=== PATIENT | female | born 1960 | race Caucasian/White ===

== ENCOUNTER 2023-05-11 07:26 | Day surgery (SDC) | payer OTHER ==
[2023-05-11] MEDS ORDERED: LACTATED RINGERS 1,000 ML IV ONE (11:47)
[2023-05-11 11:53] LABS: Glucose,Whole Blood 173 mg/dL (70-110)
[2023-05-11 12:02] VITALS: RESP 16; TEMP 98
[2023-05-11] MEDS ORDERED: ONDANSETRON 4 MG/2 ML VIAL ONE (12:08)
[2023-05-11] MEDS ORDERED: ONDANSETRON 4 MG/2 ML VIAL IVP ONE (12:10)
[2023-05-11] MEDS ORDERED: PROPOFOL 10 MG/ML 20 ML VIAL IV ONE (12:42)
[2023-05-11] MEDS ORDERED: LIDOCAINE 1% INJ 10MG/ML (20 ML MDV) ONE (12:42)
--- NOTE | 2023-05-11 12:54 | P.PCN ---
Date of Procedure: 05/11/23 Procedure(s) Performed: BRIEF HISTORY: Patient is a 62-year-old, pleasant, white female with history of liver cirrhosis was recently diagnosed with liver lesions on CT of abdomen and pelvis and subsequently had a liver biopsy revealed adenocarcinoma of unknown primary.. She is following with Dr. Louise. He scheduled for an upper endoscopy to evaluate for possible upper GI primary. Patient also has been complaining of intermittent nausea vomiting and epigastric discomfort. PROCEDURE PERFORMED: Esophagogastroduodenoscopy with biopsy. PREOPERATIVE DIAGNOSIS: Adenocarcinoma with liver , rule out occult GI primary. IV sedation per anesthesia. PROCEDURE: After informed consent was obtained, the patient was brought into the endoscopy unit. IV sedation was administered by Anesthesia under continuous monitoring. Initially the Olympus GIF-140 video endoscope was inserted into the mouth. Esophagus intubated without any difficulty. It was gradually advanced into the stomach and duodenum and carefully examined. The bulb and the second part of the duodenum appeared normal. The scope at this time was withdrawn to the stomach, adequately insufflated with air, and upon careful examination, mucosa of the antrum, body, had mild diffuse gastritis and biopsies were done from this area. Mucosa of the cardia and the fundus appeared normal. The scope was then withdrawn into the esophagus. The GE junction was located at 39 cm from the incisors. The esophagus appeared normal. There were small distal esophageal varices identified. There were no erosions or ulcerations seen and the patient tolerated the procedure well. IMPRESSION: 1. Diffuse gastritis. 2. Small esophageal varices 3. No evidence of upper GI malignancy. RECOMMENDATIONS: The findings of this examination were discussed with the patient as well as a family. All with the biopsy results. She was advised to follow with Dr. Louise as scheduled..
[2023-05-11 13:17] VITALS: PULSE 66
[2023-05-11 13:42] VITALS: BP 129/67
== END 2023-05-11 13:49 | disposition home or self-care (01) ==
LOC: ORWHC2ENDO 07:26
PROVIDERS: ATTEND Internal Medicine Gastroenterology
DX: K29.50 Unspecified chronic gastritis without bleeding (principal); K74.60 Unspecified cirrhosis of liver; I85.10 Secondary esophageal varices without bleeding; I10 Essential (primary) hypertension; E78.5 Hyperlipidemia, unspecified; E11.9 Type 2 diabetes mellitus without complications; F41.9 Anxiety disorder, unspecified; Z79.890 Hormone replacement therapy; Z79.84 Long term (current) use of oral hypoglycemic drugs; Z79.899 Other long term (current) drug therapy
CPT/HCPCS: 88305; 43239; J2405; J2001; J2704

== ENCOUNTER 2023-05-30 09:00 | Day surgery (SDC) | payer OTHER ==
[2023-05-25 10:43] VITALS: BMI 39.8
[~2023-05-30 09:00] MED LIST: HYDROmorphone 0.5 MG/0.5 ML SYRINGE IVP PRN; LIDOCAINE 1% (10MG/ML) FOR IV START INTRADERMA PRN; Pre Op ABX Message 1 EACH MISC MISCELLANE ONE
[2023-05-30 09:43] LABS: Glucose,Whole Blood 116 mg/dL (70-110)
[2023-05-30] MEDS: LACTATED RINGERS 1,000 ML IV SCH (09:45)
[2023-05-30 09:50] LABS: Anisocytosis Slight; Basophils % (A) 0 %; Eosinophils # (A) 0.2 k/uL (0-0.7); Eosinophils % (A) 2 %; HCT 44.2 % (34.0-46.0); HGB 14.2 gm/dL (11.4-16.0); Lymphocytes % (A) 13 %; MCH 27.4 pg (25.0-35.0); MCHC 32.2 g/dL (31.0-37.0); MCV 85.2 fL (80.0-100.0); Mean Platelet Volume 8.9; Monocytes # (A) 0.4 k/uL (0-1.0); Monocytes % (A) 5 %; Neutrophils # (A) 5.8 k/uL (1.3-7.7); Neutrophils % (A) 78 %; Platelet Count 182 k/uL (150-450); RBC 5.19 m/uL (3.80-5.40); RDW 16.6 % (11.5-15.5); WBC 7.4 k/uL (3.8-10.6)
[2023-05-30] MEDS: ACETAMINOPHEN TAB 500 MG TAB PO PRN (09:50)
[2023-05-30] MEDS: ONDANSETRON 4 MG/2 ML VIAL IVP ONE (09:50)
[2023-05-30] MEDS: HEPARIN SODIUM,PORCINE 5,000 UNIT/ML 1 ML VIAL SQ PRN (09:50)
[2023-05-30] MEDS: DEXAMETHASONE SOD PHOSPHATE 4 MG/ML 1 ML VIAL IVP ONE (09:50)
[2023-05-30 10:15] LABS: ALT 36 U/L (4-34); African American GFR (CKD) >90 (>60 ml/min/1.73 sqM); Albumin 4.2 g/dL (3.5-5.0); Anion Gap 7 mmol/L; Blood Urea Nitrogen 15 mg/dL (7-17); Calcium 9.4 mg/dL (8.4-10.2); Carbon Dioxide 32 mmol/L (22-30); Chloride 98 mmol/L (98-107); Glucose 125 mg/dL (74-99); Non-African American GFR(CKD) 89 (>60 ml/min/1.73 sqM); Sodium 137 mmol/L (137-145); Total Bilirubin 2.6 mg/dL (0.2-1.3); Total Protein 7.7 g/dL (6.3-8.2)
[2023-05-30 10:42] LABS: AST 66 U/L (14-36); Potassium 4.1 mmol/L (3.5-5.1)
[2023-05-30 10:43] LABS: Alkaline Phosphatase 172 U/L (38-126)
[2023-05-30] MEDS: FAMOTIDINE 20 MG/2 ML VIAL IVP ONE (10:45)
[2023-05-30] MEDS ORDERED: fentaNYL (PF) 50 MCG/ML 2 ML AMP ONE (11:53)
[2023-05-30] MEDS ORDERED: KETOROLAC 15 MG/ML 1 ML VIAL ONE (11:53)
[2023-05-30] MEDS ORDERED: MIDAZOLAM 2 MG/2 ML VIAL ONE (11:53)
[2023-05-30] MEDS ORDERED: PROPOFOL 10 MG/ML 20 ML VIAL IV ONE (11:53)
[2023-05-30] MEDS ORDERED: LIDOCAINE 1% INJ 10MG/ML (20 ML MDV) ONE (11:53)
[2023-05-30] MEDS ORDERED: SUCCINYLCHOLINE CHLORIDE 200 MG/10 ML VIAL IV ONE (11:53)
[2023-05-30] MEDS ORDERED: PHENYLEPHRINE-0.9% NACL SYG 1,000 MCG/10 ML SYRINGE ONE (11:53)
[2023-05-30] MEDS: SODIUM CHLORIDE 0.9% 50 ML with ceFAZolin 2,000 MG IV ONE (11:58)
[2023-05-30] MEDS: LIDOCAINE 0.5%-EPI 1:200,000 50 ML VIAL SQ ONE ×2 (12:26)
[2023-05-30] MEDS: LACTATED RINGERS 1,000 ML IV ONE (12:42)
--- NOTE | 2023-05-30 12:46 | P.OP ---
Date of Procedure: 05/30/23 Preoperative Diagnosis: Pancreatic cancer Postoperative Diagnosis: Pancreatic cancer Procedure(s) Performed: right subclavian Port-A-Cath Anesthesia: MAC Surgeon: Alan Valverde Estimated Blood Loss (ml): 5 Pathology: none sent Condition: stable Disposition: PACU Description of Procedure: The patient was placed on the operating table in the supine position. The patient received IV sedation. The patient's chest was prepped and draped in the usual sterile fashion. A roll had been placed between the shoulder blades in a longitudinal fashion. After prepping and draping the skin was anesthetized 1% local Xylocaine. And then using the Seldinger technique the subclavian vein was cannulated. A wire was placed into the vein and fluoroscopy position the wire at the atrial caval junction. Next the dilator sheath was placed over top the wire and the wire was withdrawn. The catheter was positioned at the atriocaval position. The catheter was placed through the sheath after the dilator was withdrawn. The sheath was then withdrawn. Position of the catheter was confirm ed with fluoroscopy. The Port-A-Cath was connected to the catheter. The Port-A-Cath was flushed with saline and then heparinized saline. The skin was closed interrupted 3-0 Monocryl suture. Dermabond was applied. Patient tolerated procedure well and was sent to recovery room stable condition.
--- NOTE | 2023-05-30 13:02 | FL ---
EXAMINATION TYPE: FL guidance operating room Intraoperative/procedural fluoroscopic services were pro vided. Total fluoroscopy time is 6 seconds with a total of 1 submitted images to PACS. Please see the operative/procedural note for further details. DAP: 0.4943 Gycm2
[2023-05-30 13:11] LABS: Glucose,Whole Blood 183 mg/dL (70-110)
[2023-05-30 13:34] VITALS: TEMP 97.2
[2023-05-30 14:05] VITALS: RESP 18
--- NOTE | 2023-05-30 14:17 | XR ---
EXAMINATION TYPE: XR chest 1V portable DATE OF EXAM: 05/30/2023 1:20 PM CLINICAL INDICATION:Female, 62 years old with history of Right subclavian Port-A-Cath; [facility] COMPARISON: None TECHNIQUE: XR chest 1V portable Frontal view of the chest. FINDINGS: Lungs/Pleura: There is no evidence of pleural effusion, focal consolidation, or pneumothorax. Pulmonary vascularity: Unremarkable. Heart/mediastinum: Cardiomediastinal silhouette is unremarkable. Musculoskeletal: No acute osseous pathology. Other findings: None Lines/Tubes: [id number] projecting over the right hemithorax with distal tip at the superior vena cava. IMPRESSION: No acute cardiopulmonary disease/process.
[2023-05-30 14:35] VITALS: BP 95/51; PULSE 78
== END 2023-05-30 14:43 | disposition home or self-care (01) ==
LOC: OR 09:00
PROVIDERS: ATTEND Surgery
DX: C25.9 Malignant neoplasm of pancreas, unspecified (principal); I10 Essential (primary) hypertension; E78.5 Hyperlipidemia, unspecified; E11.9 Type 2 diabetes mellitus without complications; E07.9 Disorder of thyroid, unspecified; G43.909 Migraine, unspecified, not intractable, without status migrainosus; K21.9 Gastro-esophageal reflux disease without esophagitis; Z79.890 Hormone replacement therapy; Z79.84 Long term (current) use of oral hypoglycemic drugs; Z79.899 Other long term (current) drug therapy; Z79.4 Long term (current) use of insulin
CPT/HCPCS: 80053; 85025; 71045; 36561; C1788; J2250; J0330; J1644; J1100; J2405; J0690; J2001; J3010; J3490; J1885; J2704; J2371

== ENCOUNTER 2023-06-13 14:26 | Inpatient (IN) | payer OTHER ==
--- NOTE | 2023-06-13 14:44 | ED ---
General Adult HPI - General Chief complaint: Nausea/Vomiting/Diarrhea Stated complaint: Nausea,Vomiting Time Seen by Provider: 06/13/23 14:30 Source: patient, EMS, RN notes reviewed Mode of arrival: EMS Limitations: no limitations - History of Present Illness Initial comments: Patient is a pleasant 62-year-old female present to the emergency department worried about dehydration. Patient does have history of stage IV pancreatic cancer with chemotherapy just 4 days ago. Since that time patient has had some nausea and vomiting. Decreased oral intake. Patient has abdominal discomfort that has been chronic since diagnosis several months ago. No new abdominal pain. No fever. Patient also has history of cirrhosis. - Related Data Home Medications Medication Instructions Recorded Confirmed Aspirin EC [Ecotrin Low Dose] 81 mg PO DAILY 05/11/23 06/13/23 Atorvastatin [Lipitor] 40 mg PO HS 05/11/23 06/13/23 Ergocalciferol [Vitamin D2 (1250 1,250 mcg PO FR 05/11/23 06/13/23 Mcg = 31988 Iu)] Gabapentin 600 mg PO TID 05/11/23 06/13/23 Levothyroxine Sodium [Synthroid] 50 mcg PO DAILY 05/11/23 06/13/23 Metoprolol Tartrate [Lopressor] 100 mg PO BID 05/11/23 06/13/23 Pantoprazole [Protonix] 40 mg PO DAILY 05/11/23 06/13/23 Triamterene/Hydrochlorothiazid 1 cap PO DAILY 05/11/23 06/13/23 [Triamterene-Hctz 37.5-25 mg Cp] metFORMIN HCL 1,000 mg PO BID 05/11/23 06/13/23 oxyCODONE HCL [Oxycodone HCl] 10 mg PO QID 05/25/23 06/13/23 Insulin Aspart [NovoLOG Flexpen] 18 units SQ TID-W/MEALS 06/13/23 06/13/23 Insulin Glargine,Hum.rec.anlog 55 units SQ HS 06/13/23 06/13/23 [Lantus Solostar Pen] Megestrol [Megace] 400 mg PO BID 06/13/23 06/13/23 Ondansetron Odt [Zofran Odt] 4 mg PO Q8HR PRN 06/13/23 06/13/23 rOPINIRole HCL [Requip] 2 mg PO DAILY 06/13/23 06/13/23 Allergies Allergy/AdvReac Type Severity Reaction Status Date / Time No Known Allergies Allergy Verified 06/13/23 16:06 Review of Systems ROS Statement: Those systems with pertinent positive or pertinent negative responses have been documented in the HPI. ROS Other: All systems not noted in ROS Statement are negative. Constitutional: Denies: fever ENT: Denies: throat pain Gastrointestinal: Reports: as per HPI, abdominal pain, nausea, vomiting Musculoskeletal: Denies: back pain Past Medical History Past Medical History: Cancer, Diabetes Mellitus, GERD/Reflux, Hyperlipidemia, Hypertension, Liver Disease, Thyroid Disorder Additional Past Medical History / Comment(s): Hx chest pain 2019, had heart cath - neg, determined it was from anxiety. Cirrohsis of the liver. Migraines. Current pancreatic cancer. History of Any Multi-Drug Resistant Organisms: MRSA Date of last positivie culture/infection: 2017 MDRO Source:: "Blood infection" Past Surgical History: Heart Catheterization, Orthopedic Surgery Additional Past Surgical History / Comment(s): Broke right leg - has francesco, plate and screws, screw in left baby toe, ganglion cyst removed from foot, bilateral cataract surgery. Past Anesthesia/Blood Transfusion Reactions: Motion Sickness, Postoperative Nausea & Vomiting (PONV) Past Psychological History: No Psychological Hx Reported Smoking Status: Never smoker Past Alcohol Use History: Rare Past Drug Use History: None Reported - Past Family History Mother Family Medical History: Cancer Additional Family Medical History / Comment(s): Colon cancer. Father Family Medical History: Cancer Additional Family Medical History / Comment(s): Colon cancer. General Exam Limitations: no limitations General appearance: alert, in no apparent distress Head exam: Present: normocephalic Eye exam: Present: normal appearance Neck exam: Present: normal inspection Respiratory exam: Present: normal lung sounds bilaterally Cardiovascular Exam: Present: regular rate, normal rhythm GI/Abdominal exam: Present: soft, tenderness (Moderate diffuse tenderness). Absent: distended Extremities exam: Present: normal inspection Neurological exam: Present: alert Psychiatric exam: Present: normal affect, normal mood Skin exam: Present: normal color Course Vital Signs 06/13/23 14:28 Temperature 99.4 F Pulse Rate 84 Respiratory 18 Rate Blood Pressure 127/71 O2 Sat by Pulse 95 Oximetry Medical Decision Making - Medical Decision Making Was pt. sent in by a medical professional or institution (GIANLUCA Reed, [employer]CH[employer]IC, urgent care, hospital, or [facility]...) When possible be specific @ -No Did you speak to anyone other than the patient for history (EMS, parent, family, police, friend...)? What history was obtained from this source @ -No Did you review nursing and triage notes (agree or disagree)? Why? @ -I reviewed and agree with nursing and triage notes Were old charts reviewed (outside hosp., previous admission, EMS record, old EKG, old radiological studies, urgent care reports/EKG's, [facility] records)? Report findings @ -Previous procedures reviewed. Previous labs reviewed. Differential Diagnosis (chest pain, altered mental status, abdominal pain women, abdominal pain men, vaginal bleeding, weakness, fever, dyspnea, syncope, headache, dizziness, GI bleed, back pain, seizure, CVA, palpatations, mental health, musculoskeletal)? @ -Differential Abdominal Pain Women: Appendicitis, Cholecystitis, diverticulosis, ischemic bowel, pancreatitis, hepatitis, UTI, gastroenteritis, AAA, incarcerated hernia, bowel obstruction, constipation, inflammatory bowel, hepatitis, peptic ulcer disease, splenic infarction, perforated viscus, vulvitis, ovarian torsion, PID, kidney stone, placenta abruption, this is not meant to be an all-inclusive list EKG interpreted by me (3pts min.). @ -As above X-rays interpreted by me (1pt min.). @ -None done CT interpreted by me (1pt min.). @ -None done U/S interpreted by me (1pt. min.). @ -None done What testing was considered but not performed or refused? (CT, X-rays, U/S, labs)? Why? @ -Considered imaging however patient states pain is chronic and unchanged What meds were considered but not given or refused? Why? @ -None Did you discuss the management of the patient with other professionals (professionals i.e. GIANLUCA Reed, TRESTLE MECHANIC, lab, RT, psych nurse, social media marketer, mobile nurse, teacher, medical corps officer, nurse case manager)? Give summary @ -Case was discussed with practitioner Pippa massey with Dr. Miller who will admit covering Dr. Garcia Was smoking cessation discussed for >3mins.? @ -No Was critical care preformed (if so, how long)? @ -No Were there social determinants of health that impacted care today? How? (Homelessness, low income, unemployed, alcoholism, drug addiction, transportation, low edu. Level, literacy, decrease access to med. care, nursing home, rehab)? @ -No Was there de-escalation of care discussed even if they declined (Discuss DNR or withdrawal of care, Hospice)? DNR status @ -No What co-morbidities impacted this encounter? (DM, HTN, Smoking, COPD, CAD, Cancer, CVA, ARF, Chemo, Hep., AIDS, mental health diagnosis, sleep apnea, morbid obesity)? @ -Underlying stage IV pancreatic cancer Was patient admitted / discharged? Hospital course, mention meds given and route, prescriptions, significant lab abnormalities, going to OR and other pertinent info. @ -Patient reevaluated and feels somewhat better. Patient still has nausea and discomfort and is not comfortable with discharge home. Patient will be admitted with oncology consult. Admission orders written. Undiagnosed new problem with uncertain prognosis? @ -No Drug Therapy requiring intensive monitoring for toxicity (Heparin, Nitro, Insulin, Cardizem)? @ -No Were any procedures done? @ -No Diagnosis/symptom? @ -Vomiting Acute, or Chronic, or Acute on Chronic? @ -Acute Uncomplicated (without systemic symptoms) or Complicated (systemic symptoms)? @ -Default Side effects of treatment? @ -No Exacerbation, Progression, or Severe Exacerbation? @ -No Poses a threat to life or bodily function? How? (Chest pain, [place], HI, pneumonia, PE, COPD, DKA, ARF, appy, cholecystitis, CVA, Diverticulitis, Homicidal, Suicidal, threat to staff... and all critical care pts) @ -No - Lab Data Result diagrams: 06/13/23 15:10 06/13/23 15:38 Lab Results 06/13/23 06/13/23 06/13/23 Range/Units 15:10 15:10 15:38 WBC 1.5 L (3.8-10.6) k/uL RBC 4.01 (3.80-5.40) m/uL Hgb 11.6 (11.4-16.0) gm/dL Hct 34.6 (34.0-46.0) % MCV 86.2 (80.0-100.0) fL MCH 28.9 (25.0-35.0) pg MCHC 33.5 (31.0-37.0) g/dL RDW 16.6 H (11.5-15.5) % Plt Count 90 L D (150-450) k/uL MPV 13.5 Neutrophils % 88 % Lymphocytes % 8 % Monocytes % 2 % Eosinophils % 1 % Basophils % 0 % Neutrophils # 1.4 (1.3-7.7) k/uL Lymphocytes # 0.1 L (1.0-4.8) k/uL Monocytes # 0.0 (0-1.0) k/uL Eosinophils # 0.0 (0-0.7) k/uL Basophils # 0.0 (0-0.2) k/uL Manual Slide Review Performed Large Platelets Present Polychromasia Present Anisocytosis Slight PT 11.4 (10.0-12.5) sec INR 1.0 (<1.2) APTT 26.8 (22.0-30.0) sec Sodium 136 L (137-145) mmol/L Potassium 4.0 (3.5-5.1) mmol/L Chloride 103 (98-107) mmol/L Carbon Dioxide 31 H (22-30) mmol/L Anion Gap 2 mmol/L BUN 22 H (7-17) mg/dL Creatinine 0.53 (0.52-1.04) mg/dL Est GFR (CKD-EPI)AfAm >90 (>60 ml/min/1.73 sqM) Est GFR (CKD-EPI)NonAf >90 (>60 ml/min/1.73 sqM) Glucose 240 H (74-99) mg/dL Calcium 8.0 L (8.4-10.2) mg/dL Total Bilirubin 4.0 H (0.2-1.3) mg/dL AST 117 H (14-36) U/L ALT 118 H (4-34) U/L Alkaline Phosphatase 199 H (38-126) U/L Total Protein 5.6 L (6.3-8.2) g/dL Albumin 2.7 L (3.5-5.0) g/dL Amylase <30 L (30-110) U/L Lipase 51 (23-300) U/L Disposition Clinical Impression: Vomiting Disposition: ADMITTED IP TO THIS HOSP Is patient prescribed a controlled substance at d/c from ED?: No Referrals: Parth Merritt MD [Primary Care Provider] - 1-2 days Time of Disposition: 16:57
[2023-06-13] MEDS: HYDROmorphone 1 MG/ML 1 ML SYRINGE IVP STA (14:58)
[2023-06-13] MEDS: FAMOTIDINE 20 MG/2 ML VIAL IV STA (14:58)
[2023-06-13] MEDS: ONDANSETRON 4 MG/2 ML VIAL IVP STA (14:58)
[2023-06-13] MEDS: SODIUM CHLORIDE 0.9% 1,000 ML IV STA (14:59)
[2023-06-13 15:22] LABS: Anisocytosis Slight; Basophils % (A) 0 %; Eosinophils % (A) 1 %; HCT 34.6 % (34.0-46.0); HGB 11.6 gm/dL (11.4-16.0); Lymphocytes # (A) 0.1 k/uL (1.0-4.8); Lymphocytes % (A) 8 %; MCH 28.9 pg (25.0-35.0); MCHC 33.5 g/dL (31.0-37.0); MCV 86.2 fL (80.0-100.0); Mean Platelet Volume 13.5; Monocytes % (A) 2 %; Neutrophils # (A) 1.4 k/uL (1.3-7.7); Neutrophils % (A) 88 %; RBC 4.01 m/uL (3.80-5.40); RDW 16.6 % (11.5-15.5); WBC 1.5 k/uL (3.8-10.6)
[2023-06-13 15:46] LABS: Partial Thromboplastin Time 26.8 sec (22.0-30.0); Prothrombin Time 11.4 sec (10.0-12.5)
[2023-06-13 15:58] LABS: Large Platelets Present; Platelet Count 90 k/uL (150-450)
[2023-06-13 15:59] LABS: Polychromasia Present
[2023-06-13 16:17] LABS: ALT 118 U/L (4-34); AST 117 U/L (14-36); African American GFR (CKD) >90 (>60 ml/min/1.73 sqM); Albumin 2.7 g/dL (3.5-5.0); Alkaline Phosphatase 199 U/L (38-126); Amylase <30 U/L (30-110); Anion Gap 2 mmol/L; Blood Urea Nitrogen 22 mg/dL (7-17); Carbon Dioxide 31 mmol/L (22-30); Chloride 103 mmol/L (98-107); Glucose 240 mg/dL (74-99); Lipase 51 U/L (23-300); Non-African American GFR(CKD) >90 (>60 ml/min/1.73 sqM); Sodium 136 mmol/L (137-145); Total Protein 5.6 g/dL (6.3-8.2)
[2023-06-13] MEDS ORDERED: NALOXONE 0.4 MG/ML 1 ML VIAL IV PRN (16:57)
[2023-06-13] MEDS: SODIUM CHLORIDE 0.9% 1,000 ML IV SCH (17:58)
[2023-06-13 19:02] LABS: Appearance,Urine Clear (Clear); Bilirubin,Urine 1+ (Negative); Blood,Urine Small (Negative); Color,Urine Yellow; Glucose,Urine (UA) Trace (Negative); Ketones,Urine 1+ (Negative); Leukocyte Esterase,Urine Small (Negative); Mucus,Urine Few /hpf; Nitrite,Urine Negative (Negative); Protein,Urine 1+ (Negative); RBC,Urine 4 /hpf (0-5); Specific Gravity,Urine 1.021 (1.001-1.035); Squamous Epithelial Cell,Urine 2 /hpf (0-4); WBC,Urine 7 /hpf (0-5)
[2023-06-13] MEDS: HYDROmorphone 1 MG/ML 1 ML SYRINGE IVP PRN (19:28)
[2023-06-13 20:56] LABS: Glucose,Whole Blood 228 mg/dL (70-110)
[2023-06-13] MEDS ORDERED: DEXTROSE 50% SYRINGE 50 ML IVP PRN (21:17)
[2023-06-13] MEDS: ATORVASTATIN 40 MG TAB PO SCH (21:43)
[2023-06-13] MEDS: MEGESTROL 400 MG/10 ML CUP PO SCH (21:43)
[2023-06-13] MEDS: metFORMIN 500 MG TAB PO SCH (21:44)
[2023-06-13] MEDS: GABAPENTIN 300 MG CAP PO SCH (21:44)
[2023-06-13] MEDS: INSULIN DETEMIR (LEVEMIR) 100 UNIT/ML SYR SQ SCH (21:50)
[2023-06-14 06:28] LABS: Glucose,Whole Blood 83 mg/dL (70-110)
[2023-06-14] MEDS: LEVOTHYROXINE 50 MCG TAB PO SCH (06:28)
[2023-06-14] MEDS: ONDANSETRON 4 MG/2 ML VIAL IVP PRN (06:33)
[2023-06-14] MEDS ORDERED: INSULIN ASPART (NovoLOG) 100 UNIT/ML VIAL SQ SCH (07:30)
[2023-06-14] MEDS: INSULIN ASPART (NovoLOG) 100 UNIT/ML VIAL SQ SCH (07:54)
[2023-06-14] MEDS: ASPIRIN 81 MG PO SCH (08:14)
[2023-06-14] MEDS: PANTOPRAZOLE 40 MG/10 ML VIAL IV SCH (08:17)
[2023-06-14 11:31] LABS: Amylase 15 U/L (23-121); Lipase 16 U/L (14-63); Magnesium 1.7 mg/dL (1.5-2.4)
[2023-06-14 11:33] LABS: ALT 95 U/L (8-44); AST 84 U/L (13-35); Albumin/Globulin Ratio 1.15 Ratio (1.60-3.17); Alkaline Phosphatase 195 U/L (41-126); Blood Urea Nitrogen 18.9 mg/dL (9.0-27.0); Calcium 8.3 mg/dL (8.7-10.3); Chloride 102 mmol/L (96-109); Globulin 2.6 g/dL (1.6-3.3); Glucose 74 mg/dL (70-110); Potassium 3.9 mmol/L (3.5-5.5); Sodium 140 mmol/L (135-145); Total Bilirubin 2.6 mg/dL (0.3-1.2); Total Protein 5.6 g/dL (6.2-8.2)
[2023-06-14 12:21] LABS: Basophils # (M) 0 X 10*3/uL (0.00-0.10); Eosinophils # (M) 0.05 X 10*3/uL (0.04-0.35); HCT 33.5 % (37.2-46.3); HGB 10.3 g/dL (12.0-15.0); Lymphocytes # (M) 0.24 X 10*3/uL (0.90-5.00); MCHC 30.7 g/dL (32.0-37.0); MCV 87.9 FL (80.0-97.0); Mean Platelet Volume 11.3 FL (9.5-12.2); Metamyelocytes % 2 % (0-0); Monocytes # (M) 0 X 10*3/uL (0.20-1.00); Myelocytes % 1 % (0-0); NRBC Per 100 WBC 0 X 10*3/uL (0.00-0.01); Neutrophils % (M) 75 %; Platelet Count 84 X 10*3/uL (140-440); RBC 3.81 X 10*6/uL (4.10-5.20); RBC Morphology Normal (Normal); RDW 17.6 % (11.5-14.5); WBC 1.33 X 10*3/uL (4.50-10.00)
[2023-06-14 12:48] LABS: Glucose,Whole Blood 56 mg/dL (70-110)
[2023-06-14] MEDS: DEXTROSE 50% SYRINGE 50 ML IVP PRN (12:49)
[2023-06-14 13:14] LABS: Glucose,Whole Blood 114 mg/dL (70-110)
[2023-06-14] MEDS ORDERED: Magnesium Replacement Protocol 1 EACH MISC MISCELLANE PRN (14:01)
--- NOTE | 2023-06-14 14:02 | P.HPIM ---
History of Present Illness H&P Date: 06/14/23 Patient is a 62 year old female with medical history of diabetes mellitus, GERD, hypertension, hyperlipidemia, hypothyroidism, liver cirrhosis, migraines, diagnosed with pancreatic cancer stage 4 and underwent first round of chemotherapy 4 days ago. Since then patient has been having nausea, vomiting, diarrhea, and unable to tolerate oral intake. Patient follows with oncology out of [place]. On admission WBC 1.5, platelet of 90, sodium 136, BUN 22, creatinine 0.53, calcium 8.0, total bilirubin 4.0, AST/ALT and alk phos are elevated. Urinalysis abnormal and not suggestive of infection. Patient was admitted to the hospital under internal medicine with consult placed to oncology. Patient was given a fluid bolus and started on maintenance IV fluids, and zofran. C.Dif will be checked. REVIEW OF SYSTEMS: CONSTITUTIONAL: No fever, no malaise, no fatigue. HEENT: No recent visual problems or hearing problems. Denied any sore throat. CARDIOVASCULAR: No chest pain, orthopnea, PND, no palpitations, no syncope. PULMONARY: No shortness of breath, no cough, no hemoptysis. GASTROINTESTINAL: No diarrhea, no nausea, no vomiting, no abdominal pain. NEUROLOGICAL: No headaches, no weakness, no numbness. HEMATOLOGICAL: Denies any bleeding or petechiae. GENITOURINARY: Denies any burning micturition, frequency, or urgency. MUSCULOSKELETAL/RHEUMATOLOGICAL: Denies any joint pain, swelling, or any muscle pain. ENDOCRINE: Denies any polyuria or polydipsia. The rest of the 14-point review of systems is negative. PHYSICAL EXAMINATION: GENERAL: The patient is alert and oriented x3, not in any acute distress. Well developed, well nourished. HEENT: Pupils are round and equally reacting to light. EOMI. No scleral icterus. No conjunctival pallor. Normocephalic, atraumatic. No pharyngeal erythema. No thyromegaly. CARDIOVASCULAR: S1 and S2 present. No murmurs, rubs, or gallops. PULMONARY: Chest is clear to auscultation, no wheezing or crackles. ABDOMEN: Soft, nontender, nondistended, normoactive bowel sounds. No palpable organomegaly. MUSCULOSKELETAL: No joint swelling or deformity. EXTREMITIES: No cyanosis, clubbing, or pedal edema. NEUROLOGICAL: Gross neurological examination did not reveal any focal deficits. SKIN: No rashes. Assessment and Plan Nausea vomiting diarrhea suspect secondary to recent chemotherapy for stage IV pancreatic cancer. Pancytopenia secondary to chemotherapy Transaminitis chronic and stable bilirubin improved from recent outpatient labs patient has history of liver cirrhosis He is mellitus type II Gastroesophageal reflux disease Hypertension Hyperlipidemia GI prophylaxis DVT prophylaxis Full code Continue on IV fluids Continue antiemetics Continue supportive care PT/OT consultation in place Repeat labs in the AM Check C.Dif level The impression and plan of care has been dictated by Pippa Marino, Nurse Practitioner as directed. Dr. Hao MD I have performed a history and physical examination and medical decision making of this patient, discussed the same with the dictator, and agree with the dictators assessment and plan as written, documented as a scribe. Based on total visit time, I have performed more than 50% of this visit. Past Medical History Past Medical History: Cancer, Diabetes Mellitus, GERD/Reflux, Hyperlipidemia, Hypertension, Liver Disease, Thyroid Disorder Additional Past Medical History / Comment(s): Hx chest pain 2019, had heart cath - neg, determined it was from anxiety. Cirrohsis of the liver. Migraines. Current pancreatic cancer. History of Any Multi-Drug Resistant Organisms: MRSA Date of last positivie culture/infection: 2017 MDRO Source:: "Blood infection" Past Surgical History: Heart Catheterization, Orthopedic Surgery Additional Past Surgical History / Comment(s): Broke right leg - has francesco, plate and screws, screw in left baby toe, ganglion cyst removed from foot, bilateral cataract surgery. Past Anesthesia/Blood Transfusion Reactions: Motion Sickness, Postoperative Nausea & Vomiting (PONV) Past Psychological History: No Psychological Hx Reported Smoking Status: Never smoker Past Alcohol Use History: Rare Past Drug Use History: None Reported - Past Family History Mother Family Medical History: Cancer Additional Family Medical History / Comment(s): Colon cancer. Father Family Medical History: Cancer Additional Family Medical History / Comment(s): Colon cancer. Medications and Allergies Home Medications Medication Instructions Recorded Confirmed Type Aspirin EC [Ecotrin Low Dose] 81 mg PO DAILY 05/11/23 06/13/23 History Atorvastatin [Lipitor] 40 mg PO HS 05/11/23 06/13/23 History Ergocalciferol [Vitamin D2 (1250 1,250 mcg PO FR 05/11/23 06/13/23 History Mcg = 10815 Iu)] Gabapentin 600 mg PO TID 05/11/23 06/13/23 History Levothyroxine Sodium [Synthroid] 50 mcg PO DAILY 05/11/23 06/13/23 History Metoprolol Tartrate [Lopressor] 100 mg PO BID 05/11/23 06/13/23 History Pantoprazole [Protonix] 40 mg PO DAILY 05/11/23 06/13/23 History Triamterene/Hydrochlorothiazid 1 cap PO DAILY 05/11/23 06/13/23 History [Triamterene-Hctz 37.5-25 mg Cp] metFORMIN HCL 1,000 mg PO BID 05/11/23 06/13/23 History oxyCODONE HCL [Oxycodone HCl] 10 mg PO QID 05/25/23 06/13/23 History Insulin Aspart [NovoLOG Flexpen] 18 units SQ TID-W/MEALS 06/13/23 06/13/23 History Insulin Glargine,Hum.rec.anlog 55 units SQ HS 06/13/23 06/13/23 History [Lantus Solostar Pen] Megestrol [Megace] 400 mg PO BID 06/13/23 06/13/23 History Ondansetron Odt [Zofran Odt] 4 mg PO Q8HR PRN 06/13/23 06/13/23 History rOPINIRole HCL [Requip] 2 mg PO HS 06/13/23 06/13/23 History Allergies Allergy/AdvReac Type Severity Reaction Status Date / Time No Known Allergies Allergy Verified 06/13/23 16:06 Physical Exam Vitals: Vital Signs Temp Pulse Resp BP Pulse Ox 06/14/23 12:56 96 06/14/23 12:53 93 16 94/56 91 L 06/14/23 08:12 99.1 F 97 20 104/72 96 06/14/23 06:21 85 18 105/75 95 06/14/23 03:00 83 17 108/69 95 06/14/23 02:00 86 17 110/75 95 06/14/23 01:00 85 17 117/78 95 06/13/23 23:33 82 18 90/67 96 06/13/23 22:00 90 18 103/71 95 06/13/23 21:00 91 17 140/76 96 06/13/23 20:00 88 18 96/65 96 06/13/23 19:23 94 18 101/62 94 L 06/13/23 18:11 98.4 F 94 18 121/93 94 L 06/13/23 17:07 95 18 130/77 93 L 06/13/23 14:28 99.4 F 84 18 127/71 95 Results CBC & Chem 7: 06/14/23 06:39 06/14/23 06:39 Labs: Abnormal Lab Results - Last 24 Hours (Table) 06/13/23 06/13/23 06/13/23 Range/Units 15:10 15:38 18:50 WBC 1.5 L (3.8-10.6) k/uL RBC (4.10-5.20) X 10*6/uL Hgb (12.0-15.0) g/dL Hct (37.2-46.3) % MCHC (32.0-37.0) g/dL RDW 16.6 H (11.5-15.5) % Plt Count 90 L D (150-450) k/uL Lymphocytes # 0.1 L (1.0-4.8) k/uL Lymphocytes # (Manual) (0.90-5.00) X 10*3/uL Monocytes # (Manual) (0.20-1.00) X 10*3/uL Sodium 136 L (137-145) mmol/L Carbon Dioxide 31 H (22-30) mmol/L BUN 22 H (7-17) mg/dL BUN/Creatinine Ratio (12.00-20.00) Ratio Glucose 240 H (74-99) mg/dL POC Glucose (mg/dL) (70-110) mg/dL Hemoglobin A1c (<=6.0) % Calcium 8.0 L (8.4-10.2) mg/dL Total Bilirubin 4.0 H (0.2-1.3) mg/dL AST 117 H (14-36) U/L ALT 118 H (4-34) U/L Alkaline Phosphatase 199 H (38-126) U/L Total Protein 5.6 L (6.3-8.2) g/dL Albumin 2.7 L (3.5-5.0) g/dL Albumin/Globulin Ratio (1.60-3.17) Ratio Amylase <30 L (30-110) U/L Urine Protein 1+ H (Negative) Urine Glucose (UA) Trace H (Negative) Urine Ketones 1+ H (Negative) Urine Blood Small H (Negative) Urine Bilirubin 1+ H (Negative) Ur Leukocyte Esterase Small H (Negative) Urine WBC 7 H (0-5) /hpf Urine Mucus Few H (None) /hpf 06/13/23 06/14/23 06/14/23 Range/Units 20:55 06:39 06:39 WBC 1.33 A* (3.8-10.6) k/uL RBC 3.81 L (4.10-5.20) X 10*6/uL Hgb 10.3 L (12.0-15.0) g/dL Hct 33.5 L (37.2-46.3) % MCHC 30.7 L (32.0-37.0) g/dL RDW 17.6 H (11.5-15.5) % Plt Count 84 L (150-450) k/uL Lymphocytes # (1.0-4.8) k/uL Lymphocytes # (Manual) 0.24 L (0.90-5.00) X 10*3/uL Monocytes # (Manual) 0 L (0.20-1.00) X 10*3/uL Sodium (137-145) mmol/L Carbon Dioxide (22-30) mmol/L BUN (7-17) mg/dL BUN/Creatinine Ratio 31.50 H (12.00-20.00) Ratio Glucose (74-99) mg/dL POC Glucose (mg/dL) 228 H (70-110) mg/dL Hemoglobin A1c (<=6.0) % Calcium 8.3 L (8.4-10.2) mg/dL Total Bilirubin 2.6 H (0.2-1.3) mg/dL AST 84 H (14-36) U/L ALT 95 H (4-34) U/L Alkaline Phosphatase 195 H (38-126) U/L Total Protein 5.6 L (6.3-8.2) g/dL Albumin 3.0 L (3.5-5.0) g/dL Albumin/Globulin Ratio 1.15 L (1.60-3.17) Ratio Amylase 15 L (30-110) U/L Urine Protein (Negative) Urine Glucose (UA) (Negative) Urine Ketones (Negative) Urine Blood (Negative) Urine Bilirubin (Negative) Ur Leukocyte Esterase (Negative) Urine WBC (0-5) /hpf Urine Mucus (None) /hpf 06/14/23 06/14/23 06/14/23 Range/Units 06:39 12:44 13:13 WBC (3.8-10.6) k/uL RBC (4.10-5.20) X 10*6/uL Hgb (12.0-15.0) g/dL Hct (37.2-46.3) % MCHC (32.0-37.0) g/dL RDW (11.5-15.5) % Plt Count (150-450) k/uL Lymphocytes # (1.0-4.8) k/uL Lymphocytes # (Manual) (0.90-5.00) X 10*3/uL Monocytes # (Manual) (0.20-1.00) X 10*3/uL Sodium (137-145) mmol/L Carbon Dioxide (22-30) mmol/L BUN (7-17) mg/dL BUN/Creatinine Ratio (12.00-20.00) Ratio Glucose (74-99) mg/dL POC Glucose (mg/dL) 56 L 114 H (70-110) mg/dL Hemoglobin A1c 9.2 H (<=6.0) % Calcium (8.4-10.2) mg/dL Total Bilirubin (0.2-1.3) mg/dL AST (14-36) U/L ALT (4-34) U/L Alkaline Phosphatase (38-126) U/L Total Protein (6.3-8.2) g/dL Albumin (3.5-5.0) g/dL Albumin/Globulin Ratio (1.60-3.17) Ratio Amylase (30-110) U/L Urine Protein (Negative) Urine Glucose (UA) (Negative) Urine Ketones (Negative) Urine Blood (Negative) Urine Bilirubin (Negative) Ur Leukocyte Esterase (Negative) Urine WBC (0-5) /hpf Urine Mucus (None) /hpf Assessment and Plan Time with Patient: Less than 30
[2023-06-14] MEDS: MAGNESIUM SULFATE-D5W PMX 1 GM in DEXTROSE/WATER 1 100ML.BAG IVPB ONE (14:59)
[2023-06-14 15:09] LABS: Glucose,Whole Blood 62 mg/dL (70-110)
[2023-06-14 15:50] LABS: Glucose,Whole Blood 125 mg/dL (70-110)
[2023-06-14 17:16] LABS: Glucose,Whole Blood 67 mg/dL (70-110)
[2023-06-14 17:35] LABS: Glucose,Whole Blood 65 mg/dL (70-110)
[2023-06-14 17:59] LABS: Glucose,Whole Blood 64 mg/dL (70-110)
[2023-06-14 18:23] LABS: Glucose,Whole Blood 94 mg/dL (70-110)
--- NOTE | 2023-06-14 19:46 | P.CONS ---
History of Present Illness - Reason for Consult Consult date: 06/14/23 pancreatic cancer Requesting physician: Isaac Velasco - Chief Complaint n/v/d - History of Present Illness Patient is a 62 yr old female with a significant history of metastatic pancreatic cancer. She is a patient of Dr. Louise. She initially presented with RUQ pain around November/2022. She had cholecystectomy at [place] in February/2023. Her pain persisted, and had CT scan of abdomen/pelvis on 04/15/2023 which showed at least 3 new haptic lesions up to 1.6 cm compared to prior CT scan done in November/2022,evidence of liver cirrhosis and splenomegaly. CT angiogram of chest on 04/15/2023 was negative for PE, no evidence of mets. On 04/19/2023,CT guided liver biopsy was positive for adenocarcinoma, IHC were non specific, DDx was HCC vs pancreaticobiliary vs upper GI. She had an EGD on 05/11/2023 which showed no suspicious finding. On 05/13/2023, MRCP showed a 2.1 cm mass uncinate process of pancreas,encasing SMA,enlarged regional nodes and liver mets,evidence of liver cirrhosis. Based on clinical and radiographic pictures, findings consistent with metastatic pancreatic cancer. After discussion with patient it was decided to start patient on gemzar and abraxane. She completed cycle 1 on 06/09/23. Patient presented to the emergency room with complaints of nausea, vomiting, diarrhea and decreased oral intake s/p treatment. Patient also reports abdominal cramping. Patient has had recent sick contact and is complaining of runny nose, cough and sore throat over the last couple days. Denies fever and chills. CBC revealed WBC 1.5, ANC 1400, hemoglobin 11.6, platelets 90,000. Creatinine 0.53, GFR greater than 90. Bilirubin 4.0, previously at 2.1 on 06/09. Amylase and lipase normal. Transaminitis noted, but are similar to labs from 06/09 prior to infusion. Patient is afebrile. At today's visit patient is reporting improvement in n/v, but persisting diarrhea. Tolerating fluids and popsicles. Review of Systems 10 point ROS is negative except as stated in the HPI Past Medical History Past Medical History: Cancer, Diabetes Mellitus, GERD/Reflux, Hyperlipidemia, Hypertension, Liver Disease, Thyroid Disorder Additional Past Medical History / Comment(s): Hx chest pain 2019, had heart cath - neg, determined it was from anxiety. Cirrohsis of the liver. Migraines. Current pancreatic cancer. History of Any Multi-Drug Resistant Organisms: MRSA Year Discovered:: 2018 MDRO Source:: "Blood infection" Past Surgical History: Heart Catheterization, Orthopedic Surgery Additional Past Surgical History / Comment(s): Broke right leg - has francesco, plate and screws, screw in left baby toe, ganglion cyst removed from foot, bilateral cataract surgery. Past Anesthesia/Blood Transfusion Reactions: Motion Sickness, Postoperative Nausea & Vomiting (PONV) Past Psychological History: No Psychological Hx Reported Smoking Status: Never smoker Past Alcohol Use History: Rare Past Drug Use History: None Reported - Past Family History Mother Family Medical History: Cancer Additional Family Medical History / Comment(s): Colon cancer. Father Family Medical History: Cancer Additional Family Medical History / Comment(s): Colon cancer. Medications and Allergies Home Medications Medication Instructions Recorded Confirmed Type Aspirin EC [Ecotrin Low Dose] 81 mg PO DAILY 05/11/23 06/13/23 History Atorvastatin [Lipitor] 40 mg PO HS 05/11/23 06/13/23 History Ergocalciferol [Vitamin D2 (1250 1,250 mcg PO FR 05/11/23 06/13/23 History Mcg = 34877 Iu)] Gabapentin 600 mg PO TID 05/11/23 06/13/23 History Levothyroxine Sodium [Synthroid] 50 mcg PO DAILY 05/11/23 06/13/23 History Metoprolol Tartrate [Lopressor] 100 mg PO BID 05/11/23 06/13/23 History Pantoprazole [Protonix] 40 mg PO DAILY 05/11/23 06/13/23 History Triamterene/Hydrochlorothiazid 1 cap PO DAILY 05/11/23 06/13/23 History [Triamterene-Hctz 37.5-25 mg Cp] metFORMIN HCL 1,000 mg PO BID 05/11/23 06/13/23 History oxyCODONE HCL [Oxycodone HCl] 10 mg PO QID 05/25/23 06/13/23 History Insulin Aspart [NovoLOG Flexpen] 18 units SQ TID-W/MEALS 06/13/23 06/13/23 History Insulin Glargine,Hum.rec.anlog 55 units SQ HS 06/13/23 06/13/23 History [Lantus Solostar Pen] Megestrol [Megace] 400 mg PO BID 06/13/23 06/13/23 History Ondansetron Odt [Zofran Odt] 4 mg PO Q8HR PRN 06/13/23 06/13/23 History rOPINIRole HCL [Requip] 2 mg PO HS 06/13/23 06/13/23 History Allergies Allergy/AdvReac Type Severity Reaction Status Date / Time No Known Allergies Allergy Verified 06/13/23 16:06 Physical Exam Vitals: Vital Signs Temp Pulse Resp BP Pulse Ox 06/14/23 08:12 99.1 F 97 20 104/72 96 06/14/23 06:21 85 18 105/75 95 06/14/23 03:00 83 17 108/69 95 06/14/23 02:00 86 17 110/75 95 06/14/23 01:00 85 17 117/78 95 06/13/23 23:33 82 18 90/67 96 06/13/23 22:00 90 18 103/71 95 06/13/23 21:00 91 17 140/76 96 06/13/23 20:00 88 18 96/65 96 06/13/23 19:23 94 18 101/62 94 L 06/13/23 18:11 98.4 F 94 18 121/93 94 L 06/13/23 17:07 95 18 130/77 93 L 06/13/23 14:28 99.4 F 84 18 127/71 95 - Constitutional General appearance: average body habitus, no acute distress - EENT Eyes: anicteric sclerae, EOMI ENT: hearing grossly normal - Respiratory Respiratory: bilateral: CTA - Cardiovascular Rhythm: regular Heart sounds: normal: S1, S2 - Gastrointestinal General gastrointestinal: soft, tenderness Localized gastrointestinal: tender: diffuse - Integumentary Integumentary: no cyanotic, no jaundiced - Neurologic Neurologic: CNII-XII intact - Musculoskeletal Musculoskeletal: strength equal bilaterally - Psychiatric Psychiatric: A&O x's 3 Results CBC & Chem 7: 06/14/23 06:39 06/14/23 06:39 Labs: Abnormal Lab Results - Last 24 Hours (Table) 06/13/23 06/13/23 06/13/23 Range/Units 15:10 15:38 18:50 WBC 1.5 L (3.8-10.6) k/uL RDW 16.6 H (11.5-15.5) % Plt Count 90 L D (150-450) k/uL Lymphocytes # 0.1 L (1.0-4.8) k/uL Sodium 136 L (137-145) mmol/L Carbon Dioxide 31 H (22-30) mmol/L BUN 22 H (7-17) mg/dL Glucose 240 H (74-99) mg/dL POC Glucose (mg/dL) (70-110) mg/dL Calcium 8.0 L (8.4-10.2) mg/dL Total Bilirubin 4.0 H (0.2-1.3) mg/dL AST 117 H (14-36) U/L ALT 118 H (4-34) U/L Alkaline Phosphatase 199 H (38-126) U/L Total Protein 5.6 L (6.3-8.2) g/dL Albumin 2.7 L (3.5-5.0) g/dL Amylase <30 L (30-110) U/L Urine Protein 1+ H (Negative) Urine Glucose (UA) Trace H (Negative) Urine Ketones 1+ H (Negative) Urine Blood Small H (Negative) Urine Bilirubin 1+ H (Negative) Ur Leukocyte Esterase Small H (Negative) Urine WBC 7 H (0-5) /hpf Urine Mucus Few H (None) /hpf 06/13/23 Range/Units 20:55 WBC (3.8-10.6) k/uL RDW (11.5-15.5) % Plt Count (150-450) k/uL Lymphocytes # (1.0-4.8) k/uL Sodium (137-145) mmol/L Carbon Dioxide (22-30) mmol/L BUN (7-17) mg/dL Glucose (74-99) mg/dL POC Glucose (mg/dL) 228 H (70-110) mg/dL Calcium (8.4-10.2) mg/dL Total Bilirubin (0.2-1.3) mg/dL AST (14-36) U/L ALT (4-34) U/L Alkaline Phosphatase (38-126) U/L Total Protein (6.3-8.2) g/dL Albumin (3.5-5.0) g/dL Amylase (30-110) U/L Urine Protein (Negative) Urine Glucose (UA) (Negative) Urine Ketones (Negative) Urine Blood (Negative) Urine Bilirubin (Negative) Ur Leukocyte Esterase (Negative) Urine WBC (0-5) /hpf Urine Mucus (None) /hpf Assessment and Plan (1) Pancreatic cancer Current Visit: Yes Status: Acute Priority: High Code(s): C25.9 - MALIGNANT NEOPLASM OF PANCREAS, UNSPECIFIED SNOMED Code(s): 267986735 (2) Diarrhea Current Visit: Yes Status: Acute Priority: High Code(s): R19.7 - DIARRHEA, UNSPECIFIED SNOMED Code(s): 83960809 (3) Vomiting Current Visit: Yes Status: Acute Priority: High Code(s): R11.10 - VO MITING, UNSPECIFIED SNOMED Code(s): 183292474 Plan: N/V/D: Presented with complaints of nausea, vomiting, diarrhea and decreased oral intake s/p treatment. Also c/o cough, nasal congestion and sore throat, woth recent sick contact. Creatinine 0.53, GFR greater than 90. Bilirubin 4.0, previously at 2.1 on 06/09. Amylase and lipase normal. Transaminitis noted, but are similar to labs from 06/09 prior to infusion. -C diff and viral panel ordered -Antiemetics and fluids ordered. If c-diff negative, will start anti-diarrheals -Clear liquid diet, encouraged increasing oral intake as tolerated Metastatic pancreactic cancer: -Full history in [facility] -Completed cycle 1 of gemzar and abraxane on 06/09/23 -Counts stable. WBC 1.5, ANC 1400, hemoglobin 11.6, platelets 90,000 -Clinic f/u will be scheduled prior to next cycle to ensure adequate recovery prior to next cycle Dr attests: I have performed H&P and developed impression and plan of care for patient, discussed with dictator. I agree with dictated note, documented as a scribe
[2023-06-14 20:14] LABS: Glucose,Whole Blood 99 mg/dL (70-110)
[2023-06-15 00:08] LABS: Glucose,Whole Blood 87 mg/dL (70-110)
[2023-06-15 02:09] LABS: Glucose,Whole Blood 86 mg/dL (70-110)
[2023-06-15 03:09] LABS: Glucose,Whole Blood 102 mg/dL (70-110)
[2023-06-15 07:09] LABS: Glucose,Whole Blood 92 mg/dL (70-110)
[2023-06-15 11:42] LABS: Magnesium 1.9 mg/dL (1.5-2.4)
[2023-06-15 11:56] LABS: BUN/Creat Ratio 25.67 Ratio (12.00-20.00); Blood Urea Nitrogen 23.1 mg/dL (9.0-27.0); Carbon Dioxide 24.6 mmol/L (21.6-31.8); Chloride 102 mmol/L (96-109); Glucose 98 mg/dL (70-110); Potassium 3.8 mmol/L (3.5-5.5); Sodium 136 mmol/L (135-145)
[2023-06-15 11:57] LABS: ALT 77 U/L (8-44); AST 84 U/L (13-35); Albumin 2.6 g/dL (3.8-4.9); Albumin/Globulin Ratio 1.04 Ratio (1.60-3.17); Alkaline Phosphatase 211 U/L (41-126); Calcium 7.9 mg/dL (8.7-10.3); Globulin 2.5 g/dL (1.6-3.3); Total Bilirubin 1.7 mg/dL (0.3-1.2); Total Protein 5.1 g/dL (6.2-8.2)
[2023-06-15 12:07] LABS: Basophils # (A) 0.01 X 10*3/uL (0.00-0.10); Basophils % (A) 1.1 %; Eosinophils # (A) 0.01 X 10*3/uL (0.04-0.35); Eosinophils % (A) 1.1 %; HCT 28.6 % (37.2-46.3); Immature Platelet Fraction 4.4 % (1.1-6.1); Lymphocytes # (A) 0.19 X 10*3/uL (0.90-5.00); MCH 27.5 pg (27.0-32.0); MCHC 31.5 g/dL (32.0-37.0); MCV 87.5 FL (80.0-97.0); Mean Platelet Volume 11.4 FL (9.5-12.2); Monocytes # (A) 0.03 X 10*3/uL (0.20-1.00); Monocytes % (A) 3.2 %; NRBC Per 100 WBC 0 X 10*3/uL (0.00-0.01); Neutrophils % (A) 73.5 %; Platelet Count 58 X 10*3/uL (140-440); RBC 3.27 X 10*6/uL (4.10-5.20); RBC Morphology Normal (Normal); RDW 17.2 % (11.5-14.5); WBC 0.95 X 10*3/uL (4.50-10.00)
[2023-06-15 12:08] VITALS: BMI 38.0
[2023-06-15 12:22] LABS: Glucose,Whole Blood 168 mg/dL (70-110)
--- NOTE | 2023-06-15 13:17 | P.PN ---
Subjective Progress Note Date: 06/15/23 Patient is a 62 year old female with medical history of diabetes mellitus, GERD, hypertension, hyperlipidemia, hypothyroidism, liver cirrhosis, migraines, diagnosed with pancreatic cancer stage 4 and underwent first round of chemotherapy 4 days ago. Since then patient has been having nausea, vomiting, diarrhea, and unable to tolerate oral intake. Patient follows with oncology out of [place]. On admission WBC 1.5, platelet of 90, sodium 136, BUN 22, creatinine 0.53, calcium 8.0, total bilirubin 4.0, AST/ALT and alk phos are elevated. Urinalysis abnormal and not suggestive of infection. Patient was ad mitted to the hospital under internal medicine with consult placed to oncology. Patient was given a fluid bolus and started on maintenance IV fluids, and zofran. C.Dif will be checked. 06/15/2023 Patient is evaluated today in follow-up continues to report having an episode of nausea diarrhea and vomiting. She feels weak and has not tolerating much oral intake. Blood glucose has been on the lower side and will recommend to hold off on any long-acting and scheduled insulin at this time and discontinue with sliding scale for now. Labs today show a white blood cell count of 0.95, hemoglobin 9.0, platelet count of 58. Renal function is stable. Bilirubin is down to 1.7, LFTs are continuing to improve. Patient continues on IV fluids. Review of Systems Constitutional: Denied any fatigue denied any fever. Cardio vascular: denied any chest pain, palpitations Gastrointestinal: Reports nausea vomiting diarrhea Pulmonary: Denied any shortness of breath cough Neurologic denied any new focal deficits All inpatient medications were reviewed and appropriate changes in these medications as dictated in the interval history and assessment and plan. PHYSICAL EXAMINATION: GENERAL: The patient is alert and oriented x3, not in any acute distress. Well developed, well nourished. HEENT: Pupils are round and equally reacting to light. EOMI. No scleral icterus. No conjunctival pallor. Normocephalic, atraumatic. No pharyngeal erythema. No thyromegaly. CARDIOVASCULAR: S1 and S2 present. No murmurs, rubs, or gallops. PULMONARY: Chest is clear to auscultation, no wheezing or crackles. ABDOMEN: Soft, nontender, nondistended, normoactive bowel sounds. No palpable organomegaly. MUSCULOSKELETAL: No joint swelling or deformity. EXTREMITIES: No cyanosis, clubbing, or pedal edema. NEUROLOGICAL: Gross neurological examination did not reveal any focal deficits. SKIN: No rashes. Assessment and Plan Nausea vomiting diarrhea suspect secondary to recent chemotherapy for stage IV pancreatic cancer. Patient also had a sick contact recently. Pancytopenia secondary to chemotherapy Transaminitis chronic and stable bilirubin improved from recent outpatient labs patient has history of liver cirrhosis Diabetes mellitus type II Gastroesophageal reflux disease Hypertension Hyperlipidemia GI prophylaxis DVT prophylaxis Full code Continue on IV fluids Continue antiemetics Continue supportive care PT/OT consultation in place Repeat labs in the AM Check C.Dif level The impression and plan of care has been dictated by Pippa Marino Nurse Practitioner as directed. Dr. Hao MD I have performed a history and physical examination and medical decision making of this patient, discussed the same with the dictator, and agree with the dictators assessment and plan as written, documented as a scribe. Based on total visit time, I have performed more than 50% of this visit. Objective - Vital Signs Vital signs: Vital Signs Temp 98.5 F 06/15/23 01:35 Pulse 85 06/15/23 01:35 Resp 18 06/15/23 01:35 BP 119/67 06/15/23 01:35 Pulse Ox 96 06/15/23 01:35 FiO2 Intake & Output 06/14/23 06/15/23 06/15/23 18:59 06:59 18:59 Intake Total 1080 600 Balance 1080 600 Weight 97.522 kg Intake: Oral 1080 600 Other: Voiding Method Toilet # Voids 1 - Labs CBC & Chem 7: 06/15/23 06:47 06/15/23 06:47 Labs: Abnormal Lab Results - Last 24 Hours (Table) 06/14/23 06/14/23 06/14/23 Range/Units 06:39 06:39 06:39 WBC 1.33 A* (4.50-10.00) X 10*3/uL RBC 3.81 L (4.10-5.20) X 10*6/uL Hgb 10.3 L (12.0-15.0) g/dL Hct 33.5 L (37.2-46.3) % MCHC 30.7 L (32.0-37.0) g/dL RDW 17.6 H (11.5-14.5) % Plt Count 84 L (140-440) X 10*3/uL Lymphocytes # (Manual) 0.24 L (0.90-5.00) X 10*3/uL Monocytes # (Manual) 0 L (0.20-1.00) X 10*3/uL BUN/Creatinine Ratio 31.50 H (12.00-20.00) Ratio POC Glucose (mg/dL) (70-110) mg/dL Hemoglobin A1c 9.2 H (<=6.0) % Calcium 8.3 L (8.7-10.3) mg/dL Total Bilirubin 2.6 H (0.3-1.2) mg/dL AST 84 H (13-35) U/L ALT 95 H (8-44) U/L Alkaline Phosphatase 195 H (41-126) U/L Total Protein 5.6 L (6.2-8.2) g/dL Albumin 3.0 L (3.8-4.9) g/dL Albumin/Globulin Ratio 1.15 L (1.60-3.17) Ratio Amylase 15 L (23-121) U/L 06/14/23 06/14/23 06/14/23 Range/Units 12:44 13:13 15:02 WBC (4.50-10.00) X 10*3/uL RBC (4.10-5.20) X 10*6/uL Hgb (12.0-15.0) g/dL Hct (37.2-46.3) % MCHC (32.0-37.0) g/dL RDW (11.5-14.5) % Plt Count (140-440) X 10*3/uL Lymphocytes # (Manual) (0.90-5.00) X 10*3/uL Monocytes # (Manual) (0.20-1.00) X 10*3/uL BUN/Creatinine Ratio (12.00-20.00) Ratio POC Glucose (mg/dL) 56 L 114 H 62 L (70-110) mg/dL Hemoglobin A1c (<=6.0) % Calcium (8.7-10.3) mg/dL Total Bilirubin (0.3-1.2) mg/dL AST (13-35) U/L ALT (8-44) U/L Alkaline Phosphatase (41-126) U/L Total Protein (6.2-8.2) g/dL Albumin (3.8-4.9) g/dL Albumin/Globulin Ratio (1.60-3.17) Ratio Amylase (23-121) U/L 06/14/23 06/14/23 06/14/23 Range/Units 15:38 17:15 17:34 WBC (4.50-10.00) X 10*3/uL RBC (4.10-5.20) X 10*6/uL Hgb (12.0-15.0) g/dL Hct (37.2-46.3) % MCHC (32.0-37.0) g/dL RDW (11.5-14.5) % Plt Count (140-440) X 10*3/uL Lymphocytes # (Manual) (0.90-5.00) X 10*3/uL Monocytes # (Manual) (0.20-1.00) X 10*3/uL BUN/Creatinine Ratio (12.00-20.00) Ratio POC Glucose (mg/dL) 125 H 67 L 65 L (70-110) mg/dL Hemoglobin A1c (<=6.0) % Calcium (8.7-10.3) mg/dL Total Bilirubin (0.3-1.2) mg/dL AST (13-35) U/L ALT (8-44) U/L Alkaline Phosphatase (41-126) U/L Total Protein (6.2-8.2) g/dL Albumin (3.8-4.9) g/dL Albumin/Globulin Ratio (1.60-3.17) Ratio Amylase (23-121) U/L 06/14/23 Range/Units 17:58 WBC (4.50-10.00) X 10*3/uL RBC (4.10-5.20) X 10*6/uL Hgb (12.0-15.0) g/dL Hct (37.2-46.3) % MCHC (32.0-37.0) g/dL RDW (11.5-14.5) % Plt Count (140-440) X 10*3/uL Lymphocytes # (Manual) (0.90-5.00) X 10*3/uL Monocytes # (Manual) (0.20-1.00) X 10*3/uL BUN/Creatinine Ratio (12.00-20.00) Ratio POC Glucose (mg/dL) 64 L (70-110) mg/dL Hemoglobin A1c (<=6.0) % Calcium (8.7-10.3) mg/dL Total Bilirubin (0.3-1.2) mg/dL AST (13-35) U/L ALT (8-44) U/L Alkaline Phosphatase (41-126) U/L Total Protein (6.2-8.2) g/dL Albumin (3.8-4.9) g/dL Albumin/Globulin Ratio (1.60-3.17) Ratio Amylase (23-121) U/L Assessment and Plan Time with Patient: Less than 30
--- NOTE | 2023-06-15 16:20 | P.PN ---
Subjective Progress Note Date: 06/15/23 In follow-up today patient resting comfortably in bed. She reports some improvement in nausea vomiting but states symptoms have persisted and had projectile vomiting last night. Denies any episodes of diarrhea today. C. difficile remains uncollected. Patient is tolerating clear liquid diet and reports feeling hungry, but she is still having diffuse abdominal tenderness greater in upper quadrants. Objective - Vital Signs Vital signs: Vital Signs Temp 98.2 F 06/15/23 14:05 Pulse 80 06/15/23 14:05 Resp 16 06/15/23 14:05 BP 97/67 06/15/23 14:05 Pulse Ox 100 06/15/23 14:05 FiO2 Intake & Output 06/14/23 06/15/23 06/15/23 18:59 06:59 18:59 Intake Total 1080 600 Balance 1080 600 Weight 97.522 kg 97.522 kg Intake: Oral 1080 600 Other: Voiding Method Toilet Toilet # Voids 1 - Constitutional General appearance: Present: average body habitus, no acute distress - EENT Eyes: Present: anicteric sclerae, EOMI ENT: Present: hearing grossly normal - Respiratory Details: breathing even and unlabored - Cardiovascular Details: well-perfused - Gastrointestinal General gastrointestinal: Present: soft, tenderness Localized gastrointestinal: tender: diffuse (greater in upper quadrants) - Integumentary Integumentary: Absent: cyanotic, jaundiced - Neurologic Neurologic Comment(s): no focal deficits - Psychiatric Psychiatric: Present: A&O x's 3 - Labs CBC & Chem 7: 06/15/23 06:47 06/15/23 06:47 Labs: Abnormal Lab Results - Last 24 Hours (Table) 06/14/23 06/14/23 06/14/23 Range/Units 06:39 17:15 17:34 WBC (4.50-10.00) X 10*3/uL RBC (4.10-5.20) X 10*6/uL Hgb (12.0-15.0) g/dL Hct (37.2-46.3) % MCHC (32.0-37.0) g/dL RDW (11.5-14.5) % Plt Count (140-440) X 10*3/uL Neutrophils # (1.80-7.70) X 10*3/uL Neutrophils # (Manual) 1.00 L (1.80-7.70) X 10*3/uL Lymphocytes # (0.90-5.00) X 10*3/uL Monocytes # (0.20-1.00) X 10*3/uL Eosinophils # (0.04-0.35) X 10*3/uL BUN/Creatinine Ratio (12.00-20.00) Ratio POC Glucose (mg/dL) 67 L 65 L (70-110) mg/dL Calcium (8.7-10.3) mg/dL Total Bilirubin (0.3-1.2) mg/dL AST (13-35) U/L ALT (8-44) U/L Alkaline Phosphatase (41-126) U/L Total Protein (6.2-8.2) g/dL Albumin (3.8-4.9) g/dL Albumin/Globulin Ratio (1.60-3.17) Ratio 06/14/23 06/15/23 06/15/23 Range/Units 17:58 06:47 06:47 WBC 0.95 A* (4.50-10.00) X 10*3/uL RBC 3.27 L (4.10-5.20) X 10*6/uL Hgb 9.0 L (12.0-15.0) g/dL Hct 28.6 L (37.2-46.3) % MCHC 31.5 L (32.0-37.0) g/dL RDW 17.2 H (11.5-14.5) % Plt Count 58 L (140-440) X 10*3/uL Neutrophils # 0.70 L (1.80-7.70) X 10*3/uL Neutrophils # (Manual) (1.80-7.70) X 10*3/uL Lymphocytes # 0.19 L (0.90-5.00) X 10*3/uL Monocytes # 0.03 L (0.20-1.00) X 10*3/uL Eosinophils # 0.01 L (0.04-0.35) X 10*3/uL BUN/Creatinine Ratio 25.67 H (12.00-20.00) Ratio POC Glucose (mg/dL) 64 L (70-110) mg/dL Calcium 7.9 L (8.7-10.3) mg/dL Total Bilirubin 1.7 H (0.3-1.2) mg/dL AST 84 H (13-35) U/L ALT 77 H (8-44) U/L Alkaline Phosphatase 211 H (41-126) U/L Total Protein 5.1 L (6.2-8.2) g/dL Albumin 2.6 L (3.8-4.9) g/dL Albumin/Globulin Ratio 1.04 L (1.60-3.17) Ratio 06/15/23 Range/Units 12:20 WBC (4.50-10.00) X 10*3/uL RBC (4.10-5.20) X 10*6/uL Hgb (12.0-15.0) g/dL Hct (37.2-46.3) % MCHC (32.0-37.0) g/dL RDW (11.5-14.5) % Plt Count (140-440) X 10*3/uL Neutrophils # (1.80-7.70) X 10*3/uL Neutrophils # (Manual) (1.80-7.70) X 10*3/uL Lymphocytes # (0.90-5.00) X 10*3/uL Monocytes # (0.20-1.00) X 10*3/uL Eosinophils # (0.04-0.35) X 10*3/uL BUN/Creatinine Ratio (12.00-20.00) Ratio POC Glucose (mg/dL) 168 H (70-110) mg/dL Calcium (8.7-10.3) mg/dL Total Bilirubin (0.3-1.2) mg/dL AST (13-35) U/L ALT (8-44) U/L Alkaline Phosphatase (41-126) U/L Total Protein (6.2-8.2) g/dL Albumin (3.8-4.9) g/dL Albumin/Globulin Ratio (1.60-3.17) Ratio Assessment and Plan (1) Pancreatic cancer Current Visit: Yes Status: Acute Priority: High Code(s): C25.9 - MALIGNANT NEOPLASM OF PANCREAS, UNSPECIFIED SNOMED Code(s): 874653534 (2) Diarrhea Current Visit: Yes Status: Acute Priority: High Code(s): R19.7 - DIARRHEA, UNSPECIFIED SNOMED Code(s): 56895090 (3) Vomiting Current Visit: Yes Status: Acute Priority: High Code(s): R11.10 - VOMITING, UNSPECIFIED SNOMED Code(s): 775936305 Plan: N/V/D: Presented with complaints of nausea, vomiting, diarrhea and decreased oral intake s/p treatment. Also c/o cough, nasal congestion and sore throat, with recent sick contact. Creatinine 0.53, GFR greater than 90. Bilirubin 4.0, previously at 2.1 on 06/09. Amylase and lipase normal. Transaminitis noted, but are similar to labs from 06/09 prior to infusion. -C diff ordered. RSV COVID, influenza negative -Bilirubin and LFTs improving -No diarrhea noted today. N/V persisting, antiemetics adjusted -Continues on clear liquid diet. Will continue pt on clear liquid diet until abd tenderness and n/v improve -Abdominal x-ray ordered Metastatic pancreactic cancer: -Completed cycle 1 of gemzar and abraxane on 06/09/23 -Chemo induced panctyopenia. WBC 950, ANC 700, hemoglobin 9.0, platelets 58,000. Will continue to monitor -Clinic f/u will be scheduled upon discharge to ensure adequate recovery prior to next cycle
[2023-06-15] MEDS: ONDANSETRON 4 MG/2 ML VIAL IVP PRN (16:22)
--- NOTE | 2023-06-15 17:21 | XR ---
EXAMINATION TYPE: XR abdomen 2V DATE OF EXAM: 06/15/2023 CLINICAL DATA: 62 year-old female abdominal pain, nausea and vomiting, PHH COMPARISON: None FINDINGS: No dilated small bowel loops. Questionable fold thickening throughout the colon. No significant stool burden. Either a small 1.6 cm calcified fibroid in the right side of the pelvis versus pelvic phlebolith. IMPRESSION: 1. Suggestion of possible fold thickening involving the colon. Correlate to exclude a nonspecific col itis. 2. Nonobstructive bowel gas pattern.
[2023-06-15 17:31] LABS: Glucose,Whole Blood 166 mg/dL (70-110)
[2023-06-15 20:11] LABS: Glucose,Whole Blood 134 mg/dL (70-110)
[2023-06-15] MEDS: ASPIRIN 81 MG PO SCH (20:36)
[2023-06-15] MEDS: PROCHLORPERAZINE INJ 10 MG/2 ML VIAL IVP PRN (20:36)
[2023-06-16] MEDS: HYDROmorphone 0.5 MG/0.5 ML SYRINGE IVP PRN (05:36)
[2023-06-16 07:36] LABS: Glucose,Whole Blood 164 mg/dL (70-110)
[2023-06-16] MEDS: metroNIDAZOLE-NS PMX 500 MG in SALINE 1 100ML.BAG IVPB SCH (10:54)
[2023-06-16 11:34] LABS: Magnesium 1.6 mg/dL (1.5-2.4)
[2023-06-16 11:44] LABS: HCT 29.7 % (37.2-46.3); HGB 9.4 g/dL (12.0-15.0); Immature Platelet Fraction 4.2 % (1.1-6.1); MCH 27.3 pg (27.0-32.0); MCHC 31.6 g/dL (32.0-37.0); MCV 86.3 FL (80.0-97.0); Mean Platelet Volume 11.1 FL (9.5-12.2); NRBC Per 100 WBC 0 X 10*3/uL (0.00-0.01); Platelet Count 46 X 10*3/uL (140-440); RBC 3.44 X 10*6/uL (4.10-5.20); RDW 17.1 % (11.5-14.5); WBC 0.69 X 10*3/uL (4.50-10.00)
[2023-06-16 12:11] LABS: Basophils # (M) 0.01 X 10*3/uL (0.00-0.10); Eosinophils # (M) 0.02 X 10*3/uL (0.04-0.35); Lymphocytes # (M) 0.07 X 10*3/uL (0.90-5.00); Monocytes # (M) 0.03 X 10*3/uL (0.20-1.00); Neutrophils # (M) 0.57 X 10*3/uL (1.80-7.70); Neutrophils % (M) 82 %
[2023-06-16 12:51] LABS: Glucose,Whole Blood 193 mg/dL (70-110)
[2023-06-16] MEDS: MAGNESIUM SULFATE-D5W PMX 1 GM in DEXTROSE/WATER 1 100ML.BAG IVPB SCH (12:58)
[2023-06-16 13:00] LABS: ALT 75 U/L (8-44); AST 75 U/L (13-35); Albumin 2.7 g/dL (3.8-4.9); Albumin/Globulin Ratio 1.08 Ratio (1.60-3.17); Alkaline Phosphatase 213 U/L (41-126); Blood Urea Nitrogen 12.9 mg/dL (9.0-27.0); Calcium 7.9 mg/dL (8.7-10.3); Carbon Dioxide 24.8 mmol/L (21.6-31.8); Chloride 102 mmol/L (96-109); Globulin 2.5 g/dL (1.6-3.3); Glucose 177 mg/dL (70-110); Potassium 3.6 mmol/L (3.5-5.5); Sodium 137 mmol/L (135-145); Total Bilirubin 1.8 mg/dL (0.3-1.2); Total Protein 5.2 g/dL (6.2-8.2)
--- NOTE | 2023-06-16 13:45 | P.PN ---
Subjective Progress Note Date: 06/16/23 Patient is a 62 year old female with medical history of diabetes mellitus, GERD, hypertension, hyperlipidemia, hypothyroidism, liver cirrhosis, migraines, diagnosed with pancreatic cancer stage 4 and underwent first round of chemotherapy 4 days ago. Since then patient has been having nausea, vomiting, diarrhea, and unable to tolerate oral intake. Patient follows with oncology out of [place]. On admission WBC 1.5, platelet of 90, sodium 136, BUN 22, creatinine 0.53, calcium 8.0, total bilirubin 4.0, AST/ALT and alk phos are elevated. Urinalysis abnormal and not suggestive of infection. Patient was ad mitted to the hospital under internal medicine with consult placed to oncology. Patient was given a fluid bolus and started on maintenance IV fluids, and zofran. C.Dif will be checked. 06/15/2023 Patient is evaluated today in follow-up continues to report having an episode of nausea diarrhea and vomiting. She feels weak and has not tolerating much oral intake. Blood glucose has been on the lower side and will recommend to hold off on any long-acting and scheduled insulin at this time and discontinue with sliding scale for now. Labs today show a white blood cell count of 0.95, hemoglobin 9.0, platelet count of 58. Renal function is stable. Bilirubin is down to 1.7, LFTs are continuing to improve. Patient continues on IV fluids. 06/16/2023 Patient is evaluated today at the bedside. She reports that her diarrhea has resolved at this time she does continue to report nausea and mild abdominal discomfort. She is asking for an increased diet which will be given as tolerated. Abdominal x-ray was completed showing possible fold thickening involving the colon correlate to exclude a nonspecific colitis. There is nonobstructive bowel gas pattern. Work today shows a white blood cell count of 0.69, hemoglobin stable at 9.4, platelet count of 46, magnesium 1.6, total bilirubin 1.8, LFTs are continuing to improve. Review of Systems Constitutional: Denied any fatigue denied any fever. Cardio vascular: denied any chest pain, palpitations Gastrointestinal: Reports nausea no vomiting no diarrhea Pulmonary: Denied any shortness of breath cough Neurologic denied any new focal deficits All inpatient medications were reviewed and appropriate changes in these medications as dictated in the interval history and assessment and plan. PHYSICAL EXAMINATION: GENERAL: The patient is alert and oriented x3, not in any acute distress. Well developed, well nourished. HEENT: Pupils are round and equally reacting to light. EOMI. No scleral icterus. No conjunctival pallor. Normocephalic, atraumatic. No pharyngeal erythema. No thyromegaly. CARDIOVASCULAR: S1 and S2 present. No murmurs, rubs, or gallops. PULMONARY: Chest is clear to auscultation, no wheezing or crackles. ABDOMEN: Soft, nontender, nondistended, normoactive bowel sounds. No palpable organomegaly. MUSCULOSKELETAL: No joint swelling or deformity. EXTREMITIES: No cyanosis, clubbing, or pedal edema. NEUROLOGICAL: Gross neurological examination did not reveal any focal deficits. SKIN: No rashes. Assessment and Plan Nausea vomiting diarrhea suspect secondary to recent chemotherapy for stage IV pancreatic cancer. Patient also had a sick contact recently. Pancytopenia secondary to chemotherapy Transaminitis chronic and stable bilirubin improved from recent outpatient labs patient has history of liver cirrhosis Hypomagnesemia Diabetes mellitus type II Gastroesophageal reflux disease Hypertension Hyperlipidemia GI prophylaxis DVT prophylaxis Full code Continue on IV fluids Continue antiemetics Continue supportive care Advance diet as tolerated Replace magnesium PT/OT consultation in place Repeat labs in the AM Check C.Dif level The impression and plan of care has been dictated by Pippa Marino Nurse Practitioner as directed. Dr. Hao MD I have performed a history and physical examination and medical decision making of this patient, discussed the same with the dictator, and agree with the dictators assessment and plan as written, documented as a scribe. Based on total visit time, I have performed more than 50% of this visit. Objective - Vital Signs Vital signs: Vital Signs Temp 98.2 F 06/16/23 13:38 Pulse 77 06/16/23 13:38 Resp 17 06/16/23 13:38 BP 115/76 06/16/23 13:38 Pulse Ox 95 06/16/23 13:38 FiO2 Intake & Output 06/15/23 06/16/23 06/16/23 18:59 06:59 18:59 Intake Total 900 590 Balance 900 590 Weight 97.522 kg Intake: Intake, IV Titration 900 Amount Sodium Chloride 0.9% 1, 900 000 ml @ 75 mls/hr IV . [id number] [facility] Rx#:[id number] Oral 590 Other: Voiding Method Toilet Toilet Bedside Commode # Voids 2 - Labs CBC & Chem 7: 06/16/23 06:43 06/16/23 06:43 Labs: Abnormal Lab Results - Last 24 Hours (Table) 06/15/23 06/15/23 06/16/23 Range/Units 17:29 20:09 06:43 WBC 0.69 A* (4.50-10.00) X 10*3/uL RBC 3.44 L (4.10-5.20) X 10*6/uL Hgb 9.4 L (12.0-15.0) g/dL Hct 29.7 L (37.2-46.3) % MCHC 31.6 L (32.0-37.0) g/dL RDW 17.1 H (11.5-14.5) % Plt Count 46 L (140-440) X 10*3/uL Lymphocytes # (Manual) 0.07 L (0.90-5.00) X 10*3/uL Monocytes # (Manual) 0.03 L (0.20-1.00) X 10*3/uL Eosinophils # (Manual) 0.02 L (0.04-0.35) X 10*3/uL BUN/Creatinine Ratio (12.00-20.00) Ratio Glucose (70-110) mg/dL POC Glucose (mg/dL) 166 H 134 H (70-110) mg/dL Calcium (8.7-10.3) mg/dL Total Bilirubin (0.3-1.2) mg/dL AST (13-35) U/L ALT (8-44) U/L Alkaline Phosphatase (41-126) U/L Total Protein (6.2-8.2) g/dL Albumin (3.8-4.9) g/dL Albumin/Globulin Ratio (1.60-3.17) Ratio 06/16/23 06/16/23 06/16/23 Range/Units 06:43 07:34 12:46 WBC (4.50-10.00) X 10*3/uL RBC (4.10-5.20) X 10*6/uL Hgb (12.0-15.0) g/dL Hct (37.2-46.3) % MCHC (32.0-37.0) g/dL RDW (11.5-14.5) % Plt Count (140-440) X 10*3/uL Lymphocytes # (Manual) (0.90-5.00) X 10*3/uL Monocytes # (Manual) (0.20-1.00) X 10*3/uL Eosinophils # (Manual) (0.04-0.35) X 10*3/uL BUN/Creatinine Ratio 21.50 H (12.00-20.00) Ratio Glucose 177 H (70-110) mg/dL POC Glucose (mg/dL) 164 H 193 H (70-110) mg/dL Calcium 7.9 L (8.7-10.3) mg/dL Total Bilirubin 1.8 H (0.3-1.2) mg/dL AST 75 H (13-35) U/L ALT 75 H (8-44) U/L Alkaline Phosphatase 213 H (41-126) U/L Total Protein 5.2 L (6.2-8.2) g/dL Albumin 2.7 L (3.8-4.9) g/dL Albumin/Globulin Ratio 1.08 L (1.60-3.17) Ratio Assessment and Plan Time with Patient: Less than 30
[2023-06-16 17:23] LABS: Glucose,Whole Blood 328 mg/dL (70-110)
[2023-06-16 20:01] LABS: Glucose,Whole Blood 192 mg/dL (70-110)
--- NOTE | 2023-06-16 20:50 | P.PN ---
Subjective Progress Note Date: 06/16/23 In follow-up today patient resting comfortably in bed. She reports improvement in nausea/vomiting with anti-emetics. Diarrhea resolved. Patient is tolerating clear liquid diet. Abd tenderness improved. Objective - Vital Signs Vital signs: Vital Signs Temp 98.3 F 06/16/23 20:00 Pulse 86 06/16/23 20:00 Resp 20 06/16/23 20:00 BP 124/82 06/16/23 20:00 Pulse Ox 97 06/16/23 20:00 FiO2 Intake & Output 06/16/23 06/16/23 06/17/23 06:59 18:59 06:59 Intake Total 590 1080 Balance 590 1080 Intake: Oral 590 1080 Other: Voiding Method Toilet Toilet Bedside Commode Bedside Commode # Voids 2 2 2 - Constitutional General appearance: Present: average body habitus, no acute distress - EENT Eyes: Present: anicteric sclerae, EOMI ENT: Present: hearing grossly normal - Respiratory Details: breathing is even and unlabored - Cardiovascular Details: skin is warm and dry - Gastrointestinal Gastrointestinal Comment(s): upper abd tendernss improved, no guarding General gastrointestinal: Present: soft, tenderness - Integumentary Integumentary: Absent: cyanotic, jaundiced - Neurologic Neurologic: Present: CNII-XII intact - Musculoskeletal Musculoskeletal: Present: generalized weakness, strength equal bilaterally - Psychiatric Psychiatric: Present: A&O x's 3 - Labs CBC & Chem 7: 06/16/23 06:43 06/16/23 06:43 Labs: Abnormal Lab Results - Last 24 Hours (Table) 06/16/23 06/16/23 06/16/23 Range/Units 06:43 06:43 07:34 WBC 0.69 A* (4.50-10.00) X 10*3/uL RBC 3.44 L (4.10-5.20) X 10*6/uL Hgb 9.4 L (12.0-15.0) g/dL Hct 29.7 L (37.2-46.3) % MCHC 31.6 L (32.0-37.0) g/dL RDW 17.1 H (11.5-14.5) % Plt Count 46 L (140-440) X 10*3/uL Lymphocytes # (Manual) 0.07 L (0.90-5.00) X 10*3/uL Monocytes # (Manual) 0.03 L (0.20-1.00) X 10*3/uL Eosinophils # (Manual) 0.02 L (0.04-0.35) X 10*3/uL BUN/Creatinine Ratio 21.50 H (12.00-20.00) Ratio Glucose 177 H (70-110) mg/dL POC Glucose (mg/dL) 164 H (70-110) mg/dL Calcium 7.9 L (8.7-10.3) mg/dL Total Bilirubin 1.8 H (0.3-1.2) mg/dL AST 75 H (13-35) U/L ALT 75 H (8-44) U/L Alkaline Phosphatase 213 H (41-126) U/L Total Protein 5.2 L (6.2-8.2) g/dL Albumin 2.7 L (3.8-4.9) g/dL Albumin/Globulin Ratio 1.08 L (1.60-3.17) Ratio 06/16/23 06/16/23 06/16/23 Range/Units 12:46 17:12 19:59 WBC (4.50-10.00) X 10*3/uL RBC (4.10-5.20) X 10*6/uL Hgb (12.0-15.0) g/dL Hct (37.2-46.3) % MCHC (32.0-37.0) g/dL RDW (11.5-14.5) % Plt Count (140-440) X 10*3/uL Lymphocytes # (Manual) (0.90-5.00) X 10*3/uL Monocytes # (Manual) (0.20-1.00) X 10*3/uL Eosinophils # (Manual) (0.04-0.35) X 10*3/uL BUN/Creatinine Ratio (12.00-20.00) Ratio Glucose (70-110) mg/dL POC Glucose (mg/dL) 193 H 328 H 192 H (70-110) mg/dL Calcium (8.7-10.3) mg/dL Total Bilirubin (0.3-1.2) mg/dL AST (13-35) U/L ALT (8-44) U/L Alkaline Phosphatase (41-126) U/L Total Protein (6.2-8.2) g/dL Albumin (3.8-4.9) g/dL Albumin/Globulin Ratio (1.60-3.17) Ratio - Imaging and Cardiology Abdominal x-ray: report reviewed Assessment and Plan (1) Pancreatic cancer Current Visit: Yes Status: Acute Priority: High Code(s): C25.9 - MALIGNANT NEOPLASM OF PANCREAS, UNSPECIFIED SNOMED Code(s): 954584864 (2) Diarrhea Current Visit: Yes Status: Acute Priority: High Code(s): R19.7 - DIARRHEA, UNSPECIFIED SNOMED Code(s): 88766709 (3) Vomiting Current Visit: Yes Status: Acute Priority: High Code(s): R11.10 - VOMITING, UNSPECIFIED SNOMED Code(s): 979011843 Plan: N/V/D: Presented with complaints of nausea, vomiting, diarrhea and decreased oral intake s/p treatment. Also c/o cough, nasal congestion and sore throat, with recent sick contact. Creatinine 0.53, GFR greater than 90. Bilirubin 4.0, previously at 2.1 on 06/09. Amylase and lipase normal. Transaminitis noted, but are similar to labs from 06/09 prior to infusion. -C diff ordered. RSV COVID, influenza negative -Bilirubin and LFTs improving -Diarrhea resolved, n/v improving -Continues on clear liquid diet, tolerating diet well. Diet advanced today -Abdominal x-ray showed nonobstructive bowel gas pattern and suggestion of possible fold thickening involving the colon, correlate for non-specific colitis. Patients sx have continued to improve and is tolerating diet. Will continue to monitor. If symptoms begin to worsen will obtain CT AP for further evaluation -Adjusted supportive home medications. Zofran refilled and started compazine prn and olanzapine. Discussed use of anti-emetics and anti-diarrheals in detail Metastatic pancreactic cancer: -Completed cycle 1 of gemzar and abraxane on 06/09/23 -Chemo induced panctyopenia. WBC 690, hemoglobin 9.4, platelets 46,000, pt currently in [facility]. Will continue to monitor -Clinic f/u scheduled for 06/[address] Louise. Will ensure adequate recovery prior to proceeding to next cycle.
[2023-06-17 08:19] LABS: Glucose,Whole Blood 212 mg/dL (70-110)
[2023-06-17] MEDS: ERGOCALCIFEROL 1,250 MCG (50,000 IU) CAPSULE PO SCH (08:30)
[2023-06-17 12:08] LABS: Glucose,Whole Blood 273 mg/dL (70-110)
[2023-06-17] MEDS: MAGNESIUM SULFATE-D5W PMX 1 GM in DEXTROSE/WATER 1 100ML.BAG IVPB ONE (12:53)
[2023-06-17 12:55] LABS: Anisocytosis Slight; HCT 28.4 % (34.0-46.0); MCH 30.1 pg (25.0-35.0); MCHC 34.4 g/dL (31.0-37.0); MCV 87.7 fL (80.0-100.0); Mean Platelet Volume 10.5; RBC 3.24 m/uL (3.80-5.40); RDW 16.8 % (11.5-15.5)
[2023-06-17 12:58] LABS: HGB 9.8 gm/dL (11.4-16.0); Platelet Count 60 k/uL (150-450); WBC 0.8 k/uL (3.8-10.6)
[2023-06-17 13:30] LABS: Polychromasia Present
--- NOTE | 2023-06-17 16:44 | P.PN ---
Subjective Progress Note Date: 06/17/23 62 year old female with medical history of diabetes mellitus, GERD, hypertension, hyperlipidemia, hypothyroidism, liver cirrhosis, migraines, diagnosed with pancreatic cancer stage 4 and underwent first round of chemotherapy 4 days ago. Since then patient has been having nausea, vomiting, diarrhea, and unable to tolerate oral intake. Patient follows with oncology out of [place]. On admission WBC 1.5, platelet of 90, sodium 136, BUN 22, creatinine 0.53, calcium 8.0, total bilirubin 4.0, AST/ALT and alk phos are elevated. Urinalysis abnormal and not suggestive of infection. Patient was admitted to the hospital under internal medicine with consult placed to oncology. Patient was given a fluid bolus and started on maintenance IV fluids, and zofran. C.Dif will be checked. Objective - Vital Signs Vital signs: Vital Signs Temp 99.3 F 06/17/23 08:35 Pulse 88 06/17/23 08:35 Resp 20 06/17/23 08:35 BP 116/65 06/17/23 08:35 Pulse Ox 95 06/17/23 08:35 FiO2 Intake & Output 06/16/23 06/17/23 06/17/23 18:59 06:59 18:59 Intake Total 1080 590 Balance 1080 590 Intake: Oral 1080 590 Other: Voiding Method Toilet Bedside Commode # Voids 2 2 0 # Bowel Movements 0 - Exam HEENT: Pupils are round and equally reacting to light. EOMI. No scleral icterus. No conjunctival pallor. Normocephalic, atraumatic. No pharyngeal erythema. No thyromegaly. CARDIOVASCULAR: S1 and S2 present. No murmurs, rubs, or gallops. PULMONARY: Chest is clear to auscultation, no wheezing or crackles. ABDOMEN: Soft, nontender, nondistended, normoactive bowel sounds. No palpable organomegaly. MUSCULOSKELETAL: No joint swelling or deformity. EXTREMITIES: No cyanosis, clubbing, or pedal edema. NEUROLOGICA - Labs CBC & Chem 7: 06/17/23 12:36 06/16/23 06:43 Labs: Abnormal Lab Results - Last 24 Hours (Table) 06/16/23 06/16/23 06/16/23 Range/Units 06:43 06:43 06:43 WBC 0.69 A* (4.50-10.00) X 10*3/uL RBC 3.44 L (4.10-5.20) X 10*6/uL Hgb 9.4 L (12.0-15.0) g/dL Hct 29.7 L (37.2-46.3) % MCHC 31.6 L (32.0-37.0) g/dL RDW 17.1 H (11.5-14.5) % Plt Count 46 L (140-440) X 10*3/uL Neutrophils # (Manual) 0.57 L (1.80-7.70) X 10*3/uL Lymphocytes # (Manual) 0.07 L (0.90-5.00) X 10*3/uL Monocytes # (Manual) 0.03 L (0.20-1.00) X 10*3/uL Eosinophils # (Manual) 0.02 L (0.04-0.35) X 10*3/uL BUN/Creatinine Ratio 21.50 H (12.00-20.00) Ratio Glucose 177 H (70-110) mg/dL POC Glucose (mg/dL) (70-110) mg/dL Calcium 7.9 L (8.7-10.3) mg/dL Total Bilirubin 1.8 H (0.3-1.2) mg/dL AST 75 H (13-35) U/L ALT 75 H (8-44) U/L Alkaline Phosphatase 213 H (41-126) U/L Total Protein 5.2 L (6.2-8.2) g/dL Albumin 2.7 L (3.8-4.9) g/dL Albumin/Globulin Ratio 1.08 L (1.60-3.17) Ratio Procalcitonin 0.21 H (0.02-0.09) ng/mL 06/16/23 06/16/23 06/16/23 Range/Units 12:46 17:12 19:59 WBC (4.50-10.00) X 10*3/uL RBC (4.10-5.20) X 10*6/uL Hgb (12.0-15.0) g/dL Hct (37.2-46.3) % MCHC (32.0-37.0) g/dL RDW (11.5-14.5) % Plt Count (140-440) X 10*3/uL Neutrophils # (Manual) (1.80-7.70) X 10*3/uL Lymphocytes # (Manual) (0.90-5.00) X 10*3/uL Monocytes # (Manual) (0.20-1.00) X 10*3/uL Eosinophils # (Manual) (0.04-0.35) X 10*3/uL BUN/Creatinine Ratio (12.00-20.00) Ratio Glucose (70-110) mg/dL POC Glucose (mg/dL) 193 H 328 H 192 H (70-110) mg/dL Calcium (8.7-10.3) mg/dL Total Bilirubin (0.3-1.2) mg/dL AST (13-35) U/L ALT (8-44) U/L Alkaline Phosphatase (41-126) U/L Total Protein (6.2-8.2) g/dL Albumin (3.8-4.9) g/dL Albumin/Globulin Ratio (1.60-3.17) Ratio Procalcitonin (0.02-0.09) ng/mL 06/17/23 Range/Units 08:17 WBC (4.50-10.00) X 10*3/uL RBC (4.10-5.20) X 10*6/uL Hgb (12.0-15.0) g/dL Hct (37.2-46.3) % MCHC (32.0-37.0) g/dL RDW (11.5-14.5) % Plt Count (140-440) X 10*3/uL Neutrophils # (Manual) (1.80-7.70) X 10*3/uL Lymphocytes # (Manual) (0.90-5.00) X 10*3/uL Monocytes # (Manual) (0.20-1.00) X 10*3/uL Eosinophils # (Manual) (0.04-0.35) X 10*3/uL BUN/Creatinine Ratio (12.00-20.00) Ratio Glucose (70-110) mg/dL POC Glucose (mg/dL) 212 H (70-110) mg/dL Calcium (8.7-10.3) mg/dL Total Bilirubin (0.3-1.2) mg/dL AST (13-35) U/L ALT (8-44) U/L Alkaline Phosphatase (41-126) U/L Total Protein (6.2-8.2) g/dL Albumin (3.8-4.9) g/dL Albumin/Globulin Ratio (1.60-3.17) Ratio Procalcitonin (0.02-0.09) ng/mL Assessment and Plan Assessment: Nausea vomiting diarrhea suspect secondary to recent chemotherapy for stage IV pancreatic cancer. Pancytopenia secondary to chemotherapy Transaminitis chronic and stable bilirubin improved from recent outpatient labs patient has history of liver cirrhosis He is mellitus type II Gastroesophageal reflux disease Hypertension Hyperlipidemia GI prophylaxis DVT prophylaxis Full code Continue on IV fluids Continue antiemetics Continue supportive care PT/OT consultation in place Repeat labs in the AM Check C.Dif level
[2023-06-17 17:00] LABS: Glucose,Whole Blood 265 mg/dL (70-110)
[2023-06-17 19:36] LABS: Glucose,Whole Blood 268 mg/dL (70-110)
[2023-06-18 07:03] LABS: Glucose,Whole Blood 53 mg/dL (70-110)
[2023-06-18 07:17] LABS: Glucose,Whole Blood 60 mg/dL (70-110)
[2023-06-18 07:28] LABS: Glucose,Whole Blood 89 mg/dL (70-110)
[2023-06-18 10:11] LABS: HCT 28.6 % (37.2-46.3); HGB 9.3 g/dL (12.0-15.0); Immature Platelet Fraction 8.7 % (1.1-6.1); MCH 27.7 pg (27.0-32.0); MCHC 32.5 g/dL (32.0-37.0); MCV 85.1 FL (80.0-97.0); Mean Platelet Volume 11.5 FL (9.5-12.2); NRBC Per 100 WBC 0.03 X 10*3/uL (0.00-0.01); Platelet Count 81 X 10*3/uL (140-440); RBC 3.36 X 10*6/uL (4.10-5.20); RDW 17.7 % (11.5-14.5); WBC 1.17 X 10*3/uL (4.50-10.00)
[2023-06-18 11:00] LABS: Basophils # (M) 0.02 X 10*3/uL (0.00-0.10); Elliptocytes 2+; Eosinophils # (M) 0 X 10*3/uL (0.04-0.35); Microcytosis (M) 2+; Monocytes # (M) 0.09 X 10*3/uL (0.20-1.00); Neutrophils # (M) 0.82 X 10*3/uL (1.80-7.70); Neutrophils % (M) 70 %; Promyelocytes # (M) 0.04 k/uL (0); Promyelocytes % 3 %
[2023-06-18 12:08] LABS: Glucose,Whole Blood 141 mg/dL (70-110)
--- NOTE | 2023-06-18 16:52 | P.PN ---
Subjective Progress Note Date: 06/18/23 62 year old female with medical history of diabetes mellitus, GERD, hypertension, hyperlipidemia, hypothyroidism, liver cirrhosis, migraines, diagnosed with pancreatic cancer stage 4 and underwent first round of chemotherapy 4 days ago. Since then patient has been having nausea, vomiting, diarrhea, and unable to tolerate oral intake. Patient follows with oncology out of [place]. On admission WBC 1.5, platelet of 90, sodium 136, BUN 22, creatinine 0.53, calcium 8.0, total bilirubin 4.0, AST/ALT and alk phos are elevated. Urinalysis abnormal and not suggestive of infection. Patient was admitted to the hospital under internal medicine with consult placed to oncology. Patient was given a fluid bolus and started on maintenance IV fluids, and zofran. C.Dif will be checked. -Continues on clear liquid diet, tolerating diet well. Diet advanced today -Abdominal x-ray showed nonobstructive bowel gas pattern and suggestion of possible fold thickening involving the colon, correlate for non-specific colitis. Patients sx have continued to improve and is tolerating diet. Will continue to monitor. If symptoms begin to worsen will obtain CT AP for further evaluation -Adjusted supportive home medications. Zofran refilled and started compazine prn and olanzapine. Discussed use of anti-emetics and anti-diarrheals in detail Objective - Vital Signs Vital signs: Vital Signs Temp 98.6 F 06/18/23 07:00 Pulse 91 06/18/23 07:00 Resp 18 06/18/23 07:00 BP 122/74 06/18/23 07:00 Pulse Ox 95 06/18/23 07:00 FiO2 Intake & Output 06/17/23 06/18/23 06/18/23 18:59 06:59 18:59 Intake Total 356 Output Total 800 Balance 356 -800 Weight 97.522 kg Intake: Oral 356 Output: Urine 800 Other: Voiding Method Toilet # Voids 2 1 # Bowel Movements 0 1 - Exam HEENT: Pupils are round and equally reacting to light. EOMI. No scleral icterus. No conjunctival pallor. Normocephalic, atraumatic. No pharyngeal erythema. No t hyromegaly. CARDIOVASCULAR: S1 and S2 present. No murmurs, rubs, or gallops. PULMONARY: Chest is clear to auscultation, no wheezing or crackles. ABDOMEN: Soft, nontender, nondistended, normoactive bowel sounds. No palpable organomegaly. MUSCULOSKELETAL: No joint swelling or deformity. EXTREMITIES: No cyanosis, clubbing, or pedal edema. NEUROLOGICA - Labs CBC & Chem 7: 06/18/23 06:38 06/16/23 06:43 Labs: Abnormal Lab Results - Last 24 Hours (Table) 06/17/23 06/17/23 06/17/23 Range/Units 12:03 12:36 16:59 WBC 0.8 L* (3.8-10.6) k/uL RBC 3.24 L (3.80-5.40) m/uL Hgb 9.8 L D (11.4-16.0) gm/dL Hct 28.4 L (34.0-46.0) % RDW 16.8 H (11.5-15.5) % Plt Count 60 L (150-450) k/uL Lymphocytes # (Manual) (0.90-5.00) X 10*3/uL Monocytes # (Manual) (0.20-1.00) X 10*3/uL Eosinophils # (Manual) (0.04-0.35) X 10*3/uL NRBC/100 WBC Diff (0.00-0.01) X 10*3/uL Immature Plt Fraction (1.1-6.1) % Microcytosis (manual) Elliptocytes POC Glucose (mg/dL) 273 H 265 H (70-110) mg/dL 06/17/23 06/18/23 06/18/23 Range/Units 19:34 06:38 06:59 WBC 1.17 A* (3.8-10.6) k/uL RBC 3.36 L (3.80-5.40) m/uL Hgb 9.3 L (11.4-16.0) gm/dL Hct 28.6 L (34.0-46.0) % RDW 17.7 H (11.5-15.5) % Plt Count 81 L (150-450) k/uL Lymphocytes # (Manual) 0.20 L (0.90-5.00) X 10*3/uL Monocytes # (Manual) 0.09 L (0.20-1.00) X 10*3/uL Eosinophils # (Manual) 0 L (0.04-0.35) X 10*3/uL NRBC/100 WBC Diff 0.03 H (0.00-0.01) X 10*3/uL Immature Plt Fraction 8.7 H (1.1-6.1) % Microcytosis (manual) 2+ A Elliptocytes 2+ A POC Glucose (mg/dL) 268 H 53 L (70-110) mg/dL 06/18/23 Range/Units 07:14 WBC (3.8-10.6) k/uL RBC (3.80-5.40) m/uL Hgb (11.4-16.0) gm/dL Hct (34.0-46.0) % RDW (11.5-15.5) % Plt Count (150-450) k/uL Lymphocytes # (Manual) (0.90-5.00) X 10*3/uL Monocytes # (Manual) (0.20-1.00) X 10*3/uL Eosinophils # (Manual) (0.04-0.35) X 10*3/uL NRBC/100 WBC Diff (0.00-0.01) X 10*3/uL Immature Plt Fraction (1.1-6.1) % Microcytosis (manual) Elliptocytes POC Glucose (mg/dL) 60 L (70-110) mg/dL Assessment and Plan Assessment: Nausea vomiting diarrhea suspect secondary to recent chemotherapy for stage IV pancreatic cancer. Pancytopenia secondary to chemotherapy Transaminitis chronic and stable bilirubin improved from recent outpatient labs patient has history of liver cirrhosis He is mellitus type II Gastroesophageal reflux disease Hypertension Hyperlipidemia GI prophylaxis DVT prophylaxis Full code Continue on IV fluids Continue antiemetics Continue supportive care PT/OT consultation in place Repeat labs in the AM Check C.Dif level
[2023-06-18 17:30] LABS: Glucose,Whole Blood 175 mg/dL (70-110)
[2023-06-18] MEDS: FILGRASTIM-SNDZ 480 MCG/0.8 ML SYRINGE SQ ONE (18:08)
[2023-06-18 20:07] LABS: Glucose,Whole Blood 205 mg/dL (70-110)
[2023-06-19 05:04] LABS: Glucose,Whole Blood 142 mg/dL (70-110)
[2023-06-19 07:42] LABS: Glucose,Whole Blood 104 mg/dL (70-110)
[2023-06-19 12:12] LABS: Glucose,Whole Blood 122 mg/dL (70-110)
[2023-06-19 14:46] LABS: Anisocytosis Slight; Basophils # (A) 0.1 k/uL (0-0.2); Basophils % (A) 1 %; Eosinophils # (A) 0.1 k/uL (0-0.7); Eosinophils % (A) 1 %; HCT 27.8 % (34.0-46.0); HGB 9.4 gm/dL (11.4-16.0); Lymphocytes # (A) 0.5 k/uL (1.0-4.8); Lymphocytes % (A) 7 %; MCH 29.6 pg (25.0-35.0); MCHC 33.6 g/dL (31.0-37.0); MCV 87.9 fL (80.0-100.0); Mean Platelet Volume 9.8; Monocytes # (A) 0.2 k/uL (0-1.0); Monocytes % (A) 3 %; Neutrophils # (A) 6.2 k/uL (1.3-7.7); Neutrophils % (A) 87 %; RBC 3.17 m/uL (3.80-5.40); RDW 17.6 % (11.5-15.5); WBC 7.1 k/uL (3.8-10.6)
--- NOTE | 2023-06-19 15:22 | P.PN ---
Subjective Progress Note Date: 06/19/23 Principal diagnosis: Pancreatic cancer -Afebrile, no acute events overnight -Ate part of meatloaf, mashed potatoes, and pudding for lunch today without nausea or vomiting -She notes possible loose stool but no amanda watery diarrhea -She does note persistent weakness along with intermittent epigastric abdominal pain -She does note intermittent cough, which has been persistent since admission Objective - Vital Signs Vital signs: Vital Signs Temp 98.5 F 06/19/23 13:22 Pulse 93 06/19/23 13:22 Resp 18 06/19/23 13:22 BP 111/70 06/19/23 13:22 Pulse Ox 95 06/19/23 13:22 FiO2 Intake & Output 06/18/23 06/19/23 06/19/23 18:59 06:59 18:59 Other: Voiding Method Toilet Toilet # Voids 1 - Constitutional General appearance: Present: cooperative, no acute distress - EENT Eyes: Present: EOMI - Respiratory Respiratory: bilateral: CTA, negative: wheezing - Cardiovascular Rhythm: regular - Gastrointestinal General gastrointestinal: Present: distended, soft, tenderness Localized gastrointestinal: tender: epigastric periumbilical ( no rebound or guarding) - Integumentary Integumentary: Present: pale. Absent: rash - Neurologic Neurologic: Present: CNII-XII intact. Absent: focal deficits - Labs CBC & Chem 7: 06/18/23 06:38 06/16/23 06:43 Labs: Abnormal Lab Results - Last 24 Hours (Table) 06/18/23 06/18/23 06/19/23 Range/Units 17:27 19:53 04:46 POC Glucose (mg/dL) 175 H 205 H 142 H (70-110) mg/dL 06/19/23 Range/Units 12:11 POC Glucose (mg/dL) 122 H (70-110) mg/dL Assessment and Plan (1) Chemotherapy-induced diarrhea Current Visit: Yes Status: Acute Code(s): K52.1 - TOXIC GASTROENTERITIS AND COLITIS; T45.1X5A - ADVERSE EFFECT OF ANTINEOPLASTIC AND IMMUNOSUP DRUGS, INIT SNOMED Code(s): 749892981 (2) Chemotherapy induced nausea and vomiting Current Visit: Yes Status: Acute Code(s): R11.2 - NAUSEA WITH VOMITING, UNSPECIFIED; T45.1X5A - ADVERSE EFFECT OF ANTINEOPLASTIC AND IMMUNOSUP DRUGS, INIT SNOMED Code(s): 07712349 (3) Pancreatic cancer Current Visit: Yes Status: Acute Priority: High Code(s): C25.9 - MALIGNANT NEOPLASM OF PANCREAS, UNSPECIFIED SNOMED Code(s): 641647399 (4) Post-viral cough syndrome Current Visit: Yes Status: Acute Code(s): R05.8 - OTHER SPECIFIED COUGH SNOMED Code(s): 362811850 (5) Chemotherapy induced neutropenia Current Visit: Yes Status: Acute Code(s): D70.1 - AGRANULOCYTOSIS SECONDARY TO CANCER CHEMOTHERAPY; T45.1X5A - ADVERSE EFFECT OF ANTINEOPLASTIC AND IMMUNOSUP DRUGS, INIT SNOMED Code(s): 895335205 Plan: #Chemotherapy induced N/V/D Presented with complaints of nausea, vomiting, diarrhea and decreased oral intake s/p treatment. Also c/o cough, nasal congestion and sore throat, with recent sick contact. Creatinine 0.53, GFR greater than 90. Bilirubin 4.0, previously at 2.1 on 06/09. Amylase and lipase normal. Transaminitis noted, but are similar to labs from 06/09 prior to infusion. -C diff ordered. RSV COVID, influenza negative -Bilirubin and LFTs improving -Nausea/vomiting has resolved with significant improvement in diarrhea -Has not had to use ordered as needed Zofran or Compazine over the past 2 to 3 days -Diet has been advanced and is tolerating solid diet without nausea or vomiting -Continue antiemetic medications as above as needed #Grade 4 neutropenia -Secondary to gemcitabine/Abraxane chemotherapy with cycle 1 given on 06/09/2023 -Received 1 dose of Zarzio on 06/18/2023 -Repeat CBC pending. If ANC is less than 1000, additional dose of Zarzio will be given today #Cough -Noted to have URI symptoms prior to presentation with as sick contact -Viral panel on admission was negative -She continues to have cough with throat congestion -Tessalon Perles 200 mg every 8 hours will be added for cough #Metastatic pancreactic cancer -Completed cycle 1 of gemzar and abraxane on 06/09/23 -Developed nausea, vomiting, diarrhea along with grade 4 neutropenia as noted above -Day 14, cycle 1 scheduled for 06/23/2023 -This may have to be rescheduled as she is having generalized weakness -We will discuss this with her primary oncologist Josiah Benjamin MD
[2023-06-19 16:06] LABS: Platelet Count 102 k/uL (150-450)
[2023-06-19 16:22] LABS: Band Neutrophils % 2 %; Lymphocytes # (M) 0.43 k/uL (1.0-4.8); Metamyelocytes # (M) 0.07 k/uL (0); Metamyelocytes % 1 %; Monocytes # (M) 0.07 k/uL (0-1.0); Myelocytes # (M) 0.07 k/uL (0); Myelocytes % 1 %; Neutrophils % (M) 90 %; Nucleated Red Blood Cells 0 /100 WBC (0-0); Total Cells Counted 200
[2023-06-19 17:09] LABS: Glucose,Whole Blood 168 mg/dL (70-110)
--- NOTE | 2023-06-19 17:21 | P.PN ---
Subjective Progress Note Date: 06/19/23 62 year old female with medical history of diabetes mellitus, GERD, hypertension, hyperlipidemia, hypothyroidism, liver cirrhosis, migraines, diagnosed with pancreatic cancer stage 4 and underwent first round of chemotherapy 4 days ago. Since then patient has been having nausea, vomiting, diarrhea, and unable to tolerate oral intake. Patient follows with oncology out of [facility]. On admission WBC 1.5, platelet of 90, sodium 136, BUN 22, creatinine 0.53, calcium 8.0, total bilirubin 4.0, AST/ALT and alk phos are elevated. Urinalysis abnormal and not suggestive of infection. Patient was admitted to the hospital under internal medicine with consult placed to oncology. Patient was given a fluid bolus and started on maintenance IV fluids, and zofran. C.Dif will be checked. -Continues on clear liquid diet, tolerating diet well. Diet advanced today -Abdominal x-ray showed nonobstructive bowel gas pattern and suggestion of possible fold thickening involving the colon, correlate for non-specific colitis. Patients sx have continued to improve and is tolerating diet. Will continue to monitor. If symptoms begin to worsen will obtain CT AP for further evaluation -Adjusted supportive home medications. Zofran refilled and started compazine prn and olanzapine. Discussed use of anti-emetics and anti-diarrheals in detail 06/19/2023 Patient is seen and evaluated in room at bedside; continues to report intermittent epigastric abdominal pain but no further episodes of nausea and vomiting; diarrhea is resolving Patient reports ability to tolerate diet -Nausea/vomiting has resolved with significant improvement in diarrhea -Has not had to use ordered as needed Zofran or Compazine over the past 2 to 3 days -Diet has been advanced and is tolerating solid diet without nausea or vomiting Oncology on board; patient is scheduled for chemotherapy for on 06/23/2023; oncology planning for rescheduling due to persistent generalized weakness Objective - Vital Signs Vital signs: Vital Signs Temp 98.5 F 06/19/23 13:22 Pulse 93 06/19/23 13:22 Resp 18 06/19/23 13:22 BP 111/70 06/19/23 13:22 Pulse Ox 95 06/19/23 13:22 FiO2 Intake & Output 06/18/23 06/19/23 06/19/23 18:59 06:59 18:59 Other: Voiding Method Toilet Toilet # Voids 1 - Exam HEENT: Pupils are round and equally reacting to light. EOMI. No scleral icterus. No conjunctival pallor. Normocephalic, atraumatic. No pharyngeal erythema. No thyromegaly. CARDIOVASCULAR: S1 and S2 present. No murmurs, rubs, or gallops. PULMONARY: Chest is clear to auscultation, no wheezing or crackles. ABDOMEN: Soft, nontender, nondistended, normoactive bowel sounds. No palpable organomegaly. MUSCULOSKELETAL: No joint swelling or deformity. EXTREMITIES: No cyanosis, clubbing, or pedal edema. NEUROLOGICA - Labs CBC & Chem 7: 06/19/23 14:22 06/16/23 06:43 Labs: Abnormal Lab Results - Last 24 Hours (Table) 06/18/23 06/18/23 06/19/23 Range/Units 17:27 19:53 04:46 POC Glucose (mg/dL) 175 H 205 H 142 H (70-110) mg/dL 06/19/23 Range/Units 12:11 POC Glucose (mg/dL) 122 H (70-110) mg/dL Assessment and Plan Assessment: Nausea vomiting diarrhea suspect secondary to recent chemotherapy for stage IV pancreatic cancer. Pancytopenia secondary to chemotherapy Transaminitis chronic and stable bilirubin improved from recent outpatient labs patient has history of liver cirrhosis He is mellitus type II Gastroesophageal reflux disease Hypertension Hyperlipidemia GI prophylaxis DVT prophylaxis Full code Continue on IV fluids Continue antiemetics Continue supportive care PT/OT consultation in place Repeat labs in the AM Check C.Dif level
[2023-06-19 21:00] LABS: Glucose,Whole Blood 215 mg/dL (70-110)
[2023-06-19] MEDS: ZINC OXIDE PASTE (Z-GUARD) 1 APPLIC TOPICAL PRN (23:45)
[2023-06-20 07:06] LABS: Glucose,Whole Blood 116 mg/dL (70-110)
[2023-06-20 08:47] LABS: HCT 26.6 % (37.2-46.3); HGB 8.5 g/dL (12.0-15.0); MCH 27.7 pg (27.0-32.0); MCV 86.6 FL (80.0-97.0); Mean Platelet Volume 10.9 FL (9.5-12.2); NRBC Per 100 WBC 0.06 X 10*3/uL (0.00-0.01); Platelet Count 103 X 10*3/uL (140-440); RBC 3.07 X 10*6/uL (4.10-5.20); RDW 18.6 % (11.5-14.5); WBC 7.39 X 10*3/uL (4.50-10.00)
[2023-06-20 10:24] LABS: Basophils # (M) 0 X 10*3/uL (0.00-0.10); Monocytes # (M) 0 X 10*3/uL (0.20-1.00); Neutrophils % (M) 87 %
--- NOTE | 2023-06-20 10:24 | XR ---
EXAMINATION TYPE: XR chest 1V portable DATE OF EXAM: 06/20/2023 Comparison: 05/30/2023 Clinical History: 62-year-old female shortness of breath Findings: Low lung volumes and crowded vascular markings. Right anterior chest wall injection port with cathete r tip at the upper SVC. The port appears to have been revised. Heart borderline in size. Diffuse inte rstitial opacity. No amanda consolidation or pleural effusion. Right anterior chest wall injection por t Impression: Hypoventilatory changes. Interstitial densities have increased. This could be related to the low lung volumes versus developing mild pulmonary vascular congestion. Clinically correlate.
[2023-06-20 10:25] LABS: Eosinophils # (M) 0.07 X 10*3/uL (0.04-0.35); Lymphocytes # (M) 0.74 X 10*3/uL (0.90-5.00); Metamyelocytes % 2 % (0-0); Neutrophils # (M) 6.43 X 10*3/uL (1.80-7.70); RBC Morphology Normal (Normal)
[2023-06-20 12:02] LABS: Glucose,Whole Blood 156 mg/dL (70-110)
[2023-06-20] MEDS: FUROSEMIDE 10 MG/ML 4 ML VIAL IV STA (14:30)
--- NOTE | 2023-06-20 15:29 | P.PN ---
Subjective Progress Note Date: 06/20/23 No acute events, reports improvement in symptoms. Not requiring anti-emetics. Working with PT. PT recommending inpt rehab. Objective - Vital Signs Vital signs: Vital Signs Temp 98.3 F 06/20/23 12:02 Pulse 74 06/20/23 12:02 Resp 17 06/20/23 12:02 BP 126/79 06/20/23 12:02 Pulse Ox 94 L 06/20/23 12:02 FiO2 Intake & Output 06/19/23 06/20/23 06/20/23 18:59 06:59 18:59 Intake Total 118 120 Balance 118 120 Intake: Oral 118 120 Other: Voiding Method Toilet Toilet # Voids 1 1 # Bowel Movements 1 - Constitutional General appearance: Present: average body habitus, no acute distress - EENT Eyes: Present: anicteric sclerae, EOMI ENT: Present: hearing grossly normal - Respiratory Details: breathing even and unlabored - Cardiovascular Details: skin warm and dry - Integumentary Integumentary: Absent: cyanotic - Musculoskeletal Musculoskeletal: Present: generalized weakness, strength equal bilaterally - Psychiatric Psychiatric: Present: A&O x's 3 - Labs CBC & Chem 7: 06/20/23 05:16 06/16/23 06:43 Labs: Abnormal Lab Results - Last 24 Hours (Table) 06/18/23 06/19/23 06/19/23 Range/Units 06:38 14:22 17:08 RBC 3.17 L (3.80-5.40) m/uL Hgb 9.4 L (11.4-16.0) gm/dL Hct 27.8 L (34.0-46.0) % RDW 17.6 H (11.5-15.5) % Plt Count 102 L D (150-450) k/uL Neutrophils # (Manual) 0.82 L (1.80-7.70) X 10*3/uL Lymphocytes # 0.5 L (1.0-4.8) k/uL Lymphocytes # (Manual) 0.43 L (1.0-4.8) k/uL Monocytes # (Manual) (0.20-1.00) X 10*3/uL Metamyelocytes # (Man) 0.07 H (0) k/uL Myelocytes # (Manual) 0.07 H (0) k/uL NRBC/100 WBC Diff (0.00-0.01) X 10*3/uL POC Glucose (mg/dL) 168 H (70-110) mg/dL 06/19/23 06/20/23 06/20/23 Range/Units 20:57 05:16 07:05 RBC 3.07 L (3.80-5.40) m/uL Hgb 8.5 L (11.4-16.0) gm/dL Hct 26.6 L (34.0-46.0) % RDW 18.6 H (11.5-15.5) % Plt Count 103 L (150-450) k/uL Neutrophils # (Manual) (1.80-7.70) X 10*3/uL Lymphocytes # (1.0-4.8) k/uL Lymphocytes # (Manual) 0.74 L (1.0-4.8) k/uL Monocytes # (Manual) 0 L (0.20-1.00) X 10*3/uL Metamyelocytes # (Man) (0) k/uL Myelocytes # (Manual) (0) k/uL NRBC/100 WBC Diff 0.06 H (0.00-0.01) X 10*3/uL POC Glucose (mg/dL) 215 H 116 H (70-110) mg/dL 06/20/23 Range/Units 12:00 RBC (3.80-5.40) m/uL Hgb (11.4-16.0) gm/dL Hct (34.0-46.0) % RDW (11.5-15.5) % Plt Count (150-450) k/uL Neutrophils # (Manual) (1.80-7.70) X 10*3/uL Lymphocytes # (1.0-4.8) k/uL Lymphocytes # (Manual) (1.0-4.8) k/uL Monocytes # (Manual) (0.20-1.00) X 10*3/uL Metamyelocytes # (Man) (0) k/uL Myelocytes # (Manual) (0) k/uL NRBC/100 WBC Diff (0.00-0.01) X 10*3/uL POC Glucose (mg/dL) 156 H (70-110) mg/dL Assessment and Plan (1) Pancreatic cancer Current Visit: Yes Status: Acute Priority: High Code(s): C25.9 - MALIGNANT NEOPLASM OF PANCREAS, UNSPECIFIED SNOMED Code(s): 618208585 (2) Chemotherapy induced nausea and vomiting Current Visit: Yes Status: Acute Priority: High Code(s): R11.2 - NAUSEA W ITH VOMITING, UNSPECIFIED; T45.1X5A - ADVERSE EFFECT OF ANTINEOPLASTIC AND IMMUNOSUP DRUGS, INIT SNOMED Code(s): 82838051 (3) Chemotherapy induced neutropenia Current Visit: Yes Status: Acute Priority: High Code(s): D70.1 - AGRANULOCYTOSIS SECONDARY TO CANCER CHEMOTHERAPY; T45.1X5A - ADVERSE EFFECT OF ANTINEOPLASTIC AND IMMUNOSUP DRUGS, INIT SNOMED Code(s): 416520236 (4) Chemotherapy-induced diarrhea Current Visit: Yes Status: Acute Priority: High Code(s): K52.1 - TOXIC GASTROENTERITIS AND COLITIS; T45.1X5A - ADVERSE EFFECT OF ANTINEOPLASTIC AND IMMUNOSUP DRUGS, INIT SNOMED Code(s): 785806646 Plan: Chemotherapy induced N/V/D: Presented with complaints of nausea, vomiting, diarrhea and decreased oral intake s/p treatment. Also c/o cough, nasal congestion and sore throat, with recent sick contact. Creatinine 0.53, GFR greater than 90. Bilirubin 4.0, previously at 2.1 on 06/09. Amylase and lipase normal. Transaminitis noted, but are similar to labs from 06/09 prior to infusion. -C diff ordered. RSV COVID, influenza negative -Bilirubin and LFTs improving -Nausea/vomiting has resolved with significant improvement in diarrhea -Has not had to use ordered as needed Zofran or Compazine over the past 3-4 days -Diet has been advanced and is tolerating solid diet without nausea or vomiting -Continue antiemetic medications as above as needed Grade 4 neutropenia: -Secondary to gemcitabine/Abraxane chemotherapy with cycle 1 given on 06/09/2023 -Received 1 dose of Zarzio on 06/18/2023 -Counts improving. WBC recovered, WBC 7.3, ANC 6500. Hgb 8.5, plts 103,000 Metastatic pancreactic cancer: -Completed cycle 1 of gemzar and abraxane on 06/09/23 -Developed nausea, vomiting, diarrhea along with grade 4 neutropenia as noted above -Day 14, cycle 1 was scheduled for 06/23/2023. Plan is for rehab upon discharge. Treatment will be on hold -Will schedule clinic f/u upon discharge attests: I have seen and examined patient, performed H&P, developed impression and plan of care. Discussed with dictator. Agree with documentati on, dictated as a scribe
[2023-06-20] MEDS: MEGESTROL 400 MG/10 ML CUP PO SCH (17:14)
[2023-06-20] MEDS: CHOLESTYRAMINE (WITH SUGAR) 4 GM PACKET PO SCH (17:14)
[2023-06-20 17:19] LABS: Glucose,Whole Blood 152 mg/dL (70-110)
[2023-06-20 20:17] LABS: Glucose,Whole Blood 192 mg/dL (70-110)
--- NOTE | 2023-06-21 06:08 | PN ---
PROGRESS NOTE DATE OF SERVICE: 06/20/2023 HISTORY OF PRESENT ILLNESS: This is a 62-year-old woman, who was admitted with vomiting and diarrhea after pancreatitis and lung cancer, is being closely monitored at this time. The patient still has some persistent diarrhea today. Chest x-ray showed some CHF. There is no wheezing. PAST MEDICAL HISTORY: Reviewed. REVIEW OF SYSTEMS: A 14-point review is negative except as mentioned earlier. CURRENT MEDICATIONS: Reviewed include vitamin D2. Rest of dose and medications noted. PHYSICAL EXAMINATION: VITAL SIGNS: Pulse is 74, blood pressure 120/67, respirations 17. HEENT: Conjunctivae normal. NECK: No JVD. CARDIOVASCULAR: S1, S2 muffled. RESPIRATIONS: A few scattered rhonchi and crackles. ABDOMEN: Soft. NERVOUS SYSTEM: Nonfocal. LABORATORY DATA: Hemoglobin 8. Accu-Cheks are noted and creatinine is not available. LFTs are noted. ASSESSMENT: 1. Nausea, vomiting, diarrhea, possibly secondary to chemotherapy for stage IV pancreatic cancer. 2. Rule out congestive heart failure. 3. Pancytopenia. 4. Transaminitis with liver cirrhosis. 5. Diabetes mellitus, type 2. 6. Hypertension. 7. Hyperlipidemia. 8. Multiple complex medical issues. RECOMMENDATIONS: Recommend to continue current management. Continue symptomatic treatment. Repeat labs. Also recommend to cut down the IV fluids and also monitor creatinine closely. Check C difficile, dose of diuretics. Continue to monitor. Guarded prognosis. Further recommendations to follow. MMODL / IJN: [id number] /
[2023-06-21 07:28] LABS: Glucose,Whole Blood 54 mg/dL (70-110)
[2023-06-21 07:51] LABS: Glucose,Whole Blood 74 mg/dL (70-110)
[2023-06-21] MEDS: TRIAMTERENE-HCTZ 37.5-25MG 1 EACH CAP PO SCH (09:30)
--- NOTE | 2023-06-21 11:52 | PN ---
PROGRESS NOTE DATE OF SERVICE: 06/21/2023 SUBJECTIVE: This is a 62-year-old woman who was admitted with multiple medical problems including nausea, vomiting, diarrhea, is being closely monitored at this time. Repeat chest x- ray which I reviewed personally showed possible CHF. BNP and rest of the labs are not available at this time. PAST MEDICAL HISTORY: Reviewed. REVIEW OF SYSTEMS: A 14-point review is negative. CURRENT MEDICATIONS: Reviewed. PHYSICAL EXAMINATION: VITAL SIGNS: Pulse is 60, blood pressure n, respirations 16. CHEST: Few scattered rhonchi and crackles. ABDOMEN: Soft. NERVOUS SYSTEM: No focal deficits. LABORATORY DATA: Hemoglobin 8.5, rest of labs are noted. ASSESSMENT: 1. Nausea, vomiting, diarrhea, possibly secondary to chemotherapy for stage IV pancreatic cancer. 2. Rule out CHF. 3. Pancytopenia. 4. Transaminitis with liver cirrhosis. 5. Diabetes type 2. 6. Hypertension. 7. Hyperlipidemia. 8. Multiple complex medical issues. RECOMMENDATIONS: Recommended to continue current management, continue symptomatic treatment, otherwise recommend BNP and 2D echo with Doppler to complete the workup and we will continue to monitor. We will repeat a chest x-ray tomorrow and we will repeat 1 more dose of Lasix. MMODL / IJN: [id number] / MTDD
[2023-06-21 12:00] LABS: Glucose,Whole Blood 110 mg/dL (70-110)
[2023-06-21 12:05] LABS: ALT 75 U/L (8-44); AST 66 U/L (13-35); Albumin 2.9 g/dL (3.8-4.9); Albumin/Globulin Ratio 1.04 Ratio (1.60-3.17); Alkaline Phosphatase 316 U/L (41-126); BUN/Creat Ratio 12.43 Ratio (12.00-20.00); Basophils # (M) 0.31 X 10*3/uL (0.00-0.10); Blood Urea Nitrogen 8.7 mg/dL (9.0-27.0); Calcium 8.3 mg/dL (8.7-10.3); Carbon Dioxide 23.2 mmol/L (21.6-31.8); Chloride 104 mmol/L (96-109); Eosinophils # (M) 0.31 X 10*3/uL (0.04-0.35); Globulin 2.8 g/dL (1.6-3.3); Glucose 48 mg/dL (70-110); HCT 33.5 % (37.2-46.3); HGB 10.6 g/dL (12.0-15.0); Lymphocytes # (M) 1.38 X 10*3/uL (0.90-5.00); MCH 27.3 pg (27.0-32.0); MCHC 31.6 g/dL (32.0-37.0); MCV 86.3 FL (80.0-97.0); Mean Platelet Volume 10.5 FL (9.5-12.2); Metamyelocytes % 4 % (0-0); Monocytes # (M) 0.61 X 10*3/uL (0.20-1.00); Myelocytes % 1 % (0-0); NRBC Per 100 WBC 0.09 X 10*3/uL (0.00-0.01); Neutrophils # (M) 11.93 X 10*3/uL (1.80-7.70); Neutrophils % (M) 78 %; Platelet Count 190 X 10*3/uL (140-440); Potassium 3.1 mmol/L (3.5-5.5); RBC 3.88 X 10*6/uL (4.10-5.20); RBC Morphology Normal (Normal); RDW 18.7 % (11.5-14.5); Sodium 143 mmol/L (135-145); Total Bilirubin 1.3 mg/dL (0.3-1.2); Total Protein 5.7 g/dL (6.2-8.2); WBC 15.29 X 10*3/uL (4.50-10.00)
[2023-06-21] MEDS: FUROSEMIDE 10 MG/ML 4 ML VIAL IV STA (13:52)
[2023-06-21] MEDS ORDERED: Potassium Replacement Protocol 1 EACH MISC MISCELLANE PRN (14:52)
[2023-06-21] MEDS: POTASSIUM CHLORIDE ER 20 MEQ TAB.ER PO SCH (15:16)
[2023-06-21 17:11] LABS: Glucose,Whole Blood 120 mg/dL (70-110)
[2023-06-21 20:06] LABS: Glucose,Whole Blood 173 mg/dL (70-110)
[2023-06-22 07:28] LABS: Glucose,Whole Blood 176 mg/dL (70-110)
[2023-06-22 09:05] LABS: ALT 53 U/L (8-44); AST 45 U/L (13-35); Albumin 2.6 g/dL (3.8-4.9); Albumin/Globulin Ratio 1.04 Ratio (1.60-3.17); Alkaline Phosphatase 252 U/L (41-126); Blood Urea Nitrogen 7.6 mg/dL (9.0-27.0); Calcium 8.1 mg/dL (8.7-10.3); Carbon Dioxide 24.8 mmol/L (21.6-31.8); Chloride 104 mmol/L (96-109); Globulin 2.5 g/dL (1.6-3.3); Glucose 183 mg/dL (70-110); Potassium 3.7 mmol/L (3.5-5.5); Sodium 140 mmol/L (135-145); Total Bilirubin 1.1 mg/dL (0.3-1.2); Total Protein 5.1 g/dL (6.2-8.2)
[2023-06-22] MEDS: INSULIN DETEMIR (LEVEMIR) 100 UNIT/ML SYR SQ SCH (09:14)
[2023-06-22 09:38] LABS: Basophils # (A) 0.06 X 10*3/uL (0.00-0.10); Eosinophils # (A) 0.03 X 10*3/uL (0.04-0.35); Eosinophils % (A) 0.5 %; HCT 30.1 % (37.2-46.3); HGB 9.6 g/dL (12.0-15.0); Lymphocytes % (A) 9.8 %; MCH 27.8 pg (27.0-32.0); MCHC 31.9 g/dL (32.0-37.0); MCV 87.2 FL (80.0-97.0); Mean Platelet Volume 11.1 FL (9.5-12.2); Monocytes # (A) 0.46 X 10*3/uL (0.20-1.00); Monocytes % (A) 7.5 %; NRBC Per 100 WBC 0.02 X 10*3/uL (0.00-0.01); Neutrophils # (A) 4.76 X 10*3/uL (1.80-7.70); Neutrophils % (A) 77.9 %; Platelet Count 110 X 10*3/uL (140-440); RBC 3.45 X 10*6/uL (4.10-5.20); RBC Morphology Normal (Normal); WBC 6.11 X 10*3/uL (4.50-10.00)
[2023-06-22] MEDS ORDERED: CHOLESTYRAMINE (WITH SUGAR) 4 GM PACKET PO PRN (09:43)
[2023-06-22] MEDS ORDERED: IPRATROPIUM-ALBUTEROL 3 ML NEB INHALATION PRN (11:09)
[2023-06-22] MEDS: IPRATROPIUM-ALBUTEROL 3 ML NEB INHALATION SCH (11:24)
--- NOTE | 2023-06-22 11:30 | XR ---
EXAMINATION TYPE: XR chest 1V portable DATE OF EXAM: 06/22/2023 Comparison: 06/20/2023 Clinical History: 62-year-old female CHF Findings: Right anterior chest wall injection port with subclavian access and catheter tip at the upper SVC lev el. Low lung volumes and cardiovascular markings. Heart upper limits of normal in size. No amanda cons olidation or pleural effusion. Impression: Hypoventilatory changes. Borderline heart size. No pulmonary edema.
--- NOTE | 2023-06-22 11:41 | CA ---
Transthoracic Echo Report Name: Shelby Mirza Age: 62 Gender: F : 1960 Exam Date: 06/21/2023 16:31 Exam Location: [facility] Ht (in): 63 Wt (lb): 215 Ordering Physician: Gigi Miller MD Attending/Referring Phys: Steel Chipper Sarah Hook RDCS Procedure CPT: Indications: chf Cardiac Hx: Technical Quality: Fair Contrast 1: Total Dose (mL): Contrast 2: Total Dose (mL): MEASUREMENTS (Male / Female) Normal Values 2D ECHO LV Diastolic Diameter PLAX 4.0 cm 4.2 - 5.9 / 3.9 - 5.3 cm LV Systolic Diameter PLAX 2.5 cm IVS Diastolic Thickness 1.1 cm 0.6 - 1.0 / 0.6 - 0.9 cm LVPW Diastolic Thickness 1.1 cm 0.6 - 1.0 / 0.6 - 0.9 cm LV Relative Wall Thickness 0.6 RV Internal Dim ED PLAX 3.2 cm LA Systolic Diameter LX 3.4 cm 3.0 - 4.0 / 2.7 - 3.8 cm LV Diastolic Volume MOD 4C 69.6 cm??? LV Systolic Volume MOD 4C 29.0 cm??? LV Ejection Fraction MOD 4C 58.4 % LV Cardiac Index MOD 4C 1565.3 cm???/min???m??? LV Diastolic Length 4C 8.4 cm LV Systolic Length 4C 6.5 cm LV Diastolic Volume MOD 2C 57.3 cm??? LV Systolic Volume MOD 2C 27.6 cm??? LV Ejection Fraction MOD 2C 51.8 % LV Cardiac Index MOD 2C 1142.5 cm???/min???m??? LV Diastolic Length 2C 7.4 cm LV Systolic Length 2C 6.0 cm LA Volume 45.2 cm??? 18 - 58 / 22 - 52 cm??? LA Volume Index 21.2 cm???/m??? 16 - 28 cm???/m??? M-MODE Aortic Root Diameter MM 3.7 cm DOPPLER AV Peak Velocity 165.7 cm/s AV Peak Gradient 11.0 mmHg MV Area PHT 2.9 cm??? Mitral E Point Velocity 81.0 cm/s Mitral A Point Velocity 96.5 cm/s Mitral E to A Ratio 0.8 MV Deceleration Time 263.3 ms FINDINGS Left Ventricle Left ventricular ejection fraction is estimated at 55-60 %. Left ventricular cavity size normal. Mildly increased septal wall thickness. Mildly increased posterior wall thickness. Right Ventricle Mild right ventricular dilatation. Unable to estimate the right ventricular systolic pressure. Right Atrium Right atrium not well visualized. Left Atrium Normal left atrial size. Mitral Valve Structurally normal mitral valve. No mitral stenosis, regurgitation or prolapse. Aortic Valve Trileaflet aortic valve. No aortic valve stenosis or regurgitation. Tricuspid Valve Structurally normal tricuspid valve. No tricuspid stenosis, regurgitation or prolapse. Pulmonic Valve Structurally normal pulmonic valve. No pulmonic regurgitation. Pericardium No pericardial effusion. Aorta Normal size aortic root and proximal ascending aorta. CONCLUSIONS Normal LV systolic function Previewed by: Dr. Los Cates MD (Electronically Signed) Final Date: 22 June 2023 11:40
--- NOTE | 2023-06-22 12:05 | PN ---
PROGRESS NOTE DATE OF SERVICE: 06/22/2023 SUBJECTIVE: This is a 62-year-old woman, who was admitted with nausea and vomiting secondary to chemotherapy, is being closely monitored. No chest pain. No palpitations. No fever. PHYSICAL EXAMINATION: VITAL SIGNS: Pulse is 83, blood pressure 91/57, and respirations 17. CHEST: Clear to auscultation. ABDOMEN: Soft. NERVOUS SYSTEM: Nonfocal. LABORATORY DATA: Reviewed. ASSESSMENT: 1. Nausea, vomiting, diarrhea, possibly chemotherapy induced for stage IV pancreatic cancer. 2. Rule out CHF. 3. Pancytopenia. 4. Transaminitis with liver cirrhosis. 5. Diabetes mellitus, type 2. 6. Hypertension. 7. Hyperlipidemia. 8. Multiple complex medical issues. RECOMMENDATIONS: Recommended to continue current management and treatment, otherwise at this time, I would also recommend BNP evaluation also and will repeat a chest x-ray and continue to monitor. Guarded prognosis. Further recommendations to follow. I would also recommend a 2D echo with Doppler also to complete the workup. MMODL / IJN: [id number] /
[2023-06-22 12:19] LABS: Glucose,Whole Blood 202 mg/dL (70-110)
[2023-06-22 17:41] LABS: Glucose,Whole Blood 117 mg/dL (70-110)
[2023-06-22 22:03] LABS: Glucose,Whole Blood 199 mg/dL (70-110)
[2023-06-23 07:05] LABS: Glucose,Whole Blood 151 mg/dL (70-110)
[2023-06-23] MEDS: PANTOPRAZOLE 40 MG TABLET PO SCH (08:30)
[2023-06-23 10:49] LABS: Basophils # (A) 0.04 X 10*3/uL (0.00-0.10); Basophils % (A) 0.7 %; Eosinophils # (A) 0.04 X 10*3/uL (0.04-0.35); Eosinophils % (A) 0.7 %; HCT 30.6 % (37.2-46.3); HGB 9.7 g/dL (12.0-15.0); Lymphocytes % (A) 14.7 %; MCH 27.2 pg (27.0-32.0); MCHC 31.7 g/dL (32.0-37.0); Mean Platelet Volume 10.3 FL (9.5-12.2); Monocytes # (A) 0.42 X 10*3/uL (0.20-1.00); Monocytes % (A) 7.7 %; NRBC Per 100 WBC 0.02 X 10*3/uL (0.00-0.01); Neutrophils # (A) 4.01 X 10*3/uL (1.80-7.70); Neutrophils % (A) 73.6 %; Platelet Count 110 X 10*3/uL (140-440); RBC 3.56 X 10*6/uL (4.10-5.20); RDW 18.8 % (11.5-14.5); WBC 5.45 X 10*3/uL (4.50-10.00)
[2023-06-23 11:11] LABS: BUN/Creat Ratio 11.29 Ratio (12.00-20.00); Blood Urea Nitrogen 7.9 mg/dL (9.0-27.0); Calcium 8.9 mg/dL (8.7-10.3); Carbon Dioxide 29.8 mmol/L (21.6-31.8); Chloride 103 mmol/L (96-109); Glucose 154 mg/dL (70-110); Potassium 3.7 mmol/L (3.5-5.5); Sodium 142 mmol/L (135-145)
[2023-06-23 12:19] LABS: Glucose,Whole Blood 151 mg/dL (70-110)
[2023-06-23 14:36] VITALS: BP 107/63; PULSE 86; RESP 18; TEMP 99
--- NOTE | 2023-06-23 18:13 | P.PN ---
Subjective Progress Note Date: 06/23/23 No acute events. N/V/D resolved. Not requiring anti-emetics, tolerating oral intake. Working with PT. Plan for discharge today. Home health services consulted Objective - Vital Signs Vital signs: Vital Signs Temp 98.2 F 06/23/23 06:59 Pulse 99 06/23/23 06:59 Resp 19 06/23/23 06:59 BP 102/48 06/23/23 06:59 Pulse Ox 96 06/23/23 06:59 FiO2 Intake & Output 06/22/23 06/23/23 06/23/23 18:59 06:59 18:59 Intake Total 360 600 Balance 360 600 Intake: Oral 360 360 Other 240 Other: Voiding Method Toilet Toilet # Voids 3 3 - Constitutional General appearance: Present: no acute distress - EENT Eyes: Present: anicteric sclerae, EOMI ENT: Present: hearing grossly normal - Respiratory Details: breathing is even and unlabored - Cardiovascular Details: well perfused - Gastrointestinal General gastrointestinal: Present: soft. Absent: tenderness - Integumentary Integumentary: Absent: cyanotic - Musculoskeletal Musculoskeletal: Present: strength equal bilaterally - Labs CBC & Chem 7: 06/23/23 06:39 06/23/23 06:39 Labs: Abnormal Lab Results - Last 24 Hours (Table) 06/22/23 06/22/23 06/22/23 Range/Units 06:08 12:17 17:40 RBC (4.10-5.20) X 10*6/uL Hgb (12.0-15.0) g/dL Hct (37.2-46.3) % MCHC (32.0-37.0) g/dL RDW (11.5-14.5) % Plt Count (140-440) X 10*3/uL Immature Gran # (0.00-0.04) X 10*3/uL Lymphocytes # (0.90-5.00) X 10*3/uL NRBC/100 WBC Diff (0.00-0.01) X 10*3/uL BUN (9.0-27.0) mg/dL BUN/Creatinine Ratio (12.00-20.00) Ratio Glucose (70-110) mg/dL POC Glucose (mg/dL) 202 H 117 H (70-110) mg/dL NT-Pro-B Natriuret Pep 1484 H (0-125) pg/mL 06/22/23 06/23/23 06/23/23 Range/Units 22:02 06:39 06:39 RBC 3.56 L (4.10-5.20) X 10*6/uL Hgb 9.7 L (12.0-15.0) g/dL Hct 30.6 L (37.2-46.3) % MCHC 31.7 L (32.0-37.0) g/dL RDW 18.8 H (11.5-14.5) % Plt Count 110 L (140-440) X 10*3/uL Immature Gran # 0.14 H (0.00-0.04) X 10*3/uL Lymphocytes # 0.80 L (0.90-5.00) X 10*3/uL NRBC/100 WBC Diff 0.02 H (0.00-0.01) X 10*3/uL BUN 7.9 L (9.0-27.0) mg/dL BUN/Creatinine Ratio 11.29 L (12.00-20.00) Ratio Glucose 154 H (70-110) mg/dL POC Glucose (mg/dL) 199 H (70-110) mg/dL NT-Pro-B Natriuret Pep (0-125) pg/mL 06/23/23 Range/Units 07:03 RBC (4.10-5.20) X 10*6/uL Hgb (12.0-15.0) g/dL Hct (37.2-46.3) % MCHC (32.0-37.0) g/dL RDW (11.5-14.5) % Plt Count (140-440) X 10*3/uL Immature Gran # (0.00-0.04) X 10*3/uL Lymphocytes # (0.90-5.00) X 10*3/uL NRBC/100 WBC Diff (0.00-0.01) X 10*3/uL BUN (9.0-27.0) mg/dL BUN/Creatinine Ratio (12.00-20.00) Ratio Glucose (70-110) mg/dL POC Glucose (mg/dL) 151 H (70-110) mg/dL NT-Pro-B Natriuret Pep (0-125) pg/mL Assessment and Plan (1) Pancreatic cancer Status: Acute Priority: High Code(s): C25.9 - MALIGNANT NEOPLASM OF PANCREAS, UNSPECIFIED SNOMED Code(s): 471922275 (2) Chemotherapy induced nausea and vomiting Status: Acute Priority: High Code(s): R11.2 - NAUSEA WITH VOMITING, UNSPECIFIED; T45.1X5A - ADVERSE EFFECT OF ANTINEOPLASTIC AND IMMUNOSUP DRUGS, INIT SNOMED Code(s): 62911339 (3) Chemotherapy induced neutropenia Status: Acute Priority: High Code(s): D70.1 - AGRANULOCYTOSIS SECONDARY TO CANCER CHEMOTHERAPY; T45.1X5A - ADVERSE EFFECT OF ANTINEOPLASTIC AND IMMUNOSUP DRUGS, INIT SNOMED Code(s): 269606563 (4) Chemotherapy-induced diarrhea Status: Acute Priority: High Code(s): K52.1 - TOXIC GASTROENTERITIS AND COLITIS; T45.1X5A - ADVERSE EFFECT OF ANTINEOPLASTIC AND IMMUNOSUP DRUGS, INIT SNOMED Code(s): 355951488 Plan: Chemotherapy induced N/V/D: Presented with complaints of nausea, vomiting, diarrhea and decreased oral intake s/p treatment. Also c/o cough, nasal congestion and sore throat, with recent sick contact. Creatinine 0.53, GFR greater than 90. Bilirubin 4.0, previously at 2.1 on 06/09. Amylase and lipase normal. Transaminitis noted, but are similar to labs from 06/09 prior to infusion. -C diff ordered. RSV COVID, influenza negative -Bilirubin and LFTs improving -Nausea/vomiting/diarrhea has resolved. Tolerating diet well Discussed antiemetic and antidiarrheal regimen in detail with patient. Additional supportive meds sent from clinic Grade 4 neutropenia: -Secondary to gemcitabine/Abraxane chemotherapy with cycle 1 given on 06/09/2023 -Received 1 dose of Zarzio on 06/18/2023 -Counts improved. WBC 5.4, Hgb 9.7, plts 110,000 Metastatic pancreactic cancer: -Completed cycle 1 of gemzar and abraxane on 06/09/23 -Developed nausea, vomiting, diarrhea along with grade 4 neutropenia as noted above -Day 14, cycle 1 was scheduled for 06/23/2023, will plan to hold treatment for 1 week. And will f/u next week prior to treatment to ensure patient has adequately recovered prior to resuming treatment Spoke with case management. Home health services referral has been placed. Patient will be given resources for shower chair at [facility] way Time with Patient: Greater than 30
--- NOTE | 2023-06-27 07:13 | P.DS ---
Providers Date of admission: 06/13/23 16:58 Expected date of discharge: 06/23/23 Attending physician: Gigi Miller Consults: 06/13/23 16:57 Consult Physician Routine Consulting Provider: Franchesca Louise Consult Reason/Comments: Oncological care Do you want consulting provider notified?: Yes Primary care physician: [facility] Course: Final diagnosis Nausea vomiting diarrhea, possible chemotherapy induced for stage IV pancreatic cancer Pancytopenia Transaminitis with liver cirrhosis Diabetes mellitus, type II, insulin-dependent with hyper and hypoglycemia Hypertension history Hyperlipidemia Obesity with a BMI 38.1 GI prophylaxis DVT prophylaxis Full code Discharge disposition Patient is being discharged in a stable condition with guarded prognosis to home. Patient will follow-up with Dr. Merritt in the outpatient setting upon discharge. Patient is to continue with current medications and close outpatient follow-up with oncology as scheduled. Total time taken is greater than 35 minutes. Hospital course This is a 62-year-old female who was recently admitted with nausea vomiting and difficulty tolerating diet along with diarrhea being closely monitored. There was concerns of possible chemotherapy side effects as patient is currently receiving treatment for pancreatic cancer stage IV. Oncology following recommending outpatient follow-up. Patient also started having some cough with congestion and testing was negative. Patient started on breathing treatments and will continue on discharge and recommend outpatient follow-up with primary care provider this week. Patient has shown improvements in nausea vomiting and no further diarrhea tolerating diet reports to feeling well to go home. Instructed patient to continue monitoring blood sugars closely as blood sugars have been uncontrolled and adjustments to medications have been made. Please refer to other consultation notes for further HPI. Currently no reports of chest pain, shortness of breath, or palpitations. Patient is afebrile. No reports of nausea or vomiting and patient is tolerating diet. Patient will be discharged home today. Physical exam: Gen: This is a 62-year-old female who is awake, alert and oriented x 3, well- developed, well-nourished, obese HEENT: Head is atraumatic, normocephalic. Pupils equal, round. Sclerae is anicteric. NECK: Supple. No JVD. No lymphadenopathy. No thyromegaly. LUNGS: Diminished breath sounds bilaterally otherwise clear to auscultation. No wheezes or rhonchi. No intercostal retractions. HEART: Regular rate and rhythm. No murmur. ABDOMEN: Soft. Obese. Bowel sounds are present. No masses. No tenderness. EXTREMITIES: No pedal edema. No calf tenderness. NEUROLOGICAL: Patient is awake, alert and oriented x3. Cranial nerves 2 through 12 are grossly intact. Diffusely weak Please refer to medication reconciliation sheet for a list of medications. The impression and plan of care has been dictated by Ashely León, Nurse Practitioner as directed. Dr. Hao MD I have performed a history and examination and MDM of this patient, discussed the same with the dictator, and agree with the dictator's assessment and plan as written ,documented as a scribe. Based on total visit time, I have performed more than 50% of the visit. Patient Condition at Discharge: Stable Plan - Discharge Summary Discharge Rx Participant: Yes New Discharge Prescriptions: New Benzonatate [Tessalon Perle] 200 mg PO HS PRN #14 capsule PRN Reason: Cough Albuterol Inhaler [Ventolin Hfa Inhaler] 2 puff INHALATION Q6H PRN 30 Days #1 each PRN Reason: Shortness Of Breath guaiFENesin [Mucinex] 600 mg PO Q12H 7 Days #14 tab INSULIN ASPART (NovoLOG) [NovoLOG (formulary)] 0 unit SQ ACHS each Budesonide-Formot 160-4.5 Mcg [Symbicort 160-4.5 Mcg Inhaler] 2 puff INHALATION BID #10.2 gm Continue metFORMIN HCL 1,000 mg PO BID Gabapentin 600 mg PO TID Levothyroxine Sodium [Synthroid] 50 mcg PO DAILY Triamterene/Hydrochlorothiazid [Triamterene-Hctz 37.5-25 mg Cp] 1 cap PO ALCIDES Y oxyCODONE HCL [oxyCODONE HCL (IR)] 10 mg PO QID Megestrol [Megace] 400 mg PO BID Ondansetron Odt [Zofran ODT] 4 mg PO Q8HR PRN PRN Reason: Nausea And Vomiting Atorvastatin [Lipitor] 40 mg PO HS Aspirin EC [Ecotrin Low Dose] 81 mg PO DAILY Ergocalciferol [Vitamin D2 (1250 Mcg = 98706 Iu)] 1,250 mcg PO FR Pantoprazole [Protonix] 40 mg PO DAILY rOPINIRole HCL [Requip] 2 mg PO HS Changed Insulin Glargine,Hum.rec.anlog [Lantus Solostar Pen] 30 units SQ DAILY #0 Discontinued Metoprolol Tartrate [Lopressor] 100 mg PO BID Insulin Aspart [NovoLOG Flexpen] 18 units SQ TID-W/MEALS Discharge Medication List Aspirin EC [Ecotrin Low Dose] 81 mg PO DAILY 05/11/23 [History] Atorvastatin [Lipitor] 40 mg PO HS 05/11/23 [History] Ergocalciferol [Vitamin D2 (1250 Mcg = 20564 Iu)] 1,250 mcg PO FR 05/11/23 [History] Gabapentin 600 mg PO TID 05/11/23 [History] Levothyroxine Sodium [Synthroid] 50 mcg PO DAILY 05/11/23 [History] Pantoprazole [Protonix] 40 mg PO DAILY 05/11/23 [History] Triamterene/Hydrochlorothiazid [Triamterene-Hctz 37.5-25 mg Cp] 1 cap PO DAILY 05/11/23 [History] metFORMIN HCL 1,000 mg PO BID 05/11/23 [History] oxyCODONE HCL [oxyCODONE HCL (IR)] 10 mg PO QID 05/25/23 [History] Megestrol [Megace] 400 mg PO BID 06/13/23 [History] Ondansetron Odt [Zofran ODT] 4 mg PO Q8HR PRN 06/13/23 [History] rOPINIRole HCL [Requip] 2 mg PO HS 06/13/23 [History] Albuterol Inhaler [Ventolin Hfa Inhaler] 2 puff INHALATION Q6H PRN 30 Days #1 each 06/23/23 [Rx] Benzonatate [Tessalon Perle] 200 mg PO HS PRN #14 capsule 06/23/23 [Rx] Budesonide-Formot 160-4.5 Mcg [Symbicort 160-4.5 Mcg Inhaler] 2 puff INHALATION BID #10.2 gm 06/23/23 [Rx] INSULIN ASPART (NovoLOG) [NovoLOG (formulary)] 0 unit SQ ACHS each 06/23/23 [Rx] Insulin Glargine,Hum.rec.anlog [Lantus Solostar Pen] 30 units SQ DAILY #0 06/23/23 [Rx] guaiFENesin [Mucinex] 600 mg PO Q12H 7 Days #14 tab 06/23/23 [Rx] Follow up Appointment(s)/Referral(s): Rakesh Claire NPC [Nurse Practitioner] - 06/29/23 1:45 pm ([facility] office location, behind [facility] [address]) [facility], [NON-STAFF] - 1 Week Parth Merritt MD [Primary Care Provider] - 1-2 days (Patient made her own appointment.) Patient Instructions/Handouts: Benzonatate (By mouth), Albuterol (By breathing), Guaifenesin/Phenylephrine (By mouth), Budesonide/Formoterol (By breathing), Chemo Induced Nausea and Vomiting (DC) Activity/Diet/Wound Care/Special Instructions: Activity limited until follow-up Follow-up with primary care provider on discharge Follow-up oncology as scheduled Continue taking medications as prescribed Monitor blood sugars and keep a diary of all readings for primary care follow-up NovoLog sliding scale 0-150 equals 0 units 151-200 equals 2 units 201-250 equals 4 units 251-300 equals 6 units 301-350 equals 8 units 351-400 equals 10 units Please notify provider if blood sugar is 400 or above Discharge Disposition: HOME WITH HOME HEALTH SERVICES
== END 2023-06-23 16:57 | disposition home health service (06) | DRG 249 ==
LOC: EC 14:26 → OBSVTOIN 16:58 → 5NMEDONC 16:58
PROVIDERS: ADMIT Hospitalist; ATTEND Hospitalist
PROC: 02HV33Z Insertion of Infusion Device into Superior Vena Cava, Percutaneous Approach (ICD-10-PCS; principal; 2023-06-21 16:30)
DX: K52.1 Toxic gastroenteritis and colitis (principal); C78.7 Secondary malignant neoplasm of liver and intrahepatic bile duct; E11.9 Type 2 diabetes mellitus without complications; K21.9 Gastro-esophageal reflux disease without esophagitis; E78.2 Mixed hyperlipidemia; E03.9 Hypothyroidism, unspecified; K74.60 Unspecified cirrhosis of liver; G43.909 Migraine, unspecified, not intractable, without status migrainosus; C25.9 Malignant neoplasm of pancreas, unspecified; C77.2 Secondary and unspecified malignant neoplasm of intra-abdominal lymph nodes; D61.810 Antineoplastic chemotherapy induced pancytopenia; D70.1 Agranulocytosis secondary to cancer chemotherapy; E78.5 Hyperlipidemia, unspecified; E83.42 Hypomagnesemia; Z86.14 Personal history of Methicillin resistant Staphylococcus aureus infection; I11.0 Hypertensive heart disease with heart failure; I50.9 Heart failure, unspecified; T45.1X5A Adverse effect of antineoplastic and immunosuppressive drugs, initial encounter; Z79.4 Long term (current) use of insulin; Z79.82 Long term (current) use of aspirin; Z79.84 Long term (current) use of oral hypoglycemic drugs; Z79.890 Hormone replacement therapy; Z79.899 Other long term (current) drug therapy; Z80.0 Family history of malignant neoplasm of digestive organs; Z90.49 Acquired absence of other specified parts of digestive tract
CPT/HCPCS: 36410; 36415; 71045; 74019; 76937; 80048; 80053; 81001; 82150; 83036; 83690; 83735; 83880; 84145; 84484; 85025; 85610; 85730; 87324; 87636; 93306; 94640; 96361; 96374; 96375; 96376; 99285

== ENCOUNTER 2023-07-13 12:41 | Inpatient (IN) | payer OTHER ==
--- NOTE | 2023-07-13 13:19 | ED ---
General Adult HPI - General Chief complaint: Weakness Stated complaint: Weakness Time Seen by Provider: 07/13/23 12:43 Source: patient, EMS, RN notes reviewed Mode of arrival: EMS Limitations: no limitations - History of Present Illness Initial comments: Patient is a pleasant 63-year-old female presenting to the emergency department with concerns for increased weakness. Patient is no longer able to get up and take care of herself. Patient is not able to make it to the bathroom. Patient has decreased oral intake. Patient does have some discomfort of her tongue and throat. Patient feels weak all over, no isolated area of weakness. No confusion. Patient does have stage IV pancreatic cancer and is on chemotherapy. Patient does have nausea. - Related Data Home Medications Medication Instructions Recorded Confirmed Aspirin EC [Ecotrin Low Dose] 81 mg PO DAILY 05/11/23 07/13/23 Atorvastatin [Lipitor] 40 mg PO HS 05/11/23 07/13/23 Ergocalciferol [Vitamin D2 (1250 1,250 mcg PO FR 05/11/23 07/13/23 Mcg = 84729 Iu)] Gabapentin 600 mg PO TID 05/11/23 07/13/23 Levothyroxine Sodium [Synthroid] 50 mcg PO DAILY 05/11/23 07/13/23 Pantoprazole [Protonix] 40 mg PO DAILY 05/11/23 07/13/23 Triamterene/Hydrochlorothiazid 1 cap PO DAILY 05/11/23 07/13/23 [Triamterene-Hctz 37.5-25 mg Cp] metFORMIN HCL 1,000 mg PO BID 05/11/23 07/13/23 oxyCODONE HCL [oxyCODONE HCL (IR)] 10 mg PO QID PRN 05/25/23 07/13/23 Ondansetron Odt [Zofran ODT] 4 mg PO Q8HR PRN 06/13/23 07/13/23 rOPINIRole HCL [Requip] 2 mg PO HS 06/13/23 07/13/23 Albuterol Sulfate [Albuterol 2 puff PO RT-Q6H PRN 07/13/23 07/13/23 Sulfate Hfa] Budesonide/Formoterol Fumarate 2 puff INHALATION RT-BID 07/13/23 07/13/23 [Symbicort 160-4.5 Mcg Inhaler] INSULIN ASPART (NovoLOG) [NovoLOG See Protocol SQ ACHS 07/13/23 07/13/23 (formulary)] OLANZapine [ZyPREXA] 2.5 mg PO DIRECTED 07/13/23 07/13/23 Prochlorperazine [Compazine] 10 mg PO Q6H PRN 07/13/23 07/13/23 Pyridoxine HCl (Vitamin B6) 100 mg PO DAILY 07/13/23 07/13/23 [Vitamin B-6] Previous Rx's Medication Instructions Recorded Benzonatate [Tessalon Perle] 200 mg PO HS PRN #14 capsule 06/23/23 Insulin Glargine,Hum.rec.anlog 30 units SQ DAILY #0 06/23/23 [Lantus Solostar Pen] Allergies Allergy/AdvReac Type Severity Reaction Status Date / Time Mushroom Allergy Unknown Verified 07/13/23 16:16 Review of Systems ROS Statement: Those systems with pertinent positive or pertinent negative responses have been documented in the HPI. ROS Other: All systems not noted in ROS Statement are negative. Constitutional: Denies: fever Eyes: Denies: eye pain ENT: Reports: throat pain. Denies: ear pain Respiratory: Denies: cough Cardiovascular: Denies: chest pain Endocrine: Reports: as per HPI, fatigue Gastrointestinal: Reports: nausea Genitourinary: Denies: dysuria Musculoskeletal: Denies: arthralgia Skin: Denies: rash Neurological: Reports: as per HPI Past Medical History Past Medical History: Cancer, Diabetes Mellitus, GERD/Reflux, Hyperlipidemia, Hypertension, Liver Disease, Thyroid Disorder Additional Past Medical History / Comment(s): Hx chest pain 2019, had heart cath - neg, determined it was from anxiety. Cirrohsis of the liver. Migraines. Current pancreatic cancer. History of Any Multi-Drug Resistant Organisms: MRSA Date of last positivie culture/infection: 2018 MDRO Source:: "Blood infection" Past Surgical History: Heart Catheterization, Orthopedic Surgery Additional Past Surgical History / Comment(s): Broke right leg - has francesco, plate and screws, screw in left baby toe, ganglion cyst removed from foot, bilateral cataract surgery. Past Anesthesia/Blood Transfusion Reactions: Motion Sickness, Postoperative Nausea & Vomiting (PONV) Past Psychological History: No Psychological Hx Reported Smoking Status: Never smoker Past Alcohol Use History: Rare Past Drug Use History: None Reported - Past Family History Mother Family Medical History: Cancer Additional Family Medical History / Comment(s): Colon cancer. Father Family Medical History: Cancer Additional Family Medical History / Comment(s): Colon cancer. General Exam Limitations: no limitations General appearance: alert, in no apparent distress Head exam: Present: normocephalic Eye exam: Present: normal appearance, PERRL, EOMI ENT exam: Present: other (Yellowish coating on the tongue concerning for thrush) Neck exam: Present: normal inspection Respiratory exam: Present: normal lung sounds bilaterally Cardiovascular Exam: Present: regular rate, normal rhythm GI/Abdominal exam: Present: soft. Absent: tenderness Extremities exam: Present: pedal edema Neurological exam: Present: alert, CN II-XII intact Expanded Neurological exam: Present: protecting the airway Speech: Present: fluid speech Motor strength exam: RUE: 4, LUE: 4, RLE: 3, LLE: 3 Eye Response: (4) open spontaneously Motor Response: (6) obeys commands Verbal Response: (5) oriented Psychiatric exam: Present: normal affect, normal mood Skin exam: Present: normal color Course Vital Signs 07/13/23 07/13/23 12:49 15:36 Temperature 98.1 F Pulse Rate 89 91 Respiratory 18 18 Rate Blood Pressure 105/45 99/57 O2 Sat by Pulse 98 98 Oximetry EKG Findings - EKG Results: EKG: interpreted by ERMD (Left axis. Q wave V1 V2.), sinus rhythm, normal ST/T Medical Decision Making - Medical Decision Making Was pt. sent in by a medical professional or institution (Dr. PA, PUBLISHING EDITOR, urgent care, hospital, or fpc...) When possible be specific @ -No Did you speak to anyone other than the patient for history (EMS, parent, family, police, friend...)? What history was obtained from this source @ -No Did you review nursing and triage notes (agree or disagree)? Why? @ -I reviewed and agree with nursing and triage notes Were old charts reviewed (outside hosp., previous admission, EMS record, old EKG, old radiological studies, urgent care reports/EKG's, fpc records)? Report findings @ -Previous labs reviewed Differential Diagnosis (chest pain, altered mental status, abdominal pain women, abdominal pain men, vaginal bleeding, weakness, fever, dyspnea, syncope, headache, dizziness, GI bleed, back pain, seizure, CVA, palpatations, mental health, musculoskeletal)? @ -Differential Weakness: Hypoglycemia, shock, sepsis, hyponatremia, anemia, infection, NE, ETOH, adverse medicine reaction, overdose, stroke, this is not meant to be an all-inclusive list. EKG interpreted by me (3pts min.). @ -As above X-rays interpreted by me (1pt min.). @ -Chest x-ray does not reveal acute CT interpreted by me (1pt min.). @ -None done U/S interpreted by me (1pt. min.). @ -None done What testing was considered but not performed or refused? (CT, X-rays, U/S, labs)? Why? @ -Urinalysis however this is still pending as patient has not given a sample What meds were considered but not given or refused? Why? @ -None Did you discuss the management of the patient with other professionals (professionals i.e. , PA, PUBLISHING EDITOR, lab, RT, psych nurse, social media coordinator, web pressman, teacher, division officer weapons department, housing case manager)? Give summary @ -Case was discussed with Dr. Ramos who will admit covering for Dr. Garcia. Was smoking cessation discussed for >3mins.? @ -No Was critical care preformed (if so, how long)? @ -No Were there social determinants of health that impacted care today? How? (Homelessness, low income, unemployed, alcoholism, drug addiction, transportation, low edu. Level, literacy, decrease access to med. care, senior living, rehab)? @ -No Was there de-escalation of care discussed even if they declined (Discuss DNR or withdrawal of care, Hospice)? DNR status @ -No What co-morbidities impacted this encounter? (DM, HTN, Smoking, COPD, CAD, Ca ncer, CVA, ARF, Chemo, Hep., AIDS, mental health diagnosis, sleep apnea, morbid obesity)? @ -Metastatic pancreatic cancer Was patient admitted / discharged? Hospital course, mention meds given and ro atiya, prescriptions, significant lab abnormalities, going to OR and other pertinent info. @ -Patient updated on plan. Admission orders written. Patient will be admitted for fluids. Oncology consult be placed. Undiagnosed new problem with uncertain prognosis? @ -No Drug Therapy requiring intensive monitoring for toxicity (Heparin, Nitro, Insulin, Cardizem)? @ -No Were any procedures done? @ -No Diagnosis/symptom? @ -Weakness, dehydration Acute, or Chronic, or Acute on Chronic? @ -Acute, acute Uncomplicated (without systemic symptoms) or Complicated (systemic symptoms)? @ -Default Side effects of treatment? @ -No Exacerbation, Progression, or Severe Exacerbation? @ -No Poses a threat to life or bodily function? How? (Chest pain, USA, NE, pneumonia, PE, COPD, DKA, ARF, appy, cholecystitis, CVA, Diverticulitis, Homicidal, Suicidal, threat to staff... and all critical care pts) @ -No - Lab Data Result diagrams: 07/13/23 13:34 07/13/23 13:34 Lab Results 07/13/23 07/13/23 07/13/23 Range/Units 13:34 13:34 13:34 WBC 4.0 (3.8-10.6) k/uL RBC 3.14 L (3.80-5.40) m/uL Hgb 9.4 L (11.4-16.0) gm/dL Hct 28.4 L (34.0-46.0) % MCV 90.2 (80.0-100.0) fL MCH 29.8 (25.0-35.0) pg MCHC 33.0 (31.0-37.0) g/dL RDW 18.0 H (11.5-15.5) % Plt Count 80 L (150-450) k/uL MPV 9.9 Neutrophils % (Manual) 85 % Lymphocytes % (Manual) 10 % Monocytes % (Manual) 4 % Basophils % (Manual) 1 % Neutrophils # (Manual) 3.40 (1.3-7.7) k/uL Lymphocytes # (Manual) 0.40 L (1.0-4.8) k/uL Monocytes # (Manual) 0.16 (0-1.0) k/uL Basophils # (Manual) 0.04 (0-0.2) k/uL Nucleated RBCs 0 (0-0) /100 WBC Manual Slide Review Performed Anisocytosis Slight PT 12.2 (10.0-12.5) sec INR 1.1 (<1.2) APTT 19.5 L (22.0-30.0) sec Sodium 131 L (137-145) mmol/L Potassium 5.4 H (3.5-5.1) mmol/L Chloride 100 (98-107) mmol/L Carbon Dioxide 18 L (22-30) mmol/L Anion Gap 13 mmol/L BUN 43 H (7-17) mg/dL Creatinine 1.50 H (0.52-1.04) mg/dL Est GFR (CKD-EPI)AfAm 43 (>60 ml/min/1.73 sqM) Est GFR (CKD-EPI)NonAf 37 (>60 ml/min/1.73 sqM) Glucose 225 H (74-99) mg/dL Plasma Lactic Acid Ziyad (0.7-2.0) mmol/L Calcium 8.3 L (8.4-10.2) mg/dL Phosphorus 2.8 (2.5-4.5) mg/dL Magnesium 2.0 (1.6-2.3) mg/dL Total Bilirubin 1.9 H (0.2-1.3) mg/dL AST 66 H (14-36) U/L ALT 56 H (4-34) U/L Alkaline Phosphatase 229 H (38-126) U/L Total Protein 5.9 L (6.3-8.2) g/dL Albumin 2.7 L (3.5-5.0) g/dL Amylase 39 (30-110) U/L Lipase 98 (23-300) U/L //24 Range/Units 13:34 WBC (3.8-10.6) k/uL RBC (3.80-5.40) m/uL Hgb (11.4-16.0) gm/dL Hct (34.0-46.0) % MCV (80.0-100.0) fL MCH (25.0-35.0) pg MCHC (31.0-37.0) g/dL RDW (11.5-15.5) % Plt Count (150-450) k/uL MPV Neutrophils % (Manual) % Lymphocytes % (Manual) % Monocytes % (Manual) % Basophils % (Manual) % Neutrophils # (Manual) (1.3-7.7) k/uL Lymphocytes # (Manual) (1.0-4.8) k/uL Monocytes # (Manual) (0-1.0) k/uL Basophils # (Manual) (0-0.2) k/uL Nucleated RBCs (0-0) /100 WBC Manual Slide Review Anisocytosis PT (10.0-12.5) sec INR (<1.2) APTT (22.0-30.0) sec Sodium (137-145) mmol/L Potassium (3.5-5.1) mmol/L Chloride (98-107) mmol/L Carbon Dioxide (22-30) mmol/L Anion Gap mmol/L BUN (7-17) mg/dL Creatinine (0.52-1.04) mg/dL Est GFR (CKD-EPI)AfAm (>60 ml/min/1.73 sqM) Est GFR (CKD-EPI)NonAf (>60 ml/min/1.73 sqM) Glucose (74-99) mg/dL Plasma Lactic Acid Ziyad 2.0 (0.7-2.0) mmol/L Calcium (8.4-10.2) mg/dL Phosphorus (2.5-4.5) mg/dL Magnesium (1.6-2.3) mg/dL Total Bilirubin (0.2-1.3) mg/dL AST (14-36) U/L ALT (4-34) U/L Alkaline Phosphatase (38-126) U/L Total Protein (6.3-8.2) g/dL Albumin (3.5-5.0) g/dL Amylase (30-110) U/L Lipase (23-300) U/L Disposition Clinical Impression: Thrush, Dehydration, Weakness Disposition: ADMITTED IP TO THIS HOSP Is patient prescribed a controlled substance at d/c from ED?: No Referrals: Parth Merritt MD [Primary Care Provider] - 1-2 days Time of Disposition: 16:52
[2023-07-13] MEDS ORDERED: DEXTROSE 50% SYRINGE 50 ML IVP PRN (14:09)
[2023-07-13] MEDS ORDERED: ACETAMINOPHEN TAB 325 MG TAB PO PRN (14:09)
[2023-07-13] MEDS ORDERED: NALOXONE 0.4 MG/ML 1 ML VIAL IV PRN (14:09)
--- NOTE | 2023-07-13 14:31 | P.HPIM ---
History of Present Illness H&P Date: 07/13/23 Chief Complaint: Failure to thrive * 63-year-old patient with past medical history significant for pancreatic cancer stage IV, history of diabetes mellitus, hypothyroid, distant history of liver cirrhosis, transaminitis, pancytopenia, hypertension, hyperlipidemia presents to the emergency department with complaints of increased weakness patient unable to take care of self. Patient states she has been getting progressively weak. Patient was discharged from the hospital on June 23, 2023. Patient states she is unable to make to the bathroom. She feels weak all over. Patient has been on chemotherapy and has been following up with oncology outpatient. * States she has been having intermittent diarrhea, she does feel progressively weak. Last chemo session was on 07/07/2023 * Workup in ER included CBC, comprehensive metabolic panel, amylase levels, lactate levels * Patient to be admitted to medical floor and managed for multiple comorbidities REVIEW OF SYSTEMS: Weakness generalized debility CONSTITUTIONAL: No fever, no malaise, no fatigue. HEENT: No recent visual problems or hearing problems. Denied any sore throat. CARDIOVASCULAR: No chest pain, orthopnea, PND, no palpitations, no syncope. PULMONARY: No shortness of breath, no cough, no hemoptysis. GASTROINTESTINAL: No diarrhea, no nausea, no vomiting, no abdominal pain. NEUROLOGICAL: No headaches, no weakness, no numbness. HEMATOLOGICAL: Denies any bleeding or petechiae. GENITOURINARY: Denies any burning micturition, frequency, or urgency. MUSCULOSKELETAL/RHEUMATOLOGICAL: Denies any joint pain, swelling, or any muscle pain. ENDOCRINE: Denies any polyuria or polydipsia. PHYSICAL EXAMINATION: GENERAL: The patient is alert and oriented x3, ill appearance HEENT: Pupils are round and equally reacting to light. EOMI. CARDIOVASCULAR: S1 and S2 present. No murmurs, rubs, or gallops. PULMONARY: Chest is clear to auscultation, no wheezing or crackles. ABDOMEN: Soft, epigastric tenderness MUSCULOSKELETAL: No joint swelling or deformity. EXTREMITIES: Lower extremity edema NEUROLOGICAL: Gross neurological examination did not reveal any focal deficits. Assessment and plan * Failure to thrive with advanced stage pancreatic cancer * Diabetes mellitus type 2 * Chronic pain from cancer * History of chemotherapy-induced neutropenia * Hypothyroid * Oral thrush * In regards to failure to thrive, encourage oral intake, continue patient on Megace * In regards to history of COPD continue albuterol, Symbicort * In regards to diabetes mellitus Accu-Cheks ACHS continue patient on NovoLog continue Lantus monitor for hypoglycemia * In regards to hypothyroid continue Synthyroid * Regards to oral thrush continue patient on nystatin * CODE STATUS full code * Consult hematology oncology Past Medical History Past Medical History: Cancer, Diabetes Mellitus, GERD/Reflux, Hyperlipidemia, Hypertension, Liver Disease, Thyroid Disorder Additional Past Medical History / Comment(s): Hx chest pain 2019, had heart cath - neg, determined it was from anxiety. Cirrohsis of the liver. Migraines. Current pancreatic cancer. History of Any Multi-Drug Resistant Organisms: MRSA Date of last positivie culture/infection: 2017 MDRO Source:: "Blood infection" Past Surgical History: Heart Catheterization, Orthopedic Surgery Additional Past Surgical History / Comment(s): Broke right leg - has francesco, plate and screws, screw in left baby toe, ganglion cyst removed from foot, bilateral cataract surgery. Past Anesthesia/Blood Transfusion Reactions: Motion Sickness, Postoperative Nausea & Vomiting (PONV) Past Psychological History: No Psychological Hx Reported Smoking Status: Never smoker Past Alcohol Use History: Rare Past Drug Use History: None Reported - Past Family History Mother Family Medical History: Cancer Additional Family Medical History / Comment(s): Colon cancer. Father Family Medical History: Cancer Additional Family Medical History / Comment(s): Colon cancer. Medications and Allergies Home Medications Medication Instructions Recorded Confirmed Type Aspirin EC [Ecotrin Low Dose] 81 mg PO DAILY 05/11/23 06/13/23 History Atorvastatin [Lipitor] 40 mg PO HS 05/11/23 06/13/23 History Ergocalciferol [Vitamin D2 (1250 1,250 mcg PO FR 05/11/23 06/13/23 History Mcg = 95952 Iu)] Gabapentin 600 mg PO TID 05/11/23 06/13/23 History Levothyroxine Sodium [Synthroid] 50 mcg PO DAILY 05/11/23 06/13/23 History Pantoprazole [Protonix] 40 mg PO DAILY 05/11/23 06/13/23 History Triamterene/Hydrochlorothiazid 1 cap PO DAILY 05/11/23 06/13/23 History [Triamterene-Hctz 37.5-25 mg Cp] metFORMIN HCL 1,000 mg PO BID 05/11/23 06/13/23 History oxyCODONE HCL [oxyCODONE HCL (IR)] 10 mg PO QID 05/25/23 06/13/23 History Megestrol [Megace] 400 mg PO BID 06/13/23 06/13/23 History Ondansetron Odt [Zofran ODT] 4 mg PO Q8HR PRN 06/13/23 06/13/23 History rOPINIRole HCL [Requip] 2 mg PO HS 06/13/23 06/13/23 History Albuterol Inhaler [Ventolin Hfa 2 puff INHALATION Q6H PRN 30 Days 06/23/23 Rx Inhaler] #1 each Benzonatate [Tessalon Perle] 200 mg PO HS PRN #14 capsule 06/23/23 Rx Budesonide-Formot 160-4.5 Mcg 2 puff INHALATION BID #10.2 gm 06/23/23 Rx [Symbicort 160-4.5 Mcg Inhaler] INSULIN ASPART (NovoLOG) [NovoLOG 0 unit SQ ACHS each 06/23/23 Rx (formulary)] Insulin Glargine,Hum.rec.anlog 30 units SQ DAILY #0 06/23/23 06/13/23 Rx [Lantus Solostar Pen] guaiFENesin [Mucinex] 600 mg PO Q12H 7 Days #14 tab 06/23/23 Rx Allergies Allergy/AdvReac Type Severity Reaction Status Date / Time Mushroom Allergy Unknown Verified 07/13/23 12:57 Physical Exam Vitals: Vital Signs Temp Pulse Resp BP Pulse Ox 07/13/23 12:49 98.1 F 89 18 105/45 98 Intake and Output 07/12/23 07/13/23 07/13/23 22:59 06:59 14:59 Other: Weight 95.254 kg
[2023-07-13] MEDS: NYSTATIN 100,000 UNIT/ML SUSP 500,000 UNIT/5 ML CUP PO SCH (14:36)
[2023-07-13] MEDS: ONDANSETRON 4 MG/2 ML VIAL IVP STA (14:36)
[2023-07-13] MEDS: SODIUM CHLORIDE 0.9% 1,000 ML IV STA (14:36)
[2023-07-13] MEDS: FAMOTIDINE 20 MG/2 ML VIAL IV STA (14:36)
[2023-07-13 14:59] LABS: Anisocytosis Slight; HCT 28.4 % (34.0-46.0); HGB 9.4 gm/dL (11.4-16.0); MCH 29.8 pg (25.0-35.0); MCV 90.2 fL (80.0-100.0); Mean Platelet Volume 9.9; RBC 3.14 m/uL (3.80-5.40)
[2023-07-13 15:28] LABS: INR 1.1 (<1.2); Prothrombin Time 12.2 sec (10.0-12.5)
[2023-07-13 15:31] LABS: Partial Thromboplastin Time 19.5 sec (22.0-30.0)
[2023-07-13] MEDS: GABAPENTIN 300 MG CAP PO SCH (15:32)
[2023-07-13] MEDS: SODIUM CHLORIDE 0.9% 1,000 ML IV SCH (15:32)
[2023-07-13 15:50] LABS: ALT 56 U/L (4-34); AST 66 U/L (14-36); African American GFR (CKD) 43 (>60 ml/min/1.73 sqM); Albumin 2.7 g/dL (3.5-5.0); Alkaline Phosphatase 229 U/L (38-126); Amylase 39 U/L (30-110); Anion Gap 13 mmol/L; Basophils # (M) 0.04 k/uL (0-0.2); Blood Urea Nitrogen 43 mg/dL (7-17); Calcium 8.3 mg/dL (8.4-10.2); Carbon Dioxide 18 mmol/L (22-30); Chloride 100 mmol/L (98-107); Glucose 225 mg/dL (74-99); Lipase 98 U/L (23-300); Monocytes # (M) 0.16 k/uL (0-1.0); Neutrophils % (M) 85 %; Non-African American GFR(CKD) 37 (>60 ml/min/1.73 sqM); Nucleated Red Blood Cells 0 /100 WBC (0-0); Phosphorus 2.8 mg/dL (2.5-4.5); Sodium 131 mmol/L (137-145); Total Bilirubin 1.9 mg/dL (0.2-1.3); Total Cells Counted 100; Total Protein 5.9 g/dL (6.3-8.2)
[2023-07-13 15:52] LABS: Potassium 5.4 mmol/L (3.5-5.1)
[2023-07-13 15:56] LABS: Platelet Count 80 k/uL (150-450)
--- NOTE | 2023-07-13 15:58 | XR ---
EXAMINATION TYPE: XR chest 2V DATE OF EXAM: 07/13/2023 COMPARISON: 06/22/2023 TECHNIQUE: PA and lateral views submitted. HISTORY: Shortness of breath FINDINGS: Limited inspiration. Right-sided Mediport catheter stable in position. Diffuse osteopenia and AC join t arthropathy. The lungs are clear and there is no pneumothorax, pleural effusion, or focal pneumoni a. Heart size normal and no overt failure. Osseous structures demonstrate hypertrophic and degenerat zofia changes of the spine. IMPRESSION: 1. No acute process.
[2023-07-13 17:26] LABS: Glucose,Whole Blood 232 mg/dL (70-110)
[2023-07-13] MEDS: INSULIN REGULAR 100 UNIT/ML VIAL (IV) IV ONE (17:54)
[2023-07-13] MEDS: DEXTROSE 50% SYRINGE 50 ML IVP PRN (17:56)
[2023-07-13] MEDS: INSULIN ASPART (NovoLOG) 100 UNIT/ML VIAL SQ SCH (17:56)
[2023-07-13] MEDS: SODIUM BICARB 8.4% 50 ML SYR (1 MEQ/ML) IV ONE (17:57)
[2023-07-13] MEDS: CALCIUM GLUCONATE IN NACL 1 GM in SALINE 1 100ML.BAG IVPB ONE (18:10)
[2023-07-13 20:06] LABS: Glucose,Whole Blood 234 mg/dL (70-110)
[2023-07-13] MEDS: MEGESTROL 400 MG/10 ML CUP PO SCH (22:34)
[2023-07-13] MEDS: SYMBICORT 160-4.5 MCG INHALER INHALATION SCH (23:18)
[2023-07-14 03:00] LABS: Appearance,Urine Cloudy (Clear); Bacteria,Urine Rare /hpf; Bilirubin,Urine Negative (Negative); Blood,Urine Negative (Negative); Color,Urine Yellow; Glucose,Urine (UA) Negative (Negative); Hyaline Casts,Urine 1 /lpf (0-2); Ketones,Urine Negative (Negative); Leukocyte Esterase,Urine Moderate (Negative); Mucus,Urine Rare /hpf; Nitrite,Urine Negative (Negative); PH, Urine 5.5 (5.0-8.0); Protein,Urine 1+ (Negative); RBC,Urine 6 /hpf (0-5); Specific Gravity,Urine 1.018 (1.001-1.035); Squamous Epithelial Cell,Urine 4 /hpf (0-4); Urobilinogen,Urine <2.0 mg/dL (<2.0); WBC,Urine 28 /hpf (0-5)
[2023-07-14] MEDS: LEVOTHYROXINE 50 MCG TAB PO SCH (05:47)
[2023-07-14 08:07] LABS: Glucose,Whole Blood 216 mg/dL (70-110)
[2023-07-14] MEDS: PANTOPRAZOLE 40 MG TABLET PO SCH (09:12)
[2023-07-14] MEDS ORDERED: BENZONATATE 100 MG CAP PO PRN (10:05)
[2023-07-14] MEDS ORDERED: ALBUTEROL HFA INHALER INHALATION PRN (10:05)
[2023-07-14] MEDS: INSULIN DETEMIR (LEVEMIR) 100 UNIT/ML SYR SQ SCH (10:15)
[2023-07-14] MEDS ORDERED: OLANZapine 2.5 MG TAB PO PRN (10:15)
[2023-07-14] MEDS: ASPIRIN 81 MG PO SCH (10:18)
[2023-07-14] MEDS: metFORMIN 500 MG TAB PO SCH (10:18)
[2023-07-14] MEDS: PYRIDOXINE 50 MG TAB PO SCH (11:27)
[2023-07-14 11:49] LABS: BUN/Creat Ratio 25.42 Ratio (12.00-20.00); Blood Urea Nitrogen 30.5 mg/dL (9.0-27.0); Calcium 8.2 mg/dL (8.7-10.3); Carbon Dioxide 26.1 mmol/L (21.6-31.8); Chloride 100 mmol/L (96-109); Glucose 232 mg/dL (70-110); Potassium 4.4 mmol/L (3.5-5.5); Sodium 136 mmol/L (135-145)
--- NOTE | 2023-07-14 12:26 | P.PN ---
Subjective Progress Note Date: 07/14/23 * 63-year-old patient with past medical history significant for pancreatic cancer stage IV, history of diabetes mellitus, hypothyroid, distant history of liver cirrhosis, transaminitis, pancytopenia, hypertension, hyperlipidemia presents to the emergency department with complaints of increased weakness pat ient unable to take care of self. Patient states she has been getting progressively weak. Patient was discharged from the hospital on June 23, 2023. Patient states she is unable to make to the bathroom. She feels weak all over. Patient has been on chemotherapy and has been following up with onc ology outpatient. * States she has been having intermittent diarrhea, she does feel progressively weak. Last chemo session was on 07/07/2023 * Workup in ER included CBC, comprehensive metabolic panel, amylase levels, lactate levels * Patient to be admitted to medical floor and managed for multiple comorbidities * 07/14/23: Patient seen and evaluated bedside, patient states she had a difficult night was not able to sleep. She continues to complain of weakness. Blood work reviewed serum chemistry showed sodium 136, potassium 4.4 creatinine 1.2 improved blood glucose 232 HbA1c 8.2. Patient counseled that she is weak and would need rehab however at this time patient would like to think about it REVIEW OF SYSTEMS: Weakness generalized debility CONSTITUTIONAL: No fever, no malaise, no fatigue. HEENT: No recent visual problems or hearing problems. Denied any sore throat. CARDIOVASCULAR: No chest pain, orthopnea, PND, no palpitations, no syncope. PULMONARY: No shortness of breath, no cough, no hemoptysis. GASTROINTESTINAL: No diarrhea, no nausea, no vomiting, no abdominal pain. NEUROLOGICAL: No headaches, no weakness, no numbness. HEMATOLOGICAL: Denies any bleeding or petechiae. GENITOURINARY: Denies any burning micturition, frequency, or urgency. MUSCULOSKELETAL/RHEUMATOLOGICAL: Denies any joint pain, swelling, or any muscle pain. ENDOCRINE: Denies any polyuria or polydipsia. PHYSICAL EXAMINATION: GENERAL: The patient is alert and oriented x3, ill appearance HEENT: Pupils are round and equally reacting to light. EOMI. CARDIOVASCULAR: S1 and S2 present. No murmurs, rubs, or gallops. PULMONARY: Chest is clear to auscultation, no wheezing or crackles. ABDOMEN: Soft, epigastric tenderness MUSCULOSKELETAL: No joint swelling or deformity. EXTREMITIES: Lower extremity edema NEUROLOGICAL: Gross neurological examination did not reveal any focal deficits. Assessment and plan * Failure to thrive with advanced stage pancreatic cancer * Urinary tract infection * Diabetes mellitus type 2 * Chronic pain from cancer * History of chemotherapy-induced neutropenia * Hypothyroid * Oral thrush * In regards to failure to thrive, encourage oral intake, continue patient on Megace * In regards urinary tract infection, patient started on IV Rocephin day 1 , urine cultures ordered * In regards to history of COPD continue albuterol, Symbicort * In regards to diabetes mellitus Accu-Cheks ACHS continue patient on NovoLog continue Lantus monitor for hypoglycemia * In regards to hypothyroid continue Synthyroid * Regards to oral thrush continue patient on nystatin * CODE STATUS full code * Consult hematology oncology Objective - Vital Signs Vital signs: Vital Signs Temp 98.4 F 07/14/23 08:00 Pulse 90 07/14/23 08:00 Resp 16 07/14/23 08:00 BP 100/69 07/14/23 08:00 Pulse Ox 95 07/14/23 08:00 FiO2 Intake & Output 07/13/23 07/14/23 07/14/23 18:59 06:59 18:59 Weight 95.254 kg Other: Voiding Method External Catheter # Voids 200 - Labs CBC & Chem 7: 07/13/23 13:34 07/14/23 07:13 Labs: Abnormal Lab Results - Last 24 Hours (Table) 07/13/23 07/13/23 07/13/23 Range/Units 13:34 13:34 13:34 RBC 3.14 L (3.80-5.40) m/uL Hgb 9.4 L (11.4-16.0) gm/dL Hct 28.4 L (34.0-46.0) % RDW 18.0 H (11.5-15.5) % Plt Count 80 L (150-450) k/uL Lymphocytes # (Manual) 0.40 L (1.0-4.8) k/uL APTT 19.5 L (22.0-30.0) sec Sodium 131 L (137-145) mmol/L Potassium 5.4 H (3.5-5.1) mmol/L Carbon Dioxide 18 L (22-30) mmol/L BUN 43 H (7-17) mg/dL Creatinine 1.50 H (0.52-1.04) mg/dL Glucose 225 H (74-99) mg/dL POC Glucose (mg/dL) (70-110) mg/dL Calcium 8.3 L (8.4-10.2) mg/dL Total Bilirubin 1.9 H (0.2-1.3) mg/dL AST 66 H (14-36) U/L ALT 56 H (4-34) U/L Alkaline Phosphatase 229 H (38-126) U/L Total Protein 5.9 L (6.3-8.2) g/dL Albumin 2.7 L (3.5-5.0) g/dL Urine Appearance (Clear) Urine Protein (Negative) Ur Leukocyte Esterase (Negative) Urine RBC (0-5) /hpf Urine WBC (0-5) /hpf Urine Bacteria (None) /hpf Urine Mucus (None) /hpf 07/13/23 07/13/23 07/14/23 Range/Units 17:24 20:04 02:09 RBC (3.80-5.40) m/uL Hgb (11.4-16.0) gm/dL Hct (34.0-46.0) % RDW (11.5-15.5) % Plt Count (150-450) k/uL Lymphocytes # (Manual) (1.0-4.8) k/uL APTT (22.0-30.0) sec Sodium (137-145) mmol/L Potassium (3.5-5.1) mmol/L Carbon Dioxide (22-30) mmol/L BUN (7-17) mg/dL Creatinine (0.52-1.04) mg/dL Glucose (74-99) mg/dL POC Glucose (mg/dL) 232 H 234 H (70-110) mg/dL Calcium (8.4-10.2) mg/dL Total Bilirubin (0.2-1.3) mg/dL AST (14-36) U/L ALT (4-34) U/L Alkaline Phosphatase (38-126) U/L Total Protein (6.3-8.2) g/dL Albumin (3.5-5.0) g/dL Urine Appearance Cloudy H (Clear) Urine Protein 1+ H (Negative) Ur Leukocyte Esterase Moderate H (Negative) Urine RBC 6 H (0-5) /hpf Urine WBC 28 H (0-5) /hpf Urine Bacteria Rare H (None) /hpf Urine Mucus Rare H (None) /hpf 07/14/23 Range/Units 07:56 RBC (3.80-5.40) m/uL Hgb (11.4-16.0) gm/dL Hct (34.0-46.0) % RDW (11.5-15.5) % Plt Count (150-450) k/uL Lymphocytes # (Manual) (1.0-4.8) k/uL APTT (22.0-30.0) sec Sodium (137-145) mmol/L Potassium (3.5-5.1) mmol/L Carbon Dioxide (22-30) mmol/L BUN (7-17) mg/dL Creatinine (0.52-1.04) mg/dL Glucose (74-99) mg/dL POC Glucose (mg/dL) 216 H (70-110) mg/dL Calcium (8.4-10.2) mg/dL Total Bilirubin (0.2-1.3) mg/dL AST (14-36) U/L ALT (4-34) U/L Alkaline Phosphatase (38-126) U/L Total Protein (6.3-8.2) g/dL Albumin (3.5-5.0) g/dL Urine Appearance (Clear) Urine Protein (Negative) Ur Leukocyte Esterase (Negative) Urine RBC (0-5) /hpf Urine WBC (0-5) /hpf Urine Bacteria (None) /hpf Urine Mucus (None) /hpf
[2023-07-14 12:51] LABS: Glucose,Whole Blood 308 mg/dL (70-110)
[2023-07-14 14:30] LABS: HGB 8.7 g/dL (12.0-15.0); Immature Platelet Fraction 7.3 % (1.1-6.1); MCH 28.7 pg (27.0-32.0); MCHC 31.1 g/dL (32.0-37.0); MCV 92.4 FL (80.0-97.0); Mean Platelet Volume 11.5 FL (9.5-12.2); NRBC Per 100 WBC 0.02 X 10*3/uL (0.00-0.01); Platelet Count 68 X 10*3/uL (140-440); RBC 3.03 X 10*6/uL (4.10-5.20); RDW 19.6 % (11.5-14.5); WBC 3.77 X 10*3/uL (4.50-10.00)
[2023-07-14 16:06] VITALS: BMI 37.2
[2023-07-14 17:41] LABS: Glucose,Whole Blood 243 mg/dL (70-110)
--- NOTE | 2023-07-14 19:03 | P.CONS ---
History of Present Illness - Reason for Consult Consult date: 07/14/23 pancreatic cancer Requesting physician: Terrence Castellanos - Chief Complaint weakness - History of Present Illness Patient is a 62 yr old female with a significant history of metastatic pancreatic cancer. She is a patient of Dr. Louise. She initially presented with RUQ pain around November/2022. She had cholecystectomy at [facility] in February/2023. Her pain persisted, and had CT scan of abdomen/pelvis on 04/15/2023 which showed at least 3 new haptic lesions up to 1.6 cm compared to prior CT scan done in November/2022,evidence of liver cirrhosis and splenomegaly. CT angiogram of chest on 04/15/2023 was negative for PE, no evidence of mets. On 04/19/2023,CT guided liver biopsy was positive for adenocarcinoma, IHC were non specific, DDx was HCC vs pancreaticobiliary vs upper GI. She had an EGD on 05/11/2023 which showed no suspicious finding. On 05/13/2023, MRCP showed a 2.1 cm mass uncinate process of pancreas,encasing SMA,enlarged regional nodes and liver mets,evidence of liver cirrhosis. Based on clinical and radiographic pictures, findings consistent with metastatic pancreatic cancer. After discussion with patient it was decided to start patient on gemzar and abraxane. She completed cycle 1 day 1 on 06/09/23 and was admitted to [facility] due to n/v/d and neutropenia. Due to stage 2 decubitis ulcer on buttocks, treatment was delayed for additional week and completed day 15 of cycle 1 on 07/07/23. She was discharged with home care services and was seeing PT weekly. Patient represented to the emergency room with complaints weakness, diarrhea and decreased oral intake s/p treatment. Patient states 3 days after treatment she began to develop diarrhea and progressing weakness. She states she took Imodium with improvement in diarrhea. However, was experiencing diminished appetite and decreased oral intake. She reports nausea was well-controlled on supportive care medications but states she had no appetite and did not feel like eating and was also not taking in enough fluids. Upon admission CBC revealed WBC 4.0, ANC 4000, hemoglobin 9.4, platelets 80,000. Creatinine 1.50, GFR 37. Bilirubin 1.9, transaminitis noted. Amylase 39, lipase 98. UA suspicious for UTI, Rocephin started. Urine culture pending. CXR negative for acute processes. Patient is afebrile. Review of Systems 10 point ROS is negative except as stated in the HPI Past Medical History Past Medical History: Cancer, Diabetes Mellitus, GERD/Reflux, Hyperlipidemia, Hypertension, Liver Disease, Thyroid Disorder Additional Past Medical History / Comment(s): Hx chest pain 2018, had heart cath - neg, determined it was from anxiety. Cirrohsis of the liver. Migraines. Current pancreatic cancer. History of Any Multi-Drug Resistant Organisms: MRSA Year Discovered:: 2018 MDRO Source:: "Blood infection" Past Surgical History: Heart Catheterization, Orthopedic Surgery Additional Past Surgical History / Comment(s): Broke right leg - has francesco, plate and screws, screw in left baby toe, ganglion cyst removed from foot, bilateral cataract surgery. Past Anesthesia/Blood Transfusion Reactions: Motion Sickness, Postoperative Nausea & Vomiting (PONV) Past Psychological History: No Psychological Hx Reported Smoking Status: Never smoker Past Alcohol Use History: Rare Past Drug Use History: None Reported - Past Family History Mother Family Medical History: Cancer Additional Family Medical History / Comment(s): Colon cancer. Father Family Medical History: Cancer Additional Family Medical History / Comment(s): Colon cancer. Medications and Allergies Home Medications Medication Instructions Recorded Confirmed Type Aspirin EC [Ecotrin Low Dose] 81 mg PO DAILY 05/11/23 07/13/23 History Atorvastatin [Lipitor] 40 mg PO HS 05/11/23 07/13/23 History Ergocalciferol [Vitamin D2 (1250 1,250 mcg PO FR 05/11/23 07/13/23 History Mcg = 51112 Iu)] Gabapentin 600 mg PO TID 05/11/23 07/13/23 History Levothyroxine Sodium [Synthroid] 50 mcg PO DAILY 05/11/23 07/13/23 History Pantoprazole [Protonix] 40 mg PO DAILY 05/11/23 07/13/23 History Triamterene/Hydrochlorothiazid 1 cap PO DAILY 05/11/23 07/13/23 History [Triamterene-Hctz 37.5-25 mg Cp] metFORMIN HCL 1,000 mg PO BID 05/11/23 07/13/23 History oxyCODONE HCL [oxyCODONE HCL (IR)] 10 mg PO QID PRN 05/25/23 07/13/23 History Ondansetron Odt [Zofran ODT] 4 mg PO Q8HR PRN 06/13/23 07/13/23 History rOPINIRole HCL [Requip] 2 mg PO HS 06/13/23 07/13/23 History Benzonatate [Tessalon Perle] 200 mg PO HS PRN #14 capsule 06/23/23 07/13/23 Rx Insulin Glargine,Hum.rec.anlog 30 units SQ DAILY #0 06/23/23 07/13/23 Rx [Lantus Solostar Pen] Albuterol Sulfate [Albuterol 2 puff PO RT-Q6H PRN 07/13/23 07/13/23 History Sulfate Hfa] Budesonide/Formoterol Fumarate 2 puff INHALATION RT-BID 07/13/23 07/13/23 History [Symbicort 160-4.5 Mcg Inhaler] INSULIN ASPART (NovoLOG) [NovoLOG See Protocol SQ ACHS 07/13/23 07/13/23 History (formulary)] OLANZapine [ZyPREXA] 2.5 mg PO DIRECTED 07/13/23 07/13/23 History Prochlorperazine [Compazine] 10 mg PO Q6H PRN 07/13/23 07/13/23 History Pyridoxine HCl (Vitamin B6) 100 mg PO DAILY 07/13/23 07/13/23 History [Vitamin B-6] Allergies Allergy/AdvReac Type Severity Reaction Status Date / Time Mushroom Allergy Unknown Verified 07/13/23 16:16 Physical Exam Vitals: Vital Signs Temp Pulse Pulse Pulse Resp BP BP 07/14/23 08:00 98.4 F 90 16 100/69 07/14/23 02:00 97.9 F 84 16 117/77 07/14/23 00:15 97.7 F 95 18 117/67 07/13/23 19:29 97.5 F L 91 17 90/59 07/13/23 18:12 96 18 109/55 07/13/23 15:36 91 18 99/57 Pulse Ox 07/14/23 08:00 95 07/14/23 02:00 92 L 07/14/23 00:15 96 07/13/23 19:29 99 07/13/23 18:12 96 07/13/23 15:36 98 Intake and Output 07/13/23 07/14/23 07/14/23 22:59 06:59 14:59 Other: Voiding Method External Catheter External Catheter External Catheter # Voids 200 Weight 95.254 kg - Constitutional General appearance: no acute distress - EENT Eyes: anicteric sclerae, EOMI ENT: hearing grossly normal - Respiratory Respiratory: bilateral: CTA - Cardiovascular Rhythm: regular Heart sounds: normal: S1, S2 - Gastrointestinal General gastrointestinal: no tenderness - Integumentary Integumentary: no cyanotic, no jaundiced - Musculoskeletal Musculoskeletal: generalized weakness - Psychiatric Psychiatric: A&O x's 3 Results CBC & Chem 7: 07/14/23 07:13 07/14/23 07:13 Labs: Abnormal Lab Results - Last 24 Hours (Table) 07/13/23 07/13/23 07/13/23 Range/Units 13:34 13:34 13:34 RBC 3.14 L (3.80-5.40) m/uL Hgb 9.4 L (11.4-16.0) gm/dL Hct 28.4 L (34.0-46.0) % RDW 18.0 H (11.5-15.5) % Plt Count 80 L (150-450) k/uL Lymphocytes # (Manual) 0.40 L (1.0-4.8) k/uL APTT 19.5 L (22.0-30.0) sec Sodium 131 L (137-145) mmol/L Potassium 5.4 H (3.5-5.1) mmol/L Carbon Dioxide 18 L (22-30) mmol/L BUN 43 H (7-17) mg/dL Creatinine 1.50 H (0.52-1.04) mg/dL Est GFR (CKD-EPI) (>=60) BUN/Creatinine Ratio (12.00-20.00) Ratio Glucose 225 H (74-99) mg/dL POC Glucose (mg/dL) (70-110) mg/dL Hemoglobin A1c (<=6.0) % Calcium 8.3 L (8.4-10.2) mg/dL Total Bilirubin 1.9 H (0.2-1.3) mg/dL AST 66 H (14-36) U/L ALT 56 H (4-34) U/L Alkaline Phosphatase 229 H (38-126) U/L Total Protein 5.9 L (6.3-8.2) g/dL Albumin 2.7 L (3.5-5.0) g/dL Urine Appearance (Clear) Urine Protein (Negative) Ur Leukocyte Esterase (Negative) Urine RBC (0-5) /hpf Urine WBC (0-5) /hpf Urine Bacteria (None) /hpf Urine Mucus (None) /hpf 07/13/23 07/13/23 07/14/23 Range/Units 17:24 20:04 02:09 RBC (3.80-5.40) m/uL Hgb (11.4-16.0) gm/dL Hct (34.0-46.0) % RDW (11.5-15.5) % Plt Count (150-450) k/uL Lymphocytes # (Manual) (1.0-4.8) k/uL APTT (22.0-30.0) sec Sodium (137-145) mmol/L Potassium (3.5-5.1) mmol/L Carbon Dioxide (22-30) mmol/L BUN (7-17) mg/dL Creatinine (0.52-1.04) mg/dL Est GFR (CKD-EPI) (>=60) BUN/Creatinine Ratio (12.00-20.00) Ratio Glucose (74-99) mg/dL POC Glucose (mg/dL) 232 H 234 H (70-110) mg/dL Hemoglobin A1c (<=6.0) % Calcium (8.4-10.2) mg/dL Total Bilirubin (0.2-1.3) mg/dL AST (14-36) U/L ALT (4-34) U/L Alkaline Phosphatase (38-126) U/L Total Protein (6.3-8.2) g/dL Albumin (3.5-5.0) g/dL Urine Appearance Cloudy H (Clear) Urine Protein 1+ H (Negative) Ur Leukocyte Esterase Moderate H (Negative) Urine RBC 6 H (0-5) /hpf Urine WBC 28 H (0-5) /hpf Urine Bacteria Rare H (None) /hpf Urine Mucus Rare H (None) /hpf 07/14/23 07/14/23 07/14/23 Range/Units 07:13 07:13 07:56 RBC (3.80-5.40) m/uL Hgb (11.4-16.0) gm/dL Hct (34.0-46.0) % RDW (11.5-15.5) % Plt Count (150-450) k/uL Lymphocytes # (Manual) (1.0-4.8) k/uL APTT (22.0-30.0) sec Sodium (137-145) mmol/L Potassium (3.5-5.1) mmol/L Carbon Dioxide (22-30) mmol/L BUN 30.5 H (7-17) mg/dL Creatinine (0.52-1.04) mg/dL Est GFR (CKD-EPI) 51 L (>=60) BUN/Creatinine Ratio 25.42 H (12.00-20.00) Ratio Glucose 232 H (74-99) mg/dL POC Glucose (mg/dL) 216 H (70-110) mg/dL Hemoglobin A1c 8.2 H (<=6.0) % Calcium 8.2 L (8.4-10.2) mg/dL Total Bilirubin (0.2-1.3) mg/dL AST (14-36) U/L ALT (4-34) U/L Alkaline Phosphatase (38-126) U/L Total Protein (6.3-8.2) g/dL Albumin (3.5-5.0) g/dL Urine Appearance (Clear) Urine Protein (Negative) Ur Leukocyte Esterase (Negative) Urine RBC (0-5) /hpf Urine WBC (0-5) /hpf Urine Bacteria (None) /hpf Urine Mucus (None) /hpf 07/14/23 Range/Units 12:39 RBC (3.80-5.40) m/uL Hgb (11.4-16.0) gm/dL Hct (34.0-46.0) % RDW (11.5-15.5) % Plt Count (150-450) k/uL Lymphocytes # (Manual) (1.0-4.8) k/uL APTT (22.0-30.0) sec Sodium (137-145) mmol/L Potassium (3.5-5.1) mmol/L Carbon Dioxide (22-30) mmol/L BUN (7-17) mg/dL Creatinine (0.52-1.04) mg/dL Est GFR (CKD-EPI) (>=60) BUN/Creatinine Ratio (12.00-20.00) Ratio Glucose (74-99) mg/dL POC Glucose (mg/dL) 308 H (70-110) mg/dL Hemoglobin A1c (<=6.0) % Calcium (8.4-10.2) mg/dL Total Bilirubin (0.2-1.3) mg/dL AST (14-36) U/L ALT (4-34) U/L Alkaline Phosphatase (38-126) U/L Total Protein (6.3-8.2) g/dL Albumin (3.5-5.0) g/dL Urine Appearance (Clear) Urine Protein (Negative) Ur Leukocyte Esterase (Negative) Urine RBC (0-5) /hpf Urine WBC (0-5) /hpf Urine Bacteria (None) /hpf Urine Mucus (None) /hpf Chest x-ray: report reviewed Assessment and Plan (1) Dehydration Current Visit: Yes Status: Acute Priority: High Code(s): E86.0 - DEHYDRATION SNOMED Code(s): 99599211 (2) Weakness Current Visit: Yes Status: Acute Priority: High Code(s): R53.1 - WEAKNESS SNOMED Code(s): 25106449 (3) Pancreatic cancer Current Visit: Yes Status: Acute Priority: High Code(s): C25.9 - MALIGNANT NEOPLASM OF PANCREAS, UNSPECIFIED SNOMED Code(s): 530592854 (4) Chemotherapy-induced diarrhea Current Visit: Yes Status: Acute Priority: High Code(s): K52.1 - TOXIC GASTROENTERITIS AND COLITIS; T45.1X5A - ADVERSE EFFECT OF ANTINEOPLASTIC AND IMMUNOSUP DRUGS, INIT SNOMED Code(s): 378949196 Plan: Chemotherapy induced diarrhea, weakness: Presented with complaints of weakness, diarrhea and decreased oral intake s/p treatment. Patient was recently admitted for chemo related side effects and intolerance and despite pausing treatment and dose reduction patient has not tolerated treatment. Diarrhea was improved with imodium and has since subsided -UA suspicious for UTI, Rocephin started. Urine culture ordered. Pt afebrile. WBC stable at 4.0, ANC 4000 -Continue IV hydration and supportive medications. Encouraged increasing oral intake as tolerated -PT/OT ordered. Stressed importance of working with PT team daily Metastatic pancreactic cancer: -Completed cycle 1, day 15 of gemzar and abraxane on 07/07/23 -Developed diarrhea, weakness and decreased oral intake as noted above -CBC revealed WBC 4.0, ANC 4,000. Hgb 9.4, plts 80,000 -Despite pausing treatment and dose reduction patient has not tolerated treatment. Discussed with patient that current treatment will be stopped due to intolerance. She will likely need rehab upon discharge. PT has been consulted and will await their recommendations. Discussed with pt that treatment would have to be on hold while in rehab. Will schedule clinic f/u with Dr. Louise upon discharge to further discuss goals of care and possible treatment options
[2023-07-14] MEDS ORDERED: SYMBICORT 160-4.5 MCG INHALER INHALATION SCH (20:00)
[2023-07-14 20:08] LABS: Glucose,Whole Blood 168 mg/dL (70-110)
[2023-07-14] MEDS: ATORVASTATIN 40 MG TAB PO SCH (20:41)
[2023-07-15 07:36] LABS: Glucose,Whole Blood 139 mg/dL (70-110)
[2023-07-15] MEDS: ERGOCALCIFEROL 1,250 MCG (50,000 IU) CAPSULE PO SCH (08:45)
[2023-07-15 11:08] LABS: HCT 29.8 % (37.2-46.3); HGB 9.1 g/dL (12.0-15.0); MCH 28.8 pg (27.0-32.0); MCHC 30.5 g/dL (32.0-37.0); MCV 94.3 FL (80.0-97.0); Mean Platelet Volume 12.1 FL (9.5-12.2); NRBC Per 100 WBC 0.09 X 10*3/uL (0.00-0.01); Platelet Count 84 X 10*3/uL (140-440); RBC 3.16 X 10*6/uL (4.10-5.20); RDW 19.4 % (11.5-14.5); WBC 4.32 X 10*3/uL (4.50-10.00)
[2023-07-15 11:38] LABS: Blood Urea Nitrogen 20.8 mg/dL (9.0-27.0); Calcium 8.1 mg/dL (8.7-10.3); Carbon Dioxide 21.1 mmol/L (21.6-31.8); Chloride 102 mmol/L (96-109); Glucose 143 mg/dL (70-110); Potassium 4.2 mmol/L (3.5-5.5); Sodium 135 mmol/L (135-145)
[2023-07-15 11:51] LABS: Glucose,Whole Blood 183 mg/dL (70-110)
[2023-07-15 17:04] LABS: Glucose,Whole Blood 180 mg/dL (70-110)
[2023-07-15] MEDS ORDERED: MAG HYDROX/AL HYDROX/SIMETH 30 ML CUP PO PRN (17:10)
[2023-07-15] MEDS: PANTOPRAZOLE 40 MG TABLET PO SCH (17:26)
--- NOTE | 2023-07-15 18:28 | P.PN ---
Subjective Progress Note Date: 07/15/23 * 63-year-old patient with past medical history significant for pancreatic cancer stage IV, history of diabetes mellitus, hypothyroid, distant history of liver cirrhosis, transaminitis, pancytopenia, hypertension, hyperlipidemia presents to the emergency department with complaints of increased weakness pat ient unable to take care of self. Patient states she has been getting progressively weak. Patient was discharged from the hospital on June 23, 2023. Patient states she is unable to make to the bathroom. She feels weak all over. Patient has been on chemotherapy and has been following up with onc ology outpatient. * States she has been having intermittent diarrhea, she does feel progressively weak. Last chemo session was on 07/07/2023 * Workup in ER included CBC, comprehensive metabolic panel, amylase levels, lactate levels * Patient to be admitted to medical floor and managed for multiple comorbidities * 07/14/23: Patient seen and evaluated bedside, patient states she had a difficult night was not able to sleep. She continues to complain of weakness. Blood work reviewed serum chemistry showed sodium 136, potassium 4.4 creatinine 1.2 improved blood glucose 232 HbA1c 8.2. Patient counseled that she is weak and would need rehab however at this time patient would like to think about it 07/15/2023 Patient seen and evaluated in room at bedside; reporting diarrhea has resolved Vital signs reveal temperature 98.6, pulse 96, respirations 16 and blood pressure 114/81 and O2 saturation 93% on room air Lab review shows WBC 4.3, hemoglobin 9.1 and platelet count of 84, sodium 135, potassium 0.2, BUNs/creatinine of 20/1.0, blood glucose of 143, calcium 8.1 Objective - Vital Signs Vital signs: Vital Signs Temp 98.6 F 07/15/23 11:45 Pulse 96 07/15/23 11:45 Resp 16 07/15/23 11:45 BP 114/81 07/15/23 11:45 Pulse Ox 93 L 07/15/23 11:45 FiO2 Intake & Output 07/14/23 07/15/23 07/15/23 18:59 06:59 18:59 Intake Total 1790 1560 Output Total 800 Balance 1790 760 Weight 95.254 kg Intake: Intake, IV Titration 1250 1200 Amount Sodium Chloride 0.9% 1, 1200 1200 000 ml @ 100 mls/hr IV . Q10H [facility] Rx#:[id number] cefTRIAXone 2 gm In 50 Sodium Chloride 0.9% 50 ml @ 100 mls/hr IVPB Q24HR [facility] Rx#:[id number] Oral 540 360 Output: Urine 800 Other: Voiding Method External Catheter Bedside Commode Bedside Commode # Voids 1 - Exam GENERAL: The patient is alert and oriented x3, ill appearance HEENT: Pupils are round and equally reacting to light. EOMI. CARDIOVASCULAR: S1 and S2 present. No murmurs, rubs, or gallops. PULMONARY: Chest is clear to auscultation, no wheezing or crackles. ABDOMEN: Soft, epigastric tenderness MUSCULOSKELETAL: No joint swelling or deformity. EXTREMITIES: Lower extremity edema NEUROLOGICAL: Gross neurological examination did not reveal any focal deficits. - Labs CBC & Chem 7: 07/15/23 07:03 07/15/23 07:03 Labs: Abnormal Lab Results - Last 24 Hours (Table) 07/14/23 07/14/23 07/14/23 Range/Units 07:13 17:38 20:05 WBC 3.77 L (4.50-10.00) X 10*3/uL RBC 3.03 L (4.10-5.20) X 10*6/uL Hgb 8.7 L (12.0-15.0) g/dL Hct 28.0 L (37.2-46.3) % MCHC 31.1 L (32.0-37.0) g/dL RDW 19.6 H (11.5-14.5) % Plt Count 68 L (140-440) X 10*3/uL NRBC/100 WBC Diff 0.02 H (0.00-0.01) X 10*3/uL Immature Plt Fraction 7.3 H (1.1-6.1) % Carbon Dioxide (21.6-31.8) mmol/L BUN/Creatinine Ratio (12.00-20.00) Ratio Glucose (70-110) mg/dL POC Glucose (mg/dL) 243 H 168 H (70-110) mg/dL Calcium (8.7-10.3) mg/dL 07/15/23 07/15/23 07/15/23 Range/Units 07:03 07:03 07:34 WBC 4.32 L (4.50-10.00) X 10*3/uL RBC 3.16 L (4.10-5.20) X 10*6/uL Hgb 9.1 L (12.0-15.0) g/dL Hct 29.8 L (37.2-46.3) % MCHC 30.5 L (32.0-37.0) g/dL RDW 19.4 H (11.5-14.5) % Plt Count 84 L (140-440) X 10*3/uL NRBC/100 WBC Diff 0.09 H (0.00-0.01) X 10*3/uL Immature Plt Fraction (1.1-6.1) % Carbon Dioxide 21.1 L (21.6-31.8) mmol/L BUN/Creatinine Ratio 20.80 H (12.00-20.00) Ratio Glucose 143 H (70-110) mg/dL POC Glucose (mg/dL) 139 H (70-110) mg/dL Calcium 8.1 L (8.7-10.3) mg/dL 07/15/23 Range/Units 11:49 WBC (4.50-10.00) X 10*3/uL RBC (4.10-5.20) X 10*6/uL Hgb (12.0-15.0) g/dL Hct (37.2-46.3) % MCHC (32.0-37.0) g/dL RDW (11.5-14.5) % Plt Count (140-440) X 10*3/uL NRBC/100 WBC Diff (0.00-0.01) X 10*3/uL Immature Plt Fraction (1.1-6.1) % Carbon Dioxide (21.6-31.8) mmol/L BUN/Creatinine Ratio (12.00-20.00) Ratio Glucose (70-110) mg/dL POC Glucose (mg/dL) 183 H (70-110) mg/dL Calcium (8.7-10.3) mg/dL Assessment and Plan Assessment: * Failure to thrive with advanced stage pancreatic cancer * Urinary tract infection * Diabetes mellitus type 2 * Chronic pain from cancer * History of chemotherapy-induced neutropenia * Hypothyroid * Oral thrush * In regards to failure to thrive, encourage oral intake, continue patient on Megace * In regards urinary tract infection, patient started on IV Rocephin day 1 , urine cultures ordered * In regards to history of COPD continue albuterol, Symbicort * In regards to diabetes mellitus Accu-Cheks ACHS continue patient on NovoLog continue Lantus monitor for hypoglycemia * In regards to hypothyroid continue Synthyroid * Regards to oral thrush continue patient on nystatin * CODE STATUS full code * Consult hematology oncology
[2023-07-15 20:30] LABS: Glucose,Whole Blood 183 mg/dL (70-110)
[2023-07-16 07:18] LABS: Glucose,Whole Blood 102 mg/dL (70-110)
[2023-07-16 09:27] LABS: HCT 28.6 % (37.2-46.3); HGB 8.9 g/dL (12.0-15.0); MCH 29.1 pg (27.0-32.0); MCHC 31.1 g/dL (32.0-37.0); MCV 93.5 FL (80.0-97.0); Mean Platelet Volume 11.7 FL (9.5-12.2); NRBC Per 100 WBC 0.11 X 10*3/uL (0.00-0.01); Platelet Count 97 X 10*3/uL (140-440); RBC 3.06 X 10*6/uL (4.10-5.20); RDW 19.9 % (11.5-14.5)
[2023-07-16 09:44] LABS: BUN/Creat Ratio 20.44 Ratio (12.00-20.00); Blood Urea Nitrogen 18.4 mg/dL (9.0-27.0); Chloride 105 mmol/L (96-109); Glucose 103 mg/dL (70-110); Potassium 4.4 mmol/L (3.5-5.5); Sodium 137 mmol/L (135-145)
[2023-07-16 09:45] LABS: Calcium 8.2 mg/dL (8.7-10.3)
[2023-07-16 10:15] LABS: Acanthocytes 2+; Basophils # (M) 0.05 X 10*3/uL (0.00-0.10); Elliptocytes 2+; Lymphocytes # (M) 0.53 X 10*3/uL (0.90-5.00); Metamyelocytes % 3 % (0-0); Myelocytes % 2 % (0-0); Neutrophils # (M) 3.79 X 10*3/uL (1.80-7.70); Neutrophils % (M) 79 %; Nucleated Red Blood Cells 1 /100 WBCS
[2023-07-16 11:44] LABS: Glucose,Whole Blood 183 mg/dL (70-110)
[2023-07-16 17:05] LABS: Glucose,Whole Blood 146 mg/dL (70-110)
--- NOTE | 2023-07-16 18:28 | P.PN ---
Subjective Progress Note Date: 07/16/23 * 63-year-old patient with past medical history significant for pancreatic cancer stage IV, history of diabetes mellitus, hypothyroid, distant history of liver cirrhosis, transaminitis, pancytopenia, hypertension, hyperlipidemia presents to the emergency department with complaints of increased weakness pat ient unable to take care of self. Patient states she has been getting progressively weak. Patient was discharged from the hospital on June 23, 2023. Patient states she is unable to make to the bathroom. She feels weak all over. Patient has been on chemotherapy and has been following up with onc ology outpatient. * States she has been having intermittent diarrhea, she does feel progressively weak. Last chemo session was on 07/07/2023 * Workup in ER included CBC, comprehensive metabolic panel, amylase levels, lactate levels * Patient to be admitted to medical floor and managed for multiple comorbidities * 07/14/23: Patient seen and evaluated bedside, patient states she had a difficult night was not able to sleep. She continues to complain of weakness. Blood work reviewed serum chemistry showed sodium 136, potassium 4.4 creatinine 1.2 improved blood glucose 232 HbA1c 8.2. Patient counseled that she is weak and would need rehab however at this time patient would like to think about it 07/15/2023 Patient seen and evaluated in room at bedside; reporting diarrhea has resolved Vital signs reveal temperature 98.6, pulse 96, respirations 16 and blood pressure 114/81 and O2 saturation 93% on room air Lab review shows WBC 4.3, hemoglobin 9.1 and platelet count of 84, sodium 135, potassium 0.2, BUNs/creatinine of 20/1.0, blood glucose of 143, calcium 8.1 07/16/2023 Patient is seen and evaluated resting comfortably in bed, family members at bedside; no further episodes of diarrhea Vital signs are stable temperature 98, pulse 91 Respiration 18, blood pressure of 96/55 and O2 saturation 96% on room air Lab review shows WBC of 4.8, hemoglobin 8.9 and platelet count of 97, sodium 137, potassium 4.4, BUNs/creatinine of 18.4/0.9 and blood glucose of 183 --Patient has been evaluated by PT/OT and is recommended skilled rehab; discharge planning was discussed with patient and she is agreeable to rehab placement -- Remains on IV Rocephin for UTI Objective - Vital Signs Vital signs: Vital Signs Temp 98.0 F 07/16/23 07:18 Pulse 91 07/16/23 07:18 Resp 18 07/16/23 07:18 BP 96/55 07/16/23 07:18 Pulse Ox 96 07/16/23 07:18 FiO2 Intake & Output 07/15/23 07/16/23 07/16/23 18:59 06:59 18:59 Intake Total 1200 Output Total 150 Balance 1200 -150 Intake: Intake, IV Titration 1200 Amount Sodium Chloride 0.9% 1, 1200 000 ml @ 100 mls/hr IV . Q10H [facility] Rx#:[id number] Output: Emesis 150 Other: Voiding Method Bedside Commode Bedside Commode # Voids 1 1 1 # Emeses 1 - Exam GENERAL: The patient is alert and oriented x3, ill appearance HEENT: Pupils are round and equally reacting to light. EOMI. CARDIOVASCULAR: S1 and S2 present. No murmurs, rubs, or gallops. PULMONARY: Chest is clear to auscultation, no wheezing or crackles. ABDOMEN: Soft, epigastric tenderness MUSCULOSKELETAL: No joint swelling or deformity. EXTREMITIES: Lower extremity edema NEUROLOGICAL: Gross neurological examination did not reveal any focal deficits. - Labs CBC & Chem 7: 07/16/23 06:33 07/16/23 06:33 Labs: Abnormal Lab Results - Last 24 Hours (Table) 07/15/23 07/15/23 07/16/23 Range/Units 17:02 20:28 06:33 RBC 3.06 L (4.10-5.20) X 10*6/uL Hgb 8.9 L (12.0-15.0) g/dL Hct 28.6 L (37.2-46.3) % MCHC 31.1 L (32.0-37.0) g/dL RDW 19.9 H (11.5-14.5) % Plt Count 97 L (140-440) X 10*3/uL Lymphocytes # (Manual) 0.53 L (0.90-5.00) X 10*3/uL Monocytes # (Manual) 0.10 L (0.20-1.00) X 10*3/uL NRBC/100 WBC Diff 0.11 H (0.00-0.01) X 10*3/uL Elliptocytes 2+ A Acanthocytes (Spur) 2+ A Carbon Dioxide (21.6-31.8) mmol/L BUN/Creatinine Ratio (12.00-20.00) Ratio POC Glucose (mg/dL) 180 H 183 H (70-110) mg/dL Calcium (8.7-10.3) mg/dL 07/16/23 07/16/23 Range/Units 06:33 11:42 RBC (4.10-5.20) X 10*6/uL Hgb (12.0-15.0) g/dL Hct (37.2-46.3) % MCHC (32.0-37.0) g/dL RDW (11.5-14.5) % Plt Count (140-440) X 10*3/uL Lymphocytes # (Manual) (0.90-5.00) X 10*3/uL Monocytes # (Manual) (0.20-1.00) X 10*3/uL NRBC/100 WBC Diff (0.00-0.01) X 10*3/uL Elliptocytes Acanthocytes (Spur) Carbon Dioxide 21.0 L (21.6-31.8) mmol/L BUN/Creatinine Ratio 20.44 H (12.00-20.00) Ratio POC Glucose (mg/dL) 183 H (70-110) mg/dL Calcium 8.2 L (8.7-10.3) mg/dL Microbiology - Last 24 Hours (Table) 07/14/23 20:05 Urine Culture - Final Urine,Clean Catch Assessment and Plan Assessment: * Failure to thrive with advanced stage pancreatic cancer * Urinary tract infection * Diabetes mellitus type 2 * Chronic pain from cancer * History of chemotherapy-induced neutropenia * Hypothyroid * Oral thrush * In regards to failure to thrive, encourage oral intake, continue patient on Megace * In regards urinary tract infection, patient started on IV Rocephin day 1 , urine cultures ordered * In regards to history of COPD continue albuterol, Symbicort * In regards to diabetes mellitus Accu-Cheks ACHS continue patient on NovoLog continue Lantus monitor for hypoglycemia * In regards to hypothyroid continue Synthyroid * Regards to oral thrush continue patient on nystatin * CODE STATUS full code * Consult hematology oncology
[2023-07-16] MEDS: ALBUTEROL NEBULIZED 2.5 MG/3 ML INHALATION PRN (20:03)
[2023-07-16 20:23] LABS: Glucose,Whole Blood 176 mg/dL (70-110)
[2023-07-17 07:13] LABS: Glucose,Whole Blood 120 mg/dL (70-110)
[2023-07-17 09:43] LABS: BUN/Creat Ratio 19.71 Ratio (12.00-20.00); Blood Urea Nitrogen 13.8 mg/dL (9.0-27.0); Calcium 7.8 mg/dL (8.7-10.3); Carbon Dioxide 20.1 mmol/L (21.6-31.8); Chloride 108 mmol/L (96-109); Glucose 123 mg/dL (70-110); Sodium 137 mmol/L (135-145)
[2023-07-17 12:04] LABS: Glucose,Whole Blood 119 mg/dL (70-110)
--- NOTE | 2023-07-17 14:01 | P.PN ---
Subjective Progress Note Date: 07/17/23 * 63-year-old patient with past medical history significant for pancreatic cancer stage IV, history of diabetes mellitus, hypothyroid, distant history of liver cirrhosis, transaminitis, pancytopenia, hypertension, hyperlipidemia presents to the emergency department with complaints of increased weakness pat ient unable to take care of self. Patient states she has been getting progressively weak. Patient was discharged from the hospital on June 23, 2023. Patient states she is unable to make to the bathroom. She feels weak all over. Patient has been on chemotherapy and has been following up with onc ology outpatient. * States she has been having intermittent diarrhea, she does feel progressively weak. Last chemo session was on 07/07/2023 * Workup in ER included CBC, comprehensive metabolic panel, amylase levels, lactate levels * Patient to be admitted to medical floor and managed for multiple comorbidities * 07/14/23: Patient seen and evaluated bedside, patient states she had a difficult night was not able to sleep. She continues to complain of weakness. Blood work reviewed serum chemistry showed sodium 136, potassium 4.4 creatinine 1.2 improved blood glucose 232 HbA1c 8.2. Patient counseled that she is weak and would need rehab however at this time patient would like to think about it 07/15/2023 Patient seen and evaluated in room at bedside; reporting diarrhea has resolved Vital signs reveal temperature 98.6, pulse 96, respirations 16 and blood pressure 114/81 and O2 saturation 93% on room air Lab review shows WBC 4.3, hemoglobin 9.1 and platelet count of 84, sodium 135, potassium 0.2, BUNs/creatinine of 20/1.0, blood glucose of 143, calcium 8.1 07/16/2023 Patient is seen and evaluated resting comfortably in bed, family members at bedside; no further episodes of diarrhea Vital signs are stable temperature 98, pulse 91 Respiration 18, blood pressure of 96/55 and O2 saturation 96% on room air Lab review shows WBC of 4.8, hemoglobin 8.9 and platelet count of 97, sodium 137, potassium 4.4, BUNs/creatinine of 18.4/0.9 and blood glucose of 183 --Patient has been evaluated by PT/OT and is recommended skilled rehab; discharge planning was discussed with patient and she is agreeable to rehab placement -- Remains on IV Rocephin for UTI 07/17/2023 Patient is seen and noted in room at bedside; no further complaints of nausea, vomiting or diarrhea Vital signs are reviewed and are stable Labs reveal sodium 137, potassium 4.2, BUN 13.7 with creatinine of 0.7 blood glucose stable between 1 19-1 46 Urine culture reveals 50 200,000 of skin and genital nikki; we will discontinue IV Rocephin Patient has been evaluated by PT and OT and is recommended skilled rehab; case management consulted --Patient stable for discharge once arrangements are made for transfer to skilled rehab Objective - Vital Signs Vital signs: Vital Signs Temp 98.2 F 07/17/23 07:11 Pulse 92 07/17/23 07:11 Resp 16 07/17/23 07:11 BP 95/60 07/17/23 07:11 Pulse Ox 96 07/17/23 07:11 FiO2 Intake & Output 07/16/23 07/17/23 07/17/23 18:59 06:59 18:59 Intake Total 1250 Balance 1250 Intake: Intake, IV Titration 1250 Amount Sodium Chloride 0.9% 1, 1200 000 ml @ 100 mls/hr IV . Q10H [facility] Rx#:[id number] cefTRIAXone 2 gm In 50 Sodium Chloride 0.9% 50 ml @ 100 mls/hr IVPB Q24HR [facility] Rx#:[id number] Other: Voiding Method Bedside Commode Bedside Commode Bedside Commode # Voids 1 2 - Exam GENERAL: The patient is alert and oriented x3, ill appearance HEENT: Pupils are round and equally reacting to light. EOMI. CARDIOVASCULAR: S1 and S2 present. No murmurs, rubs, or gallops. PULMONARY: Chest is clear to auscultation, no wheezing or crackles. ABDOMEN: Soft, epigastric tenderness MUSCULOSKELETAL: No joint swelling or deformity. EXTREMITIES: Lower extremity edema NEUROLOGICAL: Gross neurological examination did not reveal any focal deficits. - Labs CBC & Chem 7: 07/16/23 06:33 07/17/23 05:40 Labs: Abnormal Lab Results - Last 24 Hours (Table) 07/16/23 07/16/23 07/17/23 Range/Units 17:04 20:20 05:40 Carbon Dioxide 20.1 L (21.6-31.8) mmol/L Glucose 123 H (70-110) mg/dL POC Glucose (mg/dL) 146 H 176 H (70-110) mg/dL Calcium 7.8 L (8.7-10.3) mg/dL 07/17/23 07/17/23 Range/Units 07:12 12:03 Carbon Dioxide (21.6-31.8) mmol/L Glucose (70-110) mg/dL POC Glucose (mg/dL) 120 H 119 H (70-110) mg/dL Calcium (8.7-10.3) mg/dL Assessment and Plan Assessment: * Failure to thrive with advanced stage pancreatic cancer * Urinary tract infection * Diabetes mellitus type 2 * Chronic pain from cancer * History of chemotherapy-induced neutropenia * Hypothyroid * Oral thrush * In regards to failure to thrive, encourage oral intake, continue patient on Megace * In regards urinary tract infection, patient started on IV Rocephin day 1 , urine cultures ordered * In regards to history of COPD continue albuterol, Symbicort * In regards to diabetes mellitus Accu-Cheks ACHS continue patient on NovoLog continue Lantus monitor for hypoglycemia * In regards to hypothyroid continue Synthyroid * Regards to oral thrush continue patient on nystatin * CODE STATUS full code * Consult hematology oncology
[2023-07-17 17:13] LABS: Glucose,Whole Blood 84 mg/dL (70-110)
[2023-07-17 20:12] LABS: Glucose,Whole Blood 88 mg/dL (70-110)
[2023-07-18 01:36] LABS: Glucose,Whole Blood 89 mg/dL (70-110)
[2023-07-18 05:08] LABS: Appearance,Urine Cloudy (Clear); Bacteria,Urine Rare /hpf; Bilirubin,Urine Negative (Negative); Blood,Urine Small (Negative); Color,Urine Yellow; Glucose,Urine (UA) Negative (Negative); Ketones,Urine Negative (Negative); Leukocyte Esterase,Urine Small (Negative); Mucus,Urine Rare /hpf; Nitrite,Urine Negative (Negative); Protein,Urine 1+ (Negative); RBC,Urine 29 /hpf (0-5); Specific Gravity,Urine 1.019 (1.001-1.035); Squamous Epithelial Cell,Urine 2 /hpf (0-4); Urobilinogen,Urine <2.0 mg/dL (<2.0); WBC,Urine 38 /hpf (0-5)
[2023-07-18 07:26] LABS: Glucose,Whole Blood 90 mg/dL (70-110)
[2023-07-18 11:36] LABS: Glucose,Whole Blood 136 mg/dL (70-110)
[2023-07-18 11:56] LABS: HGB 8.1 g/dL (12.0-15.0); MCH 28.6 pg (27.0-32.0); MCV 95.4 FL (80.0-97.0); Mean Platelet Volume 11.4 FL (9.5-12.2); NRBC Per 100 WBC 0.07 X 10*3/uL (0.00-0.01); Platelet Count 92 X 10*3/uL (140-440); RBC 2.83 X 10*6/uL (4.10-5.20); RDW 20.5 % (11.5-14.5); WBC 4.42 X 10*3/uL (4.50-10.00)
[2023-07-18 12:08] LABS: Albumin 2.5 g/dL (3.8-4.9); Bilirubin, Conjugated 0.48 mg/dL (0.20-0.40); Bilirubin,Unconjugated 0.52 mg/dL (0.20-1.00); Globulin 2.5 g/dL (1.6-3.3)
[2023-07-18 13:39] LABS: Neutrophils % (M) 85 %
[2023-07-18 14:49] LABS: Basophils # (M) 0.09 X 10*3/uL (0.00-0.10); Eosinophils # (M) 0.04 X 10*3/uL (0.04-0.35); Lymphocytes # (M) 0.18 X 10*3/uL (0.90-5.00); Metamyelocytes % 3 % (0-0); Monocytes # (M) 0.18 X 10*3/uL (0.20-1.00); Myelocytes % 1 % (0-0); Neutrophils # (M) 3.76 X 10*3/uL (1.80-7.70)
[2023-07-18 17:12] LABS: Glucose,Whole Blood 143 mg/dL (70-110)
[2023-07-18 20:40] LABS: Glucose,Whole Blood 161 mg/dL (70-110)
--- NOTE | 2023-07-18 20:53 | P.PN ---
Subjective 63-year-old patient with past medical history significant for pancreatic cancer stage IV, history of diabetes mellitus, hypothyroid, distant history of liver cirrhosis, transaminitis, pancytopenia, hypertension, hyperlipidemia presents to the emergency department with complaints of increased weakness patient unable to take care of self. Patient states she has been getting progressively weak. Patient was discharged from the hospital on June 23, 2023. Patient states she is unable to make to the bathroom. She feels weak all over. Patient has been on chemotherapy and has been following up with oncology outpatient. States she has been having intermittent diarrhea, she does feel progressively weak. Last chemo session was on 07/07/2023 Workup in ER included CBC, comprehensive metabolic panel, amylase levels, lactate levels Patient to be admitted to medical floor and managed for multiple comorbidities 07/14/23: Patient seen and evaluated bedside, patient states she had a difficult night was not able to sleep. She continues to complain of weakness. Blood work reviewed serum chemistry showed sodium 136, potassium 4.4 creatinine 1.2 improved blood glucose 232 HbA1c 8.2. Patient counseled that she is weak and would need rehab however at this time patient would like to think about it 07/15/2023 Patient seen and evaluated in room at bedside; reporting diarrhea has resolved Vital signs reveal temperature 98.6, pulse 96, respirations 16 and blood pressure 114/81 and O2 saturation 93% on room air Lab review shows WBC 4.3, hemoglobin 9.1 and platelet count of 84, sodium 135, potassium 0.2, BUNs/creatinine of 20/1.0, blood glucose of 143, calcium 8.1 07/16/2023 Patient is seen and evaluated resting comfortably in bed, family members at bedside; no further episodes of diarrhea Vital signs are stable temperature 98, pulse 91 Respiration 18, blood pressure of 96/55 and O2 saturation 96% on room air Lab review shows WBC of 4.8, hemoglobin 8.9 and platelet count of 97, sodium 137, potassium 4.4, BUNs/creatinine of 18.4/0.9 and blood glucose of 183 --Patient has been evaluated by PT/OT and is recommended skilled rehab; disch arge planning was discussed with patient and she is agreeable to rehab placement -- Remains on IV Rocephin for UTI 07/17/2023 Patient is seen and noted in room at bedside; no further complaints of nausea, vomiting or diarrhea Vital signs are reviewed and are stable Labs reveal sodium 137, potassium 4.2, BUN 13.7 with creatinine of 0.7 blood glucose stable between 05 06- Urine culture reveals 50 200,000 of skin and genital nikki; we will discontinue IV Rocephin Patient has been evaluated by PT and OT and is recommended skilled rehab; case management consulted --Patient stable for discharge once arrangements are made for transfer to skilled rehab 07/18/2023 Diarrhea improved, semisolid compared to liquid on admission. C. difficile negative. Imodium as needed No abdominal pain Tolerates diet well Patient with significant history of metastatic pancreatic cancer to the liver. Also she has history of liver cirrhosis and splenomegaly. However mentation at baseline and she has no evidence of ascites. Patient medically stable Case management/dialysis social worker on the case for subacute rehab Possible discharge in 24 hours once placement is set Objective - Vital Signs Vital signs: Vital Signs Temp 98.6 F 07/18/23 11:39 Pulse 94 07/18/23 11:39 Resp 17 07/18/23 11:39 BP 96/63 07/18/23 11:39 Pulse Ox 99 07/18/23 11:39 FiO2 Intake & Output 07/17/23 07/18/23 07/18/23 18:59 06:59 18:59 Intake Total 1200 Balance 1200 Intake: Intake, IV Titration 1200 Amount Sodium Chloride 0.9% 1, 1200 000 ml @ 100 mls/hr IV . Q10H [facility] Rx#:[id number] Other: Voiding Method Bedside Commode Bedside Commode Bedside Commode # Voids 1 1 # Bowel Movements 1 - Exam GENERAL: The patient is alert and oriented x3, not in any acute distress. Well developed, well nourished. HEENT: Pupils are round and equally reacting to light. EOMI. No scleral icterus. No conjunctival pallor. Normocephalic, atraumatic. No pharyngeal erythema. No thyromegaly. CARDIOVASCULAR: S1 and S2 present. No murmurs, rubs, or gallops. PULMONARY: Chest is clear to auscultation, no wheezing , no crackles. ABDOMEN: Soft, nontender, nondistended, normoactive bowel sounds. No palpable organomegaly. MUSCULOSKELETAL: No joint swelling or deformity. EXTREMITIES: No cyanosis, clubbing, or pedal edema. NEUROLOGICAL: Gross neurological examination did not reveal any focal deficits. SKIN: No rashes. no petechiae. - Labs CBC & Chem 7: 07/18/23 05:50 07/17/23 05:40 Labs: Abnormal Lab Results - Last 24 Hours (Table) 07/18/23 07/18/23 07/18/23 Range/Units 04:46 05:50 05:50 WBC 4.42 L (4.50-10.00) X 10*3/uL RBC 2.83 L (4.10-5.20) X 10*6/uL Hgb 8.1 L (12.0-15.0) g/dL Hct 27.0 L (37.2-46.3) % MCHC 30.0 L (32.0-37.0) g/dL RDW 20.5 H (11.5-14.5) % Plt Count 92 L (140-440) X 10*3/uL NRBC/100 WBC Diff 0.07 H (0.00-0.01) X 10*3/uL POC Glucose (mg/dL) (70-110) mg/dL Conjugated Bilirubin 0.48 H (0.20-0.40) mg/dL AST 60 H (13-35) U/L Alkaline Phosphatase 241 H (41-126) U/L Total Protein 5.0 L (6.2-8.2) g/dL Albumin 2.5 L (3.8-4.9) g/dL Albumin/Globulin Ratio 1.00 L (1.60-3.17) Ratio Urine Appearance Cloudy H (Clear) Urine Protein 1+ H (Negative) Urine Blood Small H (Negative) Ur Leukocyte Esterase Small H (Negative) Urine RBC 29 H (0-5) /hpf Urine WBC 38 H (0-5) /hpf Urine Bacteria Rare H (None) /hpf Urine Mucus Rare H (None) /hpf 07/18/23 Range/Units 11:35 WBC (4.50-10.00) X 10*3/uL RBC (4.10-5.20) X 10*6/uL Hgb (12.0-15.0) g/dL Hct (37.2-46.3) % MCHC (32.0-37.0) g/dL RDW (11.5-14.5) % Plt Count (140-440) X 10*3/uL NRBC/100 WBC Diff (0.00-0.01) X 10*3/uL POC Glucose (mg/dL) 136 H (70-110) mg/dL Conjugated Bilirubin (0.20-0.40) mg/dL AST (13-35) U/L Alkaline Phosphatase (41-126) U/L Total Protein (6.2-8.2) g/dL Albumin (3.8-4.9) g/dL Albumin/Globulin Ratio (1.60-3.17) Ratio Urine Appearance (Clear) Urine Protein (Negative) Urine Blood (Negative) Ur Leukocyte Esterase (Negative) Urine RBC (0-5) /hpf Urine WBC (0-5) /hpf Urine Bacteria (None) /hpf Urine Mucus (None) /hpf Assessment and Plan Assessment: * Diarrhea, acute gastroenteritis, improved. C. difficile negative. Could be related to chemotherapy * pancreatic cancer With hepatic metastasis * Liver cirrhosis splenomegaly * Mild bicytopenia * Urinary tract infection * Diabetes mellitus type 2 * Chronic pain from cancer * History of chemotherapy-induced neutropenia * Hypothyroid * Oral thrush Plan: Continue with ceftriaxone for 1 more day Possible discharge once placement is set Patient medically stable Discontinue IV fluid and monitor for diarrhea Patient tolerates diet well Patient needs follow-up with hematology/oncology team upon discharge GI and DVT prophylaxis Prognosis guarded
[2023-07-18] MEDS: HEPARIN SODIUM,PORCINE 5,000 UNIT/ML 1 ML VIAL SQ SCH (21:57)
[2023-07-19 07:12] LABS: Glucose,Whole Blood 67 mg/dL (70-110)
[2023-07-19 08:59] LABS: Glucose,Whole Blood 93 mg/dL (70-110)
[2023-07-19 11:49] LABS: Glucose,Whole Blood 102 mg/dL (70-110)
[2023-07-19 16:56] LABS: Glucose,Whole Blood 93 mg/dL (70-110)
[2023-07-19 20:38] LABS: Glucose,Whole Blood 103 mg/dL (70-110)
[2023-07-19] MEDS: ONDANSETRON 4 MG/2 ML VIAL IVP PRN (22:09)
--- NOTE | 2023-07-19 22:12 | P.PN ---
Subjective 63-year-old patient with past medical history significant for pancreatic cancer stage IV, history of diabetes mellitus, hypothyroid, distant history of liver cirrhosis, transaminitis, pancytopenia, hypertension, hyperlipidemia presents to the emergency department with complaints of increased weakness patient unable to take care of self. Patient states she has been getting progressively weak. Patient was discharged from the hospital on June 23, 2023. Patient states she is unable to make to the bathroom. She feels weak all over. Patient has been on chemotherapy and has been following up with oncology outpatient. States she has been having intermittent diarrhea, she does feel progressively weak. Last chemo session was on 07/07/2023 Workup in ER included CBC, comprehensive metabolic panel, amylase levels, lactate levels Patient to be admitted to medical floor and managed for multiple comorbidities 07/14/23: Patient seen and evaluated bedside, patient states she had a difficult night was not able to sleep. She continues to complain of weakness. Blood work reviewed serum chemistry showed sodium 136, potassium 4.4 creatinine 1.2 improved blood glucose 232 HbA1c 8.2. Patient counseled that she is weak and would need rehab however at this time patient would like to think about it 07/15/2023 Patient seen and evaluated in room at bedside; reporting diarrhea has resolved Vital signs reveal temperature 98.6, pulse 96, respirations 16 and blood pressure 114/81 and O2 saturation 93% on room air Lab review shows WBC 4.3, hemoglobin 9.1 and platelet count of 84, sodium 135, potassium 0.2, BUNs/creatinine of 20/1.0, blood glucose of 143, calcium 8.1 07/16/2023 Patient is seen and evaluated resting comfortably in bed, family members at bedside; no further episodes of diarrhea Vital signs are stable temperature 98, pulse 91 Respiration 18, blood pressure of 96/55 and O2 saturation 96% on room air Lab review shows WBC of 4.8, hemoglobin 8.9 and platelet count of 97, sodium 137, potassium 4.4, BUNs/creatinine of 18.4/0.9 and blood glucose of 183 --Patient has been evaluated by PT/OT and is recommended skilled rehab; disch arge planning was discussed with patient and she is agreeable to rehab placement -- Remains on IV Rocephin for UTI 07/17/2023 Patient is seen and noted in room at bedside; no further complaints of nausea, vomiting or diarrhea Vital signs are reviewed and are stable Labs reveal sodium 137, potassium 4.2, BUN 13.7 with creatinine of 0.7 blood glucose stable between 05 06- Urine culture reveals 50 200,000 of skin and genital nikki; we will discontinue IV Rocephin Patient has been evaluated by PT and OT and is recommended skilled rehab; case management consulted --Patient stable for discharge once arrangements are made for transfer to skilled rehab 07/18/2023 Diarrhea improved, semisolid compared to liquid on admission. C. difficile negative. Imodium as needed No abdominal pain Tolerates diet well Patient with significant history of metastatic pancreatic cancer to the liver. Also she has history of liver cirrhosis and splenomegaly. However mentation at baseline and she has no evidence of ascites. Patient medically stable Case management/home health care social worker on the case for subacute rehab Possible discharge in 24 hours once placement is set patient clinically doing well No new complaint Pending placement4 Con discontinue ceftriaxone Objective - Vital Signs Vital signs: Vital Signs Temp 98.8 F 07/19/23 20:00 Pulse 94 07/19/23 20:00 Resp 13 07/19/23 20:00 BP 121/78 07/19/23 20:00 Pulse Ox 96 07/19/23 20:00 FiO2 Intake & Output 07/19/23 07/19/23 07/20/23 06:59 18:59 06:59 Intake Total 550 890 Balance 550 890 Weight 95.254 kg Intake: Intake, IV Titration 350 650 Amount Sodium Chloride 0.9% 1, 350 600 000 ml @ 100 mls/hr IV . Q10H [facility] Rx#:[id number] cefTRIAXone 2 gm In 50 Sodium Chloride 0.9% 50 ml @ 100 mls/hr IVPB Q24HR [facility] Rx#:[id number] Oral 200 240 Other: Voiding Method Bedside Commode Bedside Commode Bedside Commode # Voids 1 3 # Bowel Movements 1 - Exam GENERAL: The patient is alert and oriented x3, not in any acute distress. Well developed, well nourished. HEENT: Pupils are round and equally reacting to light. EOMI. No scleral icterus. No conjunctival pallor. Normocephalic, atraumatic. No pharyngeal erythema. No thyromegaly. CARDIOVASCULAR: S1 and S2 present. No murmurs, rubs, or gallops. PULMONARY: Chest is clear to auscultation, no wheezing , no crackles. ABDOMEN: Soft, nontender, nondistended, normoactive bowel sounds. No palpable organomegaly. MUSCULOSKELETAL: No joint swelling or deformity. EXTREMITIES: No cyanosis, clubbing, or pedal edema. NEUROLOGICAL: Gross neurological examination did not reveal any focal deficits. SKIN: No rashes. no petechiae. - Labs CBC & Chem 7: 07/18/23 05:50 07/17/23 05:40 Labs: Abnormal Lab Results - Last 24 Hours (Table) 07/19/23 Range/Units 07:10 POC Glucose (mg/dL) 67 L (70-110) mg/dL Assessment and Plan Assessment: * Diarrhea, acute gastroenteritis, improved. C. difficile negative. Could be related to chemotherapy * pancreatic cancer With hepatic metastasis * Liver cirrhosis splenomegaly * Mild bicytopenia * Urinary tract infection * Diabetes mellitus type 2 * Chronic pain from cancer * History of chemotherapy-induced neutropenia * Hypothyroid * Oral thrush Plan: Con discontinue ceftriaxone Possible discharge once placement is set Patient medically stable Discontinue IV fluid and monitor for diarrhea Patient tolerates diet well Patient needs follow-up with hematology/oncology team upon discharge GI and DVT prophylaxis Prognosis guarded pending placement
[2023-07-20 02:20] LABS: Glucose,Whole Blood 113 mg/dL (70-110)
[2023-07-20 07:31] LABS: Glucose,Whole Blood 100 mg/dL (70-110)
[2023-07-20 12:05] LABS: Glucose,Whole Blood 141 mg/dL (70-110)
--- NOTE | 2023-07-20 13:12 | P.DS ---
Providers Date of admission: 07/13/23 16:53 Attending physician: Terrence Castellanos MD Consults: 07/13/23 14:19 Consult Physician Routine Consulting Provider: Josiah Benjamin Consult Reason/Comments: Advanced stage pancreatic cancer readmission Do you want consulting provider notified?: Yes Primary care physician: Par[facility] Course: Diagnoses: Diarrhea, acute gastroenteritis, improved. C. difficile negative. Could be related to chemotherapy pancreatic cancer With hepatic metastasis Liver cirrhosis splenomegaly, compensated, currently with no complication or symptoms Mild bicytopenia, most likely related to her chemotherapy Urinary tract infection, improved Diabetes mellitus type 2 Chronic pain from cancer History of chemotherapy-induced neutropenia Hypothyroid Oral thrush Hospital course: 63-year-old patient with past medical history significant for pancreatic cancer stage IV, history of diabetes mellitus, hypothyroid, distant history of liver cirrhosis, transaminitis, pancytopenia, hypertension, hyperlipidemia presents to the emergency department with complaints of increased weakness patient unable to take care of self. Patient states she has been getting progressively weak. Patient was discharged from the hospital on June 23, 2023. Patient states she is unable to make to the bathroom. She feels weak all over. Patient has been on chemotherapy and has been following up with oncology outpatient. Patient presents because of intermittent diarrhea, she does feel progressively weak. Last chemo session was on 07/07/2023. Patient was found to have UTI and she was treated with antibiotics ceftriaxone, IV hydration, symptomatic treatment and she finished her treatment with antibiotic. She showed interval improvement. On the day of discharge she is awake alert at baseline, she looks comfortable. She denies chest pain or dyspnea. No urinary complaints like dysuria or urgency or change frequency. Diarrhea improved significantly and she has 1 loose bowel movement last night. No abdominal pain, abdomen soft, she ate her breakfast, by last time she feels hungry she asking for [employer] fries and honey mustard dressing. Hemodynamically stable. Patient also evaluated by hematology oncology team. Patient will require to follow-up with her oncologist upon discharge, she was informed and she is agreeable. Problems and management plan were discussed with the patient and he verbalized understanding and acceptance Patient was found stable and [facility] prognosis however he needs follow-up as an outpatient. Patient was instructed to follow up with PCP Dr. Merritt within one week and patient agrees We recommend patient follow-up with her oncologist Dr. Louise in 7 to 10 days, patient informed and she agrees. She has appointment with both physician Dr. Weston and Dr. Amaral on Physical exam -Gen: patient is a AAOx3, no distress. Generally weak CVS: S1-S2, RRR, no murmur Lungs: B/L CTA, no wheezing Abdomen: soft, no distention, no tenderness, positive bowel sounds Extremity: no leg edema or induration Time spent more than 35 minutes Plan - Discharge Summary Discharge Rx Participant: No New Discharge Prescriptions: No Action metFORMIN HCL 1,000 mg PO BID Gabapentin 600 mg PO TID Levothyroxine Sodium [Synthroid] 50 mcg PO DAILY Triamterene/Hydrochlorothiazid [Triamterene-Hctz 37.5-25 mg Cp] 1 cap PO DAILY oxyCODONE HCL [oxyCODONE HCL (IR)] 10 mg PO QID PRN PRN Reason: Pain Ondansetron Odt [Zofran ODT] 4 mg PO Q8HR PRN PRN Reason: Nausea And Vomiting Benzonatate [Tessalon Perle] 200 mg PO HS PRN #14 capsule PRN Reason: Cough Budesonide/Formoterol Fumarate [Symbicort 160-4.5 Mcg Inhaler] 2 puff INHALATION RT-BID OLANZapine [ZyPREXA] 2.5 mg PO DIRECTED Prochlorperazine [Compazine] 10 mg PO Q6H PRN PRN Reason: Nausea Atorvastatin [Lipitor] 40 mg PO HS Aspirin EC [Ecotrin Low Dose] 81 mg PO DAILY Ergocalciferol [Vitamin D2 (1250 Mcg = 22892 Iu)] 1,250 mcg PO FR Pantoprazole [Protonix] 40 mg PO DAILY rOPINIRole HCL [Requip] 2 mg PO HS Insulin Glargine,Hum.rec.anlog [Lantus Solostar Pen] 30 units SQ DAILY #0 Albuterol Sulfate [Albuterol Sulfate Hfa] 2 puff PO RT-Q6H PRN PRN Reason: Shortness Of Breath INSULIN ASPART (NovoLOG) [NovoLOG (formulary)] See Protocol SQ ACHS Pyridoxine HCl (Vitamin B6) [Vitamin B-6] 100 mg PO DAILY Discharge Medication List Aspirin EC [Ecotrin Low Dose] 81 mg PO DAILY 05/11/23 [History] Atorvastatin [Lipitor] 40 mg PO HS 05/11/23 [History] Ergocalciferol [Vitamin D2 (1250 Mcg = 72390 Iu)] 1,250 mcg PO FR 05/11/23 [History] Gabapentin 600 mg PO TID 05/11/23 [History] Levothyroxine Sodium [Synthroid] 50 mcg PO DAILY 05/11/23 [History] Pantoprazole [Protonix] 40 mg PO DAILY 05/11/23 [History] Triamterene/Hydrochlorothiazid [Triamterene-Hctz 37.5-25 mg Cp] 1 cap PO DAILY 05/11/23 [History] metFORMIN HCL 1,000 mg PO BID 05/11/23 [History] oxyCODONE HCL [oxyCODONE HCL (IR)] 10 mg PO QID PRN 05/25/23 [History] Ondansetron Odt [Zofran ODT] 4 mg PO Q8HR PRN 06/13/23 [History] rOPINIRole HCL [Requip] 2 mg PO HS 06/13/23 [History] Benzonatate [Tessalon Perle] 200 mg PO HS PRN #14 capsule 06/23/23 [Rx] Insulin Glargine,Hum.rec.anlog [Lantus Solostar Pen] 30 units SQ DAILY #0 06/23/23 [Rx] Albuterol Sulfate [Albuterol Sulfate Hfa] 2 puff PO RT-Q6H PRN 07/13/23 [History] Budesonide/Formoterol Fumarate [Symbicort 160-4.5 Mcg Inhaler] 2 puff INHALATION RT-BID 07/13/23 [History] INSULIN ASPART (NovoLOG) [NovoLOG (formulary)] See Protocol SQ ACHS 07/13/23 [History] OLANZapine [ZyPREXA] 2.5 mg PO DIRECTED 07/13/23 [History] Prochlorperazine [Compazine] 10 mg PO Q6H PRN 07/13/23 [History] Pyridoxine HCl (Vitamin B6) [Vitamin B-6] 100 mg PO DAILY 07/13/23 [History] Follow up Appointment(s)/Referral(s): [facility], [NON-STAFF] - 1 Week Parth Merritt MD [Primary Care Provider] - 07/25/23 10:30 am Franchesca Louise MD [STAFF PHYSICIAN] - 07/25/23 11:15 am ( Appointment is at [place] office)
[2023-07-20 13:14] VITALS: BP 98/65; PULSE 102; RESP 16; TEMP 99.2
--- NOTE | 2023-07-25 14:06 | CDI ---
Documentation Clarification Form Date: 07/25/2023 01:42:35 PM From: America Huizar RN, CCDS Email: [email or web address] Admit Date: 07/13/2023 04:53:00 PM Patient Name: Shelby Mirza Visit Number: [id number] Discharge Date: 07/20/2023 04:24:00 PM ATTENTION: The Clinical Documentation Specialists (CDI) and [facility] Coding Staff appreciate your assistance in clarifying documentation. Please respond to the clarification below the line at the bottom and electronically sign. The CDI & [facility] Coding staff will review the response and follow-up if needed. Please note: Queries are made part of the Legal Health Record. If you have any questions, please contact the author of this message via ITS. Dr. Terrence Castellanos Your patient had an elevated Cr level. Based on this information and the findings below, is there an additional diagnosis that is clinically appropriate for this patient? Patient history/risk factors: Stage IV pancreatic cancer on chemotherapy, DM, GERD, HLD and HTN. Presented with weakness and diarrhea. Admitted with acute gastroenteritis. Clinical Indicators: 07/12 BUN/Cr/GFR: 43/1.50/37 07/13 BUN/Cr/GFR: 30.5/1.2/51 07/14 BUN/Cr/GFR: 20.8/1.0/64 07/16 BUN/Cr/GFR: 13.8/0.7/98 07/13 Oncology: "Dehydration. Presented with complaints of weakness, diarrhea and decreased oral intake s/p treatment." Discharge summary: "Diarrhea, acute gastroenteritis, improved." Treatment: Monitor daily labs; 0.9 NS @130mL/hr on 07/12 then decrease to 100mL/hr 07/12-07/18 Is there an additional diagnosis that is clinically appropriate for this patient? [ y ] Acute Kidney Injury [ ] No additional diagnosis/Not clinically significant [ ] Unable to determine [ ] Other, please specify Reference: [facility] Criteria An increase in serum creatinine by greater than or equal to 0.3 mg/dL within 48 hours; An increase in serum creatinine by greater than or equal to 1.5 times baseline, which is known or presumed to have occurred within the prior 7 days; A urine volume less than 0.5 ml/kg/h for 6 hours. When the baseline is unknown the lowest creatinine during admission assumed to be baseline MTDD
== END 2023-07-20 16:24 | DRG 249 ==
LOC: EC 12:41 → 4SSUR 16:53 → 5NMEDONC 23:53
PROVIDERS: ADMIT Internal Medicine; ATTEND Internal Medicine
DX: K52.1 Toxic gastroenteritis and colitis (principal); T45.1X5A Adverse effect of antineoplastic and immunosuppressive drugs, initial encounter; B37.0 Candidal stomatitis; C25.9 Malignant neoplasm of pancreas, unspecified; C77.9 Secondary and unspecified malignant neoplasm of lymph node, unspecified; C78.7 Secondary malignant neoplasm of liver and intrahepatic bile duct; D64.81 Anemia due to antineoplastic chemotherapy; D70.1 Agranulocytosis secondary to cancer chemotherapy; E89.0 Postprocedural hypothyroidism; N17.9 Acute kidney failure, unspecified; E78.5 Hyperlipidemia, unspecified; K74.60 Unspecified cirrhosis of liver; K21.9 Gastro-esophageal reflux disease without esophagitis; G43.909 Migraine, unspecified, not intractable, without status migrainosus; D61.810 Antineoplastic chemotherapy induced pancytopenia; E11.9 Type 2 diabetes mellitus without complications; R62.7 Adult failure to thrive; Z68.37 Body mass index [BMI] 37.0-37.9, adult; N39.0 Urinary tract infection, site not specified; G89.3 Neoplasm related pain (acute) (chronic); R16.1 Splenomegaly, not elsewhere classified; E86.0 Dehydration; Z79.4 Long term (current) use of insulin; Z79.51 Long term (current) use of inhaled steroids; Z79.82 Long term (current) use of aspirin; Z79.84 Long term (current) use of oral hypoglycemic drugs; Z79.890 Hormone replacement therapy; Z79.899 Other long term (current) drug therapy; Z80.0 Family history of malignant neoplasm of digestive organs
CPT/HCPCS: 36415; 71046; 80048; 80053; 80076; 81001; 82150; 83036; 83605; 83690; 83735; 84100; 84132; 85025; 85027; 85610; 85730; 87086; 87324; 93005; 94640; 96361; 96374; 96375; 99285

== ENCOUNTER 2023-08-29 21:39 | Inpatient (IN) | payer MEDICARE, OTHER ==
--- NOTE | 2023-08-29 21:59 | ED ---
General Adult HPI - General Source: patient, EMS, RN notes reviewed Mode of arrival: EMS <Zelda Covington - Last Filed: 08/29/23 21:58> - History of Present Illness -: days(s) Location: chest, abdomen Radiation: non-radiation Quality: aching, sharp Consistency: constant Improves with: none Worsens with: none Associated Symptoms: nausea/vomiting, shortness of breath Treatments Prior to Arrival: none <Anastacio Stockton - Last Filed: 08/30/23 02:13> <Brooklynn Conteh - Last Filed: 08/30/23 16:04> - General Stated complaint: Pain Time Seen by Provider: 08/29/23 21:58 - History of Present Illness Initial comments: Quick note: 63-year-old female presented to the ER with a chief complaint of chest pain and shortness of breath. Patient has a past medical history significant of pancreatic cancer and cirrhosis of the liver. Patient is currently residing at [facility] last [facility] 6 weeks ago. (Zelda Covington) This patient is a 63-year-old woman who arrives here to have evaluation for a constellation of symptoms that have come on over the past few days. She has been having some upper abdominal discomfort. Over the past 2 days this was joined by some chest pain in the substernal area and some dyspnea. The patient has some accompanying nausea. She has fatigue and generalized weakness. She has not noted focal symptoms of infection. There is no fever that she noted. No cough. No change in urination or bowel movements. She does give history of metastatic pancreatic cancer. She states that after receiving her second round of chemotherapy approximately 6 weeks ago the treatment was paused because she had terrible side effects. She had been admitted at [facility] to have rehabilitation stint and just left there. (Anastacio Stockton) - Related Data Home Medications Medication Instructions Recorded Confirmed Aspirin EC [Ecotrin Low Dose] 81 mg PO DAILY 05/11/23 08/30/23 Atorvastatin [Lipitor] 40 mg PO HS 05/11/23 08/30/23 Ergocalciferol [Vitamin D2 (1250 1,250 mcg PO FR 05/11/23 08/30/23 Mcg = 90136 Iu)] Levothyroxine Sodium [Synthroid] 50 mcg PO DAILY 05/11/23 08/30/23 Pantoprazole [Protonix] 40 mg PO DAILY 05/11/23 08/30/23 metFORMIN HCL 1,000 mg PO BID 05/11/23 08/30/23 Ondansetron Odt [Zofran ODT] 4 mg PO Q8HR PRN 06/13/23 08/30/23 rOPINIRole HCL [Requip] 2 mg PO HS 06/13/23 08/30/23 Albuterol Sulfate [Albuterol 2 puff PO RT-Q6H PRN 07/13/23 08/30/23 Sulfate Hfa] Budesonide/Formoterol Fumarate 2 puff INHALATION RT-BID 07/13/23 08/30/23 [Symbicort 160-4.5 Mcg Inhaler] INSULIN ASPART (NovoLOG) [NovoLOG See Protocol SQ AC-TID 07/13/23 08/30/23 (formulary)] Pyridoxine HCl (Vitamin B6) 100 mg PO DAILY 07/13/23 08/30/23 [Vitamin B-6] Furosemide [Lasix] 40 mg PO DAILY 08/30/23 08/30/23 Insulin Glargine,Hum.rec.anlog 30 units SQ HS 08/30/23 08/30/23 [Lantus Solostar Pen] Ipratropium-Albuterol Nebulize 3 ml INHALATION DIRECTED 08/30/23 08/30/23 [Duoneb 0.5 mg-3 mg/3 ml Soln] Ondansetron [Zofran] 4 mg PO Q8HR PRN 08/30/23 08/30/23 Potassium Chloride [Klor-Con M20] 20 meq PO DAILY 08/30/23 08/30/23 oxyCODONE HCL [oxyCODONE HCL (IR)] 5 mg PO Q6H PRN 08/30/23 08/30/23 oxyCODONE HCL [oxyCODONE HCL (IR)] 10 mg PO HS PRN 08/30/23 08/30/23 Previous Rx's Medication Instructions Recorded Gabapentin 600 mg PO TID #6 tab 07/20/23 Allergies Allergy/AdvReac Type Severity Reaction Status Date / Time Mushroom Allergy Unknown - Verified 08/30/23 10:26 FAMILY HISTORY Review of Systems ROS Other: All systems not noted in ROS Statement are negative. <Zelda Covington - Last Filed: 05/13/24 21:58> ROS Other: All systems not noted in ROS Statement are negative. Constitutional: Reports: weakness. Denies: fever, chills Respiratory: Reports: dyspnea. Denies: cough, wheezes, hemoptysis Cardiovascular: Reports: chest pain, edema. Denies: palpitations, orthopnea, syncope Gastrointestinal: Reports: abdominal pain, nausea. Denies: vomiting, diarrhea, constipation Genitourinary: Denies: dysuria, hematuria Musculoskeletal: Denies: back pain Skin: Denies: rash Neurological: Denies: headache, weakness, numbness <Anastacio Stockton - Last Filed: 08/30/23 02:13> ROS Other: All systems not noted in ROS Statement are negative. <PaulinonatashaBrooklynn Diana - Last Filed: 08/30/23 16:04> ROS Statement: Those systems with pertinent positive or pertinent negative responses have been documented in the HPI. Past Medical History Past Medical History: Cancer, Diabetes Mellitus, GERD/Reflux, Hyperlipidemia, Hypertension, Liver Disease, Thyroid Disorder Additional Past Medical History / Comment(s): Hx chest pain 2019, had heart cath - neg, determined it was from anxiety. Cirrohsis of the liver. Migraines. Current pancreatic cancer. History of Any Multi-Drug Resistant Organisms: MRSA Date of last positivie culture/infection: 2017 MDRO Source:: "Blood infection" Past Surgical History: Heart Catheterization, Orthopedic Surgery Additional Past Surgical History / Comment(s): Broke right leg - has francesco, plate and screws, screw in left baby toe, ganglion cyst removed from foot, bilateral cataract surgery. Past Anesthesia/Blood Transfusion Reactions: Motion Sickness, Postoperative Nausea & Vomiting (PONV) Past Psychological History: No Psychological Hx Reported Smoking Status: Never smoker Past Alcohol Use History: Rare Past Drug Use History: None Reported - Past Family History Mother Family Medical History: Cancer Additional Family Medical History / Comment(s): Colon cancer. Father Family Medical History: Cancer Additional Family Medical History / Comment(s): Colon cancer. <Zelda Covington - Last Filed: 08/29/23 21:58> General Exam <Zelda Covington - Last Filed: 08/29/23 21:58> General appearance: alert, in no apparent distress Head exam: Present: atraumatic, normocephalic Eye exam: Present: normal appearance. Absent: scleral icterus, conjunctival injection ENT exam: Present: mucous membranes dry Neck exam: Present: normal inspection Respiratory exam: Present: normal lung sounds bilaterally. Absent: respiratory distress, wheezes, rales, rhonchi, stridor, accessory muscle use Cardiovascular Exam: Present: regular rate, normal rhythm, normal heart sounds. Absent: systolic murmur, diastolic murmur, rubs, gallop GI/Abdominal exam: Present: soft, tenderness (Mild upper and right upper quadrant abdominal tenderness, no rebound or guarding). Absent: distended, guarding, rebound, rigid, pulsatile mass Extremities exam: Present: normal inspection, normal capillary refill, pedal edema. Absent: calf tenderness Back exam: Present: normal inspection. Absent: CVA tenderness (R), CVA tenderness (L) Neurological exam: Present: alert Skin exam: Present: warm, dry, intact, normal color. Absent: rash <Anastacio Stockton - Last Filed: 08/30/23 02:13> - General Exam Comments Initial Comments: Visual Physical Exam Vital signs reviewed General: Well-appearing, nontoxic, no acute distress. Head: Normocephalic, atraumatic Eyes: PERRLA, EOMI ENT: Airway patent Chest: Nonlabored breathing Skin: No visual rash, normal skin tone Neuro: Alert and oriented 3 Musculoskeletal: No gross abnormalities (Zelda Covington) Course Vital Signs 08/29/23 08/30/23 08/30/23 22:10 00:35 01:15 Temperature 98.4 F 97.8 F Pulse Rate 85 86 80 Respiratory 22 18 12 Rate Blood Pressure 102/68 133/83 119/72 O2 Sat by Pulse 97 97 96 Oximetry 08/30/23 08/30/23 08/30/23 02:00 05:00 06:00 Temperature Pulse Rate 83 72 82 Respiratory 14 16 18 Rate Blood Pressure 119/72 108/82 118/73 O2 Sat by Pulse 96 97 100 Oximetry 08/30/23 08/30/23 08/30/23 07:43 08:22 09:07 Temperature 97.9 F Pulse Rate 85 78 77 Respiratory 20 18 17 Rate Blood Pressure 113/70 113/66 116/64 O2 Sat by Pulse 100 99 99 Oximetry 08/30/23 08/30/23 08/30/23 10:09 11:00 12:35 Temperature 98.5 F Pulse Rate 89 79 87 Respiratory 17 17 17 Rate Blood Pressure 120/83 120/79 121/75 O2 Sat by Pulse 100 99 99 Oximetry 08/30/23 08/30/23 13:54 15:06 Temperature 98.3 F Pulse Rate 84 91 Respiratory 17 19 Rate Blood Pressure 118/71 129/73 O2 Sat by Pulse 100 100 Oximetry EKG Findings - EKG Results: EKG: interpreted by ERMD, sinus rhythm - Blocks, [place], Hypertrophy, ST Abn: AV and intraventricular conduction: left anterior fascicular block - SD, Pacemaker, Normal: Myocardial infarction: anterior SD (old age or indeterminate) <Anastacio Stoctkon - Last Filed: 08/30/23 02:13> Medical Decision Making <Zelda Covington - Last Filed: 08/29/23 21:58> - Lab Data Result diagrams: 08/29/23 23:08 08/29/23 23:08 <Anastacio Stockton - Last Filed: 08/30/23 02:13> - Lab Data Result diagrams: 08/29/23 23:08 08/29/23 23:08 <Brooklynn Conteh - Last Filed: 08/30/23 16:04> - Medical Decision Making I performed the quick note portion of this chart. Electronically signed by Zelda Covington PA-C (Zelda Covington) Was patient admitted / discharged? Hospital course, mention meds given and route, prescriptions, significant lab abnormalities, going to OR and other pertinent info. @ -Patient was signed out to me pending reevaluation of her pain medications. Patient was given 1 mg of Dilaudid. I did reevaluate the patient. She states she has continued pain. She does not feel comfortable being discharged back to her facility as the pain is still significant with the Dilaudid. Because of this I did speak with Dr. Penn. Liver enzymes are relatively stable. Feel that the patient would be benefited by admission for pain control and oncology. Dr. Penn did accept admission of the patient Undiagnosed new problem with uncertain prognosis? @ -No Drug Therapy requiring intensive monitoring for toxicity (Heparin, Nitro, Insulin, Cardizem)? @ -No Were any procedures done? @ -No Diagnosis/symptom? @ -Acute epigastric abdominal pain, transaminitis, history of pancreatic cancer Acute, or Chronic, or Acute on Chronic? @ -Acute Uncomplicated (without systemic symptoms) or Complicated (systemic symptoms)? @ -Complicated Side effects of treatment? @ -No Exacerbation, Progression, or Severe Exacerbation? @ -No Poses a threat to life or bodily function? How? (Chest pain, USA, SD, pneumonia, PE, COPD, DKA, ARF, appy, cholecystitis, CVA, Diverticulitis, Homicidal, Suicidal, threat to staff... and all critical care pts) @ -No (Brooklynn Conteh) - Lab Data Lab Results 08/29/23 08/29/23 08/29/23 Range/Units 23:08 23:08 23:08 WBC 7.2 (3.8-10.6) k/uL RBC 3.76 L (3.80-5.40) m/uL Hgb 11.2 L (11.4-16.0) gm/dL Hct 36.0 (34.0-46.0) % MCV 95.7 D (80.0-100.0) fL MCH 29.8 (25.0-35.0) pg MCHC 31.2 (31.0-37.0) g/dL RDW 17.5 H (11.5-15.5) % Plt Count 151 D (150-450) k/uL MPV 9.1 Neutrophils % (Manual) 89 % Band Neuts % (Manual) 1 % Lymphocytes % (Manual) 6 % Monocytes % (Manual) 2 % Eosinophils % (Manual) 2 % Neutrophils # (Manual) 6.40 (1.3-7.7) k/uL Lymphocytes # (Manual) 0.43 L (1.0-4.8) k/uL Monocytes # (Manual) 0.14 (0-1.0) k/uL Eosinophils # (Manual) 0.14 (0-0.7) k/uL Nucleated RBCs 0 (0-0) /100 WBC Manual Slide Review Performed Hypochromasia Slight Poikilocytosis (manual Present Anisocytosis Slight Macrocytosis Slight PT 15.6 H (10.0-12.5) sec INR 1.5 H (<1.2) APTT 24.2 (22.0-30.0) sec Sodium 133 L (137-145) mmol/L Potassium 4.3 (3.5-5.1) mmol/L Chloride 105 (98-107) mmol/L Carbon Dioxide 25 (22-30) mmol/L Anion Gap 3 mmol/L BUN 15 (7-17) mg/dL Creatinine 0.58 (0.52-1.04) mg/dL Est GFR (CKD-EPI)AfAm >90 (>60 ml/min/1.73 sqM) Est GFR (CKD-EPI)NonAf >90 (>60 ml/min/1.73 sqM) Glucose 151 H (74-99) mg/dL Calcium 7.1 L (8.4-10.2) mg/dL Total Bilirubin 2.2 H (0.2-1.3) mg/dL AST 109 H (14-36) U/L ALT 49 H (4-34) U/L Alkaline Phosphatase 348 H (38-126) U/L Troponin I (0.000-0.034) ng/mL Total Protein 5.8 L (6.3-8.2) g/dL Albumin 2.3 L (3.5-5.0) g/dL Amylase (30-110) U/L Lipase (23-300) U/L 08/29/23 08/29/23 08/30/23 Range/Units 23:08 23:08 03:38 WBC (3.8-10.6) k/uL RBC (3.80-5.40) m/uL Hgb (11.4-16.0) gm/dL Hct (34.0-46.0) % MCV (80.0-100.0) fL MCH (25.0-35.0) pg MCHC (31.0-37.0) g/dL RDW (11.5-15.5) % Plt Count (150-450) k/uL MPV Neutrophils % (Manual) % Band Neuts % (Manual) % Lymphocytes % (Manual) % Monocytes % (Manual) % Eosinophils % (Manual) % Neutrophils # (Manual) (1.3-7.7) k/uL Lymphocytes # (Manual) (1.0-4.8) k/uL Monocytes # (Manual) (0-1.0) k/uL Eosinophils # (Manual) (0-0.7) k/uL Nucleated RBCs (0-0) /100 WBC Manual Slide Review Hypochromasia Poikilocytosis (manual Anisocytosis Macrocytosis PT (10.0-12.5) sec INR (<1.2) APTT (22.0-30.0) sec Sodium (137-145) mmol/L Potassium (3.5-5.1) mmol/L Chloride (98-107) mmol/L Carbon Dioxide (22-30) mmol/L Anion Gap mmol/L BUN (7-17) mg/dL Creatinine (0.52-1.04) mg/dL Est GFR (CKD-EPI)AfAm (>60 ml/min/1.73 sqM) Est GFR (CKD-EPI)NonAf (>60 ml/min/1.73 sqM) Glucose (74-99) mg/dL Calcium (8.4-10.2) mg/dL Total Bilirubin (0.2-1.3) mg/dL AST (14-36) U/L ALT (4-34) U/L Alkaline Phosphatase (38-126) U/L Troponin I 0.023 0.017 (0.000-0.034) ng/mL Total Protein (6.3-8.2) g/dL Albumin (3.5-5.0) g/dL Amylase 39 (30-110) U/L Lipase 284 (23-300) U/L Disposition <Zelda Covington - Last Filed: 08/29/23 21:58> <Anastacio Stockton - Last Filed: 08/30/23 02:13> Is patient prescribed a controlled substance at d/c from ED?: No Time of Disposition: 04:29 Decision to Admit Reason: Admit from EC Decision Date: 08/30/23 Decision Time: 04:29 <Brooklynn Conteh - Last Filed: 08/30/23 16:04> Clinical Impression: Vomiting, Weakness, Pancreatic cancer, Epigastric pain Disposition: ADMITTED IP TO THIS [facility] Condition: Stable
--- NOTE | 2023-08-29 23:09 | XR ---
EXAM: XR Chest, 1 View CLINICAL HISTORY: ITS.REASON XR Reason: difficulty breathing TECHNIQUE: Frontal view of the chest. COMPARISON: No relevant prior studies available. FINDINGS: Lungs: Unremarkable. No consolidation. Pleural space: Unremarkable. No pneumothorax. Heart: Unremarkable. No cardiomegaly. Mediastinum: Unremarkable. Normal mediastinal contour. Bones/joints: Unremarkable. No acute fracture. Tubes, lines and devices: RIGHT Port-A-Cath terminates in the SVC. IMPRESSION: RIGHT Port-A-Cath terminates in the SVC.
[2023-08-29 23:18] LABS: Anisocytosis Slight; HGB 11.2 gm/dL (11.4-16.0); Hypochromasia Slight; MCH 29.8 pg (25.0-35.0); MCHC 31.2 g/dL (31.0-37.0); Macrocytosis Slight; Mean Platelet Volume 9.1; RBC 3.76 m/uL (3.80-5.40); RDW 17.5 % (11.5-15.5); WBC 7.2 k/uL (3.8-10.6)
[2023-08-29 23:50] LABS: ALT 49 U/L (4-34); AST 109 U/L (14-36); African American GFR (CKD) >90 (>60 ml/min/1.73 sqM); Albumin 2.3 g/dL (3.5-5.0); Alkaline Phosphatase 348 U/L (38-126); Anion Gap 3 mmol/L; Blood Urea Nitrogen 15 mg/dL (7-17); Calcium 7.1 mg/dL (8.4-10.2); Carbon Dioxide 25 mmol/L (22-30); Chloride 105 mmol/L (98-107); Glucose 151 mg/dL (74-99); Non-African American GFR(CKD) >90 (>60 ml/min/1.73 sqM); Sodium 133 mmol/L (137-145); Total Bilirubin 2.2 mg/dL (0.2-1.3); Total Protein 5.8 g/dL (6.3-8.2)
[2023-08-30 00:27] LABS: Potassium 4.3 mmol/L (3.5-5.1)
[2023-08-30] MEDS: SODIUM CHLORIDE 0.9% 500 ML 500 ML IV STA (00:42)
[2023-08-30] MEDS: ONDANSETRON 4 MG/2 ML VIAL IVP STA (00:43)
[2023-08-30] MEDS: HYDROmorphone 0.5 MG/0.5 ML SYRINGE IVP STA (00:43)
[2023-08-30 01:26] LABS: INR 1.5 (<1.2); Partial Thromboplastin Time 24.2 sec (22.0-30.0); Prothrombin Time 15.6 sec (10.0-12.5)
[2023-08-30 01:42] LABS: MCV 95.7 fL (80.0-100.0)
[2023-08-30 01:43] LABS: Platelet Count 151 k/uL (150-450)
[2023-08-30 01:44] LABS: Amylase 39 U/L (30-110); Lipase 284 U/L (23-300)
[2023-08-30] MEDS: HYDROmorphone 1 MG/ML 1 ML SYRINGE IVP STA (03:01)
[2023-08-30] MEDS ORDERED: NALOXONE 0.4 MG/ML 1 ML VIAL IV PRN (04:31)
[2023-08-30 06:49] LABS: Band Neutrophils % 1 %; Eosinophils # (M) 0.14 k/uL (0-0.7); Lymphocytes # (M) 0.43 k/uL (1.0-4.8); Monocytes # (M) 0.14 k/uL (0-1.0); Neutrophils % (M) 89 %; Nucleated Red Blood Cells 0 /100 WBC (0-0); Total Cells Counted 100
[2023-08-30 06:50] LABS: Poikilocytosis (M) Present
[2023-08-30] MEDS: HYDROmorphone 2 MG TAB PO PRN (07:43)
[2023-08-30] MEDS ORDERED: IOPAMIDOL CONTRAST (ORAL USE) VIAL PO PRN (13:52)
[2023-08-30] MEDS: PANTOPRAZOLE 40 MG/10 ML VIAL IVP SCH (13:54)
[2023-08-30] MEDS ORDERED: IPRATROPIUM-ALBUTEROL 3 ML NEB INHALATION PRN (14:00)
[2023-08-30] MEDS: GABAPENTIN 300 MG CAP PO SCH (15:08)
[2023-08-30] MEDS: HYDROmorphone 0.5 MG/0.5 ML SYRINGE IVP PRN (16:09)
--- NOTE | 2023-08-30 16:21 | CT ---
EXAMINATION TYPE: CT angio chest DATE OF EXAM: 08/30/2023 COMPARISON: None HISTORY: SOB, tachycardia CT DLP: 555.5 mGycm CONTRAST: CT chest with contrast and 3D reconstruction with MIP imaging is performed with IV Contrast, patient injected with 100 mL of Isovue 370. Contrast-enhanced CT of the chest was performed through the course of the pulmonary arteries with ingrid g and mediastinal window settings submitted. 3D reconstruction with MIP imaging was also performed. PULMONARY ARTERIES: Small filling defects seen within the distal main pulmonary arteries extending in to the segmental and subsegmental branches mild in degree. No evidence of right heart strain. LUNGS: The lungs are clear and free of infiltrate. No evidence for atelectasis. No pulmonary nodule or mass is detected. No pleural effusion. MEDIASTINUM: Thoracic aorta is of normal caliber,however, evaluation is limited given timing of the contrast bolus. If there is concern for thoracic aortic pathology consider KIMBERLY. Correlate clinicall y . The heart is not enlarged. No evidence for mediastinal mass. No mediastinal lymph nodes greater than 1cm. HILAR STRUCTURES: No evidence for mass. No hilar lymph nodes greater than 1 cm. UPPER ABDOMEN: Upper abdominal ascites. Cirrhotic liver disease. IMPRESSION: 1. Mild bilateral pulmonary embolism without right heart strain seen.
--- NOTE | 2023-08-30 16:26 | CT ---
EXAMINATION TYPE: CT abdomen pelvis wo con DATE OF EXAM: 08/30/2023 COMPARISON: None HISTORY: hematuria CT DLP: 1434.6 mGycm Examination of the solid and hollow viscera is limited given the lack of contrast. FINDINGS: LUNG BASES: No evidence for nodule. No evidence for infiltrate. LIVER/GB: Micronodular hepatic contour compatible with cirrhotic liver disease. The gallbladder is lee rgically absent. No space-occupying lesion seen on this unenhanced study. PANCREAS: No pancreatic mass identified. No inflammatory process seen. SPLEEN: Splenomegaly seen measuring 14.4 cm craniocaudal dimension. No intrasplenic lesions seen. ADRENALS: No adrenal nodules identified. No evidence for thickening. KIDNEYS: No evidence for renal mass. 4 mm calculus midpole left kidney. 1 mm calculus upper pole left kidney. No hydronephrosis. BOWEL: Nonspecific wall thickening right hemicolon and the level of the ascending colon may reflect n onspecific colitis. Nonvisualization of the appendix. Small bowel is of normal caliber. Lymph nodes: No evidence for adenopathy greater than 1 cm. Abdominal aorta: Atheromatous changes seen. No evidence for aneurysm. Genital organs: No significant abnormality. Other: Upper abdominal ascites mild in degree with small amount of free fluid seen within the pelvis. IMPRESSION: 1. Cirrhotic liver disease with splenomegaly and mild ascites. 2. Wall thickening involving the ascending colon may reflect a nonspecific colitis with infectious, i nflammatory and vascular etiologies considered.
[2023-08-30] MEDS: SYMBICORT 160-4.5 MCG INHALER INHALATION SCH (19:57)
[2023-08-30] MEDS: ATORVASTATIN 40 MG TAB PO SCH (20:30)
[2023-08-30] MEDS: HEPARIN SODIUM,PORCINE 5,000 UNIT/ML 1 ML VIAL SQ SCH (20:31)
[2023-08-30 21:26] LABS: Glucose,Whole Blood 154 mg/dL (70-110)
[2023-08-30] MEDS: INSULIN DETEMIR (LEVEMIR) 100 UNIT/ML SYR SQ SCH (21:38)
[2023-08-30] MEDS ORDERED: HEPARIN SODIUM 1,000 UN/ML (10ML VL) IV PRN (23:10)
--- NOTE | 2023-08-30 23:29 | P.CONS ---
History of Present Illness - Reason for Consult Consult date: 08/30/23 Pancreatic adenocarcinoma Requesting physician: Brooklynn Conteh - Chief Complaint Epigastric pain, SOB, chest heaviness - History of Present Illness Ms. Mirza is a 63-year-old female patient of Dr. Louise who presented with right upper quadrant pain around November 2022. She ended up having a cholecystectomy at [facility] in February 2023. Unfortunately, her pain persisted. CT AP 04/15/2023 showed 3 hepatic lesions, up to 1.6 cm compared to prior CT done in November. There is evidence of cirrhosis and splenomegaly. CTA of the chest was negative for PE, no evidence of metastatic disease. 04/19/2023 CT-guided liver biopsy positive for adenocarcinoma, IHC nonspecific, HCC versus pancreatobiliary versus upper GI primary. LFTs were within normal limits, alk phos 144, AFP less than 2.7, CA 19-9 15, CEA 6.2, coags within normal limits. She had a normal colonoscopy in January 2023. EGD 05/11/2023 showed no suspicious finding. 05/13/2023 MRCP showed a 2.1 cm mass at the uncinate process of the pancreas, encasing SMA, enlarged regional lymph nodes and liver metastasis as well as cirrhosis. Caris testing done, microsatellite stable, limited sample. 06/09/2023 she started Gemzar and Abraxane. She ended up inpatient N, V, D. She had a second treatment 07/06 with another admission for abdominal pain. She has not had any other treatment otherwise. Patient has spent the last 4 to 5 weeks in rehab. She was released on Tuesday. She fell when she got home trying to get up stairs. She ended up in the emergency room for evaluation, there was no fractures. She was sent home. It took 3 people to get her in the house. Patient is reporting that she was doing steps while in rehab. Currently she walks with a walker very short distances. She does have a decubitus wound. He has bilateral lower extremity pitting edema. She requires a lift chair to be able to stand up. When seen patient is very anxious, she is reporting chest complaints of heaviness, her abdominal pain is bandlike, underneath the ribs and all the way across. She reports currently that she is hungry but, nothing tastes good. She is not currently vomiting, denies fevers, difficulty swall owing, acute changes in bowel or bladder habits. Patient was last seen in the office 07/04/2023. It was discussed patient's overall poor prognosis and poor tolerance to treatment. Plan was to dose reduce and try 1 more cycle-per pt request-and reassess after that. Review of Systems 10 point ROS is neg except as stated in HPI Past Medical History Past Medical History: Cancer, Diabetes Mellitus, GERD/Reflux, Hyperlipidemia, Hypertension, Liver Disease, Thyroid Disorder Additional Past Medical History / Comment(s): Hx chest pain 2018, had heart cath - neg, determined it was from anxiety. Cirrohsis of the liver. Migraines. Current pancreatic cancer. History of Any Multi-Drug Resistant Organisms: MRSA Year Discovered:: 2018 MDRO Source:: "Blood infection" Past Surgical History: Heart Catheterization, Orthopedic Surgery Additional Past Surgical History / Comment(s): Broke right leg - has francesco, plate and screws, screw in left baby toe, ganglion cyst removed from foot, bilateral cataract surgery. Past Anesthesia/Blood Transfusion Reactions: Motion Sickness, Postoperative Nausea & Vomiting (PONV) Past Psychological History: No Psychological Hx Reported Smoking Status: Never smoker Past Alcohol Use History: Rare Past Drug Use History: None Reported - Past Family History Mother Family Medical History: Cancer Additional Family Medical History / Comment(s): Colon cancer. Father Family Medical History: Cancer Additional Family Medical History / Comment(s): Colon cancer. Medications and Allergies Home Medications Medication Instructions Recorded Confirmed Type Aspirin EC [Ecotrin Low Dose] 81 mg PO DAILY 05/11/23 08/30/23 History Atorvastatin [Lipitor] 40 mg PO HS 05/11/23 08/30/23 History Ergocalciferol [Vitamin D2 (1250 1,250 mcg PO FR 05/11/23 08/30/23 History Mcg = 50814 Iu)] Levothyroxine Sodium [Synthroid] 50 mcg PO DAILY 05/11/23 08/30/23 History Pantoprazole [Protonix] 40 mg PO DAILY 05/11/23 08/30/23 History metFORMIN HCL 1,000 mg PO BID 05/11/23 08/30/23 History Ondansetron Odt [Zofran ODT] 4 mg PO Q8HR PRN 06/13/23 08/30/23 History rOPINIRole HCL [Requip] 2 mg PO HS 06/13/23 08/30/23 History Albuterol Sulfate [Albuterol 2 puff PO RT-Q6H PRN 07/13/23 08/30/23 History Sulfate Hfa] Budesonide/Formoterol Fumarate 2 puff INHALATION RT-BID 07/13/23 08/30/23 History [Symbicort 160-4.5 Mcg Inhaler] INSULIN ASPART (NovoLOG) [NovoLOG See Protocol SQ AC-TID 07/13/23 08/30/23 History (formulary)] Pyridoxine HCl (Vitamin B6) 100 mg PO DAILY 07/13/23 08/30/23 History [Vitamin B-6] Gabapentin 600 mg PO TID #6 tab 07/20/23 08/30/23 Rx Furosemide [Lasix] 40 mg PO DAILY 08/30/23 08/30/23 History Insulin Glargine,Hum.rec.anlog 30 units SQ HS 08/30/23 08/30/23 History [Lantus Solostar Pen] Ipratropium-Albuterol Nebulize 3 ml INHALATION DIRECTED 08/30/23 08/30/23 History [Duoneb 0.5 mg-3 mg/3 ml Soln] Ondansetron [Zofran] 4 mg PO Q8HR PRN 08/30/23 08/30/23 History Potassium Chloride [Klor-Con M20] 20 meq PO DAILY 08/30/23 08/30/23 History oxyCODONE HCL [oxyCODONE HCL (IR)] 5 mg PO Q6H PRN 08/30/23 08/30/23 History oxyCODONE HCL [oxyCODONE HCL (IR)] 10 mg PO HS PRN 08/30/23 08/30/23 History Allergies Allergy/AdvReac Type Severity Reaction Status Date / Time Mushroom Allergy Unknown - Verified 08/30/23 10:26 FAMILY HISTORY Physical Exam Vitals: Vital Signs Temp Pulse Resp BP Pulse Ox 08/30/23 13:54 98.3 F 84 17 118/71 100 08/30/23 12:35 98.5 F 87 17 121/75 99 08/30/23 11:00 79 17 120/79 99 08/30/23 10:09 89 17 120/83 100 08/30/23 09:07 77 17 116/64 99 08/30/23 08:22 78 18 113/66 99 08/30/23 07:43 97.9 F 85 20 113/70 100 08/30/23 06:00 82 18 118/73 100 08/30/23 05:00 72 16 108/82 97 08/30/23 02:00 83 14 119/72 96 08/30/23 01:15 80 12 119/72 96 08/30/23 00:35 97.8 F 86 18 133/83 97 08/29/23 22:10 98.4 F 85 22 102/68 97 Intake and Output 08/29/23 08/30/23 08/30/23 22:59 06:59 14:59 Other: Weight 108.862 kg - Constitutional General appearance: cooperative, mild distress, obese - EENT Eyes: EOMI ENT: hearing grossly normal, normal oropharynx - Neck Neck: no lymphadenopathy - Respiratory Respiratory: bilateral: CTA - Cardiovascular tachy Heart sounds: normal: S1, S2 Abnormal Heart Sounds: no systolic murmur, no diastolic murmur, no rub, no S3 Gallop, no S4 Gallop, no click, no other leg Peripheral Edema: bilateral: 1+, Pitting - Gastrointestinal General gastrointestinal: no absent bowel sounds, no decreased bowel sounds, distended, no hepatomegaly, no hyperactive bowel sounds, normal bowel sounds, no organomegaly, no rigid, no scaphoid, soft, no splenomegaly, tenderness, no umbilical hernia, no ventral hernia - Integumentary Integumentary: pale - Neurologic Neurologic: CNII-XII intact - Musculoskeletal Musculoskeletal: generalized weakness - Psychiatric Psychiatric: A&O x's 3, appropriate affect, intact judgment & insight Results CBC & Chem 7: 08/29/23 23:08 08/29/23 23:08 Labs: Abnormal Lab Results - Last 24 Hours (Table) 08/29/23 08/29/23 08/29/23 Range/Units 23:08 23:08 23:08 RBC 3.76 L (3.80-5.40) m/uL Hgb 11.2 L (11.4-16.0) gm/dL RDW 17.5 H (11.5-15.5) % Lymphocytes # (Manual) 0.43 L (1.0-4.8) k/uL PT 15.6 H (10.0-12.5) sec INR 1.5 H (<1.2) Sodium 133 L (137-145) mmol/L Glucose 151 H (74-99) mg/dL Calcium 7.1 L (8.4-10.2) mg/dL Total Bilirubin 2.2 H (0.2-1.3) mg/dL AST 109 H (14-36) U/L ALT 49 H (4-34) U/L Alkaline Phosphatase 348 H (38-126) U/L Total Protein 5.8 L (6.3-8.2) g/dL Albumin 2.3 L (3.5-5.0) g/dL Chest x-ray: report reviewed Assessment and Plan (1) Epigastric pain Current Visit: Yes Status: Acute Priority: High Code(s): R10.13 - EPIGASTRIC PAIN SNOMED Code(s): 95422221 (2) Pancreatic cancer Current Visit: Yes Status: Acute Priority: High Code(s): C25.9 - MALIGNANT NEOPLASM OF PANCREAS, UNSPECIFIED SNOMED Code(s): 836349827 (3) Weakness Current Visit: Yes Status: Chronic Priority: High Code(s): R53.1 - WEAKNESS SNOMED Code(s): 29993191 Plan: Chest discomfort -Patient has noted to be tachycardic. -CTA ordered. -Small bilateral pulmonary emboli reported. Heparin drip initiated. Abdominal pain -Patient expressed concerns for her abdominal discomfort, lack of treatment that possibly she is experiencing disease progression. It was discussed that this is a possibility. -CT of the abdomen and pelvis ordered, pending results -Once patient's pain is better controlled, will have a discussion regarding goals of care and how patient would like to proceed. Pancreatic adenocarcinoma -Diagnosis and treatment as described in HPI. Patient has had only 2 treatments in since May 2023. She has had unfortunately very poor tolerance. -Patient having progressive abdominal discomfort, worsening LFTs, concern for progressive disease. -CTAP was ordered, this was without contrast. Pending results. May require CT with contrast to assess disease status. -Patient does understand her poor prognosis. Once she is feeling a little bit better we will discuss goals for care. Will update the chart as information becomes available.
[2023-08-30] MEDS: HEPARIN SODIUM 1,000 UN/ML (10ML VL) IV ONE (23:52)
--- NOTE | 2023-08-30 23:52 | HP ---
HISTORY AND PHYSICAL CHIEF COMPLAINT: Epigastric and abdominal pain. HISTORY OF PRESENT ILLNESS: This is a 63-year-old woman with a past medical history of multiple medical problems including pancreatic cancer with hepatic mets, was recently admitted with multiple medical issues. The patient also had chemotherapy about 6 weeks ago. Because of significant side effects, the chemotherapy was on hold and the patient is in [facility] for rehab at this time. The patient is complaining of severe chest pain and epigastric pain and is admitted for further evaluation and treatment. There is no history of any fever, rigors, or chills at this time. There is no evidence of any pancreatitis either. Hematology/Oncology have been consulted. PAST MEDICAL HISTORY: History of pancreatic cancer with antecedent history as mentioned earlier. Rest of the history and rest of the chart is also reviewed. HOME MEDICATIONS: Reviewed, albuterol, rest of the medications reviewed. ALLERGIES: Mushroom. FAMILY HISTORY: History of colon cancer. SOCIAL HISTORY: No history of smoking or alcohol intake. REVIEW OF SYSTEMS: A 14-point review is negative except as mentioned earlier. PHYSICAL EXAMINATION: VITAL SIGNS: Pulse is 87, blood pressure 120/74, respirations 17. HEENT: Conjunctivae normal. NECK: No jugular venous distention. CARDIOVASCULAR: S1, S2. RESPIRATIONS: Diminished at the bases, few scattered rhonchi. No crackles. ABDOMEN: Soft, distended. LEGS: No edema, no swelling. NERVOUS SYSTEM: No focal deficits. SKIN: No ulcer, rash, bleeding. JOINTS: No active deforming arthropathy. LABORATORY DATA: WBC 7.2, hemoglobin 11.2. Rest of the labs are noted. ASSESSMENT: 1. Chest pain and epigastric pain, possibly secondary to malignancy. Rule out myocardial infarction. 2. History of pancreatic cancer with liver mets, status post chemotherapy. 3. Gait dysfunction. 4. History of cirrhosis liver. 5. Hypertension. 6. Hyperlipidemia. 7. Multiple medical issues. RECOMMENDATIONS AND DISCUSSION: This 63-year-old woman presented with multiple complex medical issues, we will monitor the patient closely. I would recommend intravenous Protonix. Rule out myocardial infarction. Symptomatic treatment of the pain. Hematology/Oncology evaluation. The most recent CAT scan is not available in the chart. I would recommend CT scan of the abdomen and pelvis on an emergent basis. See orders for further details. Prognosis guarded. Further recommendations to follow. The patient will be started on full liquid diet. MMODL / IJN: [id number] /
[2023-08-30] MEDS: HEPARIN SOD,PORK IN 0.45% NACL 25,000 UNIT in 0.45% NACL 1 250ML.BAG IV SCH (23:55)
[2023-08-31 00:57] LABS: Anisocytosis Slight; Basophils % (A) 1 %; Eosinophils # (A) 0.1 k/uL (0-0.7); Eosinophils % (A) 2 %; HCT 36.6 % (34.0-46.0); Hypochromasia Moderate; Lymphocytes # (A) 0.4 k/uL (1.0-4.8); Lymphocytes % (A) 6 %; MCH 29.5 pg (25.0-35.0); MCV 98.3 fL (80.0-100.0); Macrocytosis Slight; Mean Platelet Volume 8.6; Monocytes # (A) 0.4 k/uL (0-1.0); Monocytes % (A) 6 %; Neutrophils # (A) 5.7 k/uL (1.3-7.7); Neutrophils % (A) 85 %; Platelet Count 115 k/uL (150-450); RBC 3.73 m/uL (3.80-5.40); RDW 17.4 % (11.5-15.5); WBC 6.8 k/uL (3.8-10.6)
[2023-08-31 00:58] LABS: INR 1.6 (<1.2); Prothrombin Time 16.4 sec (10.0-12.5)
[2023-08-31] MEDS: LEVOTHYROXINE 50 MCG TAB PO SCH (05:32)
[2023-08-31 07:25] LABS: Glucose,Whole Blood 39 mg/dL (70-110)
[2023-08-31 07:47] LABS: Glucose,Whole Blood 53 mg/dL (70-110)
[2023-08-31 08:05] LABS: Glucose,Whole Blood 125 mg/dL (70-110)
[2023-08-31 08:16] LABS: INR 1.7 (<1.2)
[2023-08-31] MEDS ORDERED: FUROSEMIDE 40 MG TAB PO SCH (09:00)
[2023-08-31 09:46] LABS: Glucose,Whole Blood 124 mg/dL (70-110)
[2023-08-31] MEDS: POTASSIUM CHLORIDE ER 20 MEQ TAB.ER PO SCH (09:52)
[2023-08-31] MEDS: ASPIRIN 81 MG PO SCH (09:52)
[2023-08-31] MEDS: PYRIDOXINE 50 MG TAB PO SCH (09:52)
[2023-08-31] MEDS: FUROSEMIDE 10 MG/ML 4 ML VIAL IV SCH (09:52)
--- NOTE | 2023-08-31 10:11 | P.CRDCN ---
History of Present Illness Consult date: 08/31/23 History of present illness: History of present illness: This is a 63-year-old female with no previous cardiac history. She does not follow with a molecular pathologist. She has a past medical history significant for pancreatic cancer with metastatic disease, cirrhosis of the liver, diabetes mellitus type 2, gastroesophageal reflux disease, hypertension, hyperlipidemia. We have been asked to evaluate the patient for coronary artery disease with abnormal EKG. Patient states that she had chest pain on the left side of her chest but then realized that she was having more pain in the right upper quadrant of her abdomen. She felt that her breathing was a little bit off. She denies having any dizziness. She has had lower extremity edema and feels like her legs are very heavy. No dizziness no palpitations. She does complain of cough and states it has been ongoing since she had COVID a month ago. She denies having any fever. Cough is nonproductive. She is a non-smoker. She was diagnosed with diabetes in 2011. She follows with Dr. Louise diagnosed approximately 5 months ago with pancreatic cancer and she states that chemotherapy was stopped. She states she is feeling better at this time than when she came into the hospital. Patient has been started on heparin drip secondary to positive CTA of the chest for PE. Patient denies chest pain at this time. EKG sinus rhythm nonspecific T wave changes, cannot rule out ischemic changes but these are similar to previous EKGs. Telemetry reviewed no significant abnormalities were noted. Chest x-ray: No acute process CTA of the chest: Small bilateral pulmonary embolism without right heart strain. CT of the abdomen pelvis without contrast revealed cirrhotic liver disease with splenomegaly and mild ascites. Wall thickening involving the ascending colon may reflect a nonspecific colitis with infectious, inflammatory, and vascular etiologies considered. Home cardiac medications: Aspirin 81 mg daily, atorvastatin 40 mg at bedtime, Lasix 40 mg daily, potassium chloride 20 mill equivalents daily, also on l evothyroxine 50 mcg daily. Echocardiogram performed on 06/22/2023 reveals normal LV systolic function. Review Of Systems: At the time of my exam: CONSTITUTIONAL: Denies fever or chills. HEENT: Denies blurred vision, vision changes, or eye pain. Denies hemoptysis CARDIOVASCULAR: Denies chest pain. Denies orthopnea. Denies PND. Denies palpitations + LE edema RESPIRATORY: Denies shortness of breath. GASTROINTESTINAL: + abdominal pain. Denies nausea or vomiting. HEMATOLOGIC: Denies bleeding disorders. GENITOURINARY: Denies any blood in urine. SKIN: Denies pruitis. Denies rash. Physical examination: Gen: This is a 63-year-old female in no acute distress. VS: reviewed, blood pressure 106/64, heart rate 99, pulse ox 94% on 2 L. HEENT: Head is atraumatic, normocephalic. Pupils equal, round. Sclerae is anicteric. NECK: Supple. No JVD. LUNGS: Diminished bilaterally. No intercostal retractions. HEART: Regular rate and rhythm. No murmur. ABDOMEN: Soft No tenderness. EXTREMITIES: 12+ lower extremity edema. No calf tenderness. NEUROLOGICAL: Patient is awake, alert and oriented x3. Assessment: Bilateral lower extremity edema with possible component of acute heart failure with preserved EF Abnormal EKG Pancreatic cancer with metastatic disease Cirrhosis of the liver Diabetes mellitus type 2 insulin requiring Gastroesophageal reflux disease Hypertension Hyperlipidemia Recent COVID-19 Plan: Resume patient's home cardiac medications Start patient on IV Lasix 40 mg every 12 hours Monitor REENA, daily weights, electrolytes and renal function Repeat 2-D echocardiogram and Doppler study to assess cardiac structure and function Obtain venous Doppler to assess for DVT In light of patient's significant medical conditions, no aggressive cardiac workup is planned at this time. Further recommendations to follow based upon clinical course Thank you kindly for this consultation. Nurse practitioner note has been reviewed, I agree with documented findings and plan of care. Patient was seen and examined. Past Medical History Past Medical History: Cancer, Diabetes Mellitus, GERD/Reflux, Hyperlipidemia, Hypertension, Liver Disease, Thyroid Disorder Additional Past Medical History / Comment(s): Hx chest pain 2019, had heart cath - neg, determined it was from anxiety. Cirrohsis of the liver. Migraines. Current pancreatic cancer. History of Any Multi-Drug Resistant Organisms: MRSA Date of last positivie culture/infection: 2018 MDRO Source:: "Blood infection" Past Surgical History: Heart Catheterization, Orthopedic Surgery Additional Past Surgical History / Comment(s): Broke right leg - has francesco, plate and screws, screw in left baby toe, ganglion cyst removed from foot, bilateral cataract surgery. Past Anesthesia/Blood Transfusion Reactions: Motion Sickness, Postoperative Nausea & Vomiting (PONV) Past Psychological History: No Psychological Hx Reported Smoking Status: Never smoker Past Alcohol Use History: Rare Past Drug Use History: None Reported - Past Family History Mother Family Medical History: Cancer Additional Family Medical History / Comment(s): Colon cancer. Father Family Medical History: Cancer Additional Family Medical History / Comment(s): Colon cancer. Medications and Allergies Home Medications Medication Instructions Recorded Confirmed Type Aspirin EC [Ecotrin Low Dose] 81 mg PO DAILY 05/11/23 08/30/23 History Atorvastatin [Lipitor] 40 mg PO HS 05/11/23 08/30/23 History Ergocalciferol [Vitamin D2 (1250 1,250 mcg PO FR 05/11/23 08/30/23 History Mcg = 68435 Iu)] Levothyroxine Sodium [Synthroid] 50 mcg PO DAILY 05/11/23 08/30/23 History Pantoprazole [Protonix] 40 mg PO DAILY 05/11/23 08/30/23 History metFORMIN HCL 1,000 mg PO BID 05/11/23 08/30/23 History Ondansetron Odt [Zofran ODT] 4 mg PO Q8HR PRN 06/13/23 08/30/23 History rOPINIRole HCL [Requip] 2 mg PO HS 06/13/23 08/30/23 History Albuterol Sulfate [Albuterol 2 puff PO RT-Q6H PRN 07/13/23 08/30/23 History Sulfate Hfa] Budesonide/Formoterol Fumarate 2 puff INHALATION RT-BID 07/13/23 08/30/23 History [Symbicort 160-4.5 Mcg Inhaler] INSULIN ASPART (NovoLOG) [NovoLOG See Protocol SQ AC-TID 07/13/23 08/30/23 History (formulary)] Pyridoxine HCl (Vitamin B6) 100 mg PO DAILY 07/13/23 08/30/23 History [Vitamin B-6] Gabapentin 600 mg PO TID #6 tab 07/20/23 08/30/23 Rx Furosemide [Lasix] 40 mg PO DAILY 08/30/23 08/30/23 History Insulin Glargine,Hum.rec.anlog 30 units SQ HS 08/30/23 08/30/23 History [Lantus Solostar Pen] Ipratropium-Albuterol Nebulize 3 ml INHALATION DIRECTED 08/30/23 08/30/23 History [Duoneb 0.5 mg-3 mg/3 ml Soln] Ondansetron [Zofran] 4 mg PO Q8HR PRN 08/30/23 08/30/23 History Potassium Chloride [Klor-Con M20] 20 meq PO DAILY 08/30/23 08/30/23 History oxyCODONE HCL [oxyCODONE HCL (IR)] 5 mg PO Q6H PRN 08/30/23 08/30/23 History oxyCODONE HCL [oxyCODONE HCL (IR)] 10 mg PO HS PRN 08/30/23 08/30/23 History Allergies Allergy/AdvReac Type Severity Reaction Status Date / Time Mushroom Allergy Unknown - Verified 08/30/23 10:26 FAMILY HISTORY Physical Exam Vitals: Vital Signs Temp Pulse Pulse Resp BP BP Pulse Ox 08/31/23 07:45 96 08/31/23 01:53 97.7 F 81 18 108/70 96 08/30/23 22:11 98.2 F 90 18 110/74 99 08/30/23 20:00 95 18 120/77 97 08/30/23 18:45 97.7 F 91 17 120/78 100 08/30/23 17:03 84 19 114/71 98 08/30/23 16:08 95 18 135/74 99 08/30/23 15:06 91 19 129/73 100 08/30/23 13:54 98.3 F 84 17 118/71 100 08/30/23 12:35 98.5 F 87 17 121/75 99 08/30/23 11:00 79 17 120/79 99 08/30/23 10:09 89 17 120/83 100 08/30/23 09:07 77 17 116/64 99 08/30/23 08:22 78 18 113/66 99 Intake and Output 08/30/23 08/31/23 08/31/23 22:59 06:59 14:59 Intake Total 70 Balance 70 Intake: Intake, IV Titration 70 Amount Heparin Sod,Pork in 0.45% 70 NaCl 25,000 unit In 0.45 % NaCl 1 250ml.bag @ 9. 1859 UNITS/KG/HR 10 mls/ hr IV .Q24H [facility] Rx#: [id number] Other: Voiding Method External Catheter Weight 108.862 kg Results 08/31/23 00:00 08/29/23 23:08 Coagulation 08/31/23 Range/Units 00:00 PT 16.4 H (10.0-12.5) sec APTT 27.0 (22.0-30.0) sec CBC 08/31/23 Range/Units 00:00 WBC 6.8 (3.8-10.6) k/uL RBC 3.73 L (3.80-5.40) m/uL Hgb 11.0 L (11.4-16.0) gm/dL Hct 36.6 (34.0-46.0) % Plt Count 115 L (150-450) k/uL Current Medications Generic Name Dose Route Start Last Admin Trade Name Freq PRN Reason Stop Dose Admin Albuterol/Ipratropium 3 ml 08/30/23 14:00 Ipratropium-Albuterol 3 Ml Neb INHALATION Q6H PRN SHORTNESS OF BREATH Aspirin 81 mg 08/31/23 09:00 Aspirin 81 Mg PO DAILY FAHAD Atorvastatin Calcium 40 mg 08/30/23 21:00 08/30/23 20:30 Atorvastatin 40 Mg Tab PO 40 mg HS FAHAD Administration Budesonide/Formoterol Fumarate 2 puff 08/30/23 20:00 08/31/23 07:45 Symbicort 160-4.5 Mcg Inhaler INHALATION 2 puff RT-BID FAHAD Administration Ergocalciferol 1,250 mcg 09/02/23 09:00 Ergocalciferol 1,250 Mcg (50,000 Iu) Capsule PO FR FAHAD Furosemide 40 mg 08/31/23 09:00 Furosemide 40 Mg Tab PO DAILY FAHAD Gabapentin 600 mg 08/30/23 16:00 08/30/23 20:30 Gabapentin 300 Mg Cap PO 600 mg TID FAHAD Administration Heparin Sodium (Porcine) 0 unit 08/30/23 23:10 Heparin Sodium 1,000 Un/Ml (10ml Vl) IV PER PROTOCOL PRN Low PTT Protocol Hydromorphone HCl 0.5 mg 08/30/23 13:54 08/30/23 23:53 Hydromorphone 0.5 Mg/0.5 Ml Syringe IVP 0.5 mg Q3HR PRN Administration Severe Pain (Scale 7 to 10) Heparin Sodium/Sodium Chloride 250 mls @ 10 mls/hr 08/30/23 23:15 08/30/23 23:55 25,000 unit/ Sodium Chloride IV 9.1859 units/kg/hr .Q24H FAHAD 10 mls/hr Administration Protocol 9.1859 UNITS/KG/HR Insulin Detemir 30 unit 08/30/23 21:00 08/30/23 21:38 Insulin Detemir (Levemir) 100 Unit/Ml Syr SQ 30 unit HS FAHAD Administration Iopamidol 30 ml 08/30/23 13:52 Iopamidol Contrast (Oral Use) Vial PO 08/31/23 13:[address] Scan Levothyroxine Sodium 50 mcg 08/31/23 06:30 08/31/23 05:32 Levothyroxine 50 Mcg Tab PO 50 mcg DAILY@0630 FAHAD Administration Naloxone HCl 0.2 mg 08/30/23 04:31 Naloxone 0.4 Mg/Ml 1 Ml Vial IV Q2M PRN Opioid Reversal Ondansetron HCl 4 mg 08/30/23 04:31 Ondansetron 4 Mg/2 Ml Vial IVP Q8HR PRN Nausea And Vomiting Oxycodone HCl 10 mg 08/30/23 13:52 Oxycodone Hcl 5 Mg Tab PO HS PRN Pain Oxycodone HCl 5 mg 08/30/23 13:52 Oxycodone Hcl 5 Mg Tab PO Q6H PRN Pain Pantoprazole Sodium 40 mg 08/30/23 13:45 08/30/23 20:28 Pantoprazole 40 Mg/10 Ml Vial IVP 40 mg BID FAHAD Administration Potassium Chloride 20 meq 08/31/23 09:00 Potassium Chloride Er 20 Meq Tab.Er PO DAILY FAHAD Pyridoxine HCl 100 mg 08/31/23 09:00 Pyridoxine 50 Mg Tab PO DAILY FAHAD Ropinirole HCl 2 mg 08/30/23 21:00 08/30/23 20:30 Ropinirole Hcl 1 Mg Tab PO 2 mg HS FAHAD Administration Intake and Output 08/30/23 08/31/23 08/31/23 22:59 06:59 14:59 Intake Total 70 Balance 70 Intake: Intake, IV Titration 70 Amount Heparin Sod,Pork in 0.45% 70 NaCl 25,000 unit In 0.45 % NaCl 1 250ml.bag @ 9. 1859 UNITS/KG/HR 10 mls/ hr IV .Q24H [facility]HAD Rx#: [id number] Other: Voiding Method External Catheter Weight 108.862 kg 08/31/23 00:00 08/29/23 23:08
--- NOTE | 2023-08-31 10:13 | US ---
EXAMINATION TYPE: US venous doppler duplex LE BI DATE OF EXAM: 08/31/2023 9:42 AM COMPARISON: NONE CLINICAL INDICATION: Female, 63 years old with history of PE; PE. On heparin. Portable inpatient SIDE PERFORMED: Bilateral TECHNIQUE: The lower extremity deep venous system is examined utilizing real time linear array sonog britany with graded compression, doppler sonography and color-flow sonography. VESSELS IMAGED: Common Femoral Vein Deep Femoral Vein Greater Saphenous Vein * Femoral Vein Popliteal Vein Small Saphenous Vein * Proximal Calf Veins (* superficial vessels) Right Leg: Negative for DVT, Grayscale, color doppler, spectral doppler imaging performed of the roque p veins of the lower extremities. There is normal flow, compressibility, vascular waveforms. Left Leg: Positive for DVT from CFV to proximal calf veins IMPRESSION: Positive for DVT from CFV to proximal calf veins, patient already on heparin.
[2023-08-31 10:25] LABS: Basophils # (A) 0.06 X 10*3/uL (0.00-0.10); Basophils % (A) 0.5 %; Eosinophils # (A) 0.34 X 10*3/uL (0.04-0.35); HCT 35.3 % (37.2-46.3); HGB 10.9 g/dL (12.0-15.0); Lymphocytes # (A) 1.38 X 10*3/uL (0.90-5.00); Lymphocytes % (A) 12.3 %; MCHC 30.9 g/dL (32.0-37.0); MCV 93.9 FL (80.0-97.0); Mean Platelet Volume 10.9 FL (9.5-12.2); Monocytes # (A) 0.69 X 10*3/uL (0.20-1.00); Monocytes % (A) 6.2 %; NRBC Per 100 WBC 0 X 10*3/uL (0.00-0.01); Neutrophils # (A) 8.67 X 10*3/uL (1.80-7.70); Neutrophils % (A) 77.6 %; Platelet Count 187 X 10*3/uL (140-440); RBC 3.76 X 10*6/uL (4.10-5.20); RDW 18.6 % (11.5-14.5); WBC 11.18 X 10*3/uL (4.50-10.00)
[2023-08-31 10:43] LABS: ALT 50 U/L (8-44); AST 90 U/L (13-35); Albumin 2.6 g/dL (3.8-4.9); Albumin/Globulin Ratio 0.84 Ratio (1.60-3.17); Alkaline Phosphatase 369 U/L (41-126); Amylase 18 U/L (23-121); BUN/Creat Ratio 17.71 Ratio (12.00-20.00); Blood Urea Nitrogen 12.4 mg/dL (9.0-27.0); Calcium 8.2 mg/dL (8.7-10.3); Chloride 99 mmol/L (96-109); Globulin 3.1 g/dL (1.6-3.3); Glucose 39 mg/dL (70-110); Lipase 21 U/L (14-63); Potassium 3.1 mmol/L (3.5-5.5); Sodium 137 mmol/L (135-145); Total Bilirubin 1.7 mg/dL (0.3-1.2); Total Protein 5.7 g/dL (6.2-8.2)
[2023-08-31 12:10] LABS: Glucose,Whole Blood 122 mg/dL (70-110)
[2023-08-31] MEDS: IOPAMIDOL CONTRAST (ORAL USE) VIAL PO PRN (15:43)
[2023-08-31 17:20] LABS: Glucose,Whole Blood 135 mg/dL (70-110)
--- NOTE | 2023-08-31 17:40 | CT ---
EXAMINATION TYPE: CT abdomen pelvis w con CT DLP: 2310.0 mGycm, Automated exposure control for dose reduction was used. DATE OF EXAM: 08/31/2023 5:25 PM COMPARISON: CT abdomen pelvis most recent from 08/30/2023 CLINICAL INDICATION:Female, 63 years old with history of restage met pancreatic adeno; restage met pa ncreatic adeno TECHNIQUE: Axial CT abdomen pelvis w con;Sagittal and coronal reformats were created on a separate w orkstation. Contrast used:100 mL of Isovue 300 with IV Contrast, (none if empty) Oral contrast used: with Oral Contrast (none if empty) FINDINGS: ABDOMEN LIVER: Cirrhotic liver with multiple suspected metastatic foci throughout the liver at least 10 lesio ns are identified the largest in the left hepatic lobe measuring up to 33 mm. GALLBLADDER AND BILE DUCTS: Unremarkable. PANCREAS: Fat stranding changes are seen around the pancreatic head neck and body. SPLEEN: Enlarged measuring up to 14.9 cm ADRENAL GLANDS: Unremarkable. KIDNEYS AND URETERS: Nonobstructive uropathy left renal cortical 6 mm calcification. PELVIS BLADDER: Unremarkable REPRODUCTIVE: Unremarkable. ABDOMEN & PELVIS STOMACH AND BOWEL: No evidence of bowel obstruction. Circumferential wall thickening likely secondary to third spacing of fluid from portal hypertension. PERITONEUM/RETROPERITONEUM: No evidence of pneumoperitoneum or free fluid. VASCULATURE: No evidence of aortic aneurysm. MUSCULOSKELETAL: There is a compression deformity of L1 vertebral body with 25% height loss. Unclear if there is an underlying lesion anteriorly. Lesion may measure 26 mm. No significant retropulsion on CT imaging.r LYMPH NODES: No gross evidence for lymphadenopathy. SOFT TISSUE/ABDOMINAL WALL: Unremarkable IMPRESSION: 1. Multiple liver lesions suspicious for metastatic disease measuring up to 33 mm in the left hepati c lobe. There is greater than 10 lesions. 2. L1 vertebral body compression deformity possible underlying lesion. Further evaluation MRI of the lumbar spine with contrast recommended. 3. Hepatic cirrhosis with evidence of portal hypertension with splenic megaly and ascites 4. Fat stranding changes around the head neck and body of the pancreas. Findings could relate to pat ient's primary tumor versus underlying appendicitis.
--- NOTE | 2023-08-31 18:58 | P.PN ---
Subjective Progress Note Date: 08/31/23 Principal diagnosis: Abd pain, SOB. Isidro PE/LLE DVT. Met pancreatic adenocarcinoma In follow-up today patient feels better than she did in the emergency department. Not as much chest discomfort, her breathing is much less labored. She still has epigastric pain. She is concerned if she is ever going to walk again. Objective - Vital Signs Vital signs: Vital Signs Temp 97.3 F L 08/31/23 11:59 Pulse 91 08/31/23 11:59 Resp 18 08/31/23 11:59 BP 118/70 08/31/23 11:59 Pulse Ox 100 08/31/23 11:59 FiO2 Intake & Output 08/30/23 08/31/23 08/31/23 18:59 06:59 18:59 Intake Total 70 80.833 Output Total 900 Balance 70 -819.167 Weight 108.862 kg Intake: Intake, IV Titration 70 80.833 Amount Heparin Sod,Pork in 0.45% 70 80.833 NaCl 25,000 unit In 0.45 % NaCl 1 250ml.bag @ 9. 1859 UNITS/KG/HR 10 mls/ hr IV .Q24H [facility] Rx#: [id number] Output: Urine 900 Other: Voiding Method External Catheter External Catheter - Constitutional General appearance: Present: cooperative, no acute distress, obese - EENT Eyes: Present: anicteric sclerae, EOMI ENT: Present: hearing grossly normal - Respiratory Respiratory: bilateral: CTA - Cardiovascular Rhythm: regular Heart sounds: normal: S1, S2 Abnormal Heart Sounds: Absent: systolic murmur, diastolic murmur, rub, S3 Gallop, S4 Gallop, click, other - Peripheral edema leg Peripheral Edema: right: None, left: Trace - Gastrointestinal General gastrointestinal: Present: normal bowel sounds, soft, tenderness Localized gastrointestinal: tender: epigastric periumbilical - Integumentary Integumentary: Present: pale - Neurologic Neurologic: Present: CNII-XII intact - Musculoskeletal Musculoskeletal: Present: generalized weakness - Psychiatric Psychiatric: Present: A&O x's 3, appropriate affect, intact judgment & insight - Labs CBC & Chem 7: 08/31/23 06:43 08/31/23 06:43 Labs: Abnormal Lab Results - Last 24 Hours (Table) 08/30/23 08/31/23 08/31/23 Range/Units 21:22 00:00 00:00 WBC (4.50-10.00) X 10*3/uL RBC 3.73 L (3.80-5.40) m/uL Hgb 11.0 L (11.4-16.0) gm/dL Hct (37.2-46.3) % MCHC 30.0 L (31.0-37.0) g/dL RDW 17.4 H (11.5-15.5) % Plt Count 115 L (150-450) k/uL Neutrophils # (1.80-7.70) X 10*3/uL Lymphocytes # 0.4 L (1.0-4.8) k/uL PT 16.4 H (10.0-12.5) sec INR 1.6 H (<1.2) APTT (22.0-30.0) sec Potassium (3.5-5.5) mmol/L Anion Gap (4.00-12.00) mmol/L Glucose (70-110) mg/dL POC Glucose (mg/dL) 154 H (70-110) mg/dL Calcium (8.7-10.3) mg/dL Total Bilirubin (0.3-1.2) mg/dL AST (13-35) U/L ALT (8-44) U/L Alkaline Phosphatase (41-126) U/L Total Protein (6.2-8.2) g/dL Albumin (3.8-4.9) g/dL Albumin/Globulin Ratio (1.60-3.17) Ratio Amylase (23-121) U/L 08/31/23 08/31/23 08/31/23 Range/Units 06:43 06:43 06:43 WBC 11.18 H (4.50-10.00) X 10*3/uL RBC 3.76 L (3.80-5.40) m/uL Hgb 10.9 L (11.4-16.0) gm/dL Hct 35.3 L (37.2-46.3) % MCHC 30.9 L (31.0-37.0) g/dL RDW 18.6 H (11.5-15.5) % Plt Count (150-450) k/uL Neutrophils # 8.67 H (1.80-7.70) X 10*3/uL Lymphocytes # (1.0-4.8) k/uL PT 17.0 H (10.0-12.5) sec INR 1.7 H (<1.2) APTT (22.0-30.0) sec Potassium 3.1 L (3.5-5.5) mmol/L Anion Gap 13.00 H (4.00-12.00) mmol/L Glucose 39 A* (70-110) mg/dL POC Glucose (mg/dL) (70-110) mg/dL Calcium 8.2 L (8.7-10.3) mg/dL Total Bilirubin 1.7 H (0.3-1.2) mg/dL AST 90 H (13-35) U/L ALT 50 H (8-44) U/L Alkaline Phosphatase 369 H (41-126) U/L Total Protein 5.7 L (6.2-8.2) g/dL Albumin 2.6 L (3.8-4.9) g/dL Albumin/Globulin Ratio 0.84 L (1.60-3.17) Ratio Amylase 18 L (23-121) U/L 08/31/23 08/31/23 08/31/23 Range/Units 06:43 07:15 07:37 WBC (4.50-10.00) X 10*3/uL RBC (3.80-5.40) m/uL Hgb (11.4-16.0) gm/dL Hct (37.2-46.3) % MCHC (31.0-37.0) g/dL RDW (11.5-15.5) % Plt Count (150-450) k/uL Neutrophils # (1.80-7.70) X 10*3/uL Lymphocytes # (1.0-4.8) k/uL PT (10.0-12.5) sec INR (<1.2) APTT 180.1 H* (22.0-30.0) sec Potassium (3.5-5.5) mmol/L Anion Gap (4.00-12.00) mmol/L Glucose (70-110) mg/dL POC Glucose (mg/dL) 39 L 53 L (70-110) mg/dL Calcium (8.7-10.3) mg/dL Total Bilirubin (0.3-1.2) mg/dL AST (13-35) U/L ALT (8-44) U/L Alkaline Phosphatase (41-126) U/L Total Protein (6.2-8.2) g/dL Albumin (3.8-4.9) g/dL Albumin/Globulin Ratio (1.60-3.17) Ratio Amylase (23-121) U/L 08/31/23 08/31/23 08/31/23 Range/Units 08:01 09:43 12:01 WBC (4.50-10.00) X 10*3/uL RBC (3.80-5.40) m/uL Hgb (11.4-16.0) gm/dL Hct (37.2-46.3) % MCHC (31.0-37.0) g/dL RDW (11.5-15.5) % Plt Count (150-450) k/uL Neutrophils # (1.80-7.70) X 10*3/uL Lymphocytes # (1.0-4.8) k/uL PT (10.0-12.5) sec INR (<1.2) APTT (22.0-30.0) sec Potassium (3.5-5.5) mmol/L Anion Gap (4.00-12.00) mmol/L Glucose (70-110) mg/dL POC Glucose (mg/dL) 125 H 124 H 122 H (70-110) mg/dL Calcium (8.7-10.3) mg/dL Total Bilirubin (0.3-1.2) mg/dL AST (13-35) U/L ALT (8-44) U/L Alkaline Phosphatase (41-126) U/L Total Protein (6.2-8.2) g/dL Albumin (3.8-4.9) g/dL Albumin/Globulin Ratio (1.60-3.17) Ratio Amylase (23-121) U/L 08/31/23 Range/Units 12:10 WBC (4.50-10.00) X 10*3/uL RBC (3.80-5.40) m/uL Hgb (11.4-16.0) gm/dL Hct (37.2-46.3) % MCHC (31.0-37.0) g/dL RDW (11.5-15.5) % Plt Count (150-450) k/uL Neutrophils # (1.80-7.70) X 10*3/uL Lymphocytes # (1.0-4.8) k/uL PT (10.0-12.5) sec INR (<1.2) APTT 44.4 H (22.0-30.0) sec Potassium (3.5-5.5) mmol/L Anion Gap (4.00-12.00) mmol/L Glucose (70-110) mg/dL POC Glucose (mg/dL) (70-110) mg/dL Calcium (8.7-10.3) mg/dL Total Bilirubin (0.3-1.2) mg/dL AST (13-35) U/L ALT (8-44) U/L Alkaline Phosphatase (41-126) U/L Total Protein (6.2-8.2) g/dL Albumin (3.8-4.9) g/dL Albumin/Globulin Ratio (1.60-3.17) Ratio Amylase (23-121) U/L - Imaging and Cardiology CT scan - abdomen: report reviewed CT scan - pelvis: report reviewed MRI - head: report reviewed Assessment and Plan (1) Epigastric pain Current Visit: Yes Status: Acute Priority: High Code(s): R10.13 - EPIGASTRIC PAIN SNOMED Code(s): 71578816 (2) Pancreatic cancer Current Visit: Yes Status: Acute Priority: High Code(s): C25.9 - MALIGNANT NEOPLASM OF PANCREAS, UNSPECIFIED SNOMED Code(s): 120410358 (3) Weakness Current Visit: Yes Status: Chronic Priority: High Code(s): R53.1 - WEAKNESS SNOMED Code(s): 55503683 (4) DVT (deep venous thrombosis) Current Visit: Yes Status: Acute Priority: High Onset Date: ~08/31/23 Code(s): I82.409 - ACUTE EMBOLISM AND THOMBOS UNSP DEEP VN UNSP LOWER EXTREMITY SNOMED Code(s): 449927870 (5) Pulmonary embolism Current Visit: Yes Status: Acute Priority: High Onset Date: ~08/31/23 Code(s): I26.99 - OTHER PULMONARY EMBOLISM WITHOUT ACUTE COR PULMONALE SNOMED Code(s): 04569546 Plan: Chest discomfort-bilateral pulmonary emboli, left lower extremity DVT -CTA small bilateral pulmonary emboli reported. Heparin drip initiated. -Pt has no chest c/o today -No reported bleeding -Doppler of the bilateral lower extremities done for baseline. Left lower extremity DVT found -Send Rx for oral anticoagulation. Case mgmt consulted to verify copay Abdominal pain -Patient expressed concerns for her abdominal discomfort and lack of treatment that possibly she is experiencing disease progression. It was discussed that this is a possibility. -CT of the abdomen and pelvis without contrast results reviewed, ordered with contrast, pending results -Will follow-up on the results of imaging. Once we know what her disease is doing we will then begin to discuss goals of care. Unfortunately, patient has not tolerated treatment very well. What is more unfortunate is that there are not many treatment options for pancreatic adenocarcinoma. We will follow-up and have this discussion with the patient. -Pain medications have been adjusted. -Medications for prevention of narcotic induced constipation also ordered Pancreatic adenocarcinoma -Diagnosis and treatment as described in HPI. Patient has had only 2 treatments in since May 2023. She has had unfortunately very poor tolerance. -Patient having progressive abdominal discomfort, worsening LFTs, concern for progressive disease. -CTAP without contrast did not provide much detail regarding patient's known metastatic pancreatic adenocarcinoma to the liver. CT with contrast ordered. -Patient does understand her poor prognosis. Once she is feeling a little bit better we will discuss goals for care. Will update the chart as information becomes available. attests: I have seen and examined pt, performed H&P, developed impression and plan of care. Discussed with dictator. Agree with documentation, dictated as a scribe.
[2023-08-31 20:08] LABS: Glucose,Whole Blood 96 mg/dL (70-110)
[2023-08-31] MEDS: SENNOSIDES-DOCUSATE SODIUM 1 EACH TAB PO SCH (21:44)
[2023-09-01 02:04] LABS: Glucose,Whole Blood 99 mg/dL (70-110)
--- NOTE | 2023-09-01 05:10 | P.PN ---
Subjective Progress Note Date: 08/31/23 This is a pleasant 63-year-old female who was recently admitted with abdominal pain with nausea and vomiting with history of pancreatic cancer with hepatic mets. Oncology following and ordered repeat imaging including CTA and CT abdomen pelvis and was found to have bilateral pulmonary embolism without heart strain and Doppler of the lower extremities were ordered also showing a left lower extremity DVT from the CFV to the proximal calf veins. Patient was started on heparin and will discuss further with hematology/oncology regarding transitioning to oral anticoagulation. Patient reports her epigastric pain is slightly improved although continues with discomfort and is tolerating some diet slowly advancing as tolerated. Patient is currently afebrile with no reports of chest pain or worsening shortness of breath. Patient potassium slightly low and will replace per protocol. Encouraged oral intake and supplements between meals. Will have PT/OT therapy reevaluate the patient. Review of systems: Constitutional: No reports of fatigue, fever, or chills Cardiovascular: No reports of chest pain or palpitations Respiratory: No reports of worsening shortness of breath GI: reports of occasional nausea, no reports of vomiting, reports continued mid abdominal pain although slight improvement from yesterday : No reports of dysuria or retention Neurovascular: reports of generalized weakness, Active Medications Albuterol/Ipratropium (Ipratropium-Albuterol 3 Ml Neb) 3 ml INHALATION Q6H PRN PRN Reason: SHORTNESS OF BREATH Aspirin (Aspirin 81 Mg) 81 mg PO DAILY [facility] Last Admin: 08/31/23 09:52 Dose: 81 mg Atorvastatin Calcium (Atorvastatin 40 Mg Tab) 40 mg PO HS [facility] Last Admin: 08/30/23 20:30 Dose: 40 mg Budesonide/Formoterol Fumarate (Symbicort 160-4.5 Mcg Inhaler) 2 puff INHALATION RT-BID [facility] Last Admin: 08/31/23 07:45 Dose: 2 puff Ergocalciferol (Ergocalciferol 1,250 Mcg (50,000 Iu) Capsule) 1,250 mcg PO FR [facility] Furosemide (Furosemide 10 Mg/Ml 4 Ml Vial) 40 mg IV Q12HR [facility] Last Admin: 08/31/23 09:52 Dose: 40 mg Gabapentin (Gabapentin 300 Mg Cap) 600 mg PO TID [facility] Last Admin: 08/31/23 09:52 Dose: 600 mg Heparin Sodium (Porcine) (Heparin Sodium 1,000 Un/Ml (10ml Vl)) 0 unit IV PER PROTOCOL PRN; Protocol PRN Reason: Low PTT Hydromorphone HCl (Hydromorphone 0.5 Mg/0.5 Ml Syringe) 0.5 mg IVP Q3HR PRN PRN Reason: Severe Pain (Scale 7 to 10) Last Admin: 08/30/23 23:53 Dose: 0.5 mg Heparin Sodium/Sodium Chloride (25,000 unit/ Sodium Chloride) 250 mls @ 10 mls/hr IV .Q24H [facility]; Protocol Last Titration: 08/31/23 12:01 Dose: 6.43 units/kg/hr, 7 mls/hr Insulin Detemir (Insulin Detemir (Levemir) 100 Unit/Ml Syr) 30 unit SQ HS [facility] Last Admin: 08/30/23 21:38 Dose: 30 unit Iopamidol (Iopamidol Contrast (Oral Use) Vial) 30 ml PO Q60M PRN PRN Reason: CT Scan Stop: 09/01/23 10:37 Levothyroxine Sodium (Levothyroxine 50 Mcg Tab) 50 mcg PO DAILY@0630 [facility] Last Admin: 08/31/23 05:32 Dose: 50 mcg Naloxone HCl (Naloxone 0.4 Mg/Ml 1 Ml Vial) 0.2 mg IV Q2M PRN PRN Reason: Opioid Reversal Ondansetron HCl (Ondansetron 4 Mg/2 Ml Vial) 4 mg IVP Q8HR PRN PRN Reason: Nausea And Vomiting Oxycodone HCl (Oxycodone Hcl 5 Mg Tab) 10 mg PO HS PRN PRN Reason: Pain Oxycodone HCl (Oxycodone Hcl 5 Mg Tab) 5 mg PO Q6H PRN PRN Reason: Pain Pantoprazole Sodium (Pantoprazole 40 Mg/10 Ml Vial) 40 mg IVP BID [facility] Last Admin: 08/31/23 09:55 Dose: 40 mg Potassium Chloride (Potassium Chloride Er 20 Meq Tab.Er) 20 meq PO DAILY [facility] Last Admin: 08/31/23 09:52 Dose: 20 meq Pyridoxine HCl (Pyridoxine 50 Mg Tab) 100 mg PO DAILY [facility] Last Admin: 08/31/23 09:52 Dose: 100 mg Ropinirole HCl (Ropinirole Hcl 1 Mg Tab) 2 mg PO HS [facility] Last Admin: 05/14/24 20:30 Dose: 2 mg Physical exam: Gen: This is a 63-year-old female who is awake, alert and oriented x 3, well- developed, elderly appearing, ill-appearing, morbidly obese HEENT: Head is atraumatic, normocephalic. Pupils equal, round. Sclerae is anict jenn. NECK: Supple. No JVD. No lymphadenopathy. No thyromegaly. LUNGS: Diminished breath sounds bilaterally otherwise clear to auscultation. No wheezes or rhonchi. No intercostal retractions. HEART: S1, S2 are muffled ABDOMEN: Soft. Obese bowel sounds are present. No masses. tenderness noted on palpation. EXTREMITIES: No pedal edema. No calf tenderness. Bilateral lower extremity edema noted NEUROLOGICAL: Patient is awake, alert and oriented x3. Cranial nerves 2 through 12 are grossly intact. Diffusely weak Assessment: Chest pain and epigastric pain possibly secondary to malignancy, ruled out myocardial infarction Bilateral pulmonary embolism noted on CTA Left leg DVT involving the CFV down to the proximal calf veins as noted on Doppler Gait dysfunction History of pancreatic adenocarcinoma with metastasis History of cirrhosis of the liver Hypertension Hyperlipidemia Morbid obesity with a BMI of 43.9 GI prophylaxis DVT prophylaxis Full code Plan: Recommend to continue with current medications and management with oncology following. Patient underwent CT which revealed pulmonary emboli bilaterally and underwent venous Doppler noted to have a DVT on the left lower extremity. Patient follows with oncology although treatment has been on hold as patient did not tolerate very well and was at rehab to gain strength and mobility. Patient continues to have inability to ambulate and extreme weakness. Patient initiated on heparin drip and will discuss with hematology/oncology regarding transitioning to oral anticoagulation Encourage small frequent meals as tolerated Repeat CT abdomen pelvis with contrast ordered and pending to evaluate for disease progression per oncology Recommend PT/OT therapy evaluation Follow-up on repeat labs and will replace electrolytes per protocol. Potassium noted to be 3.1 today. Overall prognosis remains guarded at this time. The impression and plan of care has been dictated by Ashely León nurse practitioner as directed. Dr. Paul MD I have performed a history and examination and MDM of this patient, discussed the same with the dictator, and agree with the dictator's assessment and plan as written ,documented as a scribe. Based on total visit time, I have performed more than 50% of the visit. Any additional findings or plans will be noted. Objective - Vital Signs Vital signs: Vital Signs Temp 97.3 F L 08/31/23 11:59 Pulse 91 08/31/23 11:59 Resp 18 08/31/23 11:59 BP 118/70 08/31/23 11:59 Pulse Ox 100 08/31/23 11:59 FiO2 Intake & Output 08/30/23 08/31/23 08/31/23 18:59 06:59 18:59 Intake Total 70 80.833 Output Total 900 Balance 70 -819.167 Weight 108.862 kg Intake: Intake, IV Titration 70 80.833 Amount Heparin Sod,Pork in 0.45% 70 80.833 NaCl 25,000 unit In 0.45 % NaCl 1 250ml.bag @ 9. 1859 UNITS/KG/HR 10 mls/ hr IV .Q24H [facility] Rx#: [id number] Output: Urine 900 Other: Voiding Method External Catheter External Catheter - Labs CBC & Chem 7: 08/31/23 06:43 08/31/23 06:43 Labs: Abnormal Lab Results - Last 24 Hours (Table) 08/30/23 08/31/23 08/31/23 Range/Units 21:22 00:00 00:00 WBC (4.50-10.00) X 10*3/uL RBC 3.73 L (3.80-5.40) m/uL Hgb 11.0 L (11.4-16.0) gm/dL Hct (37.2-46.3) % MCHC 30.0 L (31.0-37.0) g/dL RDW 17.4 H (11.5-15.5) % Plt Count 115 L (150-450) k/uL Neutrophils # (1.80-7.70) X 10*3/uL Lymphocytes # 0.4 L (1.0-4.8) k/uL PT 16.4 H (10.0-12.5) sec INR 1.6 H (<1.2) APTT (22.0-30.0) sec Potassium (3.5-5.5) mmol/L Anion Gap (4.00-12.00) mmol/L Glucose (70-110) mg/dL POC Glucose (mg/dL) 154 H (70-110) mg/dL Calcium (8.7-10.3) mg/dL Total Bilirubin (0.3-1.2) mg/dL AST (13-35) U/L ALT (8-44) U/L Alkaline Phosphatase (41-126) U/L Total Protein (6.2-8.2) g/dL Albumin (3.8-4.9) g/dL Albumin/Globulin Ratio (1.60-3.17) Ratio Amylase (23-121) U/L 08/31/23 08/31/23 08/31/23 Range/Units 06:43 06:43 06:43 WBC 11.18 H (4.50-10.00) X 10*3/uL RBC 3.76 L (3.80-5.40) m/uL Hgb 10.9 L (11.4-16.0) gm/dL Hct 35.3 L (37.2-46.3) % MCHC 30.9 L (31.0-37.0) g/dL RDW 18.6 H (11.5-15.5) % Plt Count (150-450) k/uL Neutrophils # 8.67 H (1.80-7.70) X 10*3/uL Lymphocytes # (1.0-4.8) k/uL PT 17.0 H (10.0-12.5) sec INR 1.7 H (<1.2) APTT (22.0-30.0) sec Potassium 3.1 L (3.5-5.5) mmol/L Anion Gap 13.00 H (4.00-12.00) mmol/L Glucose 39 A* (70-110) mg/dL POC Glucose (mg/dL) (70-110) mg/dL Calcium 8.2 L (8.7-10.3) mg/dL Total Bilirubin 1.7 H (0.3-1.2) mg/dL AST 90 H (13-35) U/L ALT 50 H (8-44) U/L Alkaline Phosphatase 369 H (41-126) U/L Total Protein 5.7 L (6.2-8.2) g/dL Albumin 2.6 L (3.8-4.9) g/dL Albumin/Globulin Ratio 0.84 L (1.60-3.17) Ratio Amylase 18 L (23-121) U/L 08/31/23 08/31/23 08/31/23 Range/Units 06:43 07:15 07:37 WBC (4.50-10.00) X 10*3/uL RBC (3.80-5.40) m/uL Hgb (11.4-16.0) gm/dL Hct (37.2-46.3) % MCHC (31.0-37.0) g/dL RDW (11.5-15.5) % Plt Count (150-450) k/uL Neutrophils # (1.80-7.70) X 10*3/uL Lymphocytes # (1.0-4.8) k/uL PT (10.0-12.5) sec INR (<1.2) APTT 180.1 H* (22.0-30.0) sec Potassium (3.5-5.5) mmol/L Anion Gap (4.00-12.00) mmol/L Glucose (70-110) mg/dL POC Glucose (mg/dL) 39 L 53 L (70-110) mg/dL Calcium (8.7-10.3) mg/dL Total Bilirubin (0.3-1.2) mg/dL AST (13-35) U/L ALT (8-44) U/L Alkaline Phosphatase (41-126) U/L Total Protein (6.2-8.2) g/dL Albumin (3.8-4.9) g/dL Albumin/Globulin Ratio (1.60-3.17) Ratio Amylase (23-121) U/L 08/31/23 08/31/23 08/31/23 Range/Units 08:01 09:43 12:01 WBC (4.50-10.00) X 10*3/uL RBC (3.80-5.40) m/uL Hgb (11.4-16.0) gm/dL Hct (37.2-46.3) % MCHC (31.0-37.0) g/dL RDW (11.5-15.5) % Plt Count (150-450) k/uL Neutrophils # (1.80-7.70) X 10*3/uL Lymphocytes # (1.0-4.8) k/uL PT (10.0-12.5) sec INR (<1.2) APTT (22.0-30.0) sec Potassium (3.5-5.5) mmol/L Anion Gap (4.00-12.00) mmol/L Glucose (70-110) mg/dL POC Glucose (mg/dL) 125 H 124 H 122 H (70-110) mg/dL Calcium (8.7-10.3) mg/dL Total Bilirubin (0.3-1.2) mg/dL AST (13-35) U/L ALT (8-44) U/L Alkaline Phosphatase (41-126) U/L Total Protein (6.2-8.2) g/dL Albumin (3.8-4.9) g/dL Albumin/Globulin Ratio (1.60-3.17) Ratio Amylase (23-121) U/L 05/15/24 Range/Units 12:10 WBC (4.50-10.00) X 10*3/uL RBC (3.80-5.40) m/uL Hgb (11.4-16.0) gm/dL Hct (37.2-46.3) % MCHC (31.0-37.0) g/dL RDW (11.5-15.5) % Plt Count (150-450) k/uL Neutrophils # (1.80-7.70) X 10*3/uL Lymphocytes # (1.0-4.8) k/uL PT (10.0-12.5) sec INR (<1.2) APTT 44.4 H (22.0-30.0) sec Potassium (3.5-5.5) mmol/L Anion Gap (4.00-12.00) mmol/L Glucose (70-110) mg/dL POC Glucose (mg/dL) (70-110) mg/dL Calcium (8.7-10.3) mg/dL Total Bilirubin (0.3-1.2) mg/dL AST (13-35) U/L ALT (8-44) U/L Alkaline Phosphatase (41-126) U/L Total Protein (6.2-8.2) g/dL Albumin (3.8-4.9) g/dL Albumin/Globulin Ratio (1.60-3.17) Ratio Amylase (23-121) U/L
[2023-09-01 07:16] LABS: Glucose,Whole Blood 97 mg/dL (70-110)
[2023-09-01 10:13] LABS: Basophils # (A) 0.03 X 10*3/uL (0.00-0.10); Basophils % (A) 0.4 %; Eosinophils # (A) 0.15 X 10*3/uL (0.04-0.35); Eosinophils % (A) 1.8 %; HCT 36.1 % (37.2-46.3); Lymphocytes # (A) 0.71 X 10*3/uL (0.90-5.00); Lymphocytes % (A) 8.6 %; MCHC 30.5 g/dL (32.0-37.0); MCV 98.4 FL (80.0-97.0); Mean Platelet Volume 11.1 FL (9.5-12.2); Monocytes # (A) 0.47 X 10*3/uL (0.20-1.00); Monocytes % (A) 5.7 %; NRBC Per 100 WBC 0 X 10*3/uL (0.00-0.01); Neutrophils # (A) 6.83 X 10*3/uL (1.80-7.70); Platelet Count 131 X 10*3/uL (140-440); RBC 3.67 X 10*6/uL (4.10-5.20); RDW 18.4 % (11.5-14.5); WBC 8.23 X 10*3/uL (4.50-10.00)
--- NOTE | 2023-09-01 10:14 | CA ---
Transthoracic Echo Report Name: Shelby Mirza Age: 63 Gender: F : 1960 Exam Date: 09/01/2023 09:05 Exam Location: [place] Ht (in): 62 Wt (lb): 240 Ordering Physician: Yina Sheikh Attending/Referring Phys: [id number], Aguilar Roof Service Technician Mari Dukes RDCS Procedure CPT: Indications: LVF, new PE Cardiac Hx: Technical Quality: Fair Contrast 1: Total Dose (mL): Contrast 2: Total Dose (mL): MEASUREMENTS (Male / Female) Normal Values 2D ECHO LV Diastolic Diameter PLAX 1.6 cm 4.2 - 5.9 / 3.9 - 5.3 cm LV Systolic Diameter PLAX 1.1 cm IVS Diastolic Thickness 1.2 cm 0.6 - 1.0 / 0.6 - 0.9 cm LVPW Diastolic Thickness 1.0 cm 0.6 - 1.0 / 0.6 - 0.9 cm LV Relative Wall Thickness 1.3 FINDINGS Left Ventricle Mildly increased left ventricular wall thickness. Left ventricular cavity size normal. Normal left ventricular systolic function with no obvious regional wall motion abnormalities. Left ventricular ejection fraction is estimated at 55- 60%. Right Ventricle Normal right ventricular size and function. TAPSE is 25mm, RV S' is 16cm/sec. Right Atrium Left Atrium Mitral Valve Aortic Valve Tricuspid Valve Pulmonic Valve Pericardium No pericardial effusion. Aorta CONCLUSIONS Limited echo. Normal ventricle size and systolic function No evidence of right ventricular dilatation. Previewed by: Dr. Roberth Perea MD (Electronically Signed) Final Date: 01 Sep 2023 10:13
[2023-09-01 10:28] LABS: Magnesium 1.6 mg/dL (1.5-2.4)
[2023-09-01 10:35] LABS: ALT 54 U/L (8-44); AST 106 U/L (13-35); Albumin 2.4 g/dL (3.8-4.9); Albumin/Globulin Ratio 0.75 Ratio (1.60-3.17); Alkaline Phosphatase 371 U/L (41-126); Blood Urea Nitrogen 9.9 mg/dL (9.0-27.0); Calcium 7.7 mg/dL (8.7-10.3); Carbon Dioxide 27.1 mmol/L (21.6-31.8); Chloride 98 mmol/L (96-109); Globulin 3.2 g/dL (1.6-3.3); Glucose 86 mg/dL (70-110); Potassium 3.4 mmol/L (3.5-5.5); Sodium 136 mmol/L (135-145); Total Bilirubin 1.9 mg/dL (0.3-1.2); Total Protein 5.6 g/dL (6.2-8.2)
[2023-09-01] MEDS ORDERED: SENNOSIDES-DOCUSATE SODIUM 1 EACH TAB PO PRN (11:15)
[2023-09-01 11:59] LABS: Glucose,Whole Blood 131 mg/dL (70-110)
[2023-09-01] MEDS: LIPASE 20,000/PROTEASE 63,000/AMYLASE 84,000 PO SCH (12:40)
[2023-09-01 13:09] VITALS: BMI 43.9
--- NOTE | 2023-09-01 13:25 | P.PN ---
Subjective Progress Note Date: 09/01/23 History of present illness: This is a 63-year-old female with no previous cardiac history. She does not fo llow with a clinical secretary. She has a past medical history significant for pancreatic cancer with metastatic disease, cirrhosis of the liver, diabetes mellitus type 2, gastroesophageal reflux disease, hypertension, hyperlipidemia. We have been asked to evaluate the patient for coronary artery disease with abnormal EKG. Patient states that she had chest pain on the left side of her chest but then realized that she was having more pain in the right upper quadrant of her abdomen. She felt that her breathing was a little bit off. She denies having any dizziness. She has had lower extremity edema and feels like her legs are very heavy. No dizziness no palpitations. She does complain of cough and states it has been ongoing since she had COVID a month ago. She denies having any fever. Cough is nonproductive. She is a non-smoker. She was diagnosed with diabetes in 2011. She follows with Dr. Louise diagnosed approximately 5 months ago with pancreatic cancer and she states that chemoth erapy was stopped. She states she is feeling better at this time than when she came into the hospital. Patient has been started on heparin drip secondary to positive CTA of the chest for PE. Patient denies chest pain at this time. EKG sinus rhythm nonspecific T wave changes, cannot rule out ischemic changes but these are similar to previous EKGs. Telemetry reviewed no significant abnormalities were noted. Chest x-ray: No acute process CTA of the chest: Small bilateral pulmonary embolism without right heart strain. CT of the abdomen pelvis without contrast revealed cirrhotic liver disease with splenomegaly and mild ascites. Wall thickening involving the ascending colon may reflect a nonspecific colitis with infectious, inflammatory, and vascular etiologies considered. Home cardiac medications: Aspirin 81 mg daily, atorvastatin 40 mg at bedtime, Lasix 40 mg daily, potassium chloride 20 mill equivalents daily, also on levothyroxine 50 mcg daily. Echocardiogram performed on 06/22/2023 reveals normal LV systolic function. 08/31 Patient is seen today in follow-up. She has been maintained on IV Lasix 40 mg every 12 hours. Patient had a negative fluid balance yesterday. Blood pressure 100/69, heart rate 91, pulse ox 98% on room air. Repeat blood work reveals WBC 8.2, hemoglobin 11. Sodium 136, potassium 3.4, BUN 9.9 and creatinine 0.6. Liver function tests are elevated. Patient denies having any chest pain. She is concerned that she is on a liquid diet and would like this advanced. She states her shortness of breath is a little better, and she has less lower extremity edema. Echocardiogram reveals normal ventricular size and systolic function. No evidence of right ventricular dilatation. Ultrasound of the bilateral lower extremities is positive for DVT on left leg. Physical examination: Gen: This is a 63-year-old female in no acute distress. VS: reviewed, blood pressure 106/64, heart rate 99, pulse ox 94% on 2 L. HEENT: Head is atraumatic, normocephalic. Pupils equal, round. Sclerae is anicteric. NECK: Supple. No JVD. LUNGS: Diminished bilaterally. No intercostal retractions. HEART: Regular rate and rhythm. No murmur. ABDOMEN: Soft No tenderness. EXTREMITIES: 1+ lower extremity edema. No calf tenderness. NEUROLOGICAL: Patient is awake, alert and oriented x3. Assessment: Bilateral lower extremity edema with possible component of acute heart failure with preserved EF Abnormal EKG Pancreatic cancer with metastatic disease Cirrhosis of the liver Diabetes mellitus type 2 insulin requiring Gastroesophageal reflux disease Hypertension Hyperlipidemia Recent COVID-19 Plan: Continue patient's home cardiac medications Continue IV Lasix 40 mg twice daily for another 24 hours Monitor REENA, daily weights, electrolytes and renal function Recommend transitioning IV heparin to oral Eliquis. In light of patient's significant medical conditions, no aggressive cardiac workup is planned at this time. Further recommendations to follow based upon clinical course Thank you kindly for this consultation. Nurse practitioner note has been reviewed, I agree with documented findings and plan of care. Patient was seen and examined. Objective - Vital Signs Vital signs: Vital Signs Temp 98.0 F 09/01/23 07:12 Pulse 89 09/01/23 07:12 Resp 18 09/01/23 07:12 BP 107/73 09/01/23 07:12 Pulse Ox 98 09/01/23 07:12 FiO2 Intake & Output 08/31/23 09/01/23 09/01/23 18:59 06:59 18:59 Intake Total 320.833 Output Total 1400 625 Balance -1079.167 -625 Intake: Intake, IV Titration 80.833 Amount Heparin Sod,Pork in 0.45% 80.833 NaCl 25,000 unit In 0.45 % NaCl 1 250ml.bag @ 9. 1859 UNITS/KG/HR 10 mls/ hr IV .Q24H [facility] Rx#: [id number] Oral 240 Output: Urine 1400 625 Other: Voiding Method External Catheter External Catheter # Bowel Movements 1 1 - Labs CBC & Chem 7: 09/01/23 06:52 09/01/23 06:52 Labs: Abnormal Lab Results - Last 24 Hours (Table) 08/31/23 08/31/23 08/31/23 Range/Units 06:43 06:43 09:43 WBC 11.18 H (4.50-10.00) X 10*3/uL RBC 3.76 L (4.10-5.20) X 10*6/uL Hgb 10.9 L (12.0-15.0) g/dL Hct 35.3 L (37.2-46.3) % MCHC 30.9 L (32.0-37.0) g/dL RDW 18.6 H (11.5-14.5) % Neutrophils # 8.67 H (1.80-7.70) X 10*3/uL APTT (22.0-30.0) sec Potassium 3.1 L (3.5-5.5) mmol/L Anion Gap 13.00 H (4.00-12.00) mmol/L Glucose 39 A* (70-110) mg/dL POC Glucose (mg/dL) 124 H (70-110) mg/dL Calcium 8.2 L (8.7-10.3) mg/dL Total Bilirubin 1.7 H (0.3-1.2) mg/dL AST 90 H (13-35) U/L ALT 50 H (8-44) U/L Alkaline Phosphatase 369 H (41-126) U/L Total Protein 5.7 L (6.2-8.2) g/dL Albumin 2.6 L (3.8-4.9) g/dL Albumin/Globulin Ratio 0.84 L (1.60-3.17) Ratio Amylase 18 L (23-121) U/L Stool Occult Blood (Negative) 08/31/23 08/31/23 08/31/23 Range/Units 12:01 12:10 17:10 WBC (4.50-10.00) X 10*3/uL RBC (4.10-5.20) X 10*6/uL Hgb (12.0-15.0) g/dL Hct (37.2-46.3) % MCHC (32.0-37.0) g/dL RDW (11.5-14.5) % Neutrophils # (1.80-7.70) X 10*3/uL APTT 44.4 H (22.0-30.0) sec Potassium (3.5-5.5) mmol/L Anion Gap (4.00-12.00) mmol/L Glucose (70-110) mg/dL POC Glucose (mg/dL) 122 H 135 H (70-110) mg/dL Calcium (8.7-10.3) mg/dL Total Bilirubin (0.3-1.2) mg/dL AST (13-35) U/L ALT (8-44) U/L Alkaline Phosphatase (41-126) U/L Total Protein (6.2-8.2) g/dL Albumin (3.8-4.9) g/dL Albumin/Globulin Ratio (1.60-3.17) Ratio Amylase (23-121) U/L Stool Occult Blood (Negative) 08/31/23 09/01/23 09/01/23 Range/Units 21:30 00:09 06:52 WBC (4.50-10.00) X 10*3/uL RBC (4.10-5.20) X 10*6/uL Hgb (12.0-15.0) g/dL Hct (37.2-46.3) % MCHC (32.0-37.0) g/dL RDW (11.5-14.5) % Neutrophils # (1.80-7.70) X 10*3/uL APTT 67.3 H 78.4 H (22.0-30.0) sec Potassium (3.5-5.5) mmol/L Anion Gap (4.00-12.00) mmol/L Glucose (70-110) mg/dL POC Glucose (mg/dL) (70-110) mg/dL Calcium (8.7-10.3) mg/dL Total Bilirubin (0.3-1.2) mg/dL AST (13-35) U/L ALT (8-44) U/L Alkaline Phosphatase (41-126) U/L Total Protein (6.2-8.2) g/dL Albumin (3.8-4.9) g/dL Albumin/Globulin Ratio (1.60-3.17) Ratio Amylase (23-121) U/L Stool Occult Blood Positive H (Negative)
[2023-09-01] MEDS ORDERED: FUROSEMIDE 40 MG TAB PO SCH (16:00)
[2023-09-01 20:17] LABS: Glucose,Whole Blood 230 mg/dL (70-110)
[2023-09-01] MEDS: FUROSEMIDE 10 MG/ML 4 ML VIAL IV SCH (21:42)
--- NOTE | 2023-09-01 22:51 | P.PN ---
Subjective Progress Note Date: 09/01/23 Principal diagnosis: Abd pain, SOB. Isidro PE/LLE DVT. Met pancreatic adenocarcinoma In follow-up today patient doing well, reporting that she wants to get moving and did participate with PT today. She is still having RUQ pain, radiates laterally to her back, worse when she tri es to move around. She is not using current pain meds to maximum use yet so, she was encouraged to do so before we make further adjustment. She cont on heparin drip, no bleeding that she noted. Denies N,V, appetite is fair, she is still having loose stool. Objective - Vital Signs Vital signs: Vital Signs Temp 98.0 F 09/01/23 07:12 Pulse 89 09/01/23 07:12 Resp 18 09/01/23 07:12 BP 107/73 09/01/23 07:12 Pulse Ox 98 09/01/23 07:12 FiO2 Intake & Output 08/31/23 09/01/23 09/01/23 18:59 06:59 18:59 Intake Total 320.833 Output Total 1400 625 Balance -1079.167 -625 Intake: Intake, IV Titration 80.833 Amount Heparin Sod,Pork in 0.45% 80.833 NaCl 25,000 unit In 0.45 % NaCl 1 250ml.bag @ 9. 1859 UNITS/KG/HR 10 mls/ hr IV .Q24H [facility] Rx#: [id number] Oral 240 Output: Urine 1400 625 Other: Voiding Method External Catheter External Catheter # Bowel Movements 1 1 - Constitutional General appearance: Present: cooperative, no acute distress, obese - EENT Eyes: Present: anicteric sclerae, EOMI ENT: Present: hearing grossly normal - Respiratory Respiratory: bilateral: CTA - Cardiovascular Rhythm: regular Heart sounds: normal: S1, S2 Abnormal Heart Sounds: Absent: systolic murmur, diastolic murmur, rub, S3 Gallop, S4 Gallop, click, other - Peripheral edema leg Peripheral Edema: right: Trace, left: None - Gastrointestinal General gastrointestinal: Present: soft, tenderness Localized gastrointestinal: tender: RUQ - Integumentary Integumentary: Present: pale - Neurologic Neurologic: Present: CNII-XII intact - Musculoskeletal Musculoskeletal: Present: generalized weakness, strength equal bilaterally - Psychiatric Psychiatric: Present: A&O x's 3, appropriate affect, intact judgment & insight - Labs CBC & Chem 7: 09/01/23 06:52 09/01/23 06:52 Labs: Abnormal Lab Results - Last 24 Hours (Table) 08/31/23 08/31/23 08/31/23 Range/Units 12:01 12:10 17:10 RBC (4.10-5.20) X 10*6/uL Hgb (12.0-15.0) g/dL Hct (37.2-46.3) % MCV (80.0-97.0) FL MCHC (32.0-37.0) g/dL RDW (11.5-14.5) % Plt Count (140-440) X 10*3/uL Lymphocytes # (0.90-5.00) X 10*3/uL APTT 44.4 H (22.0-30.0) sec Potassium (3.5-5.5) mmol/L POC Glucose (mg/dL) 122 H 135 H (70-110) mg/dL Calcium (8.7-10.3) mg/dL Total Bilirubin (0.3-1.2) mg/dL AST (13-35) U/L ALT (8-44) U/L Alkaline Phosphatase (41-126) U/L Total Protein (6.2-8.2) g/dL Albumin (3.8-4.9) g/dL Albumin/Globulin Ratio (1.60-3.17) Ratio Stool Occult Blood (Negative) 08/31/23 09/01/23 09/01/23 Range/Units 21:30 00:09 06:52 RBC (4.10-5.20) X 10*6/uL Hgb (12.0-15.0) g/dL Hct (37.2-46.3) % MCV (80.0-97.0) FL MCHC (32.0-37.0) g/dL RDW (11.5-14.5) % Plt Count (140-440) X 10*3/uL Lymphocytes # (0.90-5.00) X 10*3/uL APTT 67.3 H 78.4 H (22.0-30.0) sec Potassium (3.5-5.5) mmol/L POC Glucose (mg/dL) (70-110) mg/dL Calcium (8.7-10.3) mg/dL Total Bilirubin (0.3-1.2) mg/dL AST (13-35) U/L ALT (8-44) U/L Alkaline Phosphatase (41-126) U/L Total Protein (6.2-8.2) g/dL Albumin (3.8-4.9) g/dL Albumin/Globulin Ratio (1.60-3.17) Ratio Stool Occult Blood Positive H (Negative) 09/01/23 09/01/23 Range/Units 06:52 06:52 RBC 3.67 L (4.10-5.20) X 10*6/uL Hgb 11.0 L (12.0-15.0) g/dL Hct 36.1 L (37.2-46.3) % MCV 98.4 H (80.0-97.0) FL MCHC 30.5 L (32.0-37.0) g/dL RDW 18.4 H (11.5-14.5) % Plt Count 131 L (140-440) X 10*3/uL Lymphocytes # 0.71 L (0.90-5.00) X 10*3/uL APTT (22.0-30.0) sec Potassium 3.4 L (3.5-5.5) mmol/L POC Glucose (mg/dL) (70-110) mg/dL Calcium 7.7 L (8.7-10.3) mg/dL Total Bilirubin 1.9 H (0.3-1.2) mg/dL AST 106 H (13-35) U/L ALT 54 H (8-44) U/L Alkaline Phosphatase 371 H (41-126) U/L Total Protein 5.6 L (6.2-8.2) g/dL Albumin 2.4 L (3.8-4.9) g/dL Albumin/Globulin Ratio 0.75 L (1.60-3.17) Ratio Stool Occult Blood (Negative) - Imaging and Cardiology CT scan - abdomen: report reviewed (reports compared as pt CT at initial diagnosis was at [facility]) CT scan - pelvis: report reviewed (reports compared as pt CT at initial diagnosis was at [facility]) Assessment and Plan (1) Epigastric pain Current Visit: Yes Status: Acute Priority: High Code(s): R10.13 - EPIGASTRIC PAIN SNOMED Code(s): 25190647 (2) Pancreatic cancer Current Visit: Yes Status: Acute Priority: High Code(s): C25.9 - MALIGNANT NEOPLASM OF PANCREAS, UNSPECIFIED SNOMED Code(s): 741269867 (3) Weakness Current Visit: Yes Status: Chronic Priority: High Code(s): R53.1 - WEAKNES S SNOMED Code(s): 19432277 (4) DVT (deep venous thrombosis) Current Visit: Yes Status: Acute Priority: High Onset Date: ~08/31/23 Code(s): I82.409 - ACUTE EMBOLISM AND THOMBOS UNSP DEEP VN UNSP LOWER EXTREMITY SNOMED Code(s): 818278775 (5) Pulmonary embolism Current Visit: Yes Status: Acute Priority: High Onset Date: ~08/31/23 Code(s): I26.99 - OTHER PULMONARY EMBOLISM WITHOUT ACUTE COR PULMONALE SNOMED Code(s): 75243874 Plan: Bilateral pulmonary emboli, left lower extremity DVT -Provoked, multifactorial including malignancy, recent fall. -CTA small bilateral pulmonary emboli reported. Heparin drip initiated. -Pt has no chest c/o, no gross leg swelling or pain reported -No reported bleeding, Hgb stable at 11 -Send Rx for eliquis, Case mgmt verified $0 copay -Can transition to oral anticoagulation Abdominal pain -Patient expressed concerns for her abdominal discomfort and lack of treatment that possibly she is experiencing disease progression. It was discussed that this is a possibility. -CT AP with contrast done, unfortunately unable to compare to imaging done be fore pt had any treatment as that was done at [facility] and she had MRCP at [place]. Just comparing reports though, there is no significant increase in size of masses and no new ones reported. Calling stable disease at this time -Pt encouraged to use current Pain medications available to max potential before increasing. She agreed. -Medications for prevention of narcotic induced constipation ordered but on hold for loose stool Pancreatic adenocarcinoma -Diagnosis and treatment as described in HPI. Patient has had only 2 treatments in since May 2023. She has had unfortunately very poor tolerance. -Patient having progressive abdominal discomfort, worsening LFTs, concern for progressive disease. CT AP with contrast report compared to reports of CTAP and MRCP done at other facilities, no significant growth and no gross new findings. Reviewed interpretation with pt -She is going to need to improve her performance status significantly if she wants to cont on palliative treatment. She wants to participate in rehab so, plan is to try and get her back into a rehab -She will need to f/u with Dr. Louise so he can assess her PS and have a discussion about treatment options available to her. Plan for appt after rehab attests: I have seen and examined pt, performed H&P, developed impression and plan of care. Discussed with dictator. Agree with documentation, dictated as a scribe.
[2023-09-02 07:17] LABS: Glucose,Whole Blood 86 mg/dL (70-110)
--- NOTE | 2023-09-02 07:20 | P.PN ---
Subjective Progress Note Date: 09/01/23 This is a pleasant 63-year-old female who was recently admitted with abdominal pain with nausea and vomiting with history of pancreatic cancer with hepatic mets. Oncology following and ordered repeat imaging including CTA and CT abdomen pelvis and was found to have bilateral pulmonary embolism without heart strain and Doppler of the lower extremities were ordered also showing a left lower extremity DVT from the CFV to the proximal calf veins. Patient was started on heparin and will discuss further with hematology/oncology regarding transitioning to oral anticoagulation. Patient reports her epigastric pain is slightly improved although continues with discomfort and is tolerating some diet slowly advancing as tolerated. Patient is currently afebrile with no reports of chest pain or worsening shortness of breath. Patient potassium slightly low and will replace per protocol. Encouraged oral intake and supplements between meals. Will have PT/OT therapy reevaluate the patient. 09/01/2023 Patient is seen in follow-up today and was able to get up and work with physical therapy and is currently sitting up in the chair. Patient has plans on returning to rehab for continued strength and mobility as patient wants to continue proceeding with oncological care and chemotherapy treatment. Patient has had multiple setbacks and increased weakness with continued abdominal pain after last treatment and unable to tolerate much and will follow-up with oncology once discharged from [facility] to resume treatment plan moving forward. Patient reports her abdominal pain is somewhat subsided and is attempting to avoid IV narcotics. Patient tolerating a little more and would like her diet advanced. Will monitor with advance diet and if having increased pain have discussed with the patient to decrease the diet. Patient is agreeable to this. Patient is afebrile with no reports of chest pain or worsening shortness of breath. Patient is maintained on IV Lasix with cardiology following and will transition possibly to oral in the next 24 hours. Patient co-pay was verified for [employer] and will be transitioned to oral anticoagulation and discontinue heparin. This was discussed with oncology as well. Review of systems: Constitutional: No reports of fatigue, fever, or chills Cardiovascular: No reports of chest pain or palpitations Respiratory: No reports of worsening shortness of breath GI: reports of occasional nausea, no reports of vomiting, reports continued mid abdominal pain although slight improvement from yesterday : No reports of dysuria or retention Neurovascular: reports of generalized weakness, reports feeling somewhat improved and was able to get up into the chair today Physical exam: Gen: This is a 63-year-old female who is awake, alert and oriented x 3, well- developed, elderly appearing, ill-appearing, morbidly obese HEENT: Head is atraumatic, normocephalic. Pupils equal, round. Sclerae is anicteric. NECK: Supple. No JVD. No lymphadenopathy. No thyromegaly. LUNGS: Diminished breath sounds bilaterally otherwise clear to auscultation. No wheezes or rhonchi. No intercostal retractions. HEART: S1, S2 are muffled ABDOMEN: Soft. Obese bowel sounds are present. No masses. tenderness noted on palpation. EXTREMITIES: No pedal edema. No calf tenderness. Bilateral lower extremity edema noted NEUROLOGICAL: Patient is awake, alert and oriented x3. Cranial nerves 2 through 12 are grossly intact. Diffusely weak Assessment: Chest pain and epigastric pain possibly secondary to malignancy, ruled out myocardial infarction Bilateral pulmonary embolism noted on CTA Left leg DVT involving the CFV down to the proximal calf veins as noted on Doppler Gait dysfunction History of pancreatic adenocarcinoma with metastasis History of cirrhosis of the liver Hypertension Hyperlipidemia Morbid obesity with a BMI of 43.9 GI prophylaxis DVT prophylaxis Full code Plan: Recommend to continue with current medications and management with oncology following. Patient underwent CT which revealed pulmonary emboli bilaterally and underwent venous Doppler noted to have a DVT on the left lower extremity. Patient follows with oncology although treatment has been on hold as patient did not tolerate very well and was at rehab to gain strength and mobility. Patient continues to have inability to ambulate and extreme weakness. Patient was agreeable with working with physical therapy today although significantly weak was able to get up into the chair next to the bed. Encouraged to increase activity as tolerated and recommend daily PT/OT therapy. Plans on going to rehab for strength and mobility. Case management following working on excepting ECF. Patient initiated on heparin drip and discussed with hematology/oncology regarding transitioning to oral anticoagulation. Co-pay verified for Eliquis and will transition to Eliquis 10 mg twice daily for 1 week and then titrate to 5 mg twice daily thereafter Encourage small frequent meals as tolerated, will advance diet as patient is asking for an increase in diet. Discussed with patient about cutting back on diet if having continued increased abdominal pain after eating. Repeat CT abdomen pelvis with contrast ordered and being discussed with oncology regarding any disease progression. Patient will follow-up with oncology after rehab to discuss treatment plan moving forward. Patient is agreeable to no oncological care during ECF she wants to gain strength and mobility to return to having treatments in the outpatient setting. Recommend PT/OT therapy evaluation daily Follow-up on repeat labs and will replace electrolytes per protocol. Overall prognosis remains guarded at this time. Possible discharge planning in the next 24 to 48 hours. The impression and plan of care has been dictated by Ashely León, nurse practitioner as directed. Dr. Hao MD I have performed a history and examination and MDM of this patient, discussed the same with the dictator, and agree with the dictator's assessment and plan as written ,documented as a scribe. Based on total visit time, I have performed more than 50% of the visit. Any additional findings or plans will be noted. Objective - Vital Signs Vital signs: Vital Signs Temp 98.0 F 09/01/23 07:12 Pulse 89 09/01/23 07:12 Resp 18 09/01/23 07:12 BP 107/73 09/01/23 07:12 Pulse Ox 98 09/01/23 07:12 FiO2 Intake & Output 08/31/23 09/01/23 09/01/23 18:59 06:59 18:59 Intake Total 320.833 Output Total 1400 625 Balance -1079.167 -625 Intake: Intake, IV Titration 80.833 Amount Heparin Sod,Pork in 0.45% 80.833 NaCl 25,000 unit In 0.45 % NaCl 1 250ml.bag @ 9. 1859 UNITS/KG/HR 10 mls/ hr IV .Q24H [facility] Rx#: [id number] Oral 240 Output: Urine 1400 625 Other: Voiding Method External Catheter External Catheter # Bowel Movements 1 1 - Labs CBC & Chem 7: 09/01/23 06:52 09/01/23 06:52 Labs: Abnormal Lab Results - Last 24 Hours (Table) 08/31/23 08/31/23 08/31/23 Range/Units 06:43 06:43 12:01 WBC 11.18 H (4.50-10.00) X 10*3/uL RBC 3.76 L (4.10-5.20) X 10*6/uL Hgb 10.9 L (12.0-15.0) g/dL Hct 35.3 L (37.2-46.3) % MCHC 30.9 L (32.0-37.0) g/dL RDW 18.6 H (11.5-14.5) % Neutrophils # 8.67 H (1.80-7.70) X 10*3/uL APTT (22.0-30.0) sec Potassium 3.1 L (3.5-5.5) mmol/L Anion Gap 13.00 H (4.00-12.00) mmol/L Glucose 39 A* (70-110) mg/dL POC Glucose (mg/dL) 122 H (70-110) mg/dL Calcium 8.2 L (8.7-10.3) mg/dL Total Bilirubin 1.7 H (0.3-1.2) mg/dL AST 90 H (13-35) U/L ALT 50 H (8-44) U/L Alkaline Phosphatase 369 H (41-126) U/L Total Protein 5.7 L (6.2-8.2) g/dL Albumin 2.6 L (3.8-4.9) g/dL Albumin/Globulin Ratio 0.84 L (1.60-3.17) Ratio Amylase 18 L (23-121) U/L Stool Occult Blood (Negative) 08/31/23 08/31/23 08/31/23 Range/Units 12:10 17:10 21:30 WBC (4.50-10.00) X 10*3/uL RBC (4.10-5.20) X 10*6/uL Hgb (12.0-15.0) g/dL Hct (37.2-46.3) % MCHC (32.0-37.0) g/dL RDW (11.5-14.5) % Neutrophils # (1.80-7.70) X 10*3/uL APTT 44.4 H (22.0-30.0) sec Potassium (3.5-5.5) mmol/L Anion Gap (4.00-12.00) mmol/L Glucose (70-110) mg/dL POC Glucose (mg/dL) 135 H (70-110) mg/dL Calcium (8.7-10.3) mg/dL Total Bilirubin (0.3-1.2) mg/dL AST (13-35) U/L ALT (8-44) U/L Alkaline Phosphatase (41-126) U/L Total Protein (6.2-8.2) g/dL Albumin (3.8-4.9) g/dL Albumin/Globulin Ratio (1.60-3.17) Ratio Amylase (23-121) U/L Stool Occult Blood Positive H (Negative) 09/01/23 09/01/23 Range/Units 00:09 06:52 WBC (4.50-10.00) X 10*3/uL RBC (4.10-5.20) X 10*6/uL Hgb (12.0-15.0) g/dL Hct (37.2-46.3) % MCHC (32.0-37.0) g/dL RDW (11.5-14.5) % Neutrophils # (1.80-7.70) X 10*3/uL APTT 67.3 H 78.4 H (22.0-30.0) sec Potassium (3.5-5.5) mmol/L Anion Gap (4.00-12.00) mmol/L Glucose (70-110) mg/dL POC Glucose (mg/dL) (70-110) mg/dL Calcium (8.7-10.3) mg/dL Total Bilirubin (0.3-1.2) mg/dL AST (13-35) U/L ALT (8-44) U/L Alkaline Phosphatase (41-126) U/L Total Protein (6.2-8.2) g/dL Albumin (3.8-4.9) g/dL Albumin/Globulin Ratio (1.60-3.17) Ratio Amylase (23-121) U/L Stool Occult Blood (Negative)
[2023-09-02] MEDS: ERGOCALCIFEROL 1,250 MCG (50,000 IU) CAPSULE PO SCH (08:34)
[2023-09-02] MEDS: Apixaban Initiation Dose--VTE 5 MG TAB PO SCH (09:30)
--- NOTE | 2023-09-02 10:37 | P.PN ---
Subjective Progress Note Date: 09/02/23 History of present illness: This is a 63-year-old female with no previous cardiac history. She does not fo llow with a health care technician. She has a past medical history significant for pancreatic cancer with metastatic disease, cirrhosis of the liver, diabetes mellitus type 2, gastroesophageal reflux disease, hypertension, hyperlipidemia. We have been asked to evaluate the patient for coronary artery disease with abnormal EKG. Patient states that she had chest pain on the left side of her chest but then realized that she was having more pain in the right upper quadrant of her abdomen. She felt that her breathing was a little bit off. She denies having any dizziness. She has had lower extremity edema and feels like her legs are very heavy. No dizziness no palpitations. She does complain of cough and states it has been ongoing since she had COVID a month ago. She denies having any fever. Cough is nonproductive. She is a non-smoker. She was diagnosed with diabetes in 2011. She follows with Dr. Louise diagnosed approximately 5 months ago with pancreatic cancer and she states that chemoth erapy was stopped. She states she is feeling better at this time than when she came into the hospital. Patient has been started on heparin drip secondary to positive CTA of the chest for PE. Patient denies chest pain at this time. EKG sinus rhythm nonspecific T wave changes, cannot rule out ischemic changes but these are similar to previous EKGs. Telemetry reviewed no significant abnormalities were noted. Chest x-ray: No acute process CTA of the chest: Small bilateral pulmonary embolism without right heart strain. CT of the abdomen pelvis without contrast revealed cirrhotic liver disease with splenomegaly and mild ascites. Wall thickening involving the ascending colon may reflect a nonspecific colitis with infectious, inflammatory, and vascular etiologies considered. Home cardiac medications: Aspirin 81 mg daily, atorvastatin 40 mg at bedtime, Lasix 40 mg daily, potassium chloride 20 mill equivalents daily, also on levothyroxine 50 mcg daily. Echocardiogram performed on 06/22/2023 reveals normal LV systolic function. 08/31 Patient is seen today in follow-up. She has been maintained on IV Lasix 40 mg every 12 hours. Patient had a negative fluid balance yesterday. Blood pressure 100/69, heart rate 91, pulse ox 98% on room air. Repeat blood work reveals WBC 8.2, hemoglobin 11. Sodium 136, potassium 3.4, BUN 9.9 and creatinine 0.6. Liver function tests are elevated. Patient denies having any chest pain. She is concerned that she is on a liquid diet and would like this advanced. She states her shortness of breath is a little better, and she has less lower extremity edema. Echocardiogram reveals normal ventricular size and systolic function. No evidence of right ventricular dilatation. Ultrasound of the bilateral lower extremities is positive for DVT on left leg. 09/01 She has been maintained on IV Lasix 40 mg every 12 hours. Patient has a negative fluid balance. Weight is documented as unchanged. Chemistry panel is not available at the time of this dictation. Patient's breathing is stable. She continues to have 2-3+ lower extremity edema. She is also remained on heparin drip and we will transition her to oral Eliquis. Physical examination: Gen: This is a 63-year-old female in no acute distress. VS: reviewed HEENT: Head is atraumatic, normocephalic. Pupils equal, round. Sclerae is anicteric. NECK: Supple. No JVD. LUNGS: Diminished bilaterally. No intercostal retractions. HEART: Regular rate and rhythm. No murmur. ABDOMEN: Soft No tenderness. EXTREMITIES: 1+ lower extremity edema. No calf tenderness. NEUROLOGICAL: Patient is awake, alert and oriented x3. Assessment: Bilateral lower extremity edema with possible component of acute heart failure with preserved EF Abnormal EKG Pancreatic cancer with metastatic disease Cirrhosis of the liver Diabetes mellitus type 2 insulin requiring Gastroesophageal reflux disease Hypertension Hyperlipidemia Recent COVID-19 Plan: Continue patient's home cardiac medications Continue IV Lasix 40 mg twice daily for another 24 hours. Start oral Lasix 40 mg twice daily tomorrow morning. Monitor REENA, daily weights, electrolytes and renal function Transition IV heparin to Eliquis VTE protocol In light of patient's significant medical conditions, no aggressive cardiac workup is planned at this time. Further recommendations to follow based upon clinical course Thank you kindly for this consultation. Nurse practitioner note has been reviewed, I agree with documented findings and plan of care. Patient was seen and examined. Objective - Vital Signs Vital signs: Vital Signs Temp 98.6 F 09/02/23 02:00 Pulse 92 09/02/23 02:00 Resp 16 09/02/23 02:00 BP 96/54 09/02/23 07:15 Pulse Ox 94 L 09/02/23 02:00 FiO2 Intake & Output 09/01/23 09/02/23 09/02/23 18:59 06:59 18:59 Intake Total 169.167 Output Total 600 200 Balance -430.833 -200 Weight 108.862 kg Intake: Intake, IV Titration 169.167 Amount Heparin Sod,Pork in 0.45% 169.167 NaCl 25,000 unit In 0.45 % NaCl 1 250ml.bag @ 9. 1859 UNITS/KG/HR 10 mls/ hr IV .Q24H [facility] Rx#: [id number] Output: Urine 600 200 Other: Voiding Method External Catheter External Catheter # Voids 2 - Labs CBC & Chem 7: 09/01/23 06:52 09/01/23 06:52 Labs: Abnormal Lab Results - Last 24 Hours (Table) 09/01/23 09/01/23 09/01/23 Range/Units 06:52 06:52 06:52 RBC 3.67 L (4.10-5.20) X 10*6/uL Hgb 11.0 L (12.0-15.0) g/dL Hct 36.1 L (37.2-46.3) % MCV 98.4 H (80.0-97.0) FL MCHC 30.5 L (32.0-37.0) g/dL RDW 18.4 H (11.5-14.5) % Plt Count 131 L (140-440) X 10*3/uL Lymphocytes # 0.71 L (0.90-5.00) X 10*3/uL APTT 78.4 H (22.0-30.0) sec Potassium 3.4 L (3.5-5.5) mmol/L POC Glucose (mg/dL) (70-110) mg/dL Calcium 7.7 L (8.7-10.3) mg/dL Total Bilirubin 1.9 H (0.3-1.2) mg/dL AST 106 H (13-35) U/L ALT 54 H (8-44) U/L Alkaline Phosphatase 371 H (41-126) U/L Total Protein 5.6 L (6.2-8.2) g/dL Albumin 2.4 L (3.8-4.9) g/dL Albumin/Globulin Ratio 0.75 L (1.60-3.17) Ratio 09/01/23 09/01/23 09/02/23 Range/Units 11:24 20:15 04:20 RBC (4.10-5.20) X 10*6/uL Hgb (12.0-15.0) g/dL Hct (37.2-46.3) % MCV (80.0-97.0) FL MCHC (32.0-37.0) g/dL RDW (11.5-14.5) % Plt Count (140-440) X 10*3/uL Lymphocytes # (0.90-5.00) X 10*3/uL APTT 76.5 H (22.0-30.0) sec Potassium (3.5-5.5) mmol/L POC Glucose (mg/dL) 131 H 230 H (70-110) mg/dL Calcium (8.7-10.3) mg/dL Total Bilirubin (0.3-1.2) mg/dL AST (13-35) U/L ALT (8-44) U/L Alkaline Phosphatase (41-126) U/L Total Protein (6.2-8.2) g/dL Albumin (3.8-4.9) g/dL Albumin/Globulin Ratio (1.60-3.17) Ratio
[2023-09-02 11:16] LABS: Anisocytosis Slight; Basophils % (A) 0 %; Eosinophils # (A) 0.2 k/uL (0-0.7); Eosinophils % (A) 2 %; HCT 38.9 % (34.0-46.0); HGB 12.1 gm/dL (11.4-16.0); Hypochromasia Slight; Lymphocytes # (A) 0.6 k/uL (1.0-4.8); Lymphocytes % (A) 7 %; MCH 29.7 pg (25.0-35.0); MCHC 31.1 g/dL (31.0-37.0); MCV 95.6 fL (80.0-100.0); Mean Platelet Volume 9.4; Monocytes # (A) 0.5 k/uL (0-1.0); Monocytes % (A) 6 %; Neutrophils # (A) 7.2 k/uL (1.3-7.7); Neutrophils % (A) 85 %; Platelet Count 144 k/uL (150-450); RBC 4.07 m/uL (3.80-5.40); RDW 17.2 % (11.5-15.5); WBC 8.4 k/uL (3.8-10.6)
[2023-09-02 11:22] LABS: ALT 66 U/L (4-34); African American GFR (CKD) >90 (>60 ml/min/1.73 sqM); Albumin 2.5 g/dL (3.5-5.0); Albumin/Globulin Ratio 0.7; Anion Gap 4 mmol/L; Blood Urea Nitrogen 14 mg/dL (7-17); Calcium 7.8 mg/dL (8.4-10.2); Carbon Dioxide 29 mmol/L (22-30); Chloride 100 mmol/L (98-107); Globulin 3.8 g/dL; Glucose 76 mg/dL (74-99); Non-African American GFR(CKD) >90 (>60 ml/min/1.73 sqM); Sodium 133 mmol/L (137-145); Total Bilirubin 2.3 mg/dL (0.2-1.3); Total Protein 6.3 g/dL (6.3-8.2)
[2023-09-02 11:32] LABS: AST 165 U/L (14-36); Alkaline Phosphatase 417 U/L (38-126); Magnesium 1.5 mg/dL (1.6-2.3)
[2023-09-02] MEDS ORDERED: Magnesium Replacement Protocol 1 EACH MISC MISCELLANE PRN (12:16)
[2023-09-02 12:17] LABS: Glucose,Whole Blood 74 mg/dL (70-110)
[2023-09-02] MEDS: MAGNESIUM SULFATE-D5W PMX 1 GM in DEXTROSE/WATER 1 100ML.BAG IVPB SCH (12:37)
[2023-09-02 17:23] LABS: Glucose,Whole Blood 124 mg/dL (70-110)
[2023-09-02 21:14] LABS: Glucose,Whole Blood 148 mg/dL (70-110)
--- NOTE | 2023-09-03 04:17 | P.PN ---
Subjective Progress Note Date: 09/03/23 History of present illness: This is a 63-year-old female with no previous cardiac history. She does not fo llow with a wellhead pumper. She has a past medical history significant for pancreatic cancer with metastatic disease, cirrhosis of the liver, diabetes mellitus type 2, gastroesophageal reflux disease, hypertension, hyperlipidemia. We have been asked to evaluate the patient for coronary artery disease with abnormal EKG. Patient states that she had chest pain on the left side of her chest but then realized that she was having more pain in the right upper quadrant of her abdomen. She felt that her breathing was a little bit off. She denies having any dizziness. She has had lower extremity edema and feels like her legs are very heavy. No dizziness no palpitations. She does complain of cough and states it has been ongoing since she had COVID a month ago. She denies having any fever. Cough is nonproductive. She is a non-smoker. She was diagnosed with diabetes in 2011. She follows with Dr. Louise diagnosed approximately 5 months ago with pancreatic cancer and she states that chemoth erapy was stopped. She states she is feeling better at this time than when she came into the hospital. Patient has been started on heparin drip secondary to positive CTA of the chest for PE. Patient denies chest pain at this time. EKG sinus rhythm nonspecific T wave changes, cannot rule out ischemic changes but these are similar to previous EKGs. Telemetry reviewed no significant abnormalities were noted. Chest x-ray: No acute process CTA of the chest: Small bilateral pulmonary embolism without right heart strain. CT of the abdomen pelvis without contrast revealed cirrhotic liver disease with splenomegaly and mild ascites. Wall thickening involving the ascending colon may reflect a nonspecific colitis with infectious, inflammatory, and vascular etiologies considered. Home cardiac medications: Aspirin 81 mg daily, atorvastatin 40 mg at bedtime, Lasix 40 mg daily, potassium chloride 20 mill equivalents daily, also on levothyroxine 50 mcg daily. Echocardiogram performed on 06/22/2023 reveals normal LV systolic function. 08/31 Patient is seen today in follow-up. She has been maintained on IV Lasix 40 mg every 12 hours. Patient had a negative fluid balance yesterday. Blood pressure 100/69, heart rate 91, pulse ox 98% on room air. Repeat blood work reveals WBC 8.2, hemoglobin 11. Sodium 136, potassium 3.4, BUN 9.9 and creatinine 0.6. Liver function tests are elevated. Patient denies having any chest pain. She is concerned that she is on a liquid diet and would like this advanced. She states her shortness of breath is a little better, and she has less lower extremity edema. Echocardiogram reveals normal ventricular size and systolic function. No evidence of right ventricular dilatation. Ultrasound of the bilateral lower extremities is positive for DVT on left leg. 09/01 She has been maintained on IV Lasix 40 mg every 12 hours. Patient has a negative fluid balance. Weight is documented as unchanged. Chemistry panel is not available at the time of this dictation. Patient's breathing is stable. She continues to have 2-3+ lower extremity edema. She is also remained on heparin drip and we will transition her to oral Eliquis. 09/03/2023 Patient was seen and examined at bedside this a.m. Patient is tolerating p.o. diuretic Lasix 40 mg twice daily. Will transition to Eliquis. No signs of bleeding. Physical examination: Gen: This is a 63-year-old female in no acute distress. VS: reviewed HEENT: Head is atraumatic, normocephalic. Pupils equal, round. Sclerae is anicteric. NECK: Supple. No JVD. LUNGS: Diminished bilaterally. No intercostal retractions. HEART: Regular rate and rhythm. No murmur. ABDOMEN: Soft No tenderness. EXTREMITIES: 1+ lower extremity edema. No calf tenderness. NEUROLOGICAL: Patient is awake, alert and oriented x3. Assessment: Pulmonary embolism Bilateral lower extremity edema with possible component of acute heart failure with preserved EF Abnormal EKG Pancreatic cancer with metastatic disease Cirrhosis of the liver Diabetes mellitus type 2 insulin requiring Gastroesophageal reflux disease Hypertension Hyperlipidemia Recent COVID-19 Plan: Continue Eliquis for PE Continue aspirin Continue Lasix 40 mg twice daily. At the time of discharge, reduce it to 40 mg daily. Monitor REENA, daily weights, electrolytes and renal function Transition IV heparin to Eliquis VTE protocol In light of patient's significant medical conditions, no aggressive cardiac workup is planned at this time. At this time cardiology team will sign off. Please reconsult us in case of any questions Objective - Vital Signs Vital signs: Vital Signs Temp 98.0 F 09/03/23 01:20 Pulse 91 09/03/23 01:20 Resp 18 09/03/23 01:20 BP 93/57 09/03/23 01:20 Pulse Ox 95 09/03/23 01:20 FiO2 Intake & Output 09/02/23 09/02/23 09/03/23 06:59 18:59 06:59 Intake Total 150.5 Output Total 200 300 Balance -200 -149.5 Intake: Intake, IV Titration 150.5 Amount Heparin Sod,Pork in 0.45% 150.5 NaCl 25,000 unit In 0.45 % NaCl 1 250ml.bag @ 9. 1859 UNITS/KG/HR 10 mls/ hr IV .Q24H [facility] Rx#: [id number] Output: Urine 200 300 Other: Voiding Method External Catheter External Catheter External Catheter # Voids 2 - Labs CBC & Chem 7: 09/02/23 10:42 09/02/23 10:42 Labs: Abnormal Lab Results - Last 24 Hours (Table) 09/02/23 09/02/23 09/02/23 Range/Units 04:20 10:42 10:42 RDW 17.2 H (11.5-15.5) % Plt Count 144 L (150-450) k/uL Lymphocytes # 0.6 L (1.0-4.8) k/uL APTT 76.5 H (22.0-30.0) sec Sodium 133 L (137-145) mmol/L POC Glucose (mg/dL) (70-110) mg/dL Calcium 7.8 L (8.4-10.2) mg/dL Magnesium 1.5 L (1.6-2.3) mg/dL Total Bilirubin 2.3 H (0.2-1.3) mg/dL AST 165 H (14-36) U/L ALT 66 H (4-34) U/L Alkaline Phosphatase 417 H (38-126) U/L Albumin 2.5 L (3.5-5.0) g/dL 09/02/23 09/02/23 Range/Units 17:21 21:13 RDW (11.5-15.5) % Plt Count (150-450) k/uL Lymphocytes # (1.0-4.8) k/uL APTT (22.0-30.0) sec Sodium (137-145) mmol/L POC Glucose (mg/dL) 124 H 148 H (70-110) mg/dL Calcium (8.4-10.2) mg/dL Magnesium (1.6-2.3) mg/dL Total Bilirubin (0.2-1.3) mg/dL AST (14-36) U/L ALT (4-34) U/L Alkaline Phosphatase (38-126) U/L Albumin (3.5-5.0) g/dL
--- NOTE | 2023-09-03 05:54 | P.PN ---
Subjective Progress Note Date: 09/02/23 This is a pleasant 63-year-old female who was recently admitted with abdominal pain with nausea and vomiting with history of pancreatic cancer with hepatic mets. Oncology following and ordered repeat imaging including CTA and CT abdomen pelvis and was found to have bilateral pulmonary embolism without heart strain and Doppler of the lower extremities were ordered also showing a left lower extremity DVT from the CFV to the proximal calf veins. Patient was started on heparin and will discuss further with hematology/oncology regarding transitioning to oral anticoagulation. Patient reports her epigastric pain is slightly improved although continues with discomfort and is tolerating some diet slowly advancing as tolerated. Patient is currently afebrile with no reports of chest pain or worsening shortness of breath. Patient potassium slightly low and will replace per protocol. Encouraged oral intake and supplements between meals. Will have PT/OT therapy reevaluate the patient. 09/01/2023 Patient is seen in follow-up today and was able to get up and work with physical therapy and is currently sitting up in the chair. Patient has plans on returning to rehab for continued strength and mobility as patient wants to continue proceeding with oncological care and chemotherapy treatment. Patient has had multiple setbacks and increased weakness with continued abdominal pain after last treatment and unable to tolerate much and will follow-up with oncology once discharged from [facility] to resume treatment plan moving forward. Patient reports her abdominal pain is somewhat subsided and is attempting to avoid IV narcotics. Patient tolerating a little more and would like her diet advanced. Will monitor with advance diet and if having increased pain have discussed with the patient to decrease the diet. Patient is agreeable to this. Patient is afebrile with no reports of chest pain or worsening shortness of breath. Patient is maintained on IV Lasix with cardiology following and will transition possibly to oral in the next 24 hours. Patient co-pay was verified for ElixAdis and will be transitioned to oral anticoagulation and discontinue heparin. This was discussed with oncology as well. 09/02/2023 Patient is seen and evaluated in follow-up today and continues to report some a bdominal discomfort although feels is improved. Oncology following with plans on following up outpatient. Diet has been advanced and tolerating and encourage small frequent meals. Cardiology following and patient was maintained on IV Lasix recommending to continue with another 24 hours as patient does continue to display significant lower extremity swelling. Patient reports is improving and her shortness of breath has improved as well. Patient is found to be on room air during exam. Recommend PT/OT therapy daily and plans on going to [facility]. Patient requires 3 night hospitalization according to Medicare guidelines. Possible discharge planning in 24 hours. Review of systems: Constitutional: No reports of fatigue, fever, or chills Cardiovascular: No reports of chest pain or palpitations Respiratory: No reports of worsening shortness of breath GI: reports of occasional nausea, no reports of vomiting, reports continued mid abdominal pain although slight improvement from yesterday : No reports of dysuria or retention Neurovascular: reports of generalized weakness, reports feeling somewhat improved and was able to get up into the chair today Physical exam: Gen: This is a 63-year-old female who is awake, alert and oriented x 3, well- developed, elderly appearing, ill-appearing, morbidly obese HEENT: Head is atraumatic, normocephalic. Pupils equal, round. Sclerae is anicteric. NECK: Supple. No JVD. No lymphadenopathy. No thyromegaly. LUNGS: Diminished breath sounds bilaterally otherwise clear to auscultation. No wheezes or rhonchi. No intercostal retractions. HEART: S1, S2 are muffled ABDOMEN: Soft. Obese bowel sounds are present. No masses. tenderness noted on palpation. EXTREMITIES: No pedal edema. No calf tenderness. Bilateral lower extremity ed karen noted NEUROLOGICAL: Patient is awake, alert and oriented x3. Cranial nerves 2 through 12 are grossly intact. Diffusely weak Assessment: Chest pain and epigastric pain possibly secondary to malignancy, ruled out myocardial infarction Bilateral pulmonary embolism noted on CTA Left leg DVT involving the CFV down to the proximal calf veins as noted on Doppler Bilateral lower extremity edema, possibly a component of congestive heart failure with preserved EF, improving with Lasix Mild hyponatremia, secondary to diuresis Gait dysfunction History of pancreatic adenocarcinoma with metastasis History of cirrhosis of the liver Hypertension Hyperlipidemia Morbid obesity with a BMI of 43.9 GI prophylaxis DVT prophylaxis Full code Plan: Recommend to continue with current medications and management with oncology following. Patient underwent CT which revealed pulmonary emboli bilaterally and underwent venous Doppler noted to have a DVT on the left lower extremity. Patient follows with oncology although treatment has been on hold as patient did not tolerate very well and was at rehab to gain strength and mobility. Patient continues to have inability to ambulate and extreme weakness. Patient was agreeable with working with physical therapy today although significantly weak was able to get up into the chair next to the bed. Encouraged to increase activity as tolerated and recommend daily PT/OT therapy. Plans on going to rehab for strength and mobility. Case management following and has been accepted at [facility] Patient initiated on heparin drip and has been discontinued. Patient was transition to Eliquis 10 mg twice daily and will titrate down to 5 mg twice daily thereafter 1 week Encourage small frequent meals as tolerated, patient reports to tolerating advance diet although feels she ate too much dinner. Discussed with patient about cutting back on diet if having continued increased abdominal pain after eating. Patient will follow-up with oncology after rehab to discuss treatment plan moving forward. Patient is agreeable to no oncological care during [facility]CF she wants to gain strength and mobility to return to having treatments in the outpatient setting. Recommend PT/OT therapy evaluation daily Follow-up on repeat labs and will replace electrolytes per protocol. Cardiology following for significant lower extremity edema and is maintained on IV Lasix twice daily recommending another 24 hours of monitoring and then transition to Lasix daily on discharge. Encouraged the patient to increase activity as tolerated and elevate lower extremities while at rest. Recommend follow-up labs in the outpatient setting to monitor kidney functions and electrolytes. Overall prognosis remains guarded at this time. Possible discharge planning in the next 24 hours to [facility]. The impression and plan of care has been dictated by Ashely León, nurse practitioner as directed. Dr. Hao MD I have performed a history and examination and MDM of this patient, discussed the same with the dictator, and agree with the dictator's assessment and plan as written ,documented as a scribe. Based on total visit time, I have performed more than 50% of the visit. Any additional findings or plans will be noted. Objective - Vital Signs Vital signs: Vital Signs Temp 98.3 F 09/02/23 07:15 Pulse 94 09/02/23 08:00 Resp 16 09/02/23 07:15 BP 96/54 09/02/23 07:15 Pulse Ox 96 09/02/23 07:15 FiO2 Intake & Output 09/01/23 09/02/23 09/02/23 18:59 06:59 18:59 Intake Total 169.167 Output Total 600 200 Balance -430.833 -200 Weight 108.862 kg Intake: Intake, IV Titration 169.167 Amount Heparin Sod,Pork in 0.45% 169.167 NaCl 25,000 unit In 0.45 % NaCl 1 250ml.bag @ 9. 1859 UNITS/KG/HR 10 mls/ hr IV .Q24H [facility] Rx#: [id number] Output: Urine 600 200 Other: Voiding Method External Catheter External Catheter External Catheter # Voids 2 - Labs CBC & Chem 7: 09/02/23 10:42 09/02/23 10:42 Labs: Abnormal Lab Results - Last 24 Hours (Table) 09/01/23 09/01/23 09/01/23 Range/Units 06:52 06:52 11:24 RBC 3.67 L (4.10-5.20) X 10*6/uL Hgb 11.0 L (12.0-15.0) g/dL Hct 36.1 L (37.2-46.3) % MCV 98.4 H (80.0-97.0) FL MCHC 30.5 L (32.0-37.0) g/dL RDW 18.4 H (11.5-14.5) % Plt Count 131 L (140-440) X 10*3/uL Lymphocytes # 0.71 L (0.90-5.00) X 10*3/uL APTT (22.0-30.0) sec Potassium 3.4 L (3.5-5.5) mmol/L POC Glucose (mg/dL) 131 H (70-110) mg/dL Calcium 7.7 L (8.7-10.3) mg/dL Total Bilirubin 1.9 H (0.3-1.2) mg/dL AST 106 H (13-35) U/L ALT 54 H (8-44) U/L Alkaline Phosphatase 371 H (41-126) U/L Total Protein 5.6 L (6.2-8.2) g/dL Albumin 2.4 L (3.8-4.9) g/dL Albumin/Globulin Ratio 0.75 L (1.60-3.17) Ratio 09/01/23 09/02/23 Range/Units 20:15 04:20 RBC (4.10-5.20) X 10*6/uL Hgb (12.0-15.0) g/dL Hct (37.2-46.3) % MCV (80.0-97.0) FL MCHC (32.0-37.0) g/dL RDW (11.5-14.5) % Plt Count (140-440) X 10*3/uL Lymphocytes # (0.90-5.00) X 10*3/uL APTT 76.5 H (22.0-30.0) sec Potassium (3.5-5.5) mmol/L POC Glucose (mg/dL) 230 H (70-110) mg/dL Calcium (8.7-10.3) mg/dL Total Bilirubin (0.3-1.2) mg/dL AST (13-35) U/L ALT (8-44) U/L Alkaline Phosphatase (41-126) U/L Total Protein (6.2-8.2) g/dL Albumin (3.8-4.9) g/dL Albumin/Globulin Ratio (1.60-3.17) Ratio
--- NOTE | 2023-09-03 06:01 | P.DS ---
Providers Date of admission: 08/30/23 13:41 Expected date of discharge: 09/03/23 Attending physician: Ervin Penn Consults: 08/30/23 04:31 Consult Physician Urgent Consulting Provider: Brennon Luo Consult Reason/Comments: epigastric pain, pancreatic cancer Do you want consulting provider notified?: Yes 08/30/23 13:51 Consult Physician Routine Consulting Provider: Aristides Connelly Consult Reason/Comments: ? cad abnormal ekg Do you want consulting provider notified?: Yes [facility] Course: Final diagnosis Chest pain and epigastric pain possibly secondary to malignancy, ruled out myocardial infarction Bilateral pulmonary embolism noted on CTA Left leg DVT involving the CFV down to the proximal calf veins as noted on Doppler Bilateral lower extremity edema, possibly a component of congestive heart failure with preserved EF, improving with Lasix Mild hyponatremia, secondary to diuresis Gait dysfunction History of pancreatic adenocarcinoma with metastasis History of cirrhosis of the liver Hypertension Hyperlipidemia Morbid obesity with a BMI of 43.9 GI prophylaxis DVT prophylaxis Full code Discharge disposition Patient is being discharged in a stable condition with guarded prognosis to [facility] for continued PT/OT therapy. Patient will follow-up with Dr. Merritt in the outpatient setting upon discharge. Patient is to continue with Eliquis 10 mg twice daily for the next 1 week and then titrate to 5 mg twice daily thereafter. Recommend outpatient follow-up with cardiology as well as oncology as scheduled. Total time taken is greater than 35 minutes. Hospital course This is a 63-year-old female who was recently admitted with abdominal pain as well as chest pain being closely monitored with cardiology and oncology following. Patient does have history of pancreatic cancer recently underwent treatment in May although had some clinical setbacks and generalized weakness went to [facility] for strength and mobility. Patient reports she was recently discharged and went home and became more weak having worsening abdominal pain with eating. ACS was ruled out and patient was also started on Lasix for significant lower extremity swelling. Per cardiology, possible component of heart failure with preserved EF. No plans for interventions at this time recommending outpatient follow-up. Patient diuresing well showing some improvements in lower extremity swelling and recommend Lasix daily. Encouraged elevating lower extremities while at rest. Patient to follow-up with repeat labs to monitor kidney functions and electrolytes in the next 2 to [address] of the chest per oncology and was noted to have bilateral pulmonary embolism as well as venous Doppler imaging that was positive for left lower extremity DVT. Patient was initiated on heparin and has now been transition to oral Eliquis. Patient will continue 10 mg twice daily for 1 week and then titrate down to 5 mg twice daily thereafter. Patient was evaluated by physical therapy recommending rehab and patient is agreeable. Patient is also agreeable to no oncological care during ECF and oncology is aware. Patient will follow-up with oncology on discharge from ECF. Currently no reports of chest pain, no worsening shortness of breath, or palpitations. Patient is afebrile. No reports of nausea or vomiting and patient is tolerating diet. Patient will be going to [place] today. Overall guarded prognosis given significant comorbidities including pancreatic adenocarcinoma with metastasis. Physical exam: Gen: This is a 63-year-old female who is awake, alert and oriented x 3, well- developed, well-nourished, morbidly obese, elderly appearing, pale HEENT: Head is atraumatic, normocephalic. Pupils equal, round. Sclerae is anicteric. NECK: Supple. No JVD. No lymphadenopathy. No thyromegaly. LUNGS: Diminished breath sounds bilaterally otherwise clear to auscultation. No wheezes or rhonchi. No intercostal retractions. HEART: S1, S2 are muffled ABDOMEN: Soft. Obese. Bowel sounds are present. No masses. No tenderness. EXTREMITIES: No pedal edema. No calf tenderness. Bilateral lower extremity edema noted NEUROLOGICAL: Patient is awake, alert and oriented x3. Cranial nerves 2 through 12 are grossly intact. Diffusely weak Please refer to medication reconciliation sheet for a list of medications. The impression and plan of care has been dictated by Ashely León, Nurse Practitioner as directed. Dr. Hao MD I have performed a history and examination and MDM of this patient, discussed the same with the dictator, and agree with the dictator's assessment and plan as written ,documented as a scribe. Based on total visit time, I have performed more than 50% of the visit. Patient Condition at Discharge: Stable Plan - Discharge Summary Discharge Rx Participant: Yes New Discharge Prescriptions: New Apixaban [Eliquis Starter Pack (for VTE)] 5 - 10 mg PO DIRECTED 30 Days #1 each Sennosides-Docusate Sodium [Senokot-S] 1 each PO BID PRN tab PRN Reason: Constipation Lipase/Protease/Amylase [Zenpep Dr 20,000 Unit Capsule] 1 each PO AC-TID cap Furosemide [Lasix] 40 mg PO DAILY #30 tablet oxyCODONE HCL [OxyIR] 15 mg PO Q4HR PRN #4 tab PRN Reason: Pain Continue Levothyroxine Sodium [Synthroid] 50 mcg PO DAILY Ondansetron Odt [Zofran ODT] 4 mg PO Q8HR PRN PRN Reason: Nausea And Vomiting Budesonide/Formoterol Fumarate [Symbicort 160-4.5 Mcg Inhaler] 2 puff INHALATION RT-BID Potassium Chloride [Klor-Con M20] 20 meq PO DAILY Ondansetron [Zofran] 4 mg PO Q8HR PRN PRN Reason: Nausea And Vomiting Ipratropium-Albuterol Nebulize [Duoneb 0.5 mg-3 mg/3 ml Soln] 3 ml INHALATION DIRECTED Insulin Glargine,Hum.rec.anlog [Lantus Solostar Pen] 30 units SQ HS Atorvastatin [Lipitor] 40 mg PO HS Aspirin EC [Ecotrin Low Dose] 81 mg PO DAILY Ergocalciferol [Vitamin D2 (1250 Mcg = 45551 Iu)] 1,250 mcg PO FR Pantoprazole [Protonix] 40 mg PO DAILY rOPINIRole HCL [Requip] 2 mg PO HS Albuterol Sulfate [Albuterol Sulfate Hfa] 2 puff PO RT-Q6H PRN PRN Reason: Shortness Of Breath INSULIN ASPART (NovoLOG) [NovoLOG (formulary)] See Protocol SQ AC-TID Pyridoxine HCl (Vitamin B6) [Vitamin B-6] 100 mg PO DAILY Gabapentin 600 mg PO TID #6 tab Discontinued metFORMIN HCL 1,000 mg PO BID Furosemide [Lasix] 40 mg PO DAILY oxyCODONE HCL [oxyCODONE HCL (IR)] 5 mg PO Q6H PRN PRN Reason: Pain oxyCODONE HCL [oxyCODONE HCL (IR)] 10 mg PO HS PRN PRN Reason: Pain Discharge Medication List Aspirin EC [Ecotrin Low Dose] 81 mg PO DAILY 05/11/23 [History] Atorvastatin [Lipitor] 40 mg PO HS 05/11/23 [History] Ergocalciferol [Vitamin D2 (1250 Mcg = 24172 Iu)] 1,250 mcg PO FR 05/11/23 [History] Levothyroxine Sodium [Synthroid] 50 mcg PO DAILY 05/11/23 [History] Pantoprazole [Protonix] 40 mg PO DAILY 05/11/23 [History] Ondansetron Odt [Zofran ODT] 4 mg PO Q8HR PRN 06/13/23 [History] rOPINIRole HCL [Requip] 2 mg PO HS 06/13/23 [History] Albuterol Sulfate [Albuterol Sulfate Hfa] 2 puff PO RT-Q6H PRN 07/13/23 [History] Budesonide/Formoterol Fumarate [Symbicort 160-4.5 Mcg Inhaler] 2 puff INHALATION RT-BID 07/13/23 [History] INSULIN ASPART (NovoLOG) [NovoLOG (formulary)] See Protocol SQ AC-TID 07/13/23 [History] Pyridoxine HCl (Vitamin B6) [Vitamin B-6] 100 mg PO DAILY 07/13/23 [History] Insulin Glargine,Hum.rec.anlog [Lantus Solostar Pen] 30 units SQ HS 08/30/23 [History] Ipratropium-Albuterol Nebulize [Duoneb 0.5 mg-3 mg/3 ml Soln] 3 ml INHALATION DIRECTED 08/30/23 [History] Ondansetron [Zofran] 4 mg PO Q8HR PRN 08/30/23 [History] Potassium Chloride [Klor-Con M20] 20 meq PO DAILY 08/30/23 [History] Apixaban [Eliquis Starter Pack (for VTE)] 5 - 10 mg PO DIRECTED 30 Days #1 each 08/31/23 [Rx] Gabapentin 600 mg PO TID #6 tab 09/02/23 [Rx] Lipase/Protease/Amylase [Zenpep Dr 20,000 Unit Capsule] 1 each PO AC-TID cap 09/02/23 [Rx] Sennosides-Docusate Sodium [Senokot-S] 1 each PO BID PRN tab 09/02/23 [Rx] oxyCODONE HCL [OxyIR] 15 mg PO Q4HR PRN #4 tab 09/02/23 [Rx] Furosemide [Lasix] 40 mg PO DAILY #30 tablet 09/03/23 [Rx] Follow up Appointment(s)/Referral(s): Parth Merritt MD [Primary Care Provider] - 1-2 days Franchesca Louise MD [STAFF PHYSICIAN] - 4 Weeks Activity/Diet/Wound Care/Special Instructions: Patient is going to [facility] Activity as tolerated Follow-up with oncology once discharged from ECF Patient is agreeable to holding all oncological care until discharged from ECF Follow-up with cardiology outpatient Repeat CBC, CMP, magnesium in 2 to 3 days Continue monitoring Accu-Cheks before meals and at bedtime continue with sliding scale as needed along with long-acting insulin NovoLog sliding scale 0-150 equals 0 units 151-200 equals 2 units 201-250 equals 4 units 251-300 equals 6 units 301-350 equals 8 units 351-400 equals 10 units Please notify provider if blood sugar is 400 or above Patient okay for regular diet Discharge Disposition: TRANSFER TO SNF/ECF
[2023-09-03 07:40] LABS: Glucose,Whole Blood 70 mg/dL (70-110)
[2023-09-03] MEDS: FUROSEMIDE 40 MG TAB PO SCH (08:53)
[2023-09-03] MEDS ORDERED: FUROSEMIDE 40 MG TAB PO SCH (09:00)
[2023-09-03 10:06] LABS: ALT 61 U/L (8-44); AST 128 U/L (13-35); Albumin 2.3 g/dL (3.8-4.9); Albumin/Globulin Ratio 0.74 Ratio (1.60-3.17); Alkaline Phosphatase 387 U/L (41-126); BUN/Creat Ratio 17.71 Ratio (12.00-20.00); Blood Urea Nitrogen 12.4 mg/dL (9.0-27.0); Calcium 7.7 mg/dL (8.7-10.3); Carbon Dioxide 28.7 mmol/L (21.6-31.8); Chloride 98 mmol/L (96-109); Globulin 3.1 g/dL (1.6-3.3); Glucose 69 mg/dL (70-110); Magnesium 1.7 mg/dL (1.5-2.4); Potassium 3.7 mmol/L (3.5-5.5); Sodium 135 mmol/L (135-145); Total Bilirubin 1.6 mg/dL (0.3-1.2); Total Protein 5.4 g/dL (6.2-8.2)
[2023-09-03 12:14] LABS: Glucose,Whole Blood 156 mg/dL (70-110)
[2023-09-03 17:10] LABS: Glucose,Whole Blood 239 mg/dL (70-110)
[2023-09-03 20:50] LABS: Glucose,Whole Blood 252 mg/dL (70-110)
[2023-09-04 06:49] LABS: Glucose,Whole Blood 157 mg/dL (70-110)
[2023-09-04] MEDS ORDERED: BENZONATATE 100 MG CAP PO PRN (10:46)
[2023-09-04] MEDS ORDERED: BENZOCAINE/MENTHOL LOZENG 1 EACH LOZENGE MUCOUS MEM PRN (10:46)
[2023-09-04] MEDS: guaiFENesin 600 MG TABLET.ER PO SCH (11:23)
[2023-09-04 12:03] LABS: Glucose,Whole Blood 161 mg/dL (70-110)
--- NOTE | 2023-09-04 13:50 | P.PN ---
Subjective Progress Note Date: 09/04/23 This is a pleasant 63-year-old female who was recently admitted with abdominal pain with nausea and vomiting with history of pancreatic cancer with hepatic mets. Oncology following and ordered repeat imaging including CTA and CT abdomen pelvis and was found to have bilateral pulmonary embolism without heart strain and Doppler of the lower extremities were ordered also showing a left lower extremity DVT from the CFV to the proximal calf veins. Patient was started on heparin and will discuss further with hematology/oncology regarding transitioning to oral anticoagulation. Patient reports her epigastric pain is slightly improved although continues with discomfort and is tolerating some diet slowly advancing as tolerated. Patient is currently afebrile with no reports of chest pain or worsening shortness of breath. Patient potassium slightly low and will replace per protocol. Encouraged oral intake and supplements between meals. Will have PT/OT therapy reevaluate the patient. 09/01/2023 Patient is seen in follow-up today and was able to get up and work with physical therapy and is currently sitting up in the chair. Patient has plans on returning to rehab for continued strength and mobility as patient wants to continue proceeding with oncological care and chemotherapy treatment. Patient has had multiple setbacks and increased weakness with continued abdominal pain after last treatment and unable to tolerate much and will follow-up with oncology once discharged from [facility] to resume treatment plan moving forward. Patient reports her abdominal pain is somewhat subsided and is attempting to avoid IV narcotics. Patient tolerating a little more and would like her diet advanced. Will monitor with advance diet and if having increased pain have discussed with the patient to decrease the diet. Patient is agreeable to this. Patient is afebrile with no reports of chest pain or worsening shortness of breath. Patient is maintained on IV Lasix with cardiology following and will tr ansition possibly to oral in the next 24 hours. Patient co-pay was verified for Eliquis and will be transitioned to oral anticoagulation and discontinue heparin. This was discussed with oncology as well. 09/02/2023 Patient is seen and evaluated in follow-up today and continues to report some abdominal discomfort although feels is improved. Oncology following with plans on following up outpatient. Diet has been advanced and tolerating and encourage small frequent meals. Cardiology following and patient was maintained on IV Lasix recommending to continue with another 24 hours as patient does continue to display significant lower extremity swelling. Patient reports is improving and her shortness of breath has improved as well. Patient is found to be on room air during exam. Recommend PT/OT therapy daily and plans on going to [facility]. Patient requires 3 night hospitalization according to Medicare guidelines. Possible discharge planning in 24 hours. 09/04/2023 Patient is evaluated today. Patient was unable to be discharged to subacute rehab yesterday as there was no insurance authorization yet. Patient continues to report mild discomfort to her right upper quadrant she is receiving pain medication for this. She was transition to p.o. Lasix daily by cardiology. She is complaining of a congestive cough. Review of systems: Constitutional: No reports of fatigue, fever, or chills Cardiovascular: No reports of chest pain or palpitations Respiratory: No reports of worsening shortness of breath GI: reports of occasional nausea, no reports of vomiting, reports continued mid abdominal pain although slight improvement from yesterday : No reports of dysuria or retention Neurovascular: reports of generalized weakness, reports feeling somewhat improved and was able to get up into the chair today Physical exam: Gen: This is a 63-year-old female who is awake, alert and oriented x 3, well- developed, elderly appearing, ill-appearing, morbidly obese HEENT: Head is atraumatic, normocephalic. Pupils equal, round. Sclerae is anicteric. NECK: Supple. No JVD. No lymphadenopathy. No thyromegaly. LUNGS: Diminished breath sounds bilaterally otherwise clear to auscultation. No wheezes or rhonchi. No intercostal retractions. HEART: S1, S2 are muffled ABDOMEN: Soft. Obese bowel sounds are present. No masses. tenderness noted on palpation. EXTREMITIES: No pedal edema. No calf tenderness. Bilateral lower extremity edema noted NEUROLOGICAL: Patient is awake, alert and oriented x3. Cranial nerves 2 through 12 are grossly intact. Diffusely weak Assessment: Chest pain and epigastric pain possibly secondary to malignancy, ruled out myocardial infarction Bilateral pulmonary embolism noted on CTA Left leg DVT involving the CFV down to the proximal calf veins as noted on Doppler Bilateral lower extremity edema, possibly a component of congestive heart failure with preserved EF, improving with Lasix Mild hyponatremia, secondary to diuresis Gait dysfunction History of pancreatic adenocarcinoma with metastasis History of cirrhosis of the liver Hypertension Hyperlipidemia Morbid obesity with a BMI of 43.9 GI prophylaxis DVT prophylaxis Full code Plan: Recommend to continue with current medications and management with oncology following. Patient underwent CT which revealed pulmonary emboli bilaterally and underwent venous Doppler noted to have a DVT on the left lower extremity. Patient follows with oncology although treatment has been on hold as patient did not tolerate very well and was at rehab to gain strength and mobility. Patient continues to have inability to ambulate and extreme weakness. Patient was agreeable with working with physical therapy today although significantly weak was able to get up into the chair next to the bed. Encouraged to increase activity as tolerated and recommend daily PT/OT therapy. Plans on going to rehab for strength and mobility. Case management following and has been accepted at [facility] Patient initiated on heparin drip and has been discontinued. Patient was transition to Eliquis 10 mg twice daily and will titrate down to 5 mg twice daily thereafter 1 week Encourage small frequent meals as tolerated, patient reports to tolerating advance diet although feels she ate too much dinner. Dis cussed with patient about cutting back on diet if having continued increased abdominal pain after eating. Patient will follow-up with oncology after rehab to discuss treatment plan moving forward. Patient is agreeable to no oncological care during ECF she wants to gain strength and mobility to return to having treatments in the outpatient setting. Recommend PT/OT therapy evaluation daily Follow-up on repeat labs and will replace electrolytes per protocol. Cardiology following for significant lower extremity edema and is maintained on IV Lasix twice daily recommending another 24 hours of monitoring and then transition to Lasix daily on discharge. Encouraged the patient to increase activity as tolerated and elevate lower extremities while at rest. Recommend follow-up labs in the outpatient setting to monitor kidney functions and electrolytes. Overall prognosis remains guarded at this time. Possible discharge planning in the next 24 hours to [facility]. The impression and plan of care has been dictated by Pippa Marino Nurse Practitioner as directed. Dr. Hao MD I have performed a history and physical examination and medical decision making of this patient, discussed the same with the dictator, and agree with the dictators assessment and plan as written, documented as a scribe. Based on total visit time, I have performed more than 50% of this visit. Objective - Vital Signs Vital signs: Vital Signs Temp 98.0 F 09/04/23 01:47 Pulse 88 09/04/23 01:47 Resp 20 09/04/23 01:47 BP 96/59 09/04/23 01:47 Pulse Ox 94 L 09/04/23 01:47 FiO2 Intake & Output 09/03/23 09/04/23 09/04/23 18:59 06:59 18:59 Other: Voiding Method Bedside Commode Bedside Commode # Voids 2 1 # Bowel Movements 1 - Labs CBC & Chem 7: 09/02/23 10:42 09/03/23 06:16 Labs: Abnormal Lab Results - Last 24 Hours (Table) 09/03/23 09/03/23 09/03/23 Range/Units 06:16 12:13 17:08 Glucose 69 L (70-110) mg/dL POC Glucose (mg/dL) 156 H 239 H (70-110) mg/dL Calcium 7.7 L (8.7-10.3) mg/dL Total Bilirubin 1.6 H (0.3-1.2) mg/dL AST 128 H (13-35) U/L ALT 61 H (8-44) U/L Alkaline Phosphatase 387 H (41-126) U/L Total Protein 5.4 L (6.2-8.2) g/dL Albumin 2.3 L (3.8-4.9) g/dL Albumin/Globulin Ratio 0.74 L (1.60-3.17) Ratio 09/03/23 09/04/23 Range/Units 20:42 06:47 Glucose (70-110) mg/dL POC Glucose (mg/dL) 252 H 157 H (70-110) mg/dL Calcium (8.7-10.3) mg/dL Total Bilirubin (0.3-1.2) mg/dL AST (13-35) U/L ALT (8-44) U/L Alkaline Phosphatase (41-126) U/L Total Protein (6.2-8.2) g/dL Albumin (3.8-4.9) g/dL Albumin/Globulin Ratio (1.60-3.17) Ratio Assessment and Plan Time with Patient: Less than 30
[2023-09-04 17:01] LABS: Glucose,Whole Blood 185 mg/dL (70-110)
[2023-09-04 20:00] LABS: Glucose,Whole Blood 227 mg/dL (70-110)
[2023-09-05 07:32] LABS: Glucose,Whole Blood 81 mg/dL (70-110)
[2023-09-05 10:46] LABS: BUN/Creat Ratio 16.75 Ratio (12.00-20.00); Blood Urea Nitrogen 13.4 mg/dL (9.0-27.0); Calcium 7.8 mg/dL (8.7-10.3); Carbon Dioxide 28.8 mmol/L (21.6-31.8); Chloride 99 mmol/L (96-109); Glucose 74 mg/dL (70-110); Potassium 4.1 mmol/L (3.5-5.5); Sodium 136 mmol/L (135-145)
--- NOTE | 2023-09-05 12:22 | P.DS ---
Providers Date of admission: 08/30/23 13:41 Expected date of discharge: 09/05/23 Attending physician: Ervin Penn Consults: 08/30/23 04:31 Consult Physician Urgent Consulting Provider: Brennon Luo Consult Reason/Comments: epigastric pain, pancreatic cancer Do you want consulting provider notified?: Yes Primary care physician: Parth geovanny [facility] Course: Final diagnosis Chest pain and epigastric pain possibly secondary to malignancy, ruled out myocardial infarction Bilateral pulmonary embolism noted on CTA Left leg DVT involving the CFV down to the proximal calf veins as noted on Doppler Bilateral lower extremity edema, possibly a component of congestive heart failure with preserved EF, improving with Lasix Mild hyponatremia, secondary to diuresis Gait dysfunction History of pancreatic adenocarcinoma with metastasis History of cirrhosis of the liver Hypertension Hyperlipidemia Morbid obesity with a BMI of 43.9 GI prophylaxis DVT prophylaxis Full code Discharge disposition Patient is being discharged in a stable condition with guarded prognosis to [facility] for continued PT/OT therapy. Patient will follow-up with Dr. Merritt in the outpatient setting upon discharge. Patient is to continue with Eliquis 10 mg twice daily for the next 1 week and then titrate to 5 mg twice daily thereafter. Recommend outpatient follow-up with cardiology as well as oncology as scheduled. Total time taken is greater than 35 minutes. Hospital course This is a 63-year-old female who was recently admitted with abdominal pain as well as chest pain being closely monitored with cardiology and oncology following. Patient does have history of pancreatic cancer recently underwent treatment in May although had some clinical setbacks and generalized weakness went to [facility] for strength and mobility. Patient reports she was recently discharged and went home and became more weak having worsening abdominal pain with eating. ACS was ruled out and patient was also started on Lasix for significant lower extremity swelling. Per cardiology, possible component of heart failure with preserved EF. No plans for interventions at this time recommending outpatient follow-up. Patient diuresing well showing some improvements in lower extremity swelling and recommend Lasix daily. Encouraged elevating lower extremities while at rest. Patient to follow-up with repeat labs to monitor kidney functions and electrolytes in the next 2 to [address] of the chest per oncology and was noted to have bilateral pulmonary embolism as well as venous Doppler imaging that was positive for left lower extremity DVT. Patient was initiated on heparin and has now been transition to oral Eliquis. Patient will continue 10 mg twice daily for 1 week and then titrate down to 5 mg twice daily thereafter. Patient was evaluated by physical therapy recommending rehab and patient is agreeable. Patient is also agreeable to no oncological care during ECF and oncology is aware. Patient will follow-up with oncology on discharge from ECF. Currently no reports of chest pain, no worsening shortness of breath, or palpitations. Patient is afebrile. No reports of nausea or vomiting and patient is tolerating diet. Patient will be going to [facility] today. Overall guarded prognosis given significant comorbidities including pancreatic adenocarcinoma with metastasis. 09/05/2023 Patient was held over from discharge on Tuesday as case management in the building were unsure of days left of availability for continued PT/OT therapy. Patient will be discharged today to [facility] and is agreeable to hold all oncological treatment until discharge from the ECF. Patient will follow-up with oncology and primary care provider once discharged from ECF. Physical exam: Gen: This is a 63-year-old female who is awake, alert and oriented x 3, well- developed, well-nourished, morbidly obese, elderly appearing, pale HEENT: Head is atraumatic, normocephalic. Pupils equal, round. Sclerae is anicteric. NECK: Supple. No JVD. No lymphadenopathy. No thyromegaly. LUNGS: Diminished breath sounds bilaterally otherwise clear to auscultation. No wheezes or rhonchi. No intercostal retractions. HEART: S1, S2 are muffled ABDOMEN: Soft. Obese. Bowel sounds are present. No masses. No tenderness. EXTREMITIES: No pedal edema. No calf tenderness. Bilateral lower extremity edema noted NEUROLOGICAL: Patient is awake, alert and oriented x3. Cranial nerves 2 through 12 are grossly intact. Diffusely weak Please refer to medication reconciliation sheet for a list of medications. The impression and plan of care has been dictated by Ashely León, Nurse Practitioner as directed. Dr. Hao MD I have performed a history and examination and MDM of this patient, discussed the same with the dictator, and agree with the dictator's assessment and plan as written ,documented as a scribe. Based on total visit time, I have performed more than 50% of the visit. Patient Condition at Discharge: Stable Plan - Discharge Summary Discharge Rx Participant: Yes (Management. Endocrinology naresh [place]) New Discharge Prescriptions: New Apixaban [Eliquis Starter Pack (for VTE)] 5 - 10 mg PO DIRECTED 30 Days #1 each Sennosides-Docusate Sodium [Senokot-S] 1 each PO BID PRN tab PRN Reason: Constipation Lipase/Protease/Amylase [Zenpep Dr 20,000 Unit Capsule] 1 each PO AC-TID cap Furosemide [Lasix] 40 mg PO DAILY #30 tablet oxyCODONE HCL [OxyIR] 15 mg PO Q4HR PRN #4 tab PRN Reason: Pain Continue Levothyroxine Sodium [Synthroid] 50 mcg PO DAILY Ondansetron Odt [Zofran ODT] 4 mg PO Q8HR PRN PRN Reason: Nausea And Vomiting Budesonide/Formoterol Fumarate [Symbicort 160-4.5 Mcg Inhaler] 2 puff INHALATION RT-BID Potassium Chloride [Klor-Con M20] 20 meq PO DAILY Ondansetron [Zofran] 4 mg PO Q8HR PRN PRN Reason: Nausea And Vomiting Ipratropium-Albuterol Nebulize [Duoneb 0.5 mg-3 mg/3 ml Soln] 3 ml INHALATION DIRECTED Insulin Glargine,Hum.rec.anlog [Lantus Solostar Pen] 30 units SQ HS Atorvastatin [Lipitor] 40 mg PO HS Aspirin EC [Ecotrin Low Dose] 81 mg PO DAILY Ergocalciferol [Vitamin D2 (1250 Mcg = 91483 Iu)] 1,250 mcg PO FR Pantoprazole [Protonix] 40 mg PO DAILY rOPINIRole HCL [Requip] 2 mg PO HS Albuterol Sulfate [Albuterol Sulfate Hfa] 2 puff PO RT-Q6H PRN PRN Reason: Shortness Of Breath INSULIN ASPART (NovoLOG) [NovoLOG (formulary)] See Protocol SQ AC-TID Pyridoxine HCl (Vitamin B6) [Vitamin B-6] 100 mg PO DAILY Gabapentin 600 mg PO TID #6 tab Discontinued metFORMIN HCL 1,000 mg PO BID Furosemide [Lasix] 40 mg PO DAILY oxyCODONE HCL [oxyCODONE HCL (IR)] 5 mg PO Q6H PRN PRN Reason: Pain oxyCODONE HCL [oxyCODONE HCL (IR)] 10 mg PO HS PRN PRN Reason: Pain Discharge Medication List Aspirin EC [Ecotrin Low Dose] 81 mg PO DAILY 05/11/23 [History] Atorvastatin [Lipitor] 40 mg PO HS 05/11/23 [History] Ergocalciferol [Vitamin D2 (1250 Mcg = 98963 Iu)] 1,250 mcg PO FR 05/11/23 [History] Levothyroxine Sodium [Synthroid] 50 mcg PO DAILY 05/11/23 [History] Pantoprazole [Protonix] 40 mg PO DAILY 05/11/23 [History] Ondansetron Odt [Zofran ODT] 4 mg PO Q8HR PRN 06/13/23 [History] rOPINIRole HCL [Requip] 2 mg PO HS 06/13/23 [History] Albuterol Sulfate [Albuterol Sulfate Hfa] 2 puff PO RT-Q6H PRN 07/13/23 [History] Budesonide/Formoterol Fumarate [Symbicort 160-4.5 Mcg Inhaler] 2 puff INHALATION RT-BID 07/13/23 [History] INSULIN ASPART (NovoLOG) [NovoLOG (formulary)] See Protocol SQ AC-TID 07/13/23 [History] Pyridoxine HCl (Vitamin B6) [Vitamin B-6] 100 mg PO DAILY 07/13/23 [History] Insulin Glargine,Hum.rec.anlog [Lantus Solostar Pen] 30 units SQ HS 08/30/23 [History] Ipratropium-Albuterol Nebulize [Duoneb 0.5 mg-3 mg/3 ml Soln] 3 ml INHALATION DIRECTED 08/30/23 [History] Ondansetron [Zofran] 4 mg PO Q8HR PRN 08/30/23 [History] Potassium Chloride [Klor-Con M20] 20 meq PO DAILY 08/30/23 [History] Apixaban [Eliquis Starter Pack (for VTE)] 5 - 10 mg PO DIRECTED 30 Days #1 each 08/31/23 [Rx] Gabapentin 600 mg PO TID #6 tab 09/02/23 [Rx] Lipase/Protease/Amylase [Zenpep Dr 20,000 Unit Capsule] 1 each PO AC-TID cap 09/02/23 [Rx] Sennosides-Docusate Sodium [Senokot-S] 1 each PO BID PRN tab 09/02/23 [Rx] oxyCODONE HCL [OxyIR] 15 mg PO Q4HR PRN #4 tab 09/02/23 [Rx] Furosemide [Lasix] 40 mg PO DAILY #30 tablet 09/03/23 [Rx] Follow up Appointment(s)/Referral(s): Parth Merritt MD [Primary Care Provider] - 1-2 days Franchesca Louise MD [STAFF PHYSICIAN] - 4 Weeks Activity/Diet/Wound Care/Special Instructions: Patient is going to [facility] as tolerated Follow-up with oncology once discharged from ECF Patient is agreeable to holding all oncological care until discharged from ECF Follow-up with cardiology outpatient Repeat CBC, CMP, magnesium in 2 to 3 days Continue monitoring Accu-Cheks before meals and at bedtime continue with sliding scale as needed along with long-acting insulin NovoLog sliding scale 0-150 equals 0 units 151-200 equals 2 units 201-250 equals 4 units 251-300 equals 6 units 301-350 equals 8 units 351-400 equals 10 units Please notify provider if blood sugar is 400 or above Patient okay for regular diet Discharge Disposition: TRANSFER TO SNF/ECF
[2023-09-05] MEDS: ONDANSETRON 4 MG/2 ML VIAL IVP PRN (12:42)
[2023-09-05 12:53] LABS: Glucose,Whole Blood 106 mg/dL (70-110)
[2023-09-05 14:20] VITALS: BP 115/73; PULSE 89; RESP 16; TEMP 97.8
--- NOTE | 2023-09-05 14:32 | P.PN ---
Subjective Progress Note Date: 09/05/23 Principal diagnosis: Abd pain, SOB. Isidro PE/LLE DVT. Met pancreatic adenocarcinoma In follow-up today patient reporting that she still has some epigastric pain, not as severe as on admit, she is tolerating oral intake, no N,V, she is using the pancreatic enzymes before larger meals. She is on the Eliquis and currently denies any bleeding. No moderate or severe swelling in the legs, no reported chest pain or difficulty in breathing. Patient is going to be discharged to [facility] soon. Objective - Vital Signs Vital signs: Vital Signs Temp 97.8 F 09/05/23 12:47 Pulse 89 09/05/23 12:47 Resp 16 09/05/23 12:47 BP 115/73 09/05/23 12:47 Pulse Ox 92 L 09/05/23 12:47 FiO2 Intake & Output 09/04/23 09/05/23 09/05/23 18:59 06:59 18:59 Intake Total 880 Balance 880 Intake: Oral 880 Other: Voiding Method Bedside Commode Bedside Commode Bedside Commode # Voids 3 2 # Bowel Movements 2 - Constitutional General appearance: Present: cooperative, no acute distress, obese - EENT Eyes: Present: anicteric sclerae, EOMI ENT: Present: hearing grossly normal - Respiratory Details: resp even and unlabored - Gastrointestinal General gastrointestinal: Present: tenderness Localized gastrointestinal: tender: epigastric periumbilical - Integumentary Integumentary: Present: pale - Neurologic Neurologic: Present: CNII-XII intact - Musculoskeletal Musculoskeletal: Present: generalized weakness - Psychiatric Psychiatric: Present: A&O x's 3, appropriate affect, intact judgment & insight - Labs CBC & Chem 7: 09/02/23 10:42 09/05/23 07:34 Labs: Abnormal Lab Results - Last 24 Hours (Table) 09/04/23 09/04/23 09/05/23 Range/Units 16:59 19:58 07:34 POC Glucose (mg/dL) 185 H 227 H (70-110) mg/dL Calcium 7.8 L (8.7-10.3) mg/dL Assessment and Plan (1) Epigastric pain Current Visit: Yes Status: Acute Priority: High Code(s): R10.13 - EPIGASTRIC PAIN SNOMED Code(s): 19932141 (2) Pancreatic cancer Current Visit: Yes Status: Acute Priority: High Code(s): C25.9 - MALIGNANT NEOPLASM OF PANCREAS, UNSPECIFIED SNOMED Code(s): 097789912 (3) Weakness Current Visit: Yes Status: Chronic Priority: High Code(s): R53.1 - WEAKNESS SNOMED Code(s): 71382057 (4) DVT (deep venous thrombosis) Current Visit: Yes Status: Acute Priority: High Onset Date: ~08/31/23 Code(s): I82.409 - ACUTE EMBOLISM AND THOMBOS UNSP DEEP VN UNSP LOWER EXTREMITY SNOMED Code(s): 123704435 (5) Pulmonary embolism Current Visit: Yes Status: Acute Priority: High Onset Date: ~08/31/23 Code(s): I26.99 - OTHER PULMONARY EMBOLISM WITHOUT ACUTE COR PULMONALE SNOMED Code(s): 06842666 Plan: Bilateral pulmonary emboli, left lower extremity DVT -Provoked, multifactorial including malignancy, recent fall. -CTA reporting small bilateral pulmonary emboli. BLE doppler for baseline, LLE DVT -No reported bleeding, Hgb stable at last check -Transitioned to oral anticoagulation, tolerating well. Copay acceptable Abdominal pain -Concern for disease progression. CT AP with contrast done, unfortunately unable to compare to imaging done before pt had any treatment as that was done at [facility] and she had MRCP at [place]. Just comparing reports though, there is no significant increase in size of masses and no new lesions reported. Calling stable disease at this time -Pt encouraged to use current pain medications available to max potential before increasing. She agreed. -Medications for prevention of narcotic induced constipation ordered but on hold for loose stool Pancreatic adenocarcinoma -Diagnosis and treatment as described in HPI. Patient has had only 2 treatments in since May 2023. She has had unfortunately very poor tolerance. -Patient having progressive abdominal discomfort, worsening LFTs, concern for progressive disease. CT AP with contrast report compared to reports of CTAP and MRCP done at other facilities, no significant growth and no gross new findings. Reviewed interpretation with pt previously -She is going to need to improve her performance status significantly if she wants to cont on palliative treatment. She wants to participate in rehab so, plan is to try and get her back into a rehab -She will need to f/u with Dr. Louise so he can assess her PS and have a discussion about treatment options available to her. Plan for appt after rehab.
== END 2023-09-05 14:54 | DRG 291 ==
LOC: EC 21:39 → 5NMEDONC 08-30 04:32 → OBSVTOIN 08-30 13:41 → 5NMEDONC 08-30 18:36
PROVIDERS: ADMIT Internal Medicine; ATTEND Internal Medicine
DX: I11.0 Hypertensive heart disease with heart failure (principal); I26.99 Other pulmonary embolism without acute cor pulmonale; I50.31 Acute diastolic (congestive) heart failure; C25.9 Malignant neoplasm of pancreas, unspecified; C78.7 Secondary malignant neoplasm of liver and intrahepatic bile duct; E87.1 Hypo-osmolality and hyponatremia; I82.402 Acute embolism and thrombosis of unspecified deep veins of left lower extremity; R18.8 Other ascites; Z68.41 Body mass index [BMI] 40.0-44.9, adult; E66.01 Morbid (severe) obesity due to excess calories; E78.5 Hyperlipidemia, unspecified; R07.89 Other chest pain; I25.10 Atherosclerotic heart disease of native coronary artery without angina pectoris; K21.9 Gastro-esophageal reflux disease without esophagitis; T50.2X5A Adverse effect of carbonic-anhydrase inhibitors, benzothiadiazides and other diuretics, initial encounter; W10.8XXA Fall (on) (from) other stairs and steps, initial encounter; E11.9 Type 2 diabetes mellitus without complications; Z79.4 Long term (current) use of insulin; Z79.51 Long term (current) use of inhaled steroids; Z79.82 Long term (current) use of aspirin; Z79.84 Long term (current) use of oral hypoglycemic drugs; Z79.890 Hormone replacement therapy; Z79.899 Other long term (current) drug therapy; Z85.07 Personal history of malignant neoplasm of pancreas; Z86.16 Personal history of COVID-19; Z92.21 Personal history of antineoplastic chemotherapy; Z95.0 Presence of cardiac pacemaker
CPT/HCPCS: 36415; 71045; 71275; 74176; 74177; 80048; 80053; 80171; 82150; 82272; 83690; 83735; 84484; 85025; 85610; 85730; 93005; 93306; 93970; 94640; 94760; 96361; 96372; 96374; 96375; 96376; 99285